=== PATIENT | male | born 1965 | race Caucasian/White ===

== ENCOUNTER 2023-10-12 15:36 | Inpatient (IN) | payer BC, SELFPAY ==
[2023-10-12] VITALS (44 sets, daily range): BP systolic 98–150; BP diastolic 56–108; PULSE 71–107; RESP 7–27; TEMP 36.5–36.6; O2SAT 93–98; BMI 27.9; BMI 27.8
--- NOTE | 2023-10-12 15:46 | XR_ITS ---
The [address] [address] Patient Name: TARA SANTANA MRN: [id number] date: 1965 Sex: M Assigned Patient Location: ER Current Patient Location: ER Accession/Order Number: [id number] Exam Date: 10/12/2023 16:30 Report Date: 10/12/2023 16:53 At the request of: IVON COWART Procedure: XR chest 1V EXAM: XR chest 1V HISTORY: Chest pain COMPARISON: Chest radiograph from 04/28/2020. FINDINGS: 1 view(s) of the chest. Persistent ill-defined opacification of the medial right lower lung. Given its persistence of across the course of multiple prior exams, this may represent prominent pericardial fat and is likely within normal limits. No focal consolidation or pleural effusion. There is no pneumothorax. The cardiomediastinal silhouette is normal given the AP technique. XR/XR chest 1V IMPRESSION: No acute cardiac pulmonary abnormality. Electronically authenticated by: JON HOYOS Date: 10/12/2023 16:53
--- NOTE | 2023-10-12 15:46 | ECG_ITS ---
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
[2023-10-12 16:19] LABS: Basophils Absolute Auto 0.1 10^3/uL (0.0-0.1); Basophils Percent Auto 0.7 % (0.2-2.0); Eosinophils Absolute Auto 0.1 10^3/uL (0.0-0.7); Eosinophils Percent Auto 1.1 % (0.9-7.0); Hematocrit 49.5 % (42.0-54.0); Hemoglobin 17.4 g/dL (14.0-18.0); Immature Granulocytes Abs Auto 0.04 10^3/uL (0.00-0.03); Immature Granulocytes Pct Auto 0.4 % (0.0-0.5); Lymphocytes Absolute Auto 3.1 10^3/uL (1.2-3.8); Lymphocytes Percent Auto 27.3 % (20.5-60.0); Mean Corpuscular HGB Conc 35.2 g/dL (29.9-35.2); Mean Corpuscular Hemoglobin 32.4 pg (25.9-34.0); Mean Corpuscular Volume 92.2 fL (80.0-94.0); Mean Platelet Volume 10.3 fL (9.5-13.5); Monocytes Percent Auto 8.5 % (1.7-12.0); Platelet Count 247 10^3/uL (150-450); Red Blood Count 5.37 10^6/uL (4.70-6.10); Red Cell Distribution Width 13.2 % (11.0-15.0); White Blood Count 11.4 10^3/uL (4.0-11.0)
[2023-10-12] MEDS: ASPIRIN 81 MG TAB.CHEW 162 MG PO (16:27)
[2023-10-12] MEDS: ONDANSETRON PF 4 MG/2 ML VIAL IV (16:27)
[2023-10-12] MEDS: NITROGLYCERIN 0.4 MG BOTTLE PO (16:27)
[2023-10-12 16:33] LABS: Alanine Aminotransferase 48 U/L (16-63); Albumin Level 4.2 g/dL (3.4-5.0); Alkaline Phosphatase 114 U/L (46-116); Anion Gap 15.4; Aspartate Amino Transferase 26 U/L (15-37); BUN Creatinine Ratio 17.6; Bilirubin Total 0.6 mg/dL (0.2-1.0); Calcium 9.9 mg/dL (8.5-10.1); Carbon Dioxide 26.6 mmol/L (21.0-32.0); Chloride 100 mmol/L (98-107); Estimated GFR (African America >60 (>=60); Estimated GFR (Non-African Ame >60 (>=60); Glucose 108 mg/dL (74-106); Sodium 138 mmol/L (136-145); Total Protein 8.2 g/dL (6.4-8.2)
[2023-10-12 16:39] LABS: Troponin I High Sensitivity 22.4 pg/mL (4.0-76.1)
[2023-10-12 16:49] LABS: Partial Thromboplastin Time 33.4 sec (22.3-36.2); Prothrombin Time 9.6 sec (9.0-11.6)
[2023-10-12 16:51] LABS: INR <0.93
[2023-10-12] MEDS: MORPHINE SULFATE 4 MG/ML VIAL IV (17:14)
[2023-10-12 18:49] LABS: Troponin I High Sensitivity 35.5 pg/mL (4.0-76.1)
--- NOTE | 2023-10-12 19:19 | ED.CHESTPAI1 ---
HPI - Chest Pain General Chief Complaint: Chest Pain Stated Complaint: CHEST PAIN Time Seen by Provider: 10/12/23 15:46 Source: patient Mode of arrival: Wheelchair Limitations: no limitations History of Present Illness HPI narrative: Patient is a 58-year-old male who presents to the emergency department for the evaluation of chest pain in the left anterior chest that began this morning. He states the pain radiates to the left arm. He has a history of coronary artery disease, CT x 1 in 2020 with 1 stent placed. He states his symptoms today are similar. He is a 1 pack/day cigarette smoker. He states he no longer takes his medications for high blood pressure and high cholesterol because he lost his job. He has minimal shortness of breath, no fevers, cough or congestion. He takes an 81 mg aspirin daily. No other anticoagulation. Related Data Home Medications Medication Instructions Recorded Confirmed No Known Home Medications 10/12/23 10/12/23 Allergies Allergy/AdvReac Type Severity Reaction Status Date / Time No Known Drug Allergies Allergy Verified 10/12/23 15:43 Review of Systems ROS Constitutional Denies: fever or chills Ears, nose, mouth, and throat Denies: throat pain or nasal congestion Cardiovascular Reports: chest pain Respiratory Reports: shortness of breath; Denies: cough Gastrointestinal Denies: abdominal pain, nausea or vomiting Genitourinary Denies: painful urination Musculoskeletal Denies: back pain or neck pain Integumentary/Breast Denies: rash Neurological Denies: headache PFSH PFS Social History Smoking status: Current every day smoker Exam Narrative Exam Narrative: Gen.: Awake, alert, in no distress Head: Normocephalic, atraumatic ENT: Moist mucous membranes Respiratory: No respiratory distress, lungs clear bilaterally Cardio: Regular rate and rhythm Gastrointestinal: Abdomen is soft, nondistended and nontender to palpation Extremities: Moves extremities equally, no pedal edema Psych: Normal mood and affect Neuro: No focal neuro deficit Skin: Warm, dry, intact Constitutional Vital Signs, click to edit/add: Last Vital Signs Temp 97.9 F 10/12/23 15:39 Pulse 97 H 10/12/23 17:40 Resp 17 10/12/23 17:40 BP 150/108 H 10/12/23 16:31 Pulse Ox 96 10/12/23 17:40 O2 Del Method Room Air 10/12/23 15:39 Course Vital Signs Vital signs: Vital Signs Temperature 97.9 F 10/12/23 15:39 Pulse Rate 99 H 10/12/23 15:39 Respiratory Rate 18 10/12/23 15:39 Blood Pressure 148/108 H 10/12/23 15:39 Pulse Oximetry 97 10/12/23 15:39 Oxygen Delivery Method Room Air 10/12/23 15:39 Temperature 97.9 F 10/12/23 15:39 Pulse Rate 97 H 10/12/23 17:40 Respiratory Rate 17 10/12/23 17:40 Blood Pressure 150/108 H 10/12/23 16:31 Pulse Oximetry 96 10/12/23 17:40 Oxygen Delivery Method Room Air 10/12/23 15:39 MDM - Chest Pain MDM Narrative Medical decision making narrative: Patient treated with aspirin, 1 sublingual nitroglycerin, morphine, Zofran. He had complete resolution of pain. Vital signs are stable in the ER, no EKG changes noted. Repeat troponin is also within normal limits. Based on the patient's medical history, noncompliance historically and coronary artery disease, we will admit for observation for chest pain rule out. Admitted to the hospitalist to stepdown. Medical Records Data Attestation: I reviewed the patient's medical records. Lab Data Attestation: I reviewed the patient's lab results. Labs: Lab Results 10/12/23 10/12/23 Range/Units 16:05 18:12 WBC 11.4 H (4.0-11.0) 10^3/uL RBC 5.37 (4.70-6.10) 10^6/uL Hgb 17.4 (14.0-18.0) g/dL Hct 49.5 (42.0-54.0) % MCV 92.2 (80.0-94.0) fL MCH 32.4 (25.9-34.0) pg MCHC 35.2 (29.9-35.2) g/dL RDW 13.2 (11.0-15.0) % Plt Count 247 (150-450) 10^3/uL MPV 10.3 (9.5-13.5) fL Neut % (Auto) 62.0 (43.0-75.0) % Lymph % (Auto) 27.3 (20.5-60.0) % [place] % (Auto) 8.5 (1.7-12.0) % Eos % (Auto) 1.1 (0.9-7.0) % Baso % (Auto) 0.7 (0.2-2.0) % Neut # (Auto) 7.0 H (1.4-6.5) 10^3/uL Lymph # (Auto) 3.1 (1.2-3.8) 10^3/uL [place] # (Auto) 1.0 H (0.3-0.8) 10^3/uL Eos # (Auto) 0.1 (0.0-0.7) 10^3/uL Baso # (Auto) 0.1 (0.0-0.1) 10^3/uL Abs Immat Gran (auto) 0.04 H (0.00-0.03) 10^3/uL Imm/Tot Granulo (auto) 0.4 (0.0-0.5) % PT 9.6 (9.0-11.6) sec INR <0.93 APTT 33.4 (22.3-36.2) sec Sodium 138 (136-145) mmol/L Potassium 4.0 (3.5-5.1) mmol/L Chloride 100 (98-107) mmol/L Carbon Dioxide 26.6 (21.0-32.0) mmol/L Anion Gap 15.4 BUN 18.0 (7.0-18.0) mg/dL Creatinine 1.02 (0.70-1.30) mg/dL Est GFR ( Amer) >60 (>=60) Est GFR (Non-Af Amer) >60 (>=60) BUN/Creatinine Ratio 17.6 Glucose 108 H (74-106) mg/dL Calcium 9.9 (8.5-10.1) mg/dL Total Bilirubin 0.6 (0.2-1.0) mg/dL AST 26 (15-37) U/L ALT 48 (16-63) U/L Alkaline Phosphatase 114 (46-116) U/L Troponin I High Sens 22.4 35.5 (4.0-76.1) pg/mL NT-Pro-B Natriuret Pep 59.0 (<=900.0) pg/mL Total Protein 8.2 (6.4-8.2) g/dL Albumin 4.2 (3.4-5.0) g/dL Globulin 4.0 g/dL Albumin/Globulin Ratio 1.0 Imaging Data Chest x-ray: Attestation: I have reviewed the pertinent imaging results. ECG Data Attestation: I personally reviewed and interpreted this ECG as follows: (Sinus tachycardia at a rate of 102, ST depression with no acute ST elevation, no ectopy. EKG reviewed by attending physician) ECG interpretation date: 10/12/23 ECG interpretation time: 19:25 Heart Score History: Moderately Suspicious ECG: NS Repolarization Age: >45-<65 years Risk Factors: >3 Risk Factors/ HX of CAD:2 Troponin: <Normal Limit Total Heart Score Recommendations & Risks:: 5 Discharge Plan Discharge Chief Complaint: Chest Pain Patient Disposition: Admitted as Observation Time of Disposition Decision: 19:20 Prescriptions / Home Meds: No Action No Known Home Medications Referrals: Physician,Non-Staff, MD [Primary Care Provider] - 1 week
--- NOTE | 2023-10-12 21:49 | CA_ITS ---
Patient Name: TARA SANTANA MR#: [id number] : 1965 Exam Date: 10/13/2023 Ordering Doctor: Kassi Shaffer ECHOCARDIOGRAM REPORT PROCEDURE: CA ECHO DOPPLER COMPLETE INDICATIONS: chest pain, look for wall motion abnormalities COMPARISON: None. DESCRIPTION: COMPLETE ECHOCARDIOGRAM Real-time transthoracic echocardiography with 2D, M-mode, spectral and color flow Doppler performed. QUALITY: Technical quality was good. LEFT VENTRICLE: Normal chamber size. Normal left ventricular wall thickness. Global left ventricular systolic function is mildly decreased. There is global hypokinesis. LV EF: Visual estimation of left ventricular ejection fraction is 45-50% DIASTOLIC: ATRIAL SEPTUM: LEFT ATRIUM: Normal chamber size. RIGHT ATRIUM: Mild dilatation. RIGHT VENTRICLE: Mild dilatation. Mildly reduced right ventricular systolic function. TRICUSPID VALVE: Normal mobility and thickness. No stenosis with mild regurgitation. No evidence of pulmonary hypertension. RVSP 27 mmHg MITRAL VALVE: Normal mobility and thickness. No evidence of mitral valve stenosis. There is no mitral annular calcification. Trivial mitral regurgitation. AORTIC VALVE: Normal trileaflet appearance. Mildly calcified aortic valve. Normal leaflet mobility. No evidence of aortic valve stenosis. No aortic regurgitation. AORTIC ROOT: Normal diameter and appearance. PULMONIC VALVE: Normal thickness and mobility. No stenosis. Trivial regurgitation. PERICARDIUM: No evidence of pericardial effusion. IVC: Collapses with inspirations. Normal size. PLEURA: CONCLUSION: 1. Left ventricular systolic function is mildly reduced with global hypokinesis. LVEF is estimated at 45 to 50%. 2. Mildly dilated right ventricle with mildly reduced systolic function. 3. Mild tricuspid regurgitation. 4. Normal right-sided pressures. 5. No pericardial effusion. Adult Echocardiography Procedure Report Left Ventricle LVEDD (3.7 - 5.6 cm): 4.93 cm LVESD (2.2 - 4.0 cm): 3.79 cm LVIVS thickness (0.6 - 1.2 cm): 0.90 cm LVPW thickness (0.5 - 1.0 cm): 0.90 cm e': 0.10 m/s E - e': 6.67 LVOT Max Gradient: 1.73 mm[Hg] LVOT Area (cm2): 0.66 m/s Peak Velocity (LVOT): 0.66 m/s Mean Velocity (LVOT): 0.41 m/s LVOT Diameter 2.06 cm Left Ventricular Ejection Fraction: 45-50 % Left Atrium LA Volume Index (2D A2C): 25.98 ml/m2 Left Atrium Systolic Dimension: 3.33 cm Mitral Valve MV E to A Ratio: 1.12 Mitral Valve A-Wave Peak Velocity: 0.59 m/s Mitral Valve E-Wave Peak Velocity: 0.66 m/s Right Ventricle RV Internal Diastolic Dimension: 4.17 cm Aorta AO Root Diam: 3.10 cm Ascending Ao Diam: 2.60 cm Aortic Valve AoV Area (Peak Mika): 1.62 cm2, 1.62 cm2 AoV Area (VTI): 1.72 cm2, 1.72 cm2 Peak Velocity(Antegrade Flow): 1.36 m/s Peak Gradient(Antegrade Flow): 7.40 mm[Hg] Mean Velocity(Antegrade Flow): 0.91 m/s Mean Gradient(Antegrade Flow): 3.91 mm[Hg] Velocity Time Integral: 25.20 cm Tricuspid Valve Peak Velocity (Regurgitant Flow): 2.00 m/s, 1.88 m/s, 2.47 m/s Pulmonic Valve Mean Gradient: 1.54 mm[Hg], 1.44 mm[Hg], 1.43 mm[Hg] Mean Velocity: 0.59 m/s, 0.57 m/s, 0.57 m/s Peak Velocity: 0.79 m/s Peak Gradient: 2.50 mm[Hg], 2.66 mm[Hg], 2.31 mm[Hg] Right Atrium Right Atrium Systolic Pressure: 72.25 ml, 72.25 ml Dictated by: Erick Fuentes M.D. on 10/13/2023 at 19:41 Approved by: Erick Fuentes M.D. on 10/13/2023 at 19:45
--- NOTE | 2023-10-12 22:11 | W.PM.TELEPN ---
Progress Note: Subjective Subjective Interval history: The patient is a 58-year-old male with a history of CAD status post stent, who was previously on blood pressure and cholesterol medications but has not taken it in over a year since he lost his job and has had to change insurance is. He continues to smoke a pack per day. Today he was in his usual state of health until earlier when he started having left anterior chest wall pain radiating to his left arm which was 7 and 10 in intensity, similar to his prior episodes. He denies any new medications. He did not take any medications to make the pain go away. He denies any heavy lifting. He presented to the ED and his initial blood pressure was 150/100. He was given 1 nitroglycerin, morphine and 2 aspirin. He is being admitted for chest pain evaluation. Exam Narrative Exam Narrative: General : Alert and oriented x3 HEENT : Extraocular movements intact, pupils equal round and reactive to light and accommodation Neck: Supple, no JVD Chest: Clear to auscultation bilaterally, no wheezes Heart: Regular rate and rhythm, S1 and S2 heard Abdomen: Soft nontender nondistended. Extremities: No clubbing cyanosis or edema Neurologically: Moving all 4 extremities Skin: No rashes Constitutional Vital Signs, click to edit/add: Last Vital Signs Temp 97.7 F 10/12/23 20:19 Pulse 79 10/12/23 20:30 Resp 16 10/12/23 20:28 BP 113/73 10/12/23 20:28 Pulse Ox 96 10/12/23 20:28 O2 Del Method Room Air 10/12/23 20:19 Progress Note: Objective Labs Labs: Short CBC 10/12/23 Range/Units 16:05 WBC 11.4 H (4.0-11.0) 10^3/uL Hgb 17.4 (14.0-18.0) g/dL Hct 49.5 (42.0-54.0) % Plt Count 247 (150-450) 10^3/uL BMP 10/12/23 16:05 Sodium 138 Potassium 4.0 Chloride 100 Carbon Dioxide 26.6 BUN 18.0 Creatinine 1.02 Glucose 108 H Calcium 9.9 Liver Function 10/12/23 Range/Units 16:05 Total Bilirubin 0.6 (0.2-1.0) mg/dL AST 26 (15-37) U/L ALT 48 (16-63) U/L Alkaline Phosphatase 114 (46-116) U/L Albumin 4.2 (3.4-5.0) g/dL Progress Note: A&P Assessment and Plan (1) Chest pain: Plan The patient is a 58-year-old male presenting with atypical chest pain. Atypical chest pain -Provide supportive care -Continue to cycle cardiac enzymes -Likely from effects of uncontrolled hypertension -Continue daily aspirin -Nitroglycerin and morphine as needed -Check lipid panel -Check urine drug screen -Continue on telemetry -Check echocardiogram to look for wall motion abnormalities -Outpatient stress test Uncontrolled hypertension -Start hydralazine IV as needed -May need to start scheduled outpatient regimen, pending what he is able to afford Nicotine dependence -Provide nicotine patch DVT Prophylaxis -Lovenox, SCDs Medication review -Medication reconciliation form completed Goals of care -Full code Communications -Discussed with the emergency room physician -Discussed with the bedside nurse -Patient updated of plan of care, all questions answered to their satisfaction Disposition -Home when medically stable -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 -I reviewed the patient's chart and had a discussion with the member of the patient's treatment team. -The patient and I mutually agreed with continuation of this evaluation via telemedicine. The patient consented for the telemedicine evaluation. -This virtual encounter was taken place from [place], [place]. The encounter was approximately 35 minutes. The nurse was present during the entire time of the encounter and was able to remove the stethoscope and appropriate directions. The patient was evaluated at [facility] Telemedicine Attestation Telemedicine Attestation I conducted this encounter from [] via secure live, [id number] video conference with the patient, located at [facility] with []. Prior to the interview, the risks and benefits of telemedicine were discussed with the patient and verbal consent was obtained.
[2023-10-12] MEDS: ASPIRIN 81 MG TAB.CHEW PO (22:40)
[2023-10-12] MEDS: ENOXAPARIN SODIUM 40 MG/0.4 ML SYRINGE SUBQ (22:40)
[2023-10-12 22:53] LABS: Troponin I High Sensitivity 774.8 pg/mL (4.0-76.1)
[2023-10-13] VITALS (40 sets, daily range): BP systolic 104–124; BP diastolic 71–83; PULSE 64–104; RESP 6–30; TEMP 36.2–36.7; O2SAT 93–100
[2023-10-13] MEDS: HEPARIN SODIUM,PORCINE/D5W 25,000 UNIT/500 ML IV.SOLN 17 UNIT IV (01:27)
[2023-10-13] MEDS: HEPARIN SODIUM (PORCINE) 5,000 UNIT/ML VIAL 4000 UNIT IV (01:27)
[2023-10-13 04:47] LABS: Basophils Absolute Auto 0.1 10^3/uL (0.0-0.1); Basophils Percent Auto 0.5 % (0.2-2.0); Eosinophils Absolute Auto 0.2 10^3/uL (0.0-0.7); Eosinophils Percent Auto 1.3 % (0.9-7.0); Hematocrit 47.8 % (42.0-54.0); Hemoglobin 15.9 g/dL (14.0-18.0); Immature Granulocytes Abs Auto 0.05 10^3/uL (0.00-0.03); Immature Granulocytes Pct Auto 0.4 % (0.0-0.5); Lymphocytes Absolute Auto 3.2 10^3/uL (1.2-3.8); Lymphocytes Percent Auto 28.1 % (20.5-60.0); Mean Corpuscular HGB Conc 33.3 g/dL (29.9-35.2); Mean Corpuscular Hemoglobin 31.2 pg (25.9-34.0); Mean Corpuscular Volume 93.9 fL (80.0-94.0); Mean Platelet Volume 10.8 fL (9.5-13.5); Monocytes Absolute Auto 0.8 10^3/uL (0.3-0.8); Monocytes Percent Auto 7.3 % (1.7-12.0); Neutrophils Absolute Auto 7.1 10^3/uL (1.4-6.5); Neutrophils Percent Auto 62.4 % (43.0-75.0); Platelet Count 232 10^3/uL (150-450); Red Blood Count 5.09 10^6/uL (4.70-6.10); Red Cell Distribution Width 13.2 % (11.0-15.0); White Blood Count 11.4 10^3/uL (4.0-11.0)
[2023-10-13 04:49] LABS: Anion Gap 11.8; BUN Creatinine Ratio 16.3; Calcium 9.1 mg/dL (8.5-10.1); Chloride 103 mmol/L (98-107); Estimated GFR (African America >60 (>=60); Estimated GFR (Non-African Ame >60 (>=60); Glucose 98 mg/dL (74-106); Potassium 3.8 mmol/L (3.5-5.1); Sodium 138 mmol/L (136-145)
[2023-10-13 04:58] LABS: Chol HDL Ratio 8.2; Cholesterol 270 mg/dL (<=200); HDL Cholesterol 33 mg/dL (40-60); Triglycerides 292 mg/dL (<=150); VLDL CHOLESTEROL 58.4 mg/dL
[2023-10-13 05:18] LABS: Troponin I High Sensitivity 950.5 pg/mL (4.0-76.1)
[2023-10-13 07:59] LABS: PTT Heparin Monitor 47.2 sec (48.2-68.6)
[2023-10-13] MEDS: ASPIRIN 81 MG TAB.CHEW PO (08:17)
[2023-10-13] MEDS: METOPROLOL TARTRATE 50 MG TABLET PO (08:17)
--- NOTE | 2023-10-13 10:10 | CM.NOTE ---
Rounding with Dr. Garcia, and his plan is to set up transfer to [facility] for cardiology.
--- NOTE | 2023-10-13 11:43 | P.HP_ITS ---
H&P: HPI History of Present Illness Chief complaint: Chest pain Narrative: 58 y/o male with history of CAD and stent placed in 2019 to ER with chest pain. Lost insurance and no medication for several months other than aspirin daily. Continues to smoke 1 PPD. Developed pain in left mid chest. Pain up towards neck and arm. C/o squeezing and heaviness. Mild SOB. To ER due to continued pain. Given NTG and aspirin and pain resolved. Initial BP 150/100 and given IV medication. Troponin negative x 2 and admitted. No pain since admission. Repeat troponin elevated at 754 and started heparin drip. Troponin continues to elevate and pain free. Review of Systems ROS Constitutional Denies: fever, chills or fatigue Cardiovascular Reports: chest pain; Denies: palpitations, edema or lightheadedness Respiratory Denies: shortness of breath, cough or wheezing Gastrointestinal Denies: abdominal pain, nausea, vomiting or diarrhea Genitourinary Denies: painful urination PFSH PFS Medical History (Updated 10/13/23 @ 13:31 by Warren Garcia MD) Chest pain ?R07.9 - Chest pain, unspecified (ICD-10) Hyperlipidemia ?E78.5 - Hyperlipidemia, unspecified (ICD-10) Myocardial infarction (~04/2020) ?I21.9 - Acute myocardial infarction, unspecified (ICD-10) Surgical History (Updated 10/12/23 @ 21:06 by Jamar Cannon) H/O arthroscopic knee surgery ?Z98.890 - Other specified postprocedural states (ICD-10) History of appendectomy (~1974) ?Z90.49 - Acquired absence of other specified parts of digestive tract (ICD- 10) History of elbow surgery ?Z98.890 - Other specified postprocedural states (ICD-10) History of foot surgery (~1989) ?Z98.890 - Other specified postprocedural states (ICD-10) History of heart artery stent (~04/2020) ?Z95.5 - Presence of coronary angioplasty implant and graft (ICD-10) History of tonsillectomy ?Z90.89 - Acquired absence of other organs (ICD-10) Social History (Updated 10/12/23 @ 21:09 by Jamar Cannon) Within the past year, how often did you have a drink containing alcohol: never Score interpretation: A score less than 4 is consistent with normal alcohol consumption. 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 Known occupational exposures/hazards: No Highest level of school completed/degree received: high school graduate Do you want help with school or training: No Are you now , , , , never or living with a partner: living with partner In a typical week, how many times do you talk on the telephone with family, friends, or neighbors: 3 or more times per week How often do you get together with friends or relatives: 3 or more times per week Little interest or pleasure in doing things: not at all Feeling down, depressed, or hopeless: not at all Feel stressed/tense/nervous/anxious/difficulty sleeping: not at all Do you think of yourself as: straight/heterosexual Gender Identity: male Meds Home Medications and Allergies Home Medications Medication Instructions Recorded Confirmed Type aspirin 81 mg tablet,delayed 81 mg PO DAILY 10/12/23 10/12/23 History release (Adult Low Dose Aspirin) Allergies Allergy/AdvReac Type Severity Reaction Status Date / Time No Known Drug Allergies Allergy Verified 10/12/23 15:43 Exam Constitutional Vital Signs, click to edit/add: Last Vital Signs Temp 97.8 F 10/13/23 08:04 Pulse 69 10/13/23 11:00 Resp 6 L 10/13/23 11:00 BP 120/78 10/13/23 07:39 Pulse Ox 99 10/13/23 06:00 O2 Del Method Room Air 10/13/23 08:04 Documenting provider has reviewed patient's vital signs: yes Common normals: no apparent distress, oriented x3 and alert HENMT Common normals: normocephalic Respiratory Common normals: normal respiratory effort and clear to auscultation bilaterally Cardio Common normals: regular rate, no gallops, no murmurs and no rub GI Common normals: Normal to inspection, nondistended, normoactive bowel sounds present and non-tender Extremity Common normals: no pedal edema Results Labs Labs: Short CBC 10/12/23 10/13/23 Range/Units 16:05 04:02 WBC 11.4 H 11.4 H (4.0-11.0) 10^3/uL Hgb 17.4 15.9 (14.0-18.0) g/dL Hct 49.5 47.8 (42.0-54.0) % Plt Count 247 232 (150-450) 10^3/uL BMP 10/12/23 10/13/23 16:05 04:02 Sodium 138 138 Potassium 4.0 3.8 Chloride 100 103 Carbon Dioxide 26.6 27.0 BUN 18.0 14.0 Creatinine 1.02 0.86 Glucose 108 H 98 Calcium 9.9 9.1 Liver Function 10/12/23 Range/Units 16:05 Total Bilirubin 0.6 (0.2-1.0) mg/dL AST 26 (15-37) U/L ALT 48 (16-63) U/L Alkaline Phosphatase 114 (46-116) U/L Albumin 4.2 (3.4-5.0) g/dL Assessment and Plan Assessment and Plan (1) NSTEMI (non-ST elevated myocardial infarction): (2) Hypertensive urgency: (3) CAD (coronary artery disease): (4) Hypertension: (5) Tobacco user: (6) Dyslipidemia: Plan Presented with CP and having NSTEMI with troponins elevating. Prior stent and no medication for months other than aspirin. BP uncontrolled and hypertensive urgency contributing to NSTEMI. Continue heparin drip. Discussed with cardiology and felt needs transferred for heart cath. Contacted [facility] where patient had stent placed and patient accepted for transfer. Patient transferred in stable condition.
[2023-10-13 12:27] LABS: Troponin I High Sensitivity 509.5 pg/mL (4.0-76.1)
[2023-10-13 14:17] LABS: PTT Heparin Monitor 46.3 sec (48.2-68.6)
== END 2023-10-13 17:30 | disposition short-term general hospital (02) | DRG 282 ==
LOC: ER 19:24 → ICU 20:18
PROVIDERS: Physician Assistant; Admitting Provider Internal Medicine; Emergency Provider Emergency Medicine; Visit Provider Family Medicine
DX: I21.4 Non-ST elevation (NSTEMI) myocardial infarction (principal); I25.10 Atherosclerotic heart disease of native coronary artery without angina pectoris; Z95.1 Presence of aortocoronary bypass graft; Z95.5 Presence of coronary angioplasty implant and graft; Z79.82 Long term (current) use of aspirin; F17.210 Nicotine dependence, cigarettes, uncomplicated; E78.5 Hyperlipidemia, unspecified; Z90.49 Acquired absence of other specified parts of digestive tract; I16.0 Hypertensive urgency; Z91.120 Patient's intentional underdosing of medication regimen due to financial hardship; I25.2 Old myocardial infarction; I10 Essential (primary) hypertension
CPT/HCPCS: 36415; 71045; 80048; 80053; 80061; 80307; 83880; 84484; 85025; 85610; 85730; 93005; 93306; 96372; 96374; 96375; 99285; G0378; Q3014

== ENCOUNTER 2024-04-04 10:05 | Inpatient (IN) | payer BC, SELFPAY ==
[2024-04-04] VITALS (30 sets, daily range): BP systolic 109–133; BP diastolic 68–89; PULSE 60–80; TEMP 36.6–36.7; O2SAT 90–99; BMI 27.8; BMI 26.0
--- NOTE | 2024-04-04 10:23 | ECG_ITS ---
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
--- NOTE | 2024-04-04 10:23 | XR_ITS ---
The [address] [address] Patient Name: TARA SANTANA MRN: [id number] date: 1965 Sex: M Assigned Patient Location: ER Current Patient Location: ER Accession/Order Number: [id number] Exam Date: 04/04/2024 10:35 Report Date: 04/04/2024 10:54 At the request of: JEMAL SALMERON Procedure: XR chest 2V EXAMINATION: XR chest 2V HISTORY: chest pain ; lower chest pain COMPARISON: No relevant comparison available. FINDINGS: LUNGS: Mild stranding within left lung base extending to the lateral wall. VASCULATURE: No increased pulmonary vasculature. PLEURA: No pneumothorax, effusion, or pleural thickening. CARDIAC: No cardiomegaly or cardiac silhouette abnormality. MEDIASTINUM: No visible mass or adenopathy. BONES: No fracture or visible bone lesion. OTHER: Negative. XR/XR chest 2V IMPRESSION: 1. Mild lingular infiltrates versus atelectasis; new since prior study. Electronically authenticated by: NAM ROMERO Date: 04/04/2024 10:54
--- OUTSIDE RECORDS SUMMARY | 2024-04-04 10:30 | XMS_ITS | CCD ---
Author Organization [facility] Care Team Providers Care [place] Name Role Phone ROSA ISELA LEONG Primary Care Unavailable PAY, ARNAUD Admitting Unavailable PAY, ARNAUD Attending Unavailable PAY, ARNAUD Consulting Unavailable Tomi Carrillo Consulting Unavailable HUSSAIN DIAZ Admitting Unavailable HUSSAIN DIAZ Attending Unavailable MISC, DOCTOR Primary Care Unavailable HUSSAIN DIAZ Consulting Unavailable RHIANNON CHRISTIANSON Consulting UnavailGIANNA Rogers Consulting Unavailable SHERRY QUIJANO Admitting Unavailable SHERRY QUIJANO Attending Unavailable SHERRY QUIJANO Consulting Unavailable Unknown, Referring Provider Unavailable Unav ailable Unavailable Unavailable NO FAMILY, PHYSICIAN Primary Care Provider Unava ilable SKINNY Munguia Attending Provider Shannan Munguia Unavailable NO FAMILY, PHYSICIAN Primary Care Provider Unava ilable MD Vasquez Mckinley Admit Provider MD Vasquez Mckinley Attending Provider Shannan Munguia Admitting Unavailable Shannan Munguia Attending Unavailable NO FAMILY, PHYSICIAN Primary Care Unavailable Michaela Gutierrez Consulting Unavailable Vasquez Mckinley Admitting Unavailable Vasquez Mckinley Attending Unavailable NO FAMILY, PHYSICIAN Primary Care Unavailable Blayne Ochoa Consulting Unavailable Rach Whitehead Consulting Unavailable Evelio Ragsdale Consulting Unavail able Sukhwinder Romano Consulting Unavailable Derek Ny Consulting Unavailab Sherry Stern Consulting Unavailable Agnes Ruiz Consulting Unavailable Joselyn Chong Consulting Unavailab Akash Spencer Consulting Unavailable Joyce Pierre Consulting Unavailable Nuvia Grayson Consulting Unavailable Unavailable Primary Care Provider Unavailabl e No Pcp, No Pcp Primary Care Provider Unavailabl e SHERRY CROWE Attending Unavailable MARY GRACE, EVELIO S Referring Unavailable MARY GRACE, EVELIO S Attending Unavailable SHERRY CROWE Referring Unavailable MARY GRACE, EVELIO S Referring Unavailable NO PCP, NO PCP Primary Care Unavailable MARY GRACE, EVELIO S Referring Unavailable NO PCP, NO PCP Primary Care Unavailable MARY GRACE, EVELIO S Referring Unavailable NO PCP, NO PCP Primary Care Unavailable MARY GRACE, EVELIO S Referring Unavailable NO PCP, NO PCP Primary Care Unavailable MARY GRACE, EVELIO S Referring Unavailable NO PCP, NO PCP Primary Care Unavailable MARY GRACE, EVELIO S Referring Unavailable NO PCP, NO PCP Primary Care Unavailable MARY GRACE, EVELIO S Referring Unavailable NO PCP, NO PCP Primary Care Unavailable MARY GRACE, EVELIO S Referring Unavailable NO PCP, NO PCP Primary Care Unavailable SHERRY DAVIS Referring Unavailable NO PCP, NO PCP Primary Care Unavailable MARY GRACE, EVELIO S Referring Unavailable NO PCP, NO PCP Primary Care Unavailable ANDRES CLARK Referring Unavailable NO PCP, NO PCP Primary Care Unavailable MARY GRACE, EVELIO S Referring Unavailable NO PCP, NO PCP Primary Care Unavailable MARY GRACE, EVELIO S Referring Unavailable NO PCP, NO PCP Primary Care Unavailable MARY GRACE, EVELIO S Referring Unavailable NO PCP, NO PCP Primary Care Unavailable MARY GRACE, EVELIO S Referring Unavailable NO PCP, NO PCP Primary Care Unavailable MARY GRACE, EVELIO S Referring Unavailable NO PCP, NO PCP Primary Care Unavailable MARY GRACE, EVELIO S Referring Unavailable NO PCP, NO PCP Primary Care Unavailable MARY GRACE, EVELIO S Referring Unavailable NO PCP, NO PCP Primary Care Unavailable MARY GRACE, EVELIO S Referring Unavailable NO PCP, NO PCP Primary Care Unavailable MARY GRACE, EVELIO S Referring Unavailable NO PCP, NO PCP Primary Care Unavailable MARY GRACE, EVELIO S Referring Unavailable NO PCP, NO PCP Primary Care Unavailable MARY GRACE, EVELIO S Referring Unavailable NO PCP, NO PCP Primary Care Unavailable MARY GRACE, EVELIO S Referring Unavailable NO PCP, NO PCP Primary Care Unavailable MARY GRACE, EVELIO S Referring Unavailable NO PCP, NO PCP Primary Care Unavailable MARY GRACE, EVELIO S Referring Unavailable NO PCP, NO PCP Primary Care Unavailable MARY GRACE, EVELIO S Referring Unavailable NO PCP, NO PCP Primary Care Unavailable MARY GRACE, EVELIO S Referring Unavailable NO PCP, NO PCP Primary Care Unavailable MARY GRACE, EVELIO S Referring Unavailable NO PCP, NO PCP Primary Care Unavailable MARY GRACE, EVELIO S Referring Unavailable NO PCP, NO PCP Primary Care Unavailable MARY GRACE, EVELIO S Referring Unavailable NO PCP, NO PCP Primary Care Unavailable MARY GRACE, EVELIO S Referring Unavailable NO PCP, NO PCP Primary Care Unavailable MARY GRACE, EVELIO S Referring Unavailable NO PCP, NO PCP Primary Care Unavailable MARY GRACE, EVELIO S Referring Unavailable NO PCP, NO PCP Primary Care Unavailable MARY GRACE, EVELIO S Referring Unavailable NO PCP, NO PCP Primary Care Unavailable MARY GRACE, EVELIO S Referring Unavailable NO PCP, NO PCP Primary Care Unavailable MARY GRACE, EVELIO S Referring Unavailable NO PCP, NO PCP Primary Care Unavailable MARY GRACE, EVELIO S Referring Unavailable NO PCP, NO PCP Primary Care Unavailable MARY GRACE, EVELIO S Referring Unavailable NO PCP, NO PCP Primary Care Unavailable MARY GRACE, EVELIO S Referring Unavailable NO PCP, NO PCP Primary Care Unavailable MARY GRACE, EVELIO S Referring Unavailable NO PCP, NO PCP Primary Care Unavailable MARY GRACE, EVELIO S Referring Unavailable NO PCP, NO PCP Primary Care Unavailable MARY GRACE, EVELIO S Referring Unavailable NO PCP, NO PCP Primary Care Unavailable MARY GRACE, EVELIO S Referring Unavailable NO PCP, NO PCP Primary Care Unavailable MARY GRACE, EVELIO S Referring Unavailable NO PCP, NO PCP Primary Care Unavailable MARY GRACE, EVELIO S Referring Unavailable NO PCP, NO PCP Primary Care Unavailable MARY GRACE, EVELIO S Referring Unavailable NO PCP, NO PCP Primary Care Unavailable MARY GRACE, EVELIO S Referring Unavailable NO PCP, NO PCP Primary Care Unavailable Medications Current Medications Medication Drug Class(es) Dates Sig (Normalized) Sig (Original) aspirin 81 mg delayed release oral tablet (5 sources) Platelet Aggregation Inhibitor, Nonsteroidal Anti-inflammatory Drug Start: 04-29-2020 take 1 tablet by mouth once daily Aspirin (Aspir-81) 81 mg Tablet,Delayed Release (Dr/Ec) Active 81 MG PO Daily April 28, 2020 11:00pm atorvastatin 80 mg oral tablet (8 sources) HMG-CoA Reductase Inhibitor Start: 04-30-2020 End: 02-29-2024 take 1 tablet by mouth once daily at bedtime atorvastatin (Lipitor) 80 mg tablet Indications: Coronary artery disease involving te-moak coronary artery of te-moak heart without angina pectoris , Mixed hyperlipidemia Take 1 tablet (80 mg) by mouth once daily at bedtime. 90 tablet 3 02/29/2024 Active clopidogrel 75 mg oral tablet (3 sources) P2Y12 Platelet Inhibitor Start: 10-15-2023 take 75 mg by mouth once daily Clopidogrel Active 75 MG PO Daily October 15, 2023 12:00am losartan potassium 25 mg oral tablet (3 sources) Angiotensin 2 Receptor Amanda Start: 10-15-2023 take 25 mg by mouth once daily in the morning Losartan Active 25 MG PO Every morning October 15, 2023 12:00am Low-Dose Aspirin (1 source) Low-Dose Aspirin Active metoprolol tartrate 25 mg oral tablet (8 sources) beta-Adrenergic Amanda Start: 04-30-2020 End: 02-29-2024 take 1 tablet by mouth twice daily metoprolol tartrate (Lopressor) 25 mg tablet Indications: Coronary artery disease involving te-moak coronary artery of te-moak heart without angina pectoris , Primary hypertension Take 1 tablet (25 mg) by mouth 2 times a day. 180 tablet 3 02/29/2024 Active nitroglycerin 0.4 mg sublingual tablet (5 sources) Nitrate Vasodilator Start: 11-24-2023 End: 11-23-2024 nitroglycerin (Nitrostat) 0.4 mg SL tablet Indications: NSTEMI (non-ST elevated myocardial infarction) (Multi) Place 1 tablet (0.4 mg) under the tongue every 5 minutes if needed for chest pain. May repeat dose every 5 minutes for up to 3 doses total. 100 tablet 11/24/2023 11/23/2024 Active Start: 10-15-2023 Nitroglycerin Active 0.4 MG SUBLINGUAL Q5M October 15, 2023 12:00am Start: 04-30-2020 End: 10-13-2023 Nitroglycerin Discontinued 0 .4 MG SUBLINGUAL Q5M April 29, 2020 11:00pm October 13, 2023 6:36pm Completed/Discontinued Medications Medication Drug Class(es) Dates Sig (Normalized) Sig (Original) fenofibrate 145 mg oral tablet (3 sources) Peroxisome Proliferator Receptor alpha Agonist Start: 05-23-2021 End: 11-24-2023 take 1 tablet by mouth once daily fenofibrate (Tricor) 145 mg tablet Take 1 tablet (145 mg) by mouth once daily. 0 05/23/2021 11/24/2023 Discontinued (Therapy completed) naproxen sodium 220 mg oral tablet (2 sources) Nonsteroidal Anti-inflammatory Drug Start: 04-29-2020 End: 04-30-2020 take 2 tablets by mouth once daily Naproxen Sodium (Aleve) 220 mg Tablet Discontinued 440 MG PO Daily April 28, 2020 11:00pm April 30, 2020 12:24pm ticagrelor 90 mg oral tablet (2 sources) Start: 04-30-2020 End: 10-13-2023 take 1 tablet by mouth twice daily Ticagrelor (Brilinta) 90 mg Tablet Discontinued 90 MG PO Twice daily 180 90 April 29, 2020 11:00pm October 13, 2023 6:36pm Problems Active Problems Problem Classification Problem Date Documented Date Episodic/Chronic Acute myocardial infarction (8 sources) Non-ST elevation (NSTEMI) myocardial infarction; Translations: [Myocardial infarction] Onset: 0 04-29-2020 Chronic Cancer; other and unspecified primary (2 sources) History of lipoma; Translations: [Personal history of other benign neoplasm] 04-29-2020 Episodic Chronic obstructive pulmonary disease and bronchiectasis (1 source) Chronic obstructive pulmonary disease, unspecified; Translations: [COPD UNSPECIFIED] Onset: 0 Chronic Coronary atherosclerosis and other heart disease (9 sources) Acute ischemic heart disease, unspecified; Translations: [Disorder of coronary artery] Onset: 0 11-24-2023 Chronic Disorders of lipid metabolism (13 sources) Hyperlipidemia, unspecified; Translations: [Hyperlipidemia] Onset: 0 11-24-2023 Chronic Disorders of lipid metabolism (1 source) Pure hypercholesterolemia, unspecified; Translations: [PURE HYPERCHOLESTEROLEMIA UNSPEC] Onset: 0 Essential hypertension (8 sources) Hypertensive disorder; Translations: [Unspecified essential hypertension] Onset: 3 11-24-2023 Chronic Other injuries and conditions due to external causes (1 source) Injury, unspecified, initial encounter Episodic Other nutritional; endocrine; and metabolic disorders (1 source) Overweight; Translations: [OVERWEIGHT] Onset: 0 Chronic Other nutritional; endocrine; and metabolic disorders (7 sources) Overweight in adulthood with body mass index of 25 or more but less than 30; Translations: [Overweight] Onset: 4 Resolved: 4 11-24-2023 Episodic Other nutritional; endocrine; and metabolic disorders (2 sources) Body mass index (BMI) 26.0-26.9, adult; Translations: [Body mass index (BMI) 26.0-26.9, adult] Onset: 4 Episodic Substance-related disorders (13 sources) Nicotine dependence, cigarettes, uncomplicated; Translations: [Smokes tobacco daily] Onset: 0 04-29-2020 Chronic Comment on above: 1/2 ppd; Superficial injury; contusion (2 sources) Contusion of left upper arm, initial encounter; Translations: [Contusion of left forearm, subsequent encounter] Episodic Unclassified (1 source) Unspecified injury of left forearm, initial encounter; Translations: [Unspecified injury of left forearm, initial encounter] Onset: 3 Past or Other Problems Problem Classification Problem Date Documented Da te Episodic/Chronic Nonspecific chest pain (5 sources) Chest pain, unspecified; Translations: [CHEST PAIN UNSPECIFIED] Onset: 04-28-2020 Episodic Other nutritional; endocrine; and metabolic disorders (3 sources) Body mass index (BMI) 27.0-27.9, adult; Translations: [BODY MASS INDEX BMI 27.0-27.9 ADULT] Onset: 08-27-2020 Episodic Residual codes; unclassified (1 source) Procedure and treatment not carried out because of patient's decision for other reasons; Translations: [PROC AND TX NOT CARRIED OUT PT OT RSN] Onset: 04-30-2020 Episodic Results Test Name Value Interpretation Reference Range Facility ALT No additional P-5'-P [Ca talytic activity/Vol]on 01-26-2024 ALT [Catalytic activity/Vol] 30 U/L Normal 0-40 [facility] Comment on above: Performed By: #### 1 744-2, 58100-8, 1920-06 #### [facility] ([id number]) [address], [address] [place] [address] Isma 01-26-2024 AST [Catalytic activity/Vol] 27 U/L Normal 0-41 [facility] Comment on above: Performed By: #### 1 744-2, 21903-2, 1920-06 #### [facility] ([id number]) [address] [address] [facility], [address] [place] [address] Lipid 1996 panelon 03-13-202 4 Cholesterol [Mass/Vol] 175 mg/dL Normal 150-200 [facility] Comment on above: Performed By: #### 1 744-2, 20208-2, 1920-06 #### [facility] ([id number]) [address], [address] [place] [address] Cholesterol in HDL [Mass/Vol] 38 mg/dL Low >39 [facility] Comment on above: Result Comment: HDL <40 mg/dL - High Risk HDL > or = 40mg/dL- Desirable HDL >60 mg/dL - Negative Risk Performed By: #### 1 744-2, 91448-2, 1920-06 #### [facility] ([id number]) [address], [address] [place] [address] Cholesterol in LDL [Mass/Vol] 90 mg/dL Normal <130 [facility] Comment on above: Result Comment: LDL <100 mg/dL - Desirable LDL >160 mg/dL - High Risk Performed By: #### 1 744-2, 05610-9, 1920-06 #### [facility] ([id number]) [address], [address] [place] [address] Cholesterol in VLDL [Mass/Vol] 47 mg/dL High 0-30 [facility] Comment on above: Performed By: #### 1 744-2, 41633-2, 1920-06 #### [facility] ([id number]) [address], [address] [place] [address] CHOLESTEROL:HDL 4.6 Normal 1.0-5.0 [facility] Comment on above: Performed By: #### 1 744-2, 31160-3, 1920-06 #### [facility] ([id number]) [address], [address] [place] [address] Triglyceride [Mass/Vol] 234 mg/dL High 27-150 [facility] Comment on above: Performed By: #### 1 744-2, 52909-4, 1920-06 #### [facility] ([id number]) [address], [address] [place] [address] Basic Metabolic Panelon 12-0 Anion gap [Moles/Vol] 11.2 mmol/L Normal 6.0-15.0 [facility] Comment on above: Performed By: #### H S TROP #### [facility] [address] Calcium [Mass/Vol] 9.3 mg/dL Normal 8.6-10.3 [facility] Comment on above: Performed By: #### H S TROP #### [facility] [address] [place] [address] [place] Chloride [Moles/Vol] 107 mmol/L Normal 98-107 [facility] Comment on above: Performed By: #### H S TROP #### [facility] [address] [place] [id number] [place] CO2 [Moles/Vol] 20.6 mmol/L Low 21.0-31.0 [facility] Comment on above: Performed By: #### H S TROP #### [facility] [address] [place] [id number] [place] Creatinine [Mass/Vol] 0.80 mg/dL Normal 0.70-1.[address] [facility] Comment on above: Performed By: #### H S TROP #### [facility] [address] [place] [address] [place] Creatinine Clr Calc Pharmacy 92.95 Normal [facility] Comment on above: Result Comment: PERF ORMED BY: [place] [address] PATHOLOGIST ENVIRONMENTAL LAW PROFESSOR JEFF LEMA M.D. Performed By: #### H S TROP #### [facility] [address] [place] [address] [place] GFR/1.73 sq M.predicted MDRD (S/P/Bld) [Vol rate/Area] mL/min/{1.73_m2} Normal [facility] Comment on above: Performed By: #### H S TROP #### [facility] [address] [place] [address] [place] Glucose [Mass/Vol] 79 mg/dL Normal 70-100 [facility] Comment on above: Result Comment: [facility] Glucose Reference Range is dependent on time and content of last meal. Glucose of more than 200 mg/dL in a nonstressed, ambulatory subject supports the diagnosis of Diabetes Mellitus. ADA recommended reference range Performed By: #### H S TROP #### [facility] [address] [place] [address] [place] Potassium [Moles/Vol] 3.8 mmol/L Normal 3.5-5.[address] [facility] Comment on above: Performed By: #### H S TROP #### [place] [address] [place] Sodium [Moles/Vol] 135 mmol/L Low 136-145 [facility] Comment on above: Performed By: #### H S TROP #### [place] [address] [place] Urea nitrogen [Mass/Vol] 22 mg/dL Normal 7-25 [facility] Comment on above: Performed By: #### H S TROP #### [place] [address] [place] Calcium [Mass/volume] in Ser um or PlasmaOrdered By: Blayne Ochoa on 10-15-2023 Calcium [Mass/Vol] 9.3 mg/dL 8.6-10.3 [facility] Carbon dioxide, total [Moles /volume] in Serum or PlasmaOrdered By: Blayne Ochoa on 10-15-2023 CO2 [Moles/Vol] 20.6 mmol/L 21.0-31.0 [facility] Chloride [Moles/volume] in S renata or PlasmaOrdered By: Blayne Ochoa on 10-15-2023 Chloride [Moles/Vol] 107 mmol/L 98-107 [facility] Creatinine [Mass/volume] in Serum or PlasmaOrdered By: Blayne Ochoa on 10-15-2023 Creatinine [Mass/Vol] 0.80 mg/dL 0.70-1.[address] [facility] Glucose [Mass/volume] in Ser um or PlasmaOrdered By: Blayne Ochoa on 10-15-2023 Glucose [Mass/Vol] 79 mg/dL 70-100 [facility] Comment on above: ADA recommended refe rence rangeRandom Glucose Reference Range is dependent on time and content of last meal. Glucose of more than 200 mg/dL in a nonstressed, ambulatory subject supports the diagnosis of Diabetes Mellitus. No Panel InformationOrdered By: Blayne Ochoa on 10-15-2023 Estimated GFR (CKD-EPI) > 60.0 mL/Min [facility] Creatinine Clearance (Chem 92.95 [facility] Potassium [Moles/volume] in Serum or PlasmaOrdered By: Blayne Ochoa on 10-15-2023 Potassium [Moles/Vol] 3.8 mmol/L 3.5-5.[address] [facility] Serum or plasma anion gap de terminationOrdered By: Blayne Ochoa on 10-15-2023 Anion gap [Moles/Vol] 11.2 mmol/L 6.0-15.0 [facility] Sodium [Moles/volume] in Ser um or PlasmaOrdered By: Blayne Ochoa on 10-15-2023 Sodium [Moles/Vol] 135 mmol/L 136-145 [facility] Troponin I High Sensitivityo n 10-15-2023 Troponin I High Sensitivity 118.4 pg/mL Off scale high 0.0-20.0 [facility] Comment on above: Result Comment: Crit ical Result : Called to and read back by: IFEOMA PINZON at: 10/14/2023 23:06:19 by:EMILIANO PERFORMED BY: [address] [place] [address] PATHOLOGIST ENVIRONMENTAL LAW PROFESSOR JEFF LEMA M.D. Performed By: #### H S TROP #### [facility] [address] Urea nitrogen [Mass/volume] in Serum or PlasmaOrdered By: Blayne Ochoa on 10-15-2023 Urea nitrogen [Mass/Vol] 22 mg/dL 06-08 [facility] A1C with Estimated Average Deven flanagan 10-14-2023 Glucose [Mass/Vol] 111 mg/dL Normal [facility] Comment on above: Result Comment: PERF ORMED BY: [facility] [address] [place] [address] PATHOLOGIST ENVIRONMENTAL LAW PROFESSOR JEFF LEMA M.D. Performed By: #### H S TROP #### [facility] [address] [place] [address] HbA1c (Bld) [Mass fraction] 5.5 % Normal 4.3-5.6 [facility] Comment on above: Result Comment: Incr eased risk for diabetes: 5.7 - 6.4 diabetes: >6.4 glycemic control for adults with diabetes: <7.0 Performed By: #### H S TROP #### [facility] [address] [place] [address] Activated partial thrombopla stin time (aPTT) in platelet poor plasma by coagulation aOrdered By: Vasquez Mckinley on 10-14-2023 aPTT Coag (PPP) [Time] 62.6 s 25.1-36.5 [facility] Comment on above: A hematocrit value g reater than 55% may lead to inaccurate results in coagulation testing. Patients having hematocrit values >55% require a special collection tube for coagulation studies. Please contact the laboratory at [phone] for redraw instructions. Alanine aminotransferase [En zymatic activity/volume] in Serum or PlasmaOrdered By: Vasquez Mckinley on 10-14-2023 ALT [Catalytic activity/Vol] 28 U/L [facility] Albumin [Mass/volume] in Ser um or Plasma by Bromocresol green (BCG) dye binding methoOrdered By: Vasquez Mckinley on 10-14-2023 Albumin BCG dye [Mass/Vol] 4.2 g/dL 3.5-5.7 [facility] Alkaline phosphatase [Enzyma tic activity/volume] in Serum or PlasmaOrdered By: Objeffrydabharath Osunaomar on 10-14-2023 ALP [Catalytic activity/Vol] 83 U/L 34-104 [facility] Aspartate aminotransferase [ Enzymatic activity/volume] in Serum or PlasmaOrdered By: Obaydah Daromar on 10-14-2023 AST [Catalytic activity/Vol] 23 U/L 13-39 [facility] B-Type Natriuretic Peptideon 10-14-2023 Natriuretic peptide B (Bld) [Mass/Vol] 51.0 pg/mL Normal 5-100 [facility] Comment on above: Result Comment: PERF ORMED BY: [place] [address] PATHOLOGIST ENVIRONMENTAL LAW PROFESSOR JEFF LEMA M.D. Performed By: #### H S TROP #### [address] Basophils Auto (Bld) [#/Vol] Ordered By: Obdeneen Osunaomar on 10-14-2023 Basophils (Bld) [#/Vol] 0.1 10*3/uL 0.0-0.2 [facility] Basophils/100 WBC Auto (Bld) Ordered By: Objeffrydah Enrriqueomar on 10-14-2023 Basophils/100 WBC (Bld) 1.1 % . [facility] Bilirubin.total [Mass/volume ] in Serum or PlasmaOrdered By: Objeffrydah Enrriqueomar on 10-14-2023 Bilirubin [Mass/Vol] 0.8 mg/dL 0.3-1.0 [facility] Cholesterol [Mass/volume] in Serum or PlasmaOrdered By: Objeffrydah Enrriqueomar on 10-14-2023 Cholesterol [Mass/Vol] 279 mg/dL 140-200 [facility] Comment on above: Chol less than 200 m g/dl low riskChol 201-239 mg/dl borderline riskChol 240 mg/dl and greater high risk Cholesterol in LDL Calc [Mas s/Vol]Ordered By: Objeffrydah Enrriqueomar on 10-14-2023 Cholesterol in LDL [Mass/Vol] 195 mg/dL 0-100 [facility] Comment on above: LDL ATP III CLASSIFI CATIONLDL less than 100 mg/dL OptimalLDL 100-129 mg/dL Near or above optimalLDL 130-159 mg/dL Borderline highLDL 160-189 mg/dL HighLDL greater than 189 mg/dL Very high Cholesterol in VLDL Calc [Ma ss/Vol]Ordered By: Vasquez Mckinley on 10-14-2023 Cholesterol in VLDL [Mass/Vol] 50 mg/dL [facility] Complete Blood Count Auto Di ffon 10-14-2023 Basophils (Bld) [#/Vol] 0.1 10*3/uL Normal 0.0-0.2 [facility] Comment on above: Result Comment: PERF ORMED BY: [place] [address] PATHOLOGIST ENVIRONMENTAL LAW PROFESSOR JEFF LEMA M.D. Performed By: #### L IPID, CMP, A1C WTH eA, CBC, MG #### [facility] [address] [place] [address] [place] Basophils/100 WBC (Bld) 1.1 % Normal . F [facility] Comment on above: Performed By: #### L IPID, CMP, A1C WTH eA, CBC, MG #### [facility] [address] [place] [address] [place] Eosinophils (Bld) [#/Vol] 0.1 10*3/uL Normal 0.0-0.45 [facility] Comment on above: Performed By: #### L IPID, CMP, A1C WTH eA, CBC, MG #### [facility] [address] [place] [address] [place] Eosinophils/100 WBC (Bld) 1.5 % Normal . [facility] Comment on above: Performed By: #### L IPID, CMP, A1C WTH eA, CBC, MG #### [facility] [address] [place] [address] [place] Erythrocyte distribution width (RBC) [Ratio] 13.7 % Normal 12.0-14.8 [facility] Comment on above: Performed By: #### L IPID, CMP, A1C WTH eA, CBC, MG #### [facility] [address] Hematocrit (Bld) [Volume fraction] 48.4 % Normal 38.8-50.0 [facility] Comment on above: Performed By: #### L IPID, CMP, A1C WTH eA, CBC, MG #### [facility] [address] Hemoglobin (Bld) [Mass/Vol] 16.6 g/dL Normal 13.0-17.0 [facility] Comment on above: Performed By: #### L IPID, CMP, A1C WTH eA, CBC, MG #### [address] Lymphocytes (Bld) [#/Vol] 2.9 10*3/uL Normal 1.00-4.8 [facility] Comment on above: Performed By: #### L IPID, CMP, A1C WTH eA, CBC, MG #### [address] Lymphocytes/100 WBC (Bld) 33.5 % Normal . [facility] Comment on above: Performed By: #### L IPID, CMP, A1C WTH eA, CBC, MG #### [address] MCH (RBC) [Entitic mass] 31.7 pg Normal 27.5-35.2 [facility] Comment on above: Performed By: #### L IPID, CMP, A1C WTH eA, CBC, MG #### [place] [address] [place] MCV (RBC) [Entitic vol] 92.6 fL Normal 83.5-101 [facility] Comment on above: Performed By: #### L IPID, CMP, A1C WTH eA, CBC, MG #### [address] Mean Corpuscular HGB Conc 34.2 g/dL Normal 32.5-35.6 [facility] Comment on above: Performed By: #### L IPID, CMP, A1C WTH eA, CBC, MG #### [facility] [address] [place] [address] [place] Monocytes (Bld) [#/Vol] 0.6 10*3/uL Normal 0.0-0.8 [facility] Comment on above: Performed By: #### L IPID, CMP, A1C WTH eA, CBC, MG #### [facility] [address] [place] [address] [place] Monocytes/100 WBC (Bld) 7.1 % Normal . [facility] Comment on above: Performed By: #### L IPID, CMP, A1C WTH eA, CBC, MG #### [facility] [address] [place] [address] [place] Neutrophils (Bld) [#/Vol] 5.0 10*3/uL Normal 1.8-7.7 [facility] Comment on above: Performed By: #### L IPID, CMP, A1C WTH eA, CBC, MG #### [facility] [address] [place] [address] [place] Neutrophils/100 WBC (Bld) 56.8 % Normal . [facility] Comment on above: Performed By: #### L IPID, CMP, A1C WTH eA, CBC, MG #### [facility] [address] [place] [address] [place] NRBC% 0.2 /100{WBC} Normal 0-0.5 [facility] Comment on above: Performed By: #### L IPID, CMP, A1C WTH eA, CBC, MG #### [facility] [address] [place] [address] [place] Platelet mean volume (Bld) [Entitic vol] 8.9 fL Normal 6.6-10.1 [facility] Comment on above: Performed By: #### L IPID, CMP, A1C WTH eA, CBC, MG #### [facility] [address] [place] [address] [place] Platelets (Bld) [#/Vol] 223 10*3/uL Normal 150-450 [facility] Comment on above: Performed By: #### L IPID, CMP, A1C WTH eA, CBC, MG #### [facility] [address] RBC (Bld) [#/Vol] 5.22 10*6/uL Normal 3.90-5.60 [facility] Comment on above: Performed By: #### L IPID, CMP, A1C WTH eA, CBC, MG #### [facility] [address] WBC (Bld) [#/Vol] 8.8 10*3/uL Normal 4.1-10.5 [facility] Comment on above: Performed By: #### L IPID, CMP, A1C WTH eA, CBC, MG #### [facility] [address] Comprehensive Metabolic Pane tere 10-14-2023 Albumin [Mass/Vol] 4.2 g/dL Normal 3.5-5.7 [facility] Comment on above: Performed By: #### L IPID, CMP, A1C WTH eA, CBC, MG #### [facility] [address] Albumin/Globulin [Mass ratio] 1.5 {ratio} Normal [facility] Comment on above: Performed By: #### L IPID, CMP, A1C WTH eA, CBC, MG #### [facility] [address] ALP [Catalytic activity/Vol] 83 U/L Normal 34-104 [facility] Comment on above: Performed By: #### L IPID, CMP, A1C WTH eA, CBC, MG #### [facility] [address] ALT [Catalytic activity/Vol] 28 U/L Normal 7-52 [facility] Comment on above: Performed By: #### L IPID, CMP, A1C WTH eA, CBC, MG #### [facility] [address] Anion gap [Moles/Vol] 10.8 mmol/L Normal 6.0-15.0 [facility] Comment on above: Performed By: #### L IPID, CMP, A1C WTH eA, CBC, MG #### [facility] [address] AST [Catalytic activity/Vol] 23 U/L Normal 13-39 [facility] Comment on above: Performed By: #### L IPID, CMP, A1C WTH eA, CBC, MG #### [facility] [address] Bilirubin [Mass/Vol] 0.8 mg/dL Normal 0.3-1.0 [facility] Comment on above: Performed By: #### L IPID, CMP, A1C WTH eA, CBC, MG #### [facility] [address] Calcium [Mass/Vol] 9.4 mg/dL Normal 8.6-10.3 [facility] Comment on above: Performed By: #### L IPID, CMP, A1C WTH eA, CBC, MG #### [facility] [address] Chloride [Moles/Vol] 106 mmol/L Normal 98-107 [facility] Comment on above: Performed By: #### L IPID, CMP, A1C WTH eA, CBC, MG #### [facility] [address] CO2 [Moles/Vol] 23.1 mmol/L Normal 21.0-31.0 [facility] Comment on above: Performed By: #### L IPID, CMP, A1C WTH eA, CBC, MG #### [facility] [address] [place] [address] [place] Creatinine [Mass/Vol] 0.73 mg/dL Normal 0.70-1.[address] [facility] Comment on above: Performed By: #### L IPID, CMP, A1C WTH eA, CBC, MG #### [facility] [address] [place] [address] [place] Creatinine Clr Calc Pharmacy 101.87 [facility] Comment on above: Performed By: #### L IPID, CMP, A1C WTH eA, CBC, MG #### [facility] [address] GFR/1.73 sq M.predicted MDRD (S/P/Bld) [Vol rate/Area] mL/min/{1.73_m2} Normal [facility] Comment on above: Performed By: #### L IPID, CMP, A1C WTH eA, CBC, MG #### [facility] [address] Globulin (S) [Mass/Vol] 2.8 g/dL Normal [facility] Comment on above: Performed By: #### L IPID, CMP, A1C WTH eA, CBC, MG #### [facility] [address] Glucose [Mass/Vol] 81 mg/dL Normal 70-100 [facility] Comment on above: Result Comment: [facility] Glucose Reference Range is dependent on time and content of last meal. Glucose of more than 200 mg/dL in a nonstressed, ambulatory subject supports the diagnosis of Diabetes Mellitus. ADA recommended reference range Performed By: #### L IPID, CMP, A1C WTH eA, CBC, MG #### [facility] [address] [place] [address] Potassium [Moles/Vol] 3.9 mmol/L Normal 3.5-5.[address] [facility] Comment on above: Performed By: #### L IPID, CMP, A1C WTH eA, CBC, MG #### [facility] [address] Protein [Mass/Vol] 7.0 g/dL Normal 6.4-8.9 [facility] Comment on above: Performed By: #### L IPID, CMP, A1C WTH eA, CBC, MG #### [address] Sodium [Moles/Vol] 136 mmol/L Normal 136-145 [facility] Comment on above: Performed By: #### L IPID, CMP, A1C WTH eA, CBC, MG #### [facility] [address] Urea nitrogen [Mass/Vol] 20 mg/dL Normal 7-25 [facility] Comment on above: Performed By: #### L IPID, CMP, A1C WTH eA, CBC, MG #### [facility] [address] Eosinophils Auto (Bld) [#/Vo l]Ordered By: Obdeneen Osunaomar on 10-14-2023 Eosinophils (Bld) [#/Vol] 0.1 10*3/uL 0.0-0.45 [facility] Eosinophils/100 WBC Auto (Bl d)Ordered By: Objeffrydabharath Osunaomar on 10-14-2023 Eosinophils/100 WBC (Bld) 1.5 % . [facility] Erythrocyte distribution wid th Auto (RBC) [Ratio]Ordered By: Vasquez Elizabethr on 10-14-2023 Erythrocyte distribution width (RBC) [Ratio] 13.7 % 12.0-14.8 [facility] Globulin Calc (S) [Mass/Vol] Ordered By: Vasquez Osunaomar on 10-14-2023 Globulin (S) [Mass/Vol] 2.8 g/dL [facility] Glucose mean value [Mass/vol ume] in Blood Estimated from glycated hemoglobinOrdered By: Vasquez Mckinley on 10-14-2023 Average glucose Estimated from glycated hemoglobin (Bld) [Mass/Vol] 111 mg/dL [facility] Hematocrit Auto (Bld) [Volum e fraction]Ordered By: Vasquez Mckinley on 10-14-2023 Hematocrit (Bld) [Volume fraction] 48.4 % 38.8-50.0 [facility] Hemoglobin A1c percentageOrd ered By: Vasquez Mckinley on 10-14-2023 HbA1c (Bld) [Mass fraction] 5.5 % 4.3-5.6 [facility] Comment on above: Increased risk for d iabetes: 5.7 - 6.4diabetes: >6.4glycemic control for adults with diabetes: <7.0 Hemoglobin [Mass/volume] in BloodOrdered By: Colbydabharath Elizabethr on 10-14-2023 Hemoglobin (Bld) [Mass/Vol] 16.6 g/dL 13.0-17.0 [facility] Leukocytes [#/volume] correc sean for nucleated erythrocytes in Blood by Automated counOrdered By: Vasquez Mckinley on 10-14-2023 WBC corrected for nucl RBC Auto (Bld) [#/Vol] 8.8 10*3/uL 4.1-10.5 [facility] Lipid Panelon 10-14-2023 Cholesterol [Mass/Vol] 279 mg/dL High 140-200 [facility] Comment on above: Result Comment: Chol less than 200 mg/dl low risk Chol 201-239 mg/dl borderline risk Chol 240 mg/dl and greater high risk Performed By: #### H S TROP #### [facility] [address] [place] [id number] [place] Cholesterol in HDL [Mass/Vol] 33 mg/dL Normal 23-92 [facility] Comment on above: Result Comment: HDL CHOL ATP-III CLASSIFICATION Cardiovascular Risk HDL > or equal to 60 mg/dL LOW HDL < 40 mg/dL HIGH Performed By: #### H S TROP #### [facility] [address] [place] [id number] [place] Cholesterol.total/Cynthia sterol in HDL [Mass ratio] 8.5 {ratio} Normal <5.0 [facility] Comment on above: Result Comment: PERF ORMED BY: [place] [address] PATHOLOGIST ENVIRONMENTAL LAW PROFESSOR JEFF LEMA M.D. Performed By: #### H S TROP #### [facility] [address] [place] [id number] [place] LDL Cholesterol,Calculated 195 mg/dL High 0-100 [facility] Comment on above: Result Comment: LDL ATP III CLASSIFICATION LDL less than 100 mg/dL Optimal LDL 100-129 mg/dL Near or above optimal LDL 130-159 mg/dL Borderline high LDL 160-189 mg/dL High LDL greater than 189 mg/dL Very high Performed By: #### H S TROP #### [facility] [address] [place] [id number] [place] Triglyceride w/Reflex 253 mg/dL High 0-[address] [facility] Comment on above: Result Comment: TRIG ATP III CLASSIFICATION TRIG less than 150 mg/dL Normal TRIG 150-199 mg/dL Borderline high TRIG 200-500 mg/dL High TRIG greater than 500 mg/dL Very high Standard traceable to the Center for Disease Conrtrol and Prevention (CDC) test method. Performed By: #### H S TROP #### [facility] [address] VLDL CHOLESTEROL 50 mg/dL Normal [facility] Comment on above: Performed By: #### H S TROP #### [facility] [address] Lymphocytes Auto (Bld) [#/Vo l]Ordered By: Objeffrydah Daromar on 10-14-2023 Lymphocytes (Bld) [#/Vol] 2.9 10*3/uL 1.00-4.8 [facility] Lymphocytes/100 WBC Auto (Bl d)Ordered By: Obaydah Daromar on 10-14-2023 Lymphocytes/100 WBC (Bld) 33.5 % . [facility] MCH Auto (RBC) [Entitic mass ]Ordered By: Objeffrydah Daromar on 10-14-2023 MCH (RBC) [Entitic mass] 31.7 pg 27.5-35.2 [facility] MCHC Auto (RBC) [Mass/Vol]Or dered By: Obaydah Daromar on 10-14-2023 MCHC (RBC) [Mass/Vol] 34.2 g/dL 32.5-35.[address] [facility] MCV Auto (RBC) [Entitic vol] Ordered By: Obaydah Daromar on 10-14-2023 MCV (RBC) [Entitic vol] 92.6 fL 83.5-101 [facility] Magnesiumon 10-14-2023 Magnesium [Mass/Vol] 2.6 mg/dL Normal 1.9-2.7 [facility] Comment on above: Performed By: #### L IPID, CMP, A1C WTH eA, CBC, MG #### [facility] [address] Magnesium [Mass/volume] in S renata or PlasmaOrdered By: Obdeneen Osunaomar on 10-14-2023 Magnesium [Mass/Vol] 2.6 mg/dL 1.9-2.7 [facility] Monocytes Auto (Bld) [#/Vol] Ordered By: Objeffrydabharath Osunaomar on 10-14-2023 Monocytes (Bld) [#/Vol] 0.6 10*3/uL 0.0-0.8 [facility] Monocytes/100 WBC Auto (Bld) Ordered By: Objeffrydah Enrriqueomar on 10-14-2023 Monocytes/100 WBC (Bld) 7.1 % . [facility] Natriuretic peptide B [Mass/ Vol]Ordered By: Objeffryda Enrriqueomar on 10-14-2023 Natriuretic peptide B (Bld) [Mass/Vol] 51.0 pg/mL 5-100 [facility] Neutrophils Auto (Bld) [#/Vo l]Ordered By: Objeffryda Daromar on 10-14-2023 Neutrophils (Bld) [#/Vol] 5.0 10*3/uL 1.8-7.7 [facility] Neutrophils/100 WBC Auto (Bl d)Ordered By: Objeffrydah Enrriqueomar on 10-14-2023 Neutrophils/100 WBC (Bld) 56.8 % . [facility] Nucleated erythrocytes [Pres ence] in Blood by Automated countOrdered By: deneen Elizabethr on 10-14-2023 Nucleated RBC Auto Ql (Bld) 0.2 /100{WBC} 0-0.5 [facility] Partial Thromboplastin Timeo n 10-14-2023 aPTT Coag (Bld) [Time] 62.6 s High 25.1-36.5 [facility] Comment on above: Result Comment: A he matocrit value greater than 55% may lead to inaccurate results in coagulation testing. Patients having hematocrit values >55% require a special collection tube for coagulation studies. Please contact the laboratory at [phone] for redraw instructions. PERFORMED BY: [facility] [place] [address] PATHOLOGIST ENVIRONMENTAL LAW PROFESSOR JEFF LEMA M.D. Performed By: #### P TT #### [facility] [address] [place] [address] aPTT Coag (Bld) [Time] 46.8 s High 25.1-36.5 [facility] Comment on above: Result Comment: A he matocrit value greater than 55% may lead to inaccurate results in coagulation testing. Patients having hematocrit values >55% require a special collection tube for coagulation studies. Please contact the laboratory at [phone] for redraw instructions. PERFORMED BY: [place] [address] PATHOLOGIST ENVIRONMENTAL LAW PROFESSOR JEFF LEMA M.D. Performed By: #### P TT #### [address] Platelet mean volume Auto (B ld) [Entitic vol]Ordered By: Obaydah Daromar on 10-14-2023 Platelet mean volume (Bld) [Entitic vol] 8.9 fL 6.6-10.1 [facility] Platelets Auto (Bld) [#/Vol] Ordered By: Obaydah Daromar on 10-14-2023 Platelets (Bld) [#/Vol] 223 10*3/uL 150-450 [facility] Protein [Mass/volume] in Ser um or PlasmaOrdered By: Obaydah Daromar on 10-14-2023 Protein [Mass/Vol] 7.0 g/dL 6.4-8.9 [facility] RBC Auto (Bld) [#/Vol]Ordere d By: Obaydah Daromar on 10-14-2023 RBC (Bld) [#/Vol] 5.22 10*6/uL 3.90-5.60 [facility] Serum or plasma albumin/glob ulin mass ratioOrdered By: Obaydah Daromar on 10-14-2023 Albumin/Globulin [Mass ratio] 1.5 {ratio} [facility] Serum or plasma high density lipoprotein (HDL) cholesterol measurementOrdered By: Obaydah Daromar on 10-14-2023 Cholesterol in HDL [Mass/Vol] 33 mg/dL 23-92 [facility] Comment on above: HDL CHOL ATP-III CLA SSIFICATION Cardiovascular RiskHDL > or equal to 60 mg/dL LOWHDL < 40 mg/dL HIGH Serum or plasma total choles terol/high density lipoprotein (HDL) cholesterol mass ratOrdered By: Vasquez Mckinley on 10-14-2023 Cholesterol.total/Cynthia sterol in HDL [Mass ratio] 8.5 {ratio} <5.0 [facility] Triglyceride [Mass/volume] i n Serum or PlasmaOrdered By: Vasquez Mckinley on 10-14-2023 Triglyceride [Mass/Vol] 253 mg/dL 0-149 [facility] Comment on above: TRIG ATP III CLASSIF ICATIONTRIG less than 150 mg/dL NormalTRIG 150-199 mg/dL Borderline highTRIG 200-500 mg/dL High TRIG greater than 500 mg/dL Very highStandard traceable to the Center for Disease Conrtrol and Prevention (CDC) test method. Troponin I High Sensitivityo n 10-14-2023 Troponin I High Sensitivity 113.0 pg/mL Off scale high 0.0-20.0 [facility] Comment on above: Result Comment: Crit ical Result : Called to and read back by: IFEOMA PINZON at: 10/14/2023 21:16:19 by:[id number] PERFORMED BY: [place] [address] PATHOLOGIST ENVIRONMENTAL LAW PROFESSOR JEFF LEMA M.D. Performed By: #### H S TROP #### [address] Troponin I High Sensitivity 109.9 pg/mL Off scale high 0.0-20.0 [facility] Comment on above: Result Comment: Crit ical Result : Called to and read back by: LEONEL CLEMENT at: 10/14/2023 19:00:01 by:[id number] PERFORMED BY: [place] [address] PATHOLOGIST ENVIRONMENTAL LAW PROFESSOR JEFF LEMA M.D. Performed By: #### H S TROP #### [facility] [address] [place], [place] [id number] [place] Troponin I High Sensitivity 113.4 pg/mL Off scale high 0.0-20.0 [facility] Comment on above: Result Comment: Crit ical Result : Called to and read back by: SOFIA FELIX at: 10/14/2023 17:15:58 by:JAMES PERFORMED BY: [place] [address] PATHOLOGIST ENVIRONMENTAL LAW PROFESSOR JEFF LEMA M.D. Performed By: #### H S TROP #### [facility] [address] [place] [address] [place] Troponin I High Sensitivity 124.2 pg/mL Off scale high 0.0-20.0 [facility] Comment on above: Result Comment: Crit ical Result : Called to and read back by: SAMEERA BUSTILLO at: 10/14/2023 05:23:41 by:[id number] PERFORMED BY: [place] [address] PATHOLOGIST ENVIRONMENTAL LAW PROFESSOR JEFF LEMA M.D. Performed By: #### H S TROP #### [facility] [address] [place] [address] Troponin I.cardiac [Mass/vol ume] in Serum or Plasma by Detection limit <= 0.01 ng/Ordered By: Blayne Ochoa on 10-14-2023 Troponin I.cardiac DL <= 0.01 ng/mL [Mass/Vol] 118.4 pg/mL 0.0-20.0 [facility] Comment on above: Critical Result : Ca lled to and read back by: IFEOMA PINZON at: 10/14/2023 23:06:19 by:EMILIANO WBC Auto (Bld) [#/Vol]Ordere d By: Vasquez Mckinley on 10-14-2023 WBC (Bld) [#/Vol] 8.8 10*3/uL 4.1-10.5 [facility] ECG 12 lead ECGon 10-13-2023 ECG 12 lead ECG [facility] [address] [place] [address] Electrocardiograph Report Signed Patient: Tara Hartmann MR#: [id number] : 1965 Acct:[id number] Age/Sex: 58 / M ADM Date: 10/13/23 Loc: Room: [address] [place] [address] Type: ADM IN Attending Dr: Vasquez Mckinley MD Ordering Provider: aVsquez Mckinley MD Date of Service: 10/13/23 ECG/ECG 12 lead ECG: chest pain Copies to: Test Reason : Blood Pressure : / mmHG Vent. Rate : 075 BPM Atrial Rate : 075 BPM P-R Int : 146 ms QRS Dur : 092 ms QT Int : 380 ms P-R-T Axes : 076 090 043 degrees QTc Int : 424 ms Normal sinus rhythm Rightward axis Borderline ECG No previous ECGs available Confirmed by JN CRUZ [facility] ([id number]) on 10/14/2023 2:24:25 PM Referred By: DR MCKINLEY Electronically Signed By:MAGEN RAGSDALE MD [facility] Transcribed By: MUS Signed By Evelio Ragsdale MD 10/14/23 1424 Normal [facility] Troponin I High Sensitivityo n 10-13-2023 Troponin I High Sensitivity 195.5 pg/mL Off scale high 0.0-20.0 [facility] Comment on above: Result Comment: Crit ical Result : Called to and read back by: SAMEERA BUSTILLO at: 10/13/2023 20:28:58 by:DELISA PERFORMED BY: [place] [address] PATHOLOGIST ENVIRONMENTAL LAW PROFESSOR JEFF LEMA M.D. Performed By: #### H S TROP #### [address] XR forearm LT 2V*on 02-24-20 XR forearm LT 2V* [facility] [address] [place] [address] XRay Report Signed Patient: Tara Hartmann MR#: [id number] : 1965 Acct:[id number] Age/Sex: 57 / M ADM Date: 02/23/23 [facility]: Type: [facility] Attending Dr: Shannan Munguia APRN Copies to: Shannan Munguia APRN Ordering Provider: Shannan Munguia APRN Date of Service: 02/23/23 XR/XR forearm LT 2V*: Injury LEFT FOREARM - 2 views CLINICAL HISTORY: Left forearm injury today. COMPARISON: None FINDINGS: Soft tissue swelling is noted. No acute bony process is seen. Joint spaces appear maintained. XR/XR forearm LT 2V* IMPRESSION: SOFT TISSUE SWELLING WITHOUT ACUTE BONY PROCESS. Impression dictated by: Zhen Holloway Jr., D.O.02/23/2023 6:12 PM Dictation Location: RADIO-PC-15 Transcribed By: [facility] 02/23/231811 Dictated By: Zhen Holloway Jr, DO 02/23/231811 Signed By: 02/23/231811 Normal [facility] XR forearm LT 2V* [facility] [employer] Other XR forearm LT 2V* [facility] [employer] Other XR forearm LT 2V* [address] [place] [address] [employer] Other XR forearm LT 2V* [place] [address] [employer] Other XR forearm LT 2V* XRay Report [employer] Other XR forearm LT 2V* Signed [employer] Other XR forearm LT 2V* Patient: Tara Hartmann MR#: [id number] [employer] Other XR forearm LT 2V* 9199 [employer] Other XR forearm LT 2V* : 1965 Acct:[id number] [employer] Other XR forearm LT 2V* Age/Sex: 57 / M ADM Date: 02/23/23 [employer] Other XR forearm LT 2V* Loc: X[facility]CLY Room: Type: REG CLI [employer] Other XR forearm LT 2V* Attending Dr: Shannan Munguia APRN [employer] Other XR forearm LT 2V* Copies to: Shannan Munguia APRN [employer] Other XR forearm LT 2V* Ordering Provider: Shannan Munguia APRN [employer] Other XR forearm LT 2V* Date of Service: 02/23/23 [employer] Other XR forearm LT 2V* XR/XR forearm LT 2V*: Injury [employer] Other XR forearm LT 2V* LEFT FOREARM - 2 views [employer] Other XR forearm LT 2V* CLINICAL HISTORY: Left forearm injury today. [employer] Other XR forearm LT 2V* COMPARISON: None [employer] Other XR forearm LT 2V* FINDINGS: [employer] Other XR forearm LT 2V* Soft tissue swelling is noted. No acute bony process is seen. Joint spaces appear maintained. [employer] Other XR forearm LT 2V* XR/XR forearm LT 2V* [employer] Other XR forearm LT 2V* IMPRESSION: [employer] Other XR forearm LT 2V* SOFT TISSUE SWELLING WITHOUT ACUTE BONY PROCESS. [employer] Other XR forearm LT 2V* Impression dictated by: Zhen Holloway Jr., D.O.02/23/2023 6:12 PM [employer] Other XR forearm LT 2V* Dictation Location: [facility] [employer] Other XR forearm LT 2V* Transcribed By: DORY 02/23/231811 [employer] Other XR forearm LT 2V* Dictated By: Zhen Holloway Jr, DO 02/23/231811 [employer] Other XR forearm LT 2V* Signed By: Claudy Costa [employer] Other XR forearm LT 2V* 02/23/231811 [employer] Other Office Visit (Cardiology)on 09-18-2021 Follow-up visit Diagnoses/Problems Assessed Coronary artery disease involving te-moak coronary artery 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.01) (I25.10) HTN (hypertension) (401.9) (I10) Hyperlipemia (272.4) (E78.5) Current every day smoker (305.1) (F17.200) 1/2 ppd Overweight with body mass index (BMI) of 27 to 27.9 in adult (278.02,V85.23) (E66.3,Z68.27) Orders Coronary artery disease involving te-moak coronary artery without angina pectoris Renew: Aspirin EC Low Dose 81 MG Oral Tablet Delayed Release; TAKE 1 TABLET DAILY Overweight with body mass index (BMI) of 27 to 27.9 in adult Healthy Weight Tips; Status:Complete - Retrospective Authorization; Done: 18Sep2021 SocHx: Current every day smoker Tobacco Use Screening; Status:Complete; Done: 18Sep2021 Unlinked Stop: Brilinta 90 MG Oral Tablet Patient Instructions By signing my name below, IStefany RN,Scribe Please bring all medicines, vitamins, and herbal supplements with you when you come to the office. Prescriptions will not be filled unless you are compliant with your follow up appointments or have a follow up appointment scheduled as per instruction of your physician. Refills should be requested at the time of your visit. Follow up in [8 ] months Chief Complaint TARA HARTMANN is being seen for a 6 month follow-up of. Patient is 56-year-old gentleman returns for routine follow-up and doing well he denies any chest pain, pressure, discomfort or nitrate usage or hospitalizations. He has ongoing tobacco use but it is cut down quite a bit but still we counseled him on tobacco cessation for over 3 minutes today. He has a history of non-STEMI with revascularization of the obtuse marginal branch in April 2020. He remains on DAPT therapy and guideline directed medical therapies. He does have underlying COPD and mild obesity. Recommendations, stop Brilinta, continue with aspirin 81 mg daily, follow-up in 8 to 12-month Surgical History Problems History of Appendectomy History of Cardiac catheterization with stent placement Denied: History of Complete colonoscopy History of Elbow surgery History of Foot surgery History of Knee surgery History of Tonsillectomy with adenoidectomy Current Meds Medication NameInstruction Aspirin EC Low Dose 81 MG Oral Tablet Delayed ReleaseTAKE 1 TABLET DAILY. Atorvastatin Calcium 80 MG Oral Tablettake 1 tablet by mouth at bedtime Brilinta 90 MG Oral Tablettake 1 tablet by mouth twice a day Fenofibrate 145 MG Oral Tablettake 1 tablet by mouth daily Metoprolol Tartrate 25 MG Oral Tablettake 1 tablet by mouth twice a day Allergies Medication No Known Drug Allergies Recorded By: Trena Morgan; 07/30/2021 5:27:36 PM Social History Problems Current every day smoker (305.1) (F17.200) 1/2 ppd Daily caffeine consumption, 4-5 servings a day No alcohol use No illicit drug use Review of Systems Constitutional: not feeling tired. Cardiovascular: no intermittent leg claudication and as noted in HPI. Respiratory: no cough and no shortness of breath. Gastrointestinal: no change in bowel habits and no blood in stools. Integumentary: no skin rashes. Neurological: no seizures and no frequent falls. All other systems have been reviewed and are negative for complaint. Vitals Vital Signs Recorded: 18Sep2021 09:48AM Heart Rate66, R Radial [id number], RUE, Sitting Ajjygosim18, RUE, Sitting Height5 ft 7 in [id number] lb BMI Uliylavmsl94.41 kg/m2 BSA Calculated1.91 Tobacco Usea) Yes Patient encouraged to stop using tobacco productsYes Fall Screeningc) Not medically indicated Physical Exam Constitutional: alert and in no acute distress. Neck: neck is supple, symmetric, trachea midline, no masses and no thyromegaly . Pulmonary: no increased work of breathing or signs of respiratory distress and lungs clear to auscultation. Cardiovascular: carotid pulses 2+ bilaterally with no bruit , JVP was normal, no thrills , regular rhythm, normal S1 and S2, no murmurs , pedal pulses 2+ bilaterally and no edema . Abdomen: abdomen non-tender, no masses and no hepatomegaly . Skin: skin warm and dry, normal skin turgor . Psychiatric judgment and insight is normal and oriented to person, place and time . Signatures Electronically signed by : Evelio Ochoa DO; Sep 18 2021 12:32PM EST (Author) Normal [employer] Tobacco Screening.on 021 Fall risk assessment c) Not medically indicated -[facility] 250 DO Work Phone: Tobacco use status CPHS a) Yes M P-[facility] 250 DO Work Phone: Tobacco Screening. Yes MP-[facility] 250 DO Work Phone: LIPID PROFILEon 08-21-2020 CHOL-HDL RATIO NORM SEE BELOW Normal [facility] Comment on above: Result Comment: 3.3 - 4.4 LOW RISK 4.4 - 7.1 AVERAGE RISK 7.1 - 11.0 MODERATE RISK >11.0 HIGH RISK Performed By: #### C ED CHENG #### [facility] [address], [place] [address] Brooke Julissa Cholesterol [Mass/Vol] 194 mg/dL Normal <=200 [facility] Comment on above: Performed By: #### C ED CHENG #### [facility] [address], [place] [address] Brooke Julissa Cholesterol in HDL [Mass/Vol] 29 mg/dL Normal [facility] Comment on above: Performed By: #### C ED CHENG #### [facility] [address], [place] [address] Brooke Julissa Cholesterol in HDL [Mass/Vol] > or = 60 mg/dl - LOW CARDIOVASCULAR RISK <40 mg/dl - HIGH CARDIOVASCULAR RISK Normal [facility] Comment on above: Performed By: #### C ED CHENG #### [facility] [address] [place], [place] [address] Brooke Julissa Cholesterol in LDL [Mass/Vol] 89.6 mg/dL Normal [facility] Comment on above: Performed By: #### C PROSPER, ED #### [facility] [address] [place], [place] [address] Brooke Julissa Cholesterol in LDL [Mass/Vol] SEE BELOW Normal [facility] Comment on above: Result Comment: <100 mg/dl OPTIMAL 100 - 129 mg/dl NEAR OR ABOVE OPTIMAL 130 - 159 mg/dl BORDERLINE HIGH 160 - 189 mg/dl HIGH >190 mg/dl VERY HIGH Performed By: #### C PROSPER, ED #### [facility] [address] [place], [place] [address] Brooke Julissa Cholesterol.total/Cynthia sterol in HDL [Mass ratio] 6.7 {ratio} Normal [facility] Comment on above: Performed By: #### C PROSPER, ED #### [facility] [address] [place] [address] Brooke Julissa Triglyceride [Mass/Vol] 377 mg/dL Critically high <=150 [facility] Comment on above: Performed By: #### C PROSPER, ED #### [facility] [address] [place] [address] Brooke Julissa VLDL CALC 75.4 mg/dL Normal [facility] Comment on above: Performed By: #### C PROSPER, ED #### [facility] [address] [place] [address] Brooke Julissa SGOTon 08-21-2020 AST [Catalytic activity/Vol] 22 U/L Normal 17-59 [facility] Comment on above: Performed By: #### C PROSPER, ED #### [facility] [address] [place] [address] Brooke Julissa SGPTon 08-21-2020 ALT [Catalytic activity/Vol] 48 U/L Normal 21-72 [facility] Comment on above: Performed By: #### C PROSPER, OLENADM #### [facility] [address] [place] [address] Brooke Julissa BNPon 04-28-2020 Natriuretic peptide B (Bld) [Mass/Vol] 197.0 pg/mL Normal <=900.0 [facility] Comment on above: Performed By: #### B CROSS COUNTRY COACH, BMP, TROP #### [facility] [address] [place], [place] [id number] Brooke Julissa CBC AUTO DIFFon 04-28-2020 Basophils (Bld) [#/Vol] 0.1 103/ul Normal 0.0-0.1 [facility] Comment on above: Performed By: #### C BC #### [facility] [address] [place], [place] [id number] Brooke Julissa Basophils/100 WBC (Bld) 0.5 % Normal 0.2-2.0 [facility] Comment on above: Performed By: #### C BC #### [facility] [address] [place] [address] Brooke Julissa Eosinophils (Bld) [#/Vol] 0.1 103/ul Normal 0.0-0.7 [facility] Comment on above: Performed By: #### C BC #### [facility] [address] [place] [address] Brooke Julissa Eosinophils/100 WBC (Bld) 0.9 % Normal 0.9-7.0 [facility] Comment on above: Performed By: #### C BC #### [facility] [address] [place] [address] Brooke Julissa Erythrocyte distribution width (RBC) [Ratio] 12.9 % Normal 11.0-15.0 [facility] Comment on above: Performed By: #### C BC #### [facility] [address] [place] [address] Brooke Julissa Hematocrit (Bld) [Volume fraction] 49.4 % Normal 42.0-54.0 [facility] Comment on above: Performed By: #### C BC #### [facility] [address] [place], [place] [id number] Brooke Julissa Hemoglobin (Bld) [Mass/Vol] 17.5 g/dL Normal 14.0-18.0 [facility] Comment on above: Performed By: #### C BC #### [facility] [address] [place] [address] Brooke Julissa IG # 0.05 10e3/ul Critically high 0.00-0.03 [facility] Comment on above: Performed By: #### C BC #### [facility] [address] [place] [id number] Brooke Costa IG % 0.4 % Normal 0.0-0.5 [facility] Comment on above: Performed By: #### C BC #### [facility] [address] [place], [place] [id number] Brookecheyenne Costa Lymphocytes (Bld) [#/Vol] 2.0 103/ul Normal 1.2-3.8 [facility] Comment on above: Performed By: #### C BC #### [facility] [address] [place] [address] Brooke Costa Lymphocytes/100 WBC (Bld) 15.9 % Critically low 20.5-60.0 [facility] Comment on above: Performed By: #### C BC #### [facility] [address] [place] [address] Brooke Costa MANUAL DIFF REQ NO Normal [facility] Comment on above: Performed By: #### C BC #### [facility] [address] [place], [place] [id number] Brooke Costa MCH (RBC) [Entitic mass] 31.8 pg Normal 25.9-34.0 [facility] Comment on above: Performed By: #### C BC #### [facility] [address] [place] [address] Brooke Costa MCHC (RBC) [Mass/Vol] 35.4 g/dL Critically high 29.9-35.2 [facility] Comment on above: Performed By: #### C BC #### [facility] [address] [place], [place] [id number] Brookecheyenne Costa MCV (RBC) [Entitic vol] 89.8 fL Normal 80.0-94.0 [facility] Comment on above: Performed By: #### C BC #### [facility] [address] [place] [address] Brookecheyenne Costa Monocytes (Bld) [#/Vol] 0.7 103/ul Normal 0.3-0.8 [facility] Comment on above: Performed By: #### C BC #### [facility] [address] [place], [place] [id number] Brooke Julissa Monocytes/100 WBC (Bld) 5.7 % Normal 1.7-12.0 [facility] Comment on above: Performed By: #### C BC #### [facility] [address] [place], [place] [id number] Brooke Julissa Neutrophils (Bld) [#/Vol] 9.8 103/ul Critically high 1.4-6.5 [facility] Comment on above: Performed By: #### C BC #### [facility] [address] [place], [place] [id number] Brooke Julissa Neutrophils/100 WBC (Bld) 76.6 % Critically high 43.0-75.0 [facility] Comment on above: Performed By: #### C BC #### [facility] [address] [place], [place] [id number] Brooke Julissa Platelet mean volume (Bld) [Entitic vol] 11.0 fL Normal 9.5-13.5 [facility] Comment on above: Performed By: #### C BC #### [facility] [address] [place], [place] [id number] Brooke Julissa Platelets (Bld) [#/Vol] 237 103/ul Normal 150-450 [facility] Comment on above: Performed By: #### C BC #### [facility] [address] [place], [place] [id number] Brooke Julissa RBC (Bld) [#/Vol] 5.50 106/ul Normal 4.70-6.10 [facility] Comment on above: Performed By: #### C BC #### [facility] [address] [place], [place] [id number] Brooke Julissa WBC (Bld) [#/Vol] 12.8 103/ul Critically high 4.0-11.0 [facility] Comment on above: Performed By: #### C BC #### [facility] [address] [place] [id number] Brookecheyenne Costa D-DIMERon 04-28-2020 D-DIMER COMMENTS SEE BELOW Normal [facility] Comment on above: Result Comment: Incr eases in D-Dimer concentration observed with thromboembolic events can be variable due to localization, size, and age of the thrombus. Therefore, a thromboembolic event cannot be diagnosed with certainty on the basis of the reference range. D-Dimers may also be elevated for a variety of disorders including: advanced age, , coronary disease, cancer, liver disease, infection, inflammation, hematoma, DIC, trauma, post-surgery, diabetes, thrombolytic or anticoagulant therapy, stress, and generalizd hospitalization. Performed By: #### D DIM, PTT, PT #### [facility] [address] [place] [address] Brookecheyenne Teeen Fibrin D-dimer FEU IA (Bld) [Mass/Vol] 0.20 ug/mL Normal 0.19-0.50 [facility] Comment on above: Performed By: #### D DIM, PTT, PT #### [facility] [address] [place] [address] Brooke Julissa PROF CHEM 8 (BAS METB)on Anion gap [Moles/Vol] 14.9 mmol/L Normal [facility] Comment on above: Performed By: #### C ED CHENG #### [facility] [address] [place] [address] Brooke Julissa Calcium [Mass/Vol] 9.0 mg/dL Normal 8.4-10.2 [facility] Comment on above: Performed By: #### C ED CHENG #### [facility] [address] [place] [address] Brooke Julissa Chloride [Moles/Vol] 103 mmol/L Normal 98-107 [facility] Comment on above: Performed By: #### C ED CHENG #### [facility] [address] [place] [address] Brooke Julissa CO2 [Moles/Vol] 23.8 mmol/L Normal 22.0-30.0 [facility] Comment on above: Performed By: #### C ED CHENG #### [facility] [address] [place] [id number] Brooke Julissa Creatinine [Mass/Vol] 1.08 mg/dL Normal 0.66-1.25 [facility] Comment on above: Performed By: #### C ED CHENG #### [facility] [address] [place] [id number] Brooke Julissa EGFR-AF MALAYSIAN >60 Normal >=60 [facility] Comment on above: Performed By: #### C ED CHENG #### [facility] [address] [place] [address] Brooke Julissa EGFR-NON AF MALAYSIAN >60 Normal >=60 [facility] Comment on above: Performed By: #### C ED CHENG #### [facility] [address] [place] [address] Brooke Julissa Glucose [Mass/Vol] 120 mg/dL Critically high 74-106 T [facility] [place] Comment on above: Performed By: #### C ED CHENG #### [facility] [address] [place] [address] Brooke Julissa Potassium [Moles/Vol] 3.7 mmol/L Normal 3.4-5.0 [facility] Comment on above: Performed By: #### C ED CHENG #### [facility] [address] [place] [address] Brooke Julissa Sodium [Moles/Vol] 138 mmol/L Normal 137-145 [facility] Comment on above: Performed By: #### C ED CHENG #### [facility] [address] [place] [address] Brooke Julissa Urea nitrogen [Mass/Vol] 13.0 mg/dL Normal 9.0-20.0 [facility] Comment on above: Performed By: #### C ED CHENG #### [facility] [address] [place] [address] Brooke Julissa Urea nitrogen/Creatinine [Mass ratio] 12.0 mg/mg Normal [facility] Comment on above: Performed By: #### C ED CHENG #### [facility] [address] [place] [id number] Brooke Costa PROTIMEon 04-28-2020 INR Coag (PPP) [Relative time] 0.95 {INR} Normal [facility] Comment on above: Performed By: #### D DIM, PTT, PT #### [facility] [address] [place], [place] [id number] Brooke Julissa PT Coag (PPP) [Time] SEE BELOW Normal [facility] Comment on above: Result Comment: ALEX RED INR: 2.0 - 3.0 CONDITIONS NOT LISTED BELOW 2.5 - 3.5 FOR PROSTHETIC HEART VALVE REPLACEMENT 2.5 - 3.5 RECURRENT THROMBOSIS Performed By: #### D DIM, PTT, PT #### [facility] [address] [place] [address] Brooke Julissa PT Coag (PPP) [Time] PLEASE NOTE: NORMAL RANGE CHANGE 08-02-2014 DUE TO REAGENT LOT CHANGE [facility] [place] Comment on above: Performed By: #### D DIM, PTT, PT #### [facility] [address] [place] [address] Brooke Julissa PT Coag (PPP) [Time] 9.9 s Normal 9.0-11.6 [facility] Comment on above: Performed By: #### D DIM, PTT, PT #### [facility] [address] [place] [address] Brookecheyenne Costa PTTon 04-28-2020 aPTT Coag (Bld) [Time] 29.1 s Normal 22.3-36.2 [facility] Comment on above: Performed By: #### D DIM, PTT, PT #### [facility] [address] [place], [place] [id number] Brooke Julissa aPTT Coag (Bld) [Time] PLEASE NOTE: NORM AL RANGE CHANGE 10-09-2015 DUE TO REAGENT LOT CHANGE [place] [facility] Comment on above: Performed By: #### D DIM, PTT, PT #### [facility] [address] [place] [address] Brooke Costa TROPONIN - Ion 04-28-2020 Troponin I.cardiac [Mass/Vol] SEE BELOW Normal [facility] Comment on above: Result Comment: <0.0 34 ng/ml NEGATIVE 0.034-0.119 INDETERMINATE 0.120 AMI CUT OFF Performed By: #### C MP, CMADM #### [facility] [address] [place] [address] Brooke Juilssa Troponin I.cardiac [Mass/Vol] 2.176 ng/mL Critically high <=0.034 [facility] Comment on above: Result Comment: test repeated critical value verified Performed By: #### C MP, CMADM #### [facility] [address] [place] [address] Brooke Julissa Troponin I.cardiac [Mass/Vol] 0.053 ng/mL Critically high <=0.034 [facility] Comment on above: Result Comment: test repeated critical value verified Performed By: #### C PROSPER, CMADM #### [facility] [address] [place] [address] Brooke Julissa Troponin I.cardiac [Mass/Vol] SEE BELOW Normal [facility] Comment on above: Result Comment: <0.0 34 ng/ml NEGATIVE 0.034-0.119 INDETERMINATE 0.120 AMI CUT OFF Performed By: #### C PROSPER, CMADM #### [facility] [address] [place], [place] [id number] Brooke Julissa XR CHEST 2 Von 04-28-2020 XR CHEST 2 V EXAM: XR CHEST 2 V HISTORY: Chest pain COMPARISON: Chest x-ray of 04/26/2020 TECHNIQUE: 2 views of the chest are submitted for review. FINDINGS: The heart size normal. Small subcentimeter nodular opacity is seen projecting over the lower lung pino bilaterally, which may represent the nipple shadows. If clinically indicated, this finding can be confirmed with repeat imaging with nipple markers. No dense focal consolidation, pneumothorax or pleural effusion is seen. The visualized osseous structures appear unremarkable. IMPRESSION: Small subcentimeter nodular opacity is seen projecting over the lower lung pino bilaterally, which may represent the nipple shadows. If clinically indicated, this finding can be confirmed with repeat imaging with nipple markers. No dense focal consolidation, pneumothorax or pleural effusion is seen. Electronically authenticated by: GIANNA PECK Date: 2020-04-28 19:35 Normal [facility] CARDIAC FRIDA ADMITon 020 CK [Catalytic activity/Vol] 140 U/L Normal 55-170 [facility] Comment on above: Performed By: #### C ED CHENG #### [facility] [address] [place], [place] [id number] Brookecheyenne Costa CK.MB [Mass/Vol] 2.81 ng/mL Critically high <=2.37 [facility] Comment on above: Result Comment: Test repeated. Critical value verified. Performed By: #### C ED CHENG #### [facility] [address] [place], [place] [id number] Brooke Julissa INR Coag (Bld) [Relative time] SEE BELOW Normal [facility] Comment on above: Result Comment: <0.0 34 ng/ml NEGATIVE 0.034-0.119 INDETERMINATE 0.120 AMI CUT OFF Performed By: #### C ED CHENG #### [facility] [address] [place], [place] [id number] Brooke Julissa NOREEN 47.0 ng/mL Normal <=121.0 [facility] Comment on above: Performed By: #### C ED CHENG #### [facility] [address] [place], [place] [id number] Brooke Julissa TROP <0.012 Normal <=0.034 [facility] Comment on above: Performed By: #### C ED CHENG #### [facility] [address] [place], [place] [id number] Brooke Julissa CBC AUTO DIFFon 04-26-2020 Basophils (Bld) [#/Vol] 0.1 103/ul Normal 0.0-0.1 [facility] Comment on above: Performed By: #### C BC #### [facility] [address] [place], [place] [id number] Brooke Julissa Basophils/100 WBC (Bld) 1.0 % Normal 0.2-2.0 [facility] Comment on above: Performed By: #### C BC #### [facility] [address] [place], [place] [id number] Brooke Julissa Eosinophils (Bld) [#/Vol] 0.1 103/ul Normal 0.0-0.7 [facility] Comment on above: Performed By: #### C BC #### [facility] [address] [place], [place] [id number] Brooke Julissa Eosinophils/100 WBC (Bld) 1.3 % Normal 0.9-7.0 [facility] Comment on above: Performed By: #### C BC #### [facility] [address] [place], [place] [id number] Brooke Julissa Erythrocyte distribution width (RBC) [Ratio] 13.2 % Normal 11.0-15.0 [facility] Comment on above: Performed By: #### C BC #### [facility] [address] [place] [address] Brooke Julissa Hematocrit (Bld) [Volume fraction] 49.6 % Normal 42.0-54.0 [facility] Comment on above: Performed By: #### C BC #### [facility] [address] [place] [address] Brooke Julissa Hemoglobin (Bld) [Mass/Vol] 17.3 g/dL Normal 14.0-18.0 [facility] Comment on above: Performed By: #### C BC #### [facility] [address] [place] [address] Brooke Julissa IG # 0.03 10e3/ul Normal 0.00-0.03 [facility] Comment on above: Performed By: #### C BC #### [facility] [address] [place] [address] Brooke Julissa IG % 0.3 % Normal 0.0-0.5 [facility] Comment on above: Performed By: #### C BC #### [facility] [address] [place], [place] [id number] Brooke Julissa Lymphocytes (Bld) [#/Vol] 2.5 103/ul Normal 1.2-3.8 [facility] Comment on above: Performed By: #### C BC #### [facility] [address] [place], [place] [id number] Brooke Julissa Lymphocytes/100 WBC (Bld) 26.4 % Normal 20.5-60.0 [facility] Comment on above: Performed By: #### C BC #### [facility] [address], [place] [address] Brooke Julissa MANUAL DIFF REQ NO Normal [facility] Comment on above: Performed By: #### C BC #### [facility] [address], [place] [address] Brooke Julissa MCH (RBC) [Entitic mass] 31.7 pg Normal 25.9-34.0 [facility] Comment on above: Performed By: #### C BC #### [facility] [address], [place] [address] Brooke Julissa MCHC (RBC) [Mass/Vol] 34.9 g/dL Normal 29.9-35.2 [facility] Comment on above: Performed By: #### C BC #### [facility] [address] [place] [id number] Brooke Julissa MCV (RBC) [Entitic vol] 90.8 fL Normal 80.0-94.0 [facility] Comment on above: Performed By: #### C BC #### [facility] [address] [place] [id number] Brooke Julissa Monocytes (Bld) [#/Vol] 0.8 103/ul Normal 0.3-0.8 [facility] Comment on above: Performed By: #### C BC #### [facility] [address] [place] [id number] Brooke Julissa Monocytes/100 WBC (Bld) 8.3 % Normal 1.7-12.0 [facility] Comment on above: Performed By: #### C BC #### [facility] [address] [place] [phone] Brooke Julissa Neutrophils (Bld) [#/Vol] 5.8 103/ul Normal 1.4-6.5 [facility] Comment on above: Performed By: #### C BC #### [facility] [address], [place] [address] Brooke Julissa Neutrophils/100 WBC (Bld) 62.7 % Normal 43.0-75.0 [facility] Comment on above: Performed By: #### C BC #### [facility] [address] [place], [place] [id number] Brookecheyenne Costa Platelet mean volume (Bld) [Entitic vol] 11.0 fL Normal 9.5-13.5 [facility] Comment on above: Performed By: #### C BC #### [facility] [address] [place], [place] [id number] Brookecheyenne Costa Platelets (Bld) [#/Vol] 254 103/ul Normal 150-450 T [facility] [place] Comment on above: Performed By: #### C BC #### [facility] [address] [place], [place] [phone] Brooke Julissa RBC (Bld) [#/Vol] 5.46 106/ul Normal 4.70-6.10 [facility] Comment on above: Performed By: #### C BC #### [facility] [address] [place], [place] [phone] Brookecheyenne Costa WBC (Bld) [#/Vol] 9.3 103/ul Normal 4.0-11.0 [facility] Comment on above: Performed By: #### C BC #### [facility] [address] [place], [place] [phone] Borokecheyenne Costa ER URINE PROFILEon 0 Bilirubin [Mass/Vol] Negative Normal NEGATIVE [facility] Comment on above: Performed By: #### E RUR #### [facility] [address] [place], [place] [phone] Brooke Julissa BLOOD Negative Normal NEGATIVE [facility] Comment on above: Performed By: #### E RUR #### [facility] [address] [place], [place] [phone] Brooke Julissa Clarity (U) CLEAR Normal [facility] Comment on above: Performed By: #### E RUR #### [facility] [address] [place], [place] [phone] Brooke Julissa Color (U) LT. YELLOW Normal YELLOW [facility] Comment on above: Performed By: #### E RUR #### [facility] [address] [place] [address] Brooke Julissa ERUAHD A micrscopic examination will be performed if indicated. Normal [facility] Comment on above: Performed By: #### E RUR #### [facility] [address] [place], [place] [phone] Brooke Julissa Glucose [Mass/Vol] Negative Normal NEGATIVE [facility] Comment on above: Performed By: #### E RUR #### [facility] [address] [place], [place] [phone] Brooke Julissa Ketones Ql (U) Negative Normal NEGATIVE [facility] Comment on above: Performed By: #### E RUR #### [facility] [address] [place] [address] Brooke Julissa Nitrite Ql (U) Negative Normal NEGATIVE [facility] Comment on above: Performed By: #### E RUR #### [facility] [address] [place] [address] Brooke Julissa pH (Bld) 6.5 Normal 5-9 [facility] Comment on above: Performed By: #### E RUR #### [facility] [address] [place], [place] [phone] Brooke Julissa Protein (U) [Mass/Vol] Negative Normal Th [facility] Comment on above: Performed By: #### E RUR #### [facility] [address] [place] [address] Brooke Julissa SPEC GRAVITY 1.010 Normal 1.005-<=1.0 25 [facility] Comment on above: Performed By: #### E RUR #### [facility] [address] [place], [place] [phone] Brooke Julissa UR MICRO IND NOT INDICATED Normal [facility] Comment on above: Performed By: #### E RUR #### [facility] [address] [place], [place] [phone] Brooke Julissa Urobilinogen Qn (U) 1.0 EU/dl Normal [facility] Comment on above: Performed By: #### E RUR #### [facility] [address] [place] [address] Brooke Julissa WBC (Bld) [#/Vol] Negative Normal NEGATIVE [facility] Comment on above: Performed By: #### E RUR #### [facility] [address], [place] [address] Brooke Costa PROF 14(COMP METB)on 020 Albumin [Mass/Vol] 4.1 g/dL Normal 3.5-5.0 [facility] Comment on above: Performed By: #### C ED CHENG #### [facility] [address] [place] [id number] Brooke Julissa Albumin/Globulin [Mass ratio] 1.2 {ratio} Normal [facility] Comment on above: Performed By: #### C ED CHENG #### [facility] [address] [place] [id number] Brooke Julissa ALP [Catalytic activity/Vol] 98 U/L Normal 38-126 [facility] Comment on above: Performed By: #### C ED CHENG #### [facility] [address] [place] [id number] Brooke Julissa ALT [Catalytic activity/Vol] 41 U/L Normal 21-72 [facility] Comment on above: Performed By: #### C ED CHENG #### [facility] [address] [place] [phone] Brooke Costa Anion gap [Moles/Vol] 10.1 mmol/L Normal [facility] Comment on above: Performed By: #### C ED CHENG #### [facility] [address] [place] [phone] Brookecheyenne Costa AST [Catalytic activity/Vol] 23 U/L Normal 17-59 [facility] Comment on above: Performed By: #### C ED CHENG #### [facility] [address] [place] [phone] Brooke Julissa Bilirubin Ql (U) 0.6 mg/dL Normal 0.2-1.3 [facility] Comment on above: Performed By: #### C ED CHENG #### [facility] [address] [place] [id number] Brooke Julissa Calcium [Mass/Vol] 9.0 mg/dL Normal 8.4-10.2 [facility] Comment on above: Performed By: #### C PROSPER, ED #### [facility] [address] [place] [address] Brooke Julissa Chloride [Moles/Vol] 103 mmol/L Normal 98-107 [facility] Comment on above: Performed By: #### C PROSPER, ED #### [facility] [address] [place] [address] Brooke Julissa CO2 [Moles/Vol] 28.5 mmol/L Normal 22.0-30.0 [facility] Comment on above: Performed By: #### C PROSPER, ED #### [facility] [address] [place] [address] Brooke Julissa Creatinine [Mass/Vol] 1.10 mg/dL Normal 0.66-1.25 [facility] Comment on above: Performed By: #### C PROSPER, ED #### [facility] [address] [place], [place] [id number] Brooke Julissa EGFR-AF MALAYSIAN >60 Normal >=60 [facility] Comment on above: Performed By: #### C PROSPER, ED #### [facility] [address] [place] [address] Brooke Julissa EGFR-NON AF MALAYSIAN >60 Normal >=60 [facility] Comment on above: Performed By: #### C PROSPER, ED #### [facility] [address] [place] [address] Brooke Julissa Globulin (S) [Mass/Vol] 3.3 g/dL Normal T [facility] [place] Comment on above: Performed By: #### C PROSPER, ED #### [facility] [address] [place] [address] Brooke Julissa Glucose [Mass/Vol] 91 mg/dL Normal 74-106 [facility] Comment on above: Performed By: #### C ED CHENG #### [facility] [address] [place] [address] Brooke Julissa Potassium [Moles/Vol] 3.6 mmol/L Normal 3.4-5.0 [facility] Comment on above: Performed By: #### C PROSPER, CMADM #### [facility] [address] [place] [address] Brooke Julissa Protein [Mass/Vol] 7.4 g/dL Normal 6.1-8.2 [facility] Comment on above: Performed By: #### C MP, CMADM #### [facility] [address] [place] [address] Brooke Julissa Sodium [Moles/Vol] 138 mmol/L Normal 137-145 [facility] Comment on above: Performed By: #### C PROSPER, CMADM #### [facility] [address] [place] [address] Brooke Julissa Urea nitrogen [Mass/Vol] 14.0 mg/dL Normal 9.0-20.0 [facility] Comment on above: Performed By: #### C PROSPER, CMADM #### [facility] [address] [place] [address] Brooke Julissa Urea nitrogen/Creatinine [Mass ratio] 12.7 mg/mg Normal [facility] Comment on above: Performed By: #### C PROSPER, CMADM #### [facility] [address] [place], [place] [phone] Brooke Julissa XR CHEST 2 Von 04-26-2020 XR CHEST 2 V Frontal and lateral chest Clinical: Chest pain. COMPARISON: None. Heart and vascularity unremarkable. There is hyperexpansion of lungs and flattening of hemidiaphragms indicating COPD. Lungs are free of focal infiltrates. No acute bony abnormality of the chest is noted. IMPRESSION: 1. Changes consistent with COPD. 2. No focal infiltrates. Electronically authenticated by: TOMI CARRILLO Date: 2020-04-26 15:29 Normal [facility] Vital Signs Date Time Vital Sign Value Performing Clinician Facility 02-29-2024 14:02-040 Body height 170.2 cm Evelio Ochoa DO Work Phone: [facility] 02-29-2024 14:020400 Body mass index (BMI) [Ratio] 26.85 kg/m2 Evelio Ochoa DO Work Phone: [facility] 02-29-2024 14:02-0400 Body weight 77.75 kg Evelio Ochoa DO Work Phone: [facility] 02-29-2024 14:02-0400 Diastolic blood pressure 72 mm[Hg] Evelio Ochoa DO Work Phone: [facility] 02-29-2024 14:02-0400 Heart rate 68 /min Evelio Ochoa DO Work Phone: [facility] 02-29-2024 14:02-0400 Systolic blood pressure 122 mm[Hg] Evelio Ochoa DO Work Phone: [facility] 11-24-2023 11:34-0500 Diastolic blood pressure 64 mm[Hg] Sherry Crowe SURFACE LAY OUT TECHNICIAN-SLEEVE MAKER Work Phone: [facility] 11-24-2023 11:34-0500 Systolic blood pressure 112 mm[Hg] Sherry Crowe SURFACE LAY OUT TECHNICIAN-SLEEVE MAKER Work Phone: [facility] 11-24-2023 11:13-0500 Body height 170.2 cm Sherry Crowe SURFACE LAY OUT TECHNICIAN-SLEEVE MAKER Work Phone: [facility] 11-24-2023 11:13-0500 Body mass index (BMI) [Ratio] 27.57 kg/m2 Sherry Crowe SURFACE LAY OUT TECHNICIAN-SLEEVE MAKER Work Phone: [facility] 11-24-2023 11:13-0500 Body weight 79.83 kg Sherry Crowe SURFACE LAY OUT TECHNICIAN-SLEEVE MAKER Work Phone: [facility] 11-24-2023 11:13-0500 Heart rate 62 /min Sherry Crowe SURFACE LAY OUT TECHNICIAN-SLEEVE MAKER Work Phone: [facility] 10-15-2023 11:57-0500 Diastolic blood pressure 80 mm[Hg] PHYSICIAN NO [facility] 10-15-2023 11:57-0500 Heart rate 68 /min PHYSICIAN NO [facility] 10-15-2023 11:57-0500 Respiratory rate 18 /min PHYSICIAN NO [facility] 10-15-2023 11:57-0500 SaO2% (BldA) [Mass fraction] 97 % PHYSICIAN NO [facility] 10-15-2023 11:57-0500 Systolic blood pressure 116 mm[Hg] PHYSICIAN NO [facility] 10-15-2023 05:28-0500 Body weight 78 kg PHYSICIAN NO [facility] 10-14-2023 11:32-0500 Body temperature 97.6 [degF] PHYSICIAN NO [facility] 10-13-2023 18:31-0500 Body height 170.18 cm PHYSICIAN NO [facility] 03-09-2023 10:45-0400 Body height 170.18 cm Shannan Munguia Other [employer] [facility] [employer] Other 03-09-2023 10:45-0400 Body mass index (BMI) [Ratio] 27.91 kg/m2 Shannan Munguia Other [employer] Other 03-09-2023 10:45-0400 Body temperature 98.6 [degF] Shannan Munguia Other [employer] Other 03-09-2023 10:45-0400 Body weight 80.83 kg Shannan Munguia Other [employer] Other 03-09-2023 10:45-0400 Respiratory rate 18 /min Shannan Mugnuia Other [employer] Other 03-09-2023 10:45-0400 SaO2% (BldA) [Mass fraction] 99 % Shannan Munguia Other [employer] Other 02-23-2023 18:10-0400 Body height 170.18 cm Shannan Munguia Other [employer] Other 02-23-2023 18:10-0400 Body mass index (BMI) [Ratio] 27.88 kg/m2 Shannan Munguia Other [employer] Other 02-23-2023 18:10-0400 Body temperature 98 [degF] Shannan Munguia Other [employer] Other 02-23-2023 18:10-0400 Body weight 80.74 kg Shannan Munguia Other [employer] Other 02-23-2023 18:10-0400 Respiratory rate 18 /min Shannan Munguia Other [employer] Other 02-23-2023 18:10-0400 SaO2% (BldA) [Mass fraction] 95 % Shannan Munguia Other [employer] Other 09-18-2021 09:48-0400 Body height 170.18 cm Referring Provider Unknown [facility] DO Work Phone: 09-18-2021 09:48-0400 Body mass index (BMI) [Ratio] 27.41 kg/m2 Referring Provider Unknown [facility] DO Work Phone: 09-18-2021 09:48-0400 Body surface area Derived from formula 1.91 m2 Referring Provider Unknown [facility] DO Work Phone: 09-18-2021 09:48-0400 Body weight 79.38 kg Referring Provider Unknown [facility] DO Work Phone: 09-18-2021 09:48-0400 Diastolic blood pressure 82 mm[Hg] Referring Provider Unknown [facility] DO Work Phone: 09-18-2021 09:48-0400 Heart rate 66 /min Referring Provider Unknown [facility] DO Work Phone: 09-18-2021 09:48-0400 Systolic blood pressure 122 mm[Hg] Referring Provider Unknown [facility] DO Work Phone: Encounters Encounter Date Encounter Type Care Provider Facility Start: 03-13-2024 End: 03-15-2024 [facility] Start: 03-09-2024 End: 03-15-2024 [facility] Start: 03-08-2024 End: 03-15-2024 [facility] Start: 03-06-2024 End: 03-15-2024 [facility] Start: 03-02-2024 End: 03-15-2024 [facility] Start: 03-01-2024 End: 03-15-2024 [facility] Start: 02-29-2024 End: 02-29-2024 ambulatory [facility] Start: 02-29-2024 End: 02-29-2024 Office outpatient visit 25 minutes Evelio Ochoa DO Work Phone: [facility] Comment on above: Coronary artery dise ase involving te-moak coronary artery of te-moak heart without angina pectoris; Primary hypertension; Mixed hyperlipidemia; BMI 26.0-26.9,adult; Current every day smoker Start: 02-28-2024 End: 03-15-2024 [facility] Start: 02-24-2024 End: 03-15-2024 [facility] Start: 02-23-2024 End: 03-15-2024 [facility] Start: 02-21-2024 End: 03-15-2024 [facility] Start: 02-17-2024 End: 03-15-2024 [facility] Start: 02-16-2024 End: 02-16-2024 [facility] Start: 02-16-2024 End: 03-15-2024 Clinical Support Pm Cardiac Rehab Exercise 1 [facility] Start: 02-14-2024 End: 02-14-2024 ambulatory [facility] Start: 02-14-2024 End: 03-15-2024 Clinical Support [facility] Cardiac Rehab Exercise 1 [facility] Start: 02-10-2024 End: 02-14-[address] [facility] Start: 02-09-2024 End: 02-09-[address] [facility] Start: 02-09-2024 End: 02-09-2024 Patient encounter procedure Pm Cardiac Rehab Exercise 1 [facility] Start: 02-07-2024 End: 02-07-2024 ambulatory [facility] Start: 02-07-2024 End: 02-07-2024 Patient encounter procedure [facility] Cardiac Rehab Exercise 1 [facility] Start: 02-03-2024 End: 02-03-2024 ambulatory [facility] Start: 02-03-2024 End: 02-03-2024 Patient encounter procedure [facility] Cardiac Rehab Exercise 1 [facility] Start: 02-02-2024 End: 02-02-2024 ambulatory [facility] Start: 02-02-2024 End: 02-02-2024 Patient encounter procedure [facility] Cardiac Rehab Exercise 1 [facility] Start: 01-31-2024 End: 01-31-2024 ambulatory [facility] Start: 01-27-2024 End: 01-27-2024 ambulatory [facility] Start: 01-27-2024 End: 01-27-2024 Patient encounter procedure [facility] Cardiac Rehab Exercise 1 [facility] Start: 01-26-2024 End: 01-27-2024 ambulatory ANDRES CLARK [facility] Start: 01-26-2024 End: 01-26-2024 Patient encounter procedure Pm Cardiac Rehab Therapist 1 [facility] Start: 01-24-2024 End: 01-24-2024 ambulatory EVELIO [facility] Start: 01-24-2024 End: 01-24-2024 Patient encounter procedure Pm Cardiac Rehab Therapist 1 [facility] Start: 01-20-2024 End: 01-20-2024 ambulatory [facility] Start: 01-20-2024 End: 01-20-2024 Patient encounter procedure Pm Cardiac Rehab Therapist 1 [facility] Start: 01-19-2024 End: 01-19-[address] [facility] Start: 01-17-2024 End: 01-17-2024 ambulatory EVELIO [facility] Start: 01-17-2024 End: 01-17-2024 Patient encounter procedure [facility] Cardiac Rehab Therapist 1 [facility] Start: 01-13-2024 End: 01-13-2024 ambulatory EVELIO [facility] Start: 01-13-2024 End: 01-13-2024 Patient encounter procedure Pm Cardiac Rehab Therapist 1 [facility] Start: 01-12-2024 End: 01-12-2024 ambulatory EVELIO [facility] Start: 01-12-2024 End: 01-12-2024 Patient encounter procedure Pm Cardiac Rehab Therapist 1 [facility] Start: 01-10-2024 End: 01-10-2024 ambulatory [facility] Start: 01-06-2024 End: 01-14-2024 ambulatory [facility] Start: 01-05-2024 End: 01-05-[address] [facility] Start: 01-05-2024 End: 01-05-2024 Patient encounter procedure Pm Cardiac Rehab Therapist 1 [facility] Start: 01-03-2024 End: 01-03-2024 ambulatory [facility] Start: 01-03-2024 End: 01-03-2024 Patient encounter procedure Pm Cardiac Rehab Therapist 1 [facility] Start: 12-30-2023 End: 01-14-[address] [facility] Start: 12-29-2023 End: 12-29-[address] [facility] Start: 12-29-2023 End: 12-29-2023 Patient encounter procedure Pm Cardiac Rehab Therapist 1 [facility] Start: 12-27-2023 End: 12-27-[address] [facility] Start: 12-23-2023 End: 12-23-2023 ambulatory [facility] Start: 12-23-2023 End: 12-23-2023 Patient encounter procedure Pm Cardiac Rehab Therapist 1 [facility] Start: 12-22-2023 End: 12-22-[address] [facility] Start: 12-22-2023 End: 12-22-2023 Patient encounter procedure Pm Cardiac Rehab Therapist 1 [facility] Start: 12-20-2023 End: 12-20-2023 ambulatory [facility] Start: 12-20-2023 End: 12-20-2023 Patient encounter procedure Pm Cardiac Rehab Therapist 1 [facility] Start: 12-14-2023 End: 12-14-2023 ambulatory [facility] Start: 11-24-2023 End: 11-24-2023 ambulatory [facility] Start: 11-24-2023 End: 11-24-2023 Office outpatient visit 25 minutes Sherry Crowe SURFACE LAY OUT TECHNICIAN-SLEEVE MAKER Work Phone: [facility] Comment on above: Current every day sm oker (Primary Dx); NSTEMI (non-ST elevated myocardial infarction) ([facility] Coronary artery disease involving te-moak coronary artery of te-moak heart without angina pectoris; Primary hypertension; Mixed hyperlipidemia; BMI 27.0-27.9,adult Start: 10-13-2023 End: 10-15-2023 [facility] Start: 10-13-2023 End: 10-15-2023 Evaluation and management of inpatient PHYSICIAN NO [facility] Work Phone: Start: 03-09-2023 End: 03-09-2023 ambulatory Shannan Munguia Other [employer] Other Start: 03-09-2023 Office outpatient visit 15 minutes Shannan Munguia [facility] Start: 02-23-2023 End: 02-23-2023 ambulatory Shannan Munguia Facility:[facility] Start: 02-23-2023 End: 02-23-2023 Patient encounter procedure PHYSICIAN NO [facility] Work Phone: Start: 02-23-2023 End: 02-23-2023 ambulatory PHYSICIAN NO [facility] Work Phone: Start: 02-23-2023 Office outpatient visit 15 minutes Shannan Munguia [facility] Start: 09-18-2021 Office outpatient visit 15 minutes Referring Provider Unknown [facility] [address] [place] Work Phone: Start: 09-18-2021 Patient encounter procedure Referring Provider Unknown [facility] DO Work Phone: Start: 08-21-2020 End: 08-22-2020 Patient encounter procedure SHERRY CYRSHARON Facility:[facility] Start: 04-28-2020 End: 04-29-2020 Patient encounter procedure HUSSAIN DIAZ Facility:[facility] Start: 04-26-2020 End: 04-26-2020 Patient encounter procedure ROSA ISELA [facility] Facility:H1 Procedures Date Procedure Procedure Detail Performing Clinician Start: 02-29-2024 Alanine aminotransfe rase [Enzymatic activity/volume] in Serum or Plasma SHERRY CROWE Start: 02-29-2024 Aspartate aminotrans ferase [Enzymatic activity/volume] in Serum or Plasma SHERRY CROWE Start: 02-29-2024 Basic metabolic 2000 panel - Serum or Plasma SHERRY CROWE Start: 02-29-2024 Lipid panel SHERRYSERGO JUNIORT Bharath Start: 02-29-2024 FOLLOW UP IN CARDIOLOGY SHERRY CROWE Start: 11-24-2023 FOLLOW UP IN CARDIOLOGY SHERRY CROWE Start: 10-14-2023 CL Ivus Initial Vessel PHYSICIAN NO FAMILY Start: 10-14-2023 CL [facility] Angio PHYS ICIAN NO FAMILY Start: 02-23-2023 Plain X-ray of left forearm PHYSICIAN NO FAMILY Appendectomy Referring Provi prashant Unknown Cardiac catheterization Refe rring Provider Unknown Elbow joint operations Refer ring Provider Unknown Operative procedure on foot Referring Provider Unknown Operative procedure on knee Referring Provider Unknown Tonsillectomy and adenoidectomy Referring Provider Unknown NEGATED: Highlighted row has not occurred! Total colonoscopy Referring Provider Unknown Plan of Treatment Date Care Activity Detail Author Start: 05-07-2030 DTaP,Tdap and Td Vaccines (2 - Td or Tdap) DTaP,Tdap and Td Vaccines (2 - Td or Tdap) [facility] Start: 05-07-2030 DTaP/Tdap/Td Vaccines (2 - Td or Tdap) DTaP/Tdap/Td Vaccines (2 - Td or Tdap) [facility] Start: 02-27-2025 End: 02-27-2025 Patient encounter procedure 02/27/2025 9:50 AM EDT Office Visit [facility] [address] [facility] [address] [place] [address] Evelio Ochoa DO [address] [facility] [address] [place] [address] [facility] Start: 08-30-2024 End: 02-28-2025 Alanine aminotransferase [Enzymatic activity/volume] in Serum or Plasma by With P-5'-P Alanine Aminotransferase Lab Routine Mixed hyperlipidemia Expected: 08/30/2024 (Approximate), Expires: 02/28/2025 [facility] Service Area Work Phone: Comment on above: Expected: 08/30/2024 (Approximate), Expi res: 02/28/2025 Start: 08-30-2024 End: 02-28-2025 Aspartate aminotransferase [Enzymatic activity/volume] in Serum or Plasma by With P-5'-P Aspartate Aminotransferase Lab Routine Mixed hyperlipidemia Expected: 08/30/2024 (Approximate), Expires: 02/28/2025 [facility] Work Phone: Comment on above: Expected: 08/30/2024 (Approximate), Expi res: 02/28/2025 Start: 08-30-2024 End: 02-28-2025 Basic metabolic 2000 panel - Serum or Plasma Basic Metabolic Panel Lab Routine Primary hypertension Expected: 08/30/2024 (Approximate), Expires: 02/28/2025 [facility] Work Phone: Comment on above: Expected: 08/30/2024 (Approximate), Expi res: 02/28/2025 Start: 08-30-2024 End: 02-28-2025 Lipid 1996 panel - Serum or Plasma Lipid Panel Lab Routine Mixed hyperlipidemia Expected: 08/30/2024 (Approximate), Expires: 02/28/2025 [facility] Work Phone: Comment on above: Expected: 08/30/2024 (Approximate), Expi res: 02/28/2025 Start: 2024 RSV patients and/or patients aged 60+ years (1 - 1-dose 60+ series) RSV patients and/or patients aged 60+ years (1 - 1-dose 60+ series) [facility] Start: 07-16-2024 Influenza vaccination Influenza Vaccine [facility] Start: 03-20-2024 End: 03-20-2024 Patient encounter procedure 03/20/2024 11:00 AM EDT Office Visit [facility] [address] [place] [address] [facility] Start: 03-16-2024 End: 03-16-2024 Patient encounter procedure 03/16/2024 11:00 AM EDT Office Visit [facility] [address] [place] [address] [facility] Start: 03-15-2024 End: 03-15-2024 Patient encounter procedure 03/15/2024 11:00 AM EDT Office Visit [facility] [address] [place] [address] [facility] Start: 03-13-2024 End: 03-13-2024 Patient encounter procedure 03/13/2024 11:00 AM EDT Office Visit [facility] [address] [place] [address] [facility] Start: 03-09-2024 End: 03-09-2024 Patient encounter procedure 03/09/2024 11:00 AM EDT Office Visit [facility] [address] [place] [address] [facility] Start: 03-08-2024 End: 03-08-2024 Patient encounter procedure 03/08/2024 11:00 AM EDT Office Visit [facility] [address] [place] [address] [facility] Start: 03-06-2024 End: 03-06-2024 Patient encounter procedure 03/06/2024 11:00 AM EDT Office Visit [facility] [address] [place] [address] [facility] Start: 03-02-2024 End: 03-02-2024 Patient encounter procedure 03/02/2024 11:00 AM EDT Office Visit [facility] [address] [place] [address] [facility] Start: 03-01-2024 End: 03-01-2024 Patient encounter procedure 03/01/2024 11:00 AM EDT Office Visit [facility] [address] [place] [address] [facility] Start: 02-29-2024 End: 02-29-2024 Patient encounter procedure 02/29/2024 9:50 AM EDT Office Visit [facility] [address] [place] [phone] Evelio Ochoa DO [address] [place] [address] [facility] Start: 02-28-2024 End: 02-28-2024 Patient encounter procedure 02/28/2024 11:00 AM EDT Office Visit [facility] [address] [place] [address] [facility] Start: 02-24-2024 End: 02-24-2024 Patient encounter procedure [facility] Start: 02-23-2024 End: 02-23-2024 Patient encounter procedure [facility] Start: 02-21-2024 End: 02-21-2024 Patient encounter procedure [facility] Start: 02-17-2024 End: 02-17-2024 Patient encounter procedure [facility] Start: 02-16-2024 End: 02-16-2024 Patient encounter procedure [facility] Start: 02-14-2024 End: 02-14-2024 Patient encounter procedure 02/14/2024 11:00 AM EDT Office Visit [facility] [address] [place] [address] [facility] Start: 02-10-2024 End: 02-10-2024 Patient encounter procedure 02/10/2024 11:00 AM EDT Office Visit [facility] [address] [place] [address] [facility] Start: 02-09-2024 End: 02-09-2024 Patient encounter procedure 02/09/2024 11:00 AM EDT Office Visit [facility] [address] [place] [address] [facility] Start: 02-07-2024 End: 02-07-2024 Patient encounter procedure 02/07/2024 11:00 AM EDT Office Visit [facility] [address] [place] [address] [facility] Start: 02-03-2024 End: 02-03-2024 Patient encounter procedure 02/03/2024 11:00 AM EDT Office Visit [facility] [address] [place] [address] [facility] Start: 02-02-2024 End: 02-02-2024 Patient encounter procedure 02/02/2024 11:00 AM EDT Office Visit [facility] [address] [place] [address] [facility] Start: 01-31-2024 End: 01-31-2024 Patient encounter procedure 01/31/2024 11:00 AM EDT Office Visit [facility] [address] [place] [address] [facility] Start: 01-27-2024 End: 01-27-2024 Patient encounter procedure 01/27/2024 11:00 AM EDT Office Visit [facility] [address] [place] [address] [facility] Start: 01-26-2024 End: 01-26-2024 Patient encounter procedure 01/26/2024 11:00 AM EDT Office Visit [facility] [address] [place] [address] [facility] Start: 01-24-2024 End: 01-24-2024 Patient encounter procedure 01/24/2024 11:00 AM EDT Office Visit [facility] [address] [place] [address] [facility] Start: 01-23-2024 End: 11-24-2024 Alanine aminotransferase [Enzymatic activity/volume] in Serum or Plasma by With P-5'-P Alanine Aminotransferase Lab Routine Mixed hyperlipidemia Expected: 01/23/2024 (Approximate), Expires: 11/24/2024 [facility] Service Area Work Phone: Comment on above: Expected: 01/23/2024 (Approximate), Expi res: 11/24/2024 Start: 01-23-2024 End: 11-24-2024 Aspartate aminotransferase [Enzymatic activity/volume] in Serum or Plasma by With P-5'-P Aspartate Aminotransferase Lab Routine Mixed hyperlipidemia Expected: 01/23/2024 (Approximate), Expires: 11/24/2024 [facility] Work Phone: Comment on above: Expected: 01/23/2024 (Approximate), Expi res: 11/24/2024 Start: 01-23-2024 End: 11-24-2024 Lipid 1996 panel - Serum or Plasma Lipid Panel Lab Routine Mixed hyperlipidemia Expected: 01/23/2024 (Approximate), Expires: 11/24/2024 [facility] Work Phone: Comment on above: Expected: 01/23/2024 (Approximate), Expi res: 11/24/2024 Start: 01-21-2024 End: 01-21-2024 Patient encounter procedure 01/21/2024 6:30 AM EST Appointment [facility] [address] [place] [address] [facility] Start: 01-20-2024 End: 01-20-2024 Patient encounter procedure 01/20/2024 11:00 AM EST Office Visit [facility] [address] [place] [address] [facility] Start: 01-19-2024 End: 01-19-2024 Patient encounter procedure 01/19/2024 11:00 AM EST Office Visit [facility] [address] [place] [address] [facility] Start: 01-17-2024 End: 01-17-2024 Patient encounter procedure 01/17/2024 11:00 AM EST Office Visit [facility] [address] [place] [address] [facility] Start: 01-13-2024 End: 01-13-2024 Patient encounter procedure 01/13/2024 11:00 AM EST Office Visit [facility] [address] [place] [address] [facility] Start: 01-12-2024 End: 01-12-2024 Patient encounter procedure 01/12/2024 11:00 AM EST Office Visit [facility] [address] [place] [address] [facility] Start: 01-10-2024 End: 01-10-2024 Patient encounter procedure 01/10/2024 11:00 AM EST Office Visit [facility] [address] [place] [address] [facility] Start: 01-06-2024 End: 01-06-2024 Patient encounter procedure 01/06/2024 11:00 AM EST Office Visit [facility] [address] [place] [address] [facility] Start: 01-05-2024 End: 01-05-2024 Patient encounter procedure 01/05/2024 11:00 AM EST Office Visit [facility] [address] [place] [address] [facility] Start: 01-03-2024 End: 01-03-2024 Patient encounter procedure 01/03/2024 11:00 AM EST Office Visit [facility] [address] [place] [address] [facility] Start: 12-30-2023 End: 12-30-2023 Patient encounter procedure 12/30/2023 11:00 AM EST Office Visit [facility] [address] [place] [address] [facility] Start: 12-29-2023 End: 12-29-2023 Patient encounter procedure 12/29/2023 11:00 AM EST Office Visit [facility] [address] [place] [address] [facility] Start: 12-27-2023 End: 12-27-2023 Patient encounter procedure 12/27/2023 11:00 AM EST Office Visit [facility] [address] [place] [address] [facility] Start: 12-23-2023 End: 12-23-2023 Patient encounter procedure 12/23/2023 11:00 AM EST Office Visit [facility] [address] [place] [address] [facility] Start: 12-22-2023 End: 12-22-2023 Patient encounter procedure 12/22/2023 11:00 AM EST Office Visit [facility] [address] [place] [address] [facility] Start: 10-15-2023 [facility] Start: 10-14-2023 Referral to cardiac rehabilitation program [facility] Start: 10-13-2023 Hospital admission [facility] Start: 07-16-2023 COVID-19 Vaccine ( season) COVID-19 Vaccine () [facility] Start: 07-16-2023 COVID-19 Vaccine ( season) COVID-19 Vaccine () [facility] Start: 06-02-2022 FUV, Provider: Evelio Ragsdale, Status: Pen, Time: 10:10 AM FUV, Provider: Evelio Ragsdale, Status: Pen, Time: 10:10 AM [place] [address] DO Work Phone: Start: 05-18-2021 COVID-19 Vaccine (4 - Pfizer series) COVID-19 Vaccine (4 - Pfizer series) [facility] Start: 2014 Administration of varicella zoster vaccine Zoster (Shingles) Vaccine (1 of 2) [facility] Start: 2014 Zoster Vaccines (1 of 2) Zoster Vaccines (1 of 2) [facility] Start: 09-17-2013 Hepatitis B Vaccines (3 of 3 - 19+ 3-dose series) Hepatitis B Vaccines (3 of 3 - 19+ 3-dose series) [facility] Start: 1983 Urine screening for protein Diabetes: Urine Protein Screening [facility] Start: 1982 Adult BMI Screening Adult BMI Screening [facility] Start: 1982 Hepatitis C screening Hepatitis C Screening [facility] Start: 1976 Depression Screening Depression Screening [facility] Start: 1976 Tobacco Screening Tobacco Screening [facility] Start: 1974 Diabetic foot examination Diabetes: Foot Exam [facility] Start: 1974 Glaucoma screening Diabetes: Retinopathy Screening [facility] Start: 1970 Pneumococcal Vaccine: Pediatrics (0 to 5 Years) and At-Risk Patients (6 to 64 Years) (1 - PCV) Pneumococcal Vaccine: Pediatrics (0 to 5 Years) and At-Risk Patients (6 to 64 Years) (1 - PCV) [facility] Start: 1970 Pneumococcal Vaccine: Pediatrics (0 to 5 Years) and At-Risk Patients (6 to 64 Years) (1 of 2 - PCV) Pneumococcal Vaccine: Pediatrics (0 to 5 Years) and At-Risk Patients (6 to 64 Years) (1 of 2 - PCV) [facility] Start: 1965 MMR Vaccines (1 of 1 - Standard series) MMR Vaccines (1 of 1 - Standard series) [facility] Start: 1964 Hemoglobin A1c measurement Diabetes: Hemoglobin A1C [facility] Start: 1964 HIV screening HIV Screening [facility] Start: 1964 Lipid panel Lipid Panel [facility] Start: 1964 Screening for malignant neoplasm of colon [facility] Start: 1964 Yearly Adult Physical Yearly Adult Physical [facility] CARDIOPULMONARY REHABILITATION CARDIOPULMONARY REHABILITATION Cardiac Services Ordered: 12/20/2023 [facility] Comment on above: Ordered: 12/20/2023 CARDIOPULMONARY REHABILITATION CARDIOPULMONARY REHABILITATION Cardiac Services Ordered: 12/22/2023 [facility] Comment on above: Ordered: 12/22/2023 CARDIOPULMONARY REHABILITATION CARDIOPULMONARY REHABILITATION Cardiac Services Ordered: 12/23/2023 [facility] Comment on above: Ordered: 12/23/2023 CARDIOPULMONARY REHABILITATION CARDIOPULMONARY REHABILITATION Cardiac Services Ordered: 12/29/2023 [facility] Comment on above: Ordered: 12/29/2023 CARDIOPULMONARY REHABILITATION CARDIOPULMONARY REHABILITATION Cardiac Services Ordered: 01/03/2024 [facility] Comment on above: Ordered: 01/03/2024 CARDIOPULMONARY REHABILITATION CARDIOPULMONARY REHABILITATION Cardiac Services Ordered: 01/05/2024 [facility] Comment on above: Ordered: 01/05/2024 CARDIOPULMONARY REHABILITATION CARDIOPULMONARY REHABILITATION Cardiac Services Ordered: 01/12/2024 [facility] Comment on above: Ordered: 01/12/2024 CARDIOPULMONARY REHABILITATION CARDIOPULMONARY REHABILITATION Cardiac Services Ordered: 01/13/2024 [facility] Comment on above: Ordered: 01/13/2024 CARDIOPULMONARY REHABILITATION CARDIOPULMONARY REHABILITATION Cardiac Services Ordered: 01/17/2024 [facility] Comment on above: Ordered: 01/17/2024 CARDIOPULMONARY REHABILITATION CARDIOPULMONARY REHABILITATION Cardiac Services Ordered: 01/20/2024 [facility] Comment on above: Ordered: 01/20/2024 CARDIOPULMONARY REHABILITATION CARDIOPULMONARY REHABILITATION Cardiac Services Ordered: 01/24/2024 [facility] Comment on above: Ordered: 01/24/2024 CARDIOPULMONARY REHABILITATION CARDIOPULMONARY REHABILITATION Cardiac Services Ordered: 01/26/2024 [facility] Comment on above: Ordered: 01/26/2024 CARDIOPULMONARY REHABILITATION CARDIOPULMONARY REHABILITATION Cardiac Services Ordered: 01/31/2024 [facility] Comment on above: Ordered: 01/31/2024 CARDIOPULMONARY REHABILITATION CARDIOPULMONARY REHABILITATION Cardiac Services Ordered: 02/02/2024 [facility] Comment on above: Ordered: 02/02/2024 CARDIOPULMONARY REHABILITATION CARDIOPULMONARY REHABILITATION Cardiac Services Ordered: 02/03/2024 [facility] Comment on above: Ordered: 02/03/2024 CARDIOPULMONARY REHABILITATION CARDIOPULMONARY REHABILITATION Cardiac Services Ordered: 02/07/2024 [facility] Comment on above: Ordered: 02/07/2024 CARDIOPULMONARY REHABILITATION CARDIOPULMONARY REHABILITATION Cardiac Services Ordered: 02/09/2024 [facility] Comment on above: Ordered: 02/09/2024 CARDIOPULMONARY REHABILITATION CARDIOPULMONARY REHABILITATION Cardiac Services Ordered: 02/14/2024 [facility] Comment on above: Ordered: 02/14/2024 CARDIOPULMONARY REHABILITATION CARDIOPULMONARY REHABILITATION Cardiac Services Ordered: 02/16/2024 [facility] Comment on above: Ordered: 02/16/2024 Patient referral [facility] Work Phone: Immunizations Immunization Date Immunization Notes Care Provider Fa cility 10-15-2023 influenza, injectabl e, quadrivalent, preservative free PHYSICIAN NO [facility] 10-15-2023 influenza virus vaccine, unspecified formulation Pm 1 Elance 03-23-2021 Pfizer-BioNTech COVID-19 Vacc 30 MCG/0.3ML Intramuscular Suspension Referring Provider Unknown [facility] 02-10-2021 Pfizer-BioNTech COVID-19 Vacc 30 MCG/0.3ML Intramuscular Suspension Referring Provider Unknown [facility] 02-07-2021 Pfizer Purple Cap SARS-CoV-2 Sherry Crowe SURFACE LAY OUT TECHNICIAN-[employer] Work Phone: [facility] 09-27-2020 influenza virus vaccine, unspecified formulation Sherry Crowe SURFACE LAY OUT TECHNICIAN-[employer]EVE MAKER Work Phone: [facility] Work Phone: 09-27-2020 influenza, injectabl e, quadrivalent, contains preservative Referring Provider Unknown [facility] 250 DO Work Phone: 09-27-2020 influenza, injectabl e, quadrivalent, preservative free Sherry Crowe SURFACE LAY OUT TECHNICIAN-[employer]EVE MAKER Work Phone: [facility] Work Phone: 05-07-2020 tetanus toxoid, redu golden diphtheria toxoid, and acellular pertussis vaccine, adsorbed Shannan Munguia Other [facility] 04-18-2013 hepatitis B vaccine, adult dosage Referring Provider Unknown [facility] 03-17-2013 hepatitis B vaccine, adult dosage Referring Provider Unknown [facility] 250 DO Work Phone: Payers Date Payer Category Payer Unknown 2023 Unknown [id number] 2023 Unknown [id number] 2023 Self-pay [id number] 1964 Unknown [id number] 2.16.84 0.1.347250.3.579.2.593 1964 Unknown [id number] 2.16.84 0.1.830458.3.579.2.593 1964 Unknown [id number] 2.16.84 0.1.160595.3.579.2.593 1964 Unknown [id number] 2.16.8 40.1.674523.3.579.2.1244 1964 Unknown [id number] 2.16.8 40.1.789393.3.579.2.1244 1964 Unknown [id number] 2.16.8 40.1.523495.3.579.2.1286 1964 Unknown [id number] 2.16.8 40.1.785507.3.579.2.6 1964 Unknown [id number] 2.16.8 40.1.622196.3.579.2.1286 1964 Unknown [id number] 2.16.8 40.1.168960.3.579.2.1286 1964 Unknown [id number] 2.16.8 40.1.606012.3.579.2.1286 1964 Unknown [id number] 2.16.8 40.1.140796.3.579.2.1286 1964 Unknown [id number] 2.16.8 40.1.566209.3.579.2.1286 1964 Unknown [id number] 2.16.8 40.1.835446.3.579.2.1286 1964 Unknown [id number] 2.16.8 40.1.027093.3.579.2.1285 1964 Unknown [id number] 2.16.8 40.1.550610.3.579.2.1285 1964 Unknown [id number] 2.16.8 40.1.663029.3.579.2.1285 1964 Unknown [id number] 2.16.8 40.1.056408.3.579.2.1285 1964 Unknown [id number] 2.16.8 40.1.628579.3.579.2.1285 1964 Unknown [id number] 2.16.8 40.1.751024.3.579.2.1285 1964 Unknown [id number] 2.16.8 40.1.738704.3.579.2.1285 1964 Unknown [id number] 2.16.8 40.1.992481.3.579.2.1285 1964 Unknown [id number] 2.16.8 40.1.744016.3.579.2.1285 1964 Unknown [id number] 2.16.8 40.1.944692.3.579.2.1285 1964 Unknown [id number] 2.16.8 40.1.385443.3.579.2.1285 1964 Unknown [id number] 2.16.8 40.1.499977.3.579.2.1285 1964 Unknown [id number] 2.16.8 40.1.397145.3.579.2.1285 1964 Unknown [id number] 2.16.8 40.1.703396.3.579.2.1285 1964 Unknown [id number] 2.16.8 40.1.705495.3.579.2.1285 1964 Unknown [id number] 2.16.8 40.1.722613.3.579.2.1285 1964 Unknown [id number] 2.16.8 40.1.354652.3.579.2.1285 1964 Unknown [id number] 2.16.8 40.1.574988.3.579.2.1285 1964 Unknown [id number] 2.16.8 40.1.260019.3.579.2.1285 1964 Unknown [id number] 2.16.8 40.1.055059.3.579.2.1285 1964 Unknown [id number] 2.16.8 40.1.528530.3.579.2.1285 1964 Unknown [id number] 2.16.8 40.1.031275.3.579.2.1285 1964 Unknown [id number] 2.16.8 40.1.066701.3.579.2.1285 1964 Unknown [id number] 2.16.8 40.1.583719.3.579.2.1285 1964 Unknown [id number] 2.16.8 40.1.383198.3.579.2.1285 1964 Unknown [id number] 2.16.8 40.1.149202.3.579.2.1285 1964 Unknown [id number] 2.16.8 40.1.942728.3.579.2.1285 1964 Unknown [id number] 2.16.8 40.1.227540.3.579.2.1285 1964 Unknown [id number] 2.16.8 40.1.540722.3.579.2.1285 1964 Unknown [id number] 2.16.8 40.1.007000.3.579.2.1285 1964 Unknown [id number] 2.16.8 40.1.443996.3.579.2.1285 1964 Unknown [id number] 2.16.8 40.1.242867.3.579.2.1285 1964 Unknown [id number] 2.16.8 40.1.755710.3.579.2.1285 1964 Unknown [id number] 2.16.8 40.1.877213.3.579.2.1285 1964 Unknown [id number] 2.16.8 40.1.741624.3.579.2.1285 1964 Unknown [id number] 2.16.8 40.1.676147.3.579.2.1285 1964 Unknown [id number] 2.16.8 40.1.679614.3.579.2.1285 1964 Unknown [id number] 2.16.8 40.1.847750.3.579.2.1285 1964 Unknown [id number] 2.16.8 40.1.734741.3.579.2.1285 1964 Unknown [id number] 2.16.8 40.1.778376.3.579.2.1285 1964 Unknown [id number] 2.16.8 40.1.671812.3.579.2.1285 1964 Unknown [id number] 2.16.8 40.1.477717.3.579.2.1285 1964 Unknown [id number] 2.16.8 40.1.324311.3.579.2.1285 1964 Unknown [id number] 2.16.8 40.1.877775.3.579.2.1285 1964 Unknown [id number] 2.16.8 40.1.241048.3.579.2.1285 1964 Unknown [id number] 2.16.8 40.1.456321.3.579.2.1285 1959 Private Health Insurance [id number] Private Health Insurance [id number] 2.16.840.1.207243.19 Unknown [id number] 2.16.8 40.1.212384.3.579.2.531 Unknown [id number] 2.16.8 40.1.392057.3.579.2.531 Social History Date Type Detail Facility Start: 04-26-2019 End: 11-24-2023 No illicit drug use No illicit drug use -[facility] 250 DO Work Phone: Comment on above: 11/16 ppd; Start: 04-29-2020 End: 10-14-2023 Tobacco smoking status NHIS Smoker (finding) [facility] Start: 1965 Sex Assigned At Male F [facility] Start: 04-26-2019 End: 11-24-2023 Sex Assigned At [facility] Other Start: 11-24-2023 [facility] tobacco use [facility]: Start: 11-24-2023 Tobacco use and exposure Smokeless tobacco non-user [facility] Work Phone: Start: 11-24-2023 End: 02-29-2024 Alcohol intake Lifetime non-drinker (finding) [facility] Work Phone: Start: 10-15-2023 Gender identity Identifies as male gender (finding) [facility] Work Phone: Start: 10-15-2023 Sexual orientation Heterosexual (fin ding) [facility] Work Phone: Start: 11-14-2023 End: 02-29-2024 Exposure to SARS-CoV-2 (event) Not sure [facility] Tobacco smoking stat [facility] Tobacco smoking consumption unknown [facility] Start: 1965 Sex Assigned At Not on file [facility] Medical Equipment Procedure Code Equipment Code Equipment Origin al Text Equipment Identifier Dates CL STENT IRVING 2.5 X 33 FDA Start: 04-29-2020 CL STENT IRVING 2.5 X 33 FDA Start: 04-29-2020 Goals Date Patient Goal Desired Activity /State Functional Status Date Assessment Result Facility 10-15-2023 Functional status Patient at [facility] Work Phone: Mental Status Date Assessment Result Facility 10-15-2023 Cognitive function Cognitive Sta tus Patient at Baseline [facility] Work Phone: Clinical Notes 02-23-2023 to 02-29-2024 Evelio Ochoa, DO - 02/29/2024 2:20 PM EDTPatient InstructionsAssessment & Plan Note - Sherry Crowe, SKINNY-SLEEVE MAKER - 11/25/2023 4:06 PM Angelina Crowe, SKINNY- [facility] - 11/24/2023 11:30 AM EST Note Date & Type Note Facility 02-29-2024 History of Presen t illness Narrative Subjective Tara Hartmann is a 58 y.o. male Chief Complaint Follow-up 58-year-old gentleman returns for 6-month follow-up he is doing well he denies any cardiovascular events, complaints, nitrate usage or recurrent hospitalizations. September he sustained acute non-ST elevation MN, repeat heart catheterization revealed widely patent circumflex stent with new nonobstructive ruptured plaque in the mid circumflex that was noted and underwent intravascular ultrasound with no intervention. He is down to 1 pack of cigarettes daily, improved from the past Most recent lipid panel LDL is 90, HDL 38. LV function is normal Smoking cessation counseling for 3 to 5 minutes performed as well as compliance with current medical therapies, Recommendations, smoking cessation, follow-up in 6 to 12 months on same therapies. Review of Systems All other systems reviewed and are negative. Vitals: 02/29/24 1402 BP: 122/72 BP Location: Right arm Patient Position: Sitting Pulse: 68 Weight: 77.7 kg (171 lb 6.4 oz) Height: 1.702 m (5' 7 ) Objective Physical Exam Constitutional: Appearance: Normal appearance. HENT: Nose: Nose normal. Neck: Vascular: No carotid bruit. Cardiovascular: Rate and Rhythm: Normal rate. Pulses: Normal pulses. Heart sounds: Normal heart sounds. Pulmonary: Effort: Pulmonary effort is normal. Abdominal: General: Bowel sounds are normal. Palpations: Abdomen is soft. Musculoskeletal: General: Normal range of motion. Cervical back: Normal range of motion. Right lower leg: No edema. Left lower leg: No edema. Skin: General: Skin is warm and dry. Neurological: General: No focal deficit present. Mental Status: He is alert. Psychiatric: Mood and Affect: Mood normal. Behavior: Behavior normal. Thought Content: Thought content normal. Judgment: Judgment normal. Allergies Patient has no known allergies. Current Medications Current Outpatient Medications: aspirin 81 mg EC tablet, Take 1 tablet (81 mg) by mouth once daily., Disp: , Rfl: atorvastatin (Lipitor) 80 mg tablet, Take 1 tablet (80 mg) by mouth once daily at bedtime., Disp: , Rfl: clopidogrel (Plavix) 75 mg tablet, Take 1 tablet (75 mg) by mouth once daily., Disp: , Rfl: losartan (Cozaar) 25 mg tablet, Take 1 tablet (25 mg) by mouth once daily., Disp: , Rfl: metoprolol tartrate (Lopressor) 25 mg tablet, Take 1 tablet (25 mg) by mouth 2 times a day., Disp: , Rfl: nitroglycerin (Nitrostat) 0.4 mg SL tablet, Place 1 tablet (0.4 mg) under the tongue every 5 minutes if needed for chest pain. May repeat dose every 5 minutes for up to 3 doses total., Disp: 100 tablet, Rfl: 11 Assessment/Plan 1. Coronary artery disease involving te-moak coronary artery of te-moak heart without angina pectoris Follow Up In Cardiology 2. Primary hypertension 3. Mixed hyperlipidemia 4. BMI 26.0-26.9,adult 5. Current every day smoker Scribe Attestation By signing my name below, I, Yazmin Ye LPN attest that this documentation has been prepared under the direction and in the presence of Evelio Ochoa DO. Provider Attestation - Scribe documentation All medical record entries made by the Scribe were at my direction and personally dictated by me. I have reviewed the chart and agree that the record accurately reflects my personal performance of the history, physical exam, discussion and plan. documented in this encounter [facility] Work Phone: 02-29-2024 Instructions Sonali Huerta LPN - 02/29/2024 2:20 PM EDT Please bring all medicines, vitamins, and herbal supplements with you when you come to the office. Prescriptions will not be filled unless you are compliant with your follow up appointments or have a follow up appointment scheduled as per instruction of your physician. Refills should be requested at the time of your visit. BMI was above normal measurement. Current weight: 77.7 kg (171 lb 6.4 oz) Weight change since last visit (-) denotes wt loss -4.6 lbs Weight loss needed to achieve BMI 25: 12.1 Lbs Weight loss needed to achieve BMI 30: -19.7 Lbs Provided instructions on dietary changes Provided instructions on exercise. documented in this encounter [facility] Work Phone: 11-25-2023 Evaluation + Plan note Associated Problem(s): BMI 27.0-27.9,adult Reviewed the merits of healthy lifestyle choices on overall cardiovascular health. [facility] Work Phone: 11-25-2023 Evaluation + Plan note Associated Problem(s): Hyperlipemia Tolerating addition of high intensity statin [facility] Work Phone: 11-25-2023 Evaluation + Plan note Associated Problem(s): HTN (hypertension) Optimal in office [facility] Work Phone: 11-25-2023 Evaluation + Plan note Associated Problem(s): Coronary artery disease involving te-moak coronary artery without angina pectoris 2019 [place] 14[place] 20[place] [facility] [place] Cardiac cath: mCX with ruptured plaque - IVUS guided no significant stenosis OM patent stent LAD 20% P/mCX stent jailing superior division with 50% superior mRCA 80% small vessel LVEF 50% [facility] Work Phone: 11-25-2023 Miscellaneous Notes Associated Problem(s): BMI 27.0-27.9,adult Reviewed the merits of healthy lifestyle choices on overall cardiovascular health. Associated Problem(s): Hyperlipemia Tolerating addition of high intensity statin Associated Problem(s): HTN (hypertension) Optimal in office Associated Problem(s): Coronary artery disease involving te-moak coronary artery without angina pectoris 2019 [place] 14, 2023 [place] [facility] [place] Ochoa Cardiac cath: mCX with ruptured plaque - IVUS guided no significant stenosis OM patent stent LAD 20% P/mCX stent jailing superior division with 50% superior mRCA 80% small vessel LVEF 50% Associated Problem(s): Current every day smoker Reports intolerance to chantix (nightmares) and nicoderm patches (irritation) Not interested in [facility] [place] Continued every day tobacco use. Have reviewed the negative cardiovascular impact of nicotine. Continues to decline pharmacological assistance. documented in this encounter [facility] Work Phone: 11-24-2023 Evaluation + Plan note Associated Problem(s): Current every day smoker Reports intolerance to chantix (nightmares) and nicoderm patches (irritation) Not interested in [facility] [place] Continued every day tobacco use. Have reviewed the negative cardiovascular impact of nicotine. Continues to decline pharmacological assistance. [facility] Work Phone: 11-24-2023 History of Presen t illness Narrative Chief Complaint Still get tired pretty quickly Reason for Visit Patient presents to the office today for outpatient follow-up for hospital follow-up Patient was recently hospitalized at [facility]. The patient was seen in Cardiology consult with subsequent cardiovascular management by [facility]. Hospitalization records have been reviewed. Reason for Cardiology Consultation: NSTEMI Consulting Medical Billing And Coding Specialist: Dr. Ochoa Cardiovascular testing: Cardiac cath recommendation for medical management. Changes to cardiovascular medical regimen at time of discharge: All medications no at time of discharge Discharge disposition: Home Last evaluated in clinic by Dr. Ochoa September 2021. BM Presents today ambulatory with steady gait. Accompanied by patient Patient does not have PCP. History of Present Illness Patient is a pleasant 58-year-old gentleman with somewhat low health literacy. He presented to the hospital on no medication. His presenting symptoms were chest pain and he denies any type of recurrence. In retrospect he may have had some stuttering discomfort and change in exercise capacity and functional tolerance over the weeks prior to admit. On Wednesday of last week he had a weird sensation and had to use 1 nitroglycerin. And had to use 1 nitroglycerin. He presents to the office today where his right radial cath site is healed without adverse sequela. 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 Discussed the importance of cardiac rehab and he agrees to attend. Concomitant medication: Plavix: Reinforced the importance of DAPT High intensity Lipitor tolerating without myalgia Denies any dizziness or lightheadedness with Cozaar and Lopressor Patient reports that overall has no complaint(s) of chest pain, chest pressure/discomfort, dyspnea, irregular heart beat, and lower extremity edema Reports improvement in exercise capacity or functional tolerance since last office visit. The importance of secondary prevention reviewed: HTN: Optimal in office HLD: High intensity statin, repeat labs in 2 months DM: Denies Smoker: Current everyday smoker, not ready to quit BMI: Reviewed the merits of healthy lifestyle choices on overall cardiovascular health. Discussed the dynamic nature of coronary artery disease and the importance of seeking medical attention if new symptoms arise. Review of Systems Cardiovascular: Negative for chest pain, dyspnea on exertion, irregular heartbeat, leg swelling, near-syncope, orthopnea, palpitations, paroxysmal nocturnal dyspnea and syncope. Visit Vitals BP 112/64 (BP Location: Left arm, Patient Position: Sitting) Pulse 62 Ht 1.702 m (5' 7 ) Wt 79.8 kg (176 lb) BMI 27.57 kg/m Smoking Status Every Day BSA 1.94 m Physical Exam Vitals and nursing note reviewed. Constitutional: Appearance: Normal appearance. Cardiovascular: Rate and Rhythm: Normal rate and regular rhythm. Heart sounds: Normal heart sounds. Pulmonary: Effort: Pulmonary effort is normal. Breath sounds: Normal breath sounds. Musculoskeletal: Cervical back: Full passive range of motion without pain. Right lower leg: No edema. Left lower leg: No edema. Skin: General: Skin is cool. Neurological: Mental Status: He is alert and oriented to person, place, and time. Psychiatric: Attention and Perception: Attention normal. Mood and Affect: Mood normal. Behavior: Behavior is cooperative. No Known Allergies Current Outpatient Medications Medication Instructions aspirin 81 mg EC tablet 1 tablet, oral, Daily atorvastatin (Lipitor) 80 mg tablet 1 tablet, oral, Nightly clopidogrel (PLAVIX) 75 mg, oral, Daily losartan (COZAAR) 25 mg, oral, Daily metoprolol tartrate (Lopressor) 25 mg tablet 1 tablet, oral, 2 times daily nitroglycerin (NITROSTAT) 0.4 mg, sublingual, Every 5 min PRN, May repeat dose every 5 minutes for up to 3 doses total. Assessment: Current every day smoker Reports intolerance to chantix (nightmares) and nicoderm patches (irritation) Not interested in [facility] [place] Continued every day tobacco use. Have reviewed the negative cardiovascular impact of nicotine. Continues to decline pharmacological assistance. Coronary artery disease involving te-moak coronary artery without angina pectoris 2019 [place] Oct 14, 2023 [place] [facility] [place] Ochoa Cardiac cath: mCX with ruptured plaque - IVUS guided no significant stenosis OM patent stent LAD 20% P/mCX stent jailing superior division with 50% superior mRCA 80% small vessel LVEF 50% HTN (hypertension) Optimal in office Hyperlipemia Tolerating addition of high intensity statin BMI 27.0-27.9,adult Reviewed the merits of healthy lifestyle choices on overall cardiovascular health. Plan: Through informed decision making process incorporating patients unique circumstances, the following treatment plan will be initiated: 1. Prescription drug management of cardiovascular medication for efficacy, adherence to treatment, side effect assessment and polypharmacy. Current treatment clinically warranted and to continue without modifications. 2. Referral to [facility] [place] 3. Labs in 2 months (lipids/ast/alt) 4. Return for follow-up; in the interim, contact the office if new symptoms arise. Dr. Ochoa 3 months You need to stop smoking. Though it is not easy, more than half of all adults smokers have quit. We encourage you to write down all the reasons you should quit smoking and set a quit date for yourself. Ask us how we can help. You may also call 9-886-BYZYPrism MicrowaveNOW for free resources and assistance. Sherry Crowe MSN, SURFACE LAY OUT TECHNICIAN-SLEEVE MAKER, PMHNP-[facility] Please excuse any errors in grammar or translation related to this dictation. Voice recognition software was utilized to prepare this document. documented in this encounter [facility] Work Phone: 11-24-2023 Instructions JORGE Arriola - 11/24/2023 11:30 AM EST Please bring all medicines, vitamins, and herbal supplements with you when you come to the office. Prescriptions will not be filled unless you are compliant with your follow up appointments or have a follow up appointment scheduled as per instruction of your physician. Refills should be requested at the time of your visit. PLAN: Through informed decision making process incorporating patients unique circumstances, the following treatment plan will be initiated: 1. Prescription drug management of cardiovascular medication for efficacy, adherence to treatment, side effect assessment and polypharmacy. Current treatment clinically warranted and to continue without modifications. 2. Referral to [facility] [place] 3. Labs in 2 months (lipids/ast/alt) 4. Return for follow-up; in the interim, contact the office if new symptoms arise. Dr. Ochoa 3 months You need to stop smoking. Though it is not easy, more than half of all adults smokers have quit. We encourage you to write down all the reasons you should quit smoking and set a quit date for yourself. Ask us how we can help. You may also call 5-513-ZDKTPrism MicrowaveNOW for free resources and assistance. documented in this encounter [facility] Work Phone: 10-15-2023 Progress note Note Date/Time October 15, 2023 9:19am [facility] [address] [place] [address] Cardiology Progress Note Signed Patient: Tara Hartmann MR#: [id number] : 1965 Acct:[id number] Age/Sex: 58 / M Adm Date: 3 Loc: Room: [address] [place] [address] Type: ADM IN Attending Dr: Vasquez Mckinley MD Copies to: ~ Date of Service: 10/15/2023 Subjective Principal diagnosis: Non-ST elevation MN Interval history: Mr. Hartmann is a 58 year old male seen in interventional cardiology consultationat the request of hospitalist and in conjunction with fourth-year medical student Dr. Haro; I concur with her evaluation, management and we have assessedthe patient independently and together. Patient presents with PMHx of HTN, HLD,CAD s/p stenting in 2019, and tobacco misuse who presented to [facility] with left arm pain and back/chest discomfort. The patient reports the pain began while he was at work, and it felt the same as it did in 2019 when he underwent stenting. At that time, cardiac catheterization showed subtotal occlusion if second OM branch and drug-eluting stent was placed. Mild LAD and circumflex disease was also seen. Patient reports taking daily baby aspirin, but has not been taking a statin medication for some time. Continues to smoke 1.5 packs per day. In the ED, patient received aspirin, morphine, and nitroglycerine which providedrelief of his symptoms. Troponin levels were initially WNL in [facility], however these began to rise during his hospitalization to the 700s, then the 900s. Patient was started on a heparin drip and transferred [place] [facility] [place] management of ACS. On examination today, patient states the chest/back/arm pain has resolved. He denies SOB, N/V, dizziness or weakness. Troponin levels here have been 195 and 124. Plan will be for cardiac catheterization this afternoon. Lipitor 80mg has been started. Risks, benefits and alternatives, discussed with the patient will proceed with early invasive management by means of catheterization and possible revascularization if necessary. Interval history 10/15/2023 patient was seen and examined. Doing well today. Has been ambulating to the bathroom, tolerating food and drink. Patient denies any chest pain/discomfort, headache, dizziness, nausea/vomiting. Patient likelyto be discharged this afternoon. Will need to continue on aspirin, Brilinta, and high intensity statin. Discussed smoking cessation counseling with patient for 3 to 5 minutes today, follow-up arrangements also made, discussed the natureof plaque rupture (without stenotic disease) and the risk of recurrent ACS. Exam Physical Exam Vital Signs: Temp Pulse Resp BP Pulse Ox O2 Del Method 97.6 F 67 18 124/68 94 L Room Air 10/14/23 11:32 10/15/23 08:04 10/15/23 02:45 10/15/23 08:04 10/15/23 08:04 10/15/23 08:04 Const General: comfortable and no acute distress Nutritional Appearance: obese Orientation: oriented x3 HEENT Head: normocephalic and atraumatic Eyes EOM: EOM intact bilaterally Resp Effort & Inspection: normal respiratory effort Auscultation: clear to auscultation bilaterally Cardio Rate: regular rate Rhythm: regular rhythm Heart Sounds: S1 normal and S2 normal GI Palpation: soft and no splenomegaly Skin General: no rashes or lesions noted Neuro General: patient alert and patient awake Cognition: normal cognition Motor: muscle tone normal throughout and strength 5/5 throughout Sensory Exam: no sensory deficits noted Objective Labs 10/14/23 04:24 10/15/23 04:49 Labs: Laboratory Results - last 24 hr 10/14/23 10/14/2323 09:07 16:17 18:16 APTT 62.6 H PHA Creatinine Clear Sodium Potassium Chloride Carbon Dioxide Anion Gap BUN Creatinine Est GFR (CKD-EPI) Glucose Calcium Troponin I High Sens 113.4 H* 109.9 H* 10/14/23 10/14/23 10/15/23 20:29 22:13 04:49 APTT PHA Creatinine Clear 92.95 Sodium 135 L Potassium 3.8 Chloride 107 Carbon Dioxide 20.6 L Anion Gap 11.2 BUN 22 Creatinine 0.80 Est GFR (CKD-EPI) > 60.0 Glucose 79 Calcium 9.3 Troponin I High Sens 113.0 H* 118.4 H* A&P - Cardiology (1) Non-ST elevated myocardial infarction: Code(s): I21.4 - Non-ST elevation (NSTEMI) myocardial infarction Status: Acute (2) Heavy tobacco smoker >10 cigarettes per day: Code(s): F17.210 - Nicotine dependence, cigarettes, uncomplicated Status: Acute Documented By: Blayne Ochoa DO 10/15/23 0914 Signed By: <Electronically signed by Blayne Ochoa DO> 10/15/23 [address] [facility] Work Phone: 1(682) 384-658111-30-2023 Consult note Author Blayne Ochoa [facility] October 14, 2023 3:31pm Note Date/Time October 14, 2023 2:46pm [facility] [address] [place] [address] Cardiology Consult Note Signed Patient: Tara Hartmann MR#: [id number] : 1965 Acct:[id number] Age/Sex: 58 / M Adm Date: 3 Loc: Room: [address] [place] [address] Type: ADM IN Attending Dr: Vasquez Mckinley MD Copies to: NO FAMILY PHYSICIAN MD Blayne Cerda DO~ Cardiology HPI History of Present Illness Consult Date: 10/14/23 Reason for Consult: NSTEMI HPI: Mr. Hartmann is a 58 year old male seen in interventional cardiology consultationat the request of hospitalist and in conjunction with fourth-year medical student Dr. Haro; I concur with her evaluation, management and we have assessedthe patient independently and together. Patient presents with PMHx of HTN, HLD,CAD s/p stenting in 2019, and tobacco misuse who presented to [facility] with left arm pain and back/chest discomfort. The patient reports the pain began while he was at work, and it felt the same as it did in 2019 when he underwent stenting. At that time, cardiac catheterization showed subtotal occlusion if second OM branch and drug-eluting stent was placed. Mild LAD and circumflex disease was also seen. Patient reports taking daily baby aspirin, but has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 Specialty Start Date End Date No Pcp, [place] [address] PCP - General Family Medicine 12/14/23 Goals (unrecognized section and content) Goals may be documented in a n alternate sectionNo InformationNo InformationNot on filedocumented as of this encounterNot on filedocumented as of this encounterNot on filedocumented as of this encounterNot on filedocumented as of this encounterNot on filedocumented as of this encounterNot on filedocumented as of this encounterNot on filedocumented as of this encounterNot on filedocumented as of this encounterNot on filedocumented as of this encounterNot on filedocumented as of this encounterNot on filedocumented as of this encounterNot on filedocumented as of this encounterNot on filedocumented as of this encounterNot on filedocumented as of this encounterNot on filedocumented as of this encounterNot on filedocumented as of this encounterNot on filedocumented as of this encounterNot on filedocumented as of this encounterNot on filedocumented as of this encounter REASON FOR VISIT (unrecogniz ed section and content) Reason Comments [place] [facility] [place]15 Reason Comments Follow-up 3 month Specialty Diagnoses / Procedures Referred By Contac t Referred To Contact Cardiology Diagnoses Coronary artery disease involving te-moak coronary artery of te-moak heart without angina pectoris Procedures Follow Up In Cardiology Sherry Crowe, SURFACE LAY OUT TECHNICIAN-SLEEVE MAKER [address] [facility] [address], [address] [address] Evelio Ochoa, DO [address] [facility], [place] [id number] Referral ID Status Reason Start Date Expiration Date V isits Requested Visits Authorized [id number] Authorized 11/24/2023 11/23/2024 1 1 FOR RECORDS PERTAINING TO PATIENTS WHO ARE OR HAVE BEEN ENROLLED IN A CHEMICAL DEPENDENCY/SUBSTANCEABUSE PROGRAM, SOME INFORMATION MAY BE OMITTED. This clinical summary was aggregated from multiple sources. Caution should be exercised in using it in the provision of clinical care. This summary normalizes information from multiple sources, and as a consequence, information in this document may materially change the coding, format and clinical context of patient data. In addition, data may be omitted in some cases. CLINICAL DECISIONS SHOULD BE BASED ON THE PRIMARY CLINICAL RECORDS. [facility] [employer] [facility]. provides no warranty or guarantee of the accuracy or completeness of information in this document.
--- NOTE | 2024-04-04 10:54 | CT_ITS ---
[address] [address] Patient Name: TARA SANTANA MRN: [id number] date: 1965 Sex: M Assigned Patient Location: ER Current Patient Location: Accession/Order Number: [id number] Exam Date: 04/04/2024 11:53 Report Date: 04/04/2024 13:03 At the request of: JEMAL SALMERON Procedure: CT abdomen pelvis w con EXAMINATION: CT abdomen pelvis w con HISTORY: Upper abd pain COMPARISON: No relevant comparison available. TECHNIQUE: Axial, Coronal, and Sagittal images were obtained without and/or with IV contrast as indicated by examination type. Dose reduction techniques were achieved by using automated exposure control and/or adjustment of mA and/or kV according to patient size and/or use of iterative reconstruction technique. FINDINGS: LUNG BASES: Trace amount of stranding within lingula. LIVER: No enlargement, atrophy, suspicious density, or significant focal lesion. BILIARY: Several tiny granular size stones within noninflamed gallbladder. PANCREAS: Stranding and mild inflammatory changes within the fat anterior to the body and tail of pancreas. No lesion, fluid collection, or abnormal duct dilatation. SPLEEN: No enlargement or focal lesion. ADRENALS: No mass or enlargement. KIDNEYS: No mass, obstruction, or calcification. BOWEL/MESENTERY: A few diverticula scattered along the length of the colon with mild stranding and inflammatory changes adjacent the splenic flexure and proximal descending colon. No free air or free fluid. Inflammatory changes adjacent the proximal greater curvature of the stomach. No visible mass, obstruction, or bowel wall thickening. AORTA/VASCULAR: No aneurysm or dissection. RETROPERITONEUM: No mass or adenopathy. LYMPH NODES: No adenopathy. URINARY BLADDER: No visible focal wall thickening, lesion, or calculus. PELVIC ORGANS: No visible mass. Pelvic organs appropriate for patient age. ABDOMINAL WALL: No mass or hernia. BONES: No bony lesion or fracture. OTHER: Negative. CT/CT abdomen pelvis w con IMPRESSION: 1. Mild left upper quadrant inflammatory changes abutting the greater curvature the stomach, body and tail the pancreas, and splenic flexure of colon, uncertain origin. I suspect this is secondary to diverticulitis of the splenic flexure/proximal descending colon. Gastritis and pancreatitis are felt less likely. 2. Mild stranding within the lingula; atelectasis is favored over infectious infiltrates. 3. Cholelithiasis. Electronically authenticated by: NAM ROMERO Date: 04/04/2024 13:03
--- NOTE | 2024-04-04 10:54 | ED_ITS ---
HPI HPI - General Adult General Chief complaint: Chest Pain Stated complaint: CHEST/ABDOMINAL PAIN Time Seen by Provider: 04/04/24 10:13 Source: patient Mode of arrival: walk-in Limitations: no limitations History of Present Illness HPI narrative: 58-year-old male presents for upper abdominal pain. It started around midnight last night and it has been continuous. No injury. No fever cough or vomiting or diarrhea. No constipation. He has never had problems with his pancreas or his gallbladder that he is aware of. No fever or back pain. The pain is moderate. Related Data Home Medications ?Medication ?Instructions ?Recorded ?Confirmed aspirin 81 mg tablet,delayed 81 mg PO DAILY 10/12/23 04/04/24 release (Adult Low Dose Aspirin) atorvastatin 80 mg tablet 80 mg PO DAILY 04/04/24 04/04/24 clopidogrel 75 mg tablet 75 mg PO DAILY 04/04/24 04/04/24 losartan 25 mg tablet 25 mg PO DAILY 04/04/24 04/04/24 metoprolol tartrate 25 mg tablet 25 mg PO Q12H 04/04/24 04/04/24 Allergies Allergy/AdvReac Type Severity Reaction Status Date / Time No Known Drug Allergies Allergy Verified 10/12/23 15:43 Opioid HPI Opioid Management Most Recent Opioid Data: Last Pain Scale 7 04/04/24 13:14 Last MAR Pain Assessment 04/04/24 13:14 Review of Systems ROS Narrative A ten point review of systems is negative except as noted above. PFSH PFS Medical History (Updated 04/04/24 @ 13:45 by George Stern MD) Hyperlipidemia ?E78.5 - Hyperlipidemia, unspecified (ICD-10) Myocardial infarction (~04/2020) ?I21.9 - Acute myocardial infarction, unspecified (ICD-10) Chest pain ?R07.9 - Chest pain, unspecified (ICD-10) Surgical History (Updated 10/12/23 @ 21:06 by Jamar Cannon) History of tonsillectomy ?Z90.89 - Acquired absence of other organs (ICD-10) History of appendectomy (~1974) ?Z90.49 - Acquired absence of other specified parts of digestive tract (ICD- 10) History of elbow surgery ?Z98.890 - Other specified postprocedural states (ICD-10) H/O arthroscopic knee surgery ?Z98.890 - Other specified postprocedural states (ICD-10) History of foot surgery (~1989) ?Z98.890 - Other specified postprocedural states (ICD-10) History of heart artery stent (~04/2020) ?Z95.5 - Presence of coronary angioplasty implant and graft (ICD-10) Social History (Updated 10/12/23 @ 21:09 by Jamar Cannon) Within the past year, how often did you have a drink containing alcohol: never Score interpretation: A score less than 4 is consistent with normal alcohol consumption. 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 Known occupational exposures/hazards: No Highest level of school completed/degree received: high school graduate Do you want help with school or training: No Are you now , , , , never or living with a partner: living with partner In a typical week, how many times do you talk on the telephone with family, friends, or neighbors: 3 or more times per week How often do you get together with friends or relatives: 3 or more times per week Little interest or pleasure in doing things: not at all Feeling down, depressed, or hopeless: not at all Feel stressed/tense/nervous/anxious/difficulty sleeping: not at all Do you think of yourself as: straight/heterosexual Gender Identity: male Exam Narrative Exam Narrative: Nurses note and vital signs reviewed and patient is not hypoxic. General: The patient appears well and in no apparent distress. Patient is resting comfortably on cart. Skin: Warm, dry, no pallor noted. There is no rash noted. Head: Normocephalic, atraumatic Eye: Normal conjunctiva, no drainage Ears, Nose, Mouth, and Throat: oral mucosa is moist. Nares patent. Cardiovascular: Regular Rate and Rhythm Respiratory: Patient is in no distress, no accessory muscle use, lungs are clear to auscultation, no wheezing, rales or rhonchi Back: non-tender GI: Tender across the upper abdomen, no distention or mass Musculoskeletal: The patient has no evidence of calf tenderness, no pitting edema, symmetrical pulses noted bilaterally Neurological: A&O, normal speech Psychiatric: Cooperative Constitutional Vital Signs, click to edit/add: Last Vital Signs Temp 98.1 F 04/04/24 10:21 Pulse 71 04/04/24 10:21 Resp 18 04/04/24 10:21 BP 131/82 04/04/24 10:21 Pulse Ox 97 04/04/24 10:21 O2 Del Method Room Air 04/04/24 10:21 Course Vital Signs Vital signs: Vital Signs Temperature 98.1 F 04/04/24 10:21 Pulse Rate 71 04/04/24 10:21 Respiratory Rate 18 04/04/24 10:21 Blood Pressure 131/82 04/04/24 10:21 Pulse Oximetry 97 04/04/24 10:21 Oxygen Delivery Method Room Air 04/04/24 10:21 Temperature 98.1 F 04/04/24 10:21 Pulse Rate 71 04/04/24 10:21 Respiratory Rate 18 04/04/24 10:21 Blood Pressure 131/82 04/04/24 10:21 Pulse Oximetry 97 04/04/24 10:21 Oxygen Delivery Method Room Air 04/04/24 10:21 Medical Decision Making MDM Narrative Medical decision making narrative: Pancreatitis is identified. CAT scan per radiologist suggested the possibility of diverticulitis but his labs are consistent with pancreatitis. He is not a heavy alcohol drinker and has no apparent gallbladder issues. He is being admitted. Treatment diagnosis and disposition were discussed with the patient Differential Diagnosis Differential Diagnosis: Pancreatitis, biliary disease, hepatitis, colitis Lab Data Lab results reviewed: Yes I reviewed the patient's lab results Labs: Lab Results 04/04/24 04/04/24 Range/Units 10:25 11:27 WBC 15.8 H (4.0-11.0) 10^3/uL RBC 4.98 (4.70-6.10) 10^6/uL Hgb 15.9 (14.0-18.0) g/dL Hct 46.2 (42.0-54.0) % MCV 92.8 (80.0-94.0) fL MCH 31.9 (25.9-34.0) pg MCHC 34.4 (29.9-35.2) g/dL RDW 13.2 (11.0-15.0) % Plt Count 252 (150-450) 10^3/uL MPV 10.4 (9.5-13.5) fL Neut % (Auto) 80.2 H (43.0-75.0) % Lymph % (Auto) 12.8 L (20.5-60.0) % [place] % (Auto) 5.6 (1.7-12.0) % Eos % (Auto) 0.6 L (0.9-7.0) % Baso % (Auto) 0.4 (0.2-2.0) % Neut # (Auto) 12.6 H (1.4-6.5) 10^3/uL Lymph # (Auto) 2.0 (1.2-3.8) 10^3/uL [place] # (Auto) 0.9 H (0.3-0.8) 10^3/uL Eos # (Auto) 0.1 (0.0-0.7) 10^3/uL Baso # (Auto) 0.1 (0.0-0.1) 10^3/uL Abs Immat Gran (auto) 0.06 H (0.00-0.03) 10^3/uL Imm/Tot Granulo (auto) 0.4 (0.0-0.5) % Sodium 136 (136-145) mmol/L Potassium 4.8 (3.5-5.1) mmol/L Chloride 101 (98-107) mmol/L Carbon Dioxide 23.8 (21.0-32.0) mmol/L Anion Gap 16.0 BUN 19.0 H (7.0-18.0) mg/dL Creatinine 0.75 (0.70-1.30) mg/dL Est GFR ( Amer) >60 (>=60) Est GFR (Non-Af Amer) >60 (>=60) BUN/Creatinine Ratio 25.3 Glucose 119 H (74-106) mg/dL Calcium 9.7 (8.5-10.1) mg/dL Total Bilirubin 0.7 (0.2-1.0) mg/dL Direct Bilirubin 0.1 (0.0-0.2) mg/dL AST 111 H (15-37) U/L ALT 218 H (16-63) U/L Alkaline Phosphatase 209 H (46-116) U/L Troponin I High Sens 10.9 (4.0-76.1) pg/mL Total Protein 7.4 (6.4-8.2) g/dL Albumin 3.8 (3.4-5.0) g/dL Globulin 3.6 g/dL Albumin/Globulin Ratio 1.1 Amylase 590 H* (25-115) U/L Lipase 918.0 H (16.0-77.0) U/L Imaging Data CT scan - abdomen: Radiologist's impression: ITS Impressions Chest X-Ray 04/04/24 10:23 IMPRESSION: 1. Mild lingular infiltrates versus atelectasis; new since prior study. Electronically authenticated by: NAM ROMERO Date: 04/04/2024 10:54 Abdomen/Pelvis CT 04/04/24 10:54 IMPRESSION: 1. Mild left upper quadrant inflammatory changes abutting the greater curvature the stomach, body and tail the pancreas, and splenic flexure of colon, uncertain origin. I suspect this is secondary to diverticulitis of the splenic flexure/proximal descending colon. Gastritis and pancreatitis are felt less likely. 2. Mild stranding within the lingula; atelectasis is favored over infectious infiltrates. 3. Cholelithiasis. Electronically authenticated by: NAM ROMERO Date: 04/04/2024 13:03 ECG Data Attestation: I personally reviewed and interpreted this ECG as follows: (EKG on my interpretation shows normal sinus rhythm with no acute changes and a rate of 69) Discharge Plan Discharge Chief Complaint: Chest Pain Clinical Impression: Acute pancreatitis Patient Disposition: Admitted As Inpatient Time of Disposition Decision: 13:45 Condition: Good
[2024-04-04 11:14] LABS: BUN Creatinine Ratio 25.3; Calcium 9.7 mg/dL (8.5-10.1); Carbon Dioxide 23.8 mmol/L (21.0-32.0); Chloride 101 mmol/L (98-107); Estimated GFR (African America >60 (>=60); Estimated GFR (Non-African Ame >60 (>=60); Glucose 119 mg/dL (74-106); Sodium 136 mmol/L (136-145); Troponin I High Sensitivity 10.9 pg/mL (4.0-76.1)
[2024-04-04 11:24] LABS: Potassium 4.8 mmol/L (3.5-5.1)
[2024-04-04 11:34] LABS: Basophils Absolute Auto 0.1 10^3/uL (0.0-0.1); Basophils Percent Auto 0.4 % (0.2-2.0); Eosinophils Absolute Auto 0.1 10^3/uL (0.0-0.7); Eosinophils Percent Auto 0.6 % (0.9-7.0); Hematocrit 46.2 % (42.0-54.0); Hemoglobin 15.9 g/dL (14.0-18.0); Immature Granulocytes Abs Auto 0.06 10^3/uL (0.00-0.03); Immature Granulocytes Pct Auto 0.4 % (0.0-0.5); Lymphocytes Percent Auto 12.8 % (20.5-60.0); Mean Corpuscular HGB Conc 34.4 g/dL (29.9-35.2); Mean Corpuscular Hemoglobin 31.9 pg (25.9-34.0); Mean Corpuscular Volume 92.8 fL (80.0-94.0); Mean Platelet Volume 10.4 fL (9.5-13.5); Monocytes Absolute Auto 0.9 10^3/uL (0.3-0.8); Monocytes Percent Auto 5.6 % (1.7-12.0); Neutrophils Absolute Auto 12.6 10^3/uL (1.4-6.5); Neutrophils Percent Auto 80.2 % (43.0-75.0); Platelet Count 252 10^3/uL (150-450); Red Blood Count 4.98 10^6/uL (4.70-6.10); Red Cell Distribution Width 13.2 % (11.0-15.0); White Blood Count 15.8 10^3/uL (4.0-11.0)
[2024-04-04 11:51] LABS: Alanine Aminotransferase 218 U/L (16-63); Albumin Globulin Ratio 1.1; Albumin Level 3.8 g/dL (3.4-5.0); Alkaline Phosphatase 209 U/L (46-116); Aspartate Amino Transferase 111 U/L (15-37); Bilirubin Direct 0.1 mg/dL (0.0-0.2); Bilirubin Total 0.7 mg/dL (0.2-1.0); Globulin 3.6 g/dL; Total Protein 7.4 g/dL (6.4-8.2)
[2024-04-04 12:01] LABS: Amylase 590 U/L (25-115)
[2024-04-04] MEDS: MORPHINE SULFATE 4 MG/ML VIAL IV (13:14)
[2024-04-04] MEDS: ONDANSETRON PF 4 MG/2 ML VIAL IV (13:15)
--- NOTE | 2024-04-04 15:07 | P.HP_ITS ---
<Statement entered by Saul Hawkins MD - 04/05/24 11:33> This documentation has been reviewed and approved. Patient was not seen on the day of admission, reviewed chart. Discussed care with nurse practitioner. Try to obtain lactate for further evaluation of his sepsis. HPI H&P: HPI History of Present Illness Chief complaint: CHEST/ABDOMINAL PAIN Narrative: 04/04/24 1405 This is a 58-year-old male patient with a past medical history as outlined below including recent NSTEMI in September 2023, hyperlipidemia, and tobacco dependence; who presented to the ED today complaining of epigastric pain. The patient reports onset of symptoms about 1:00 in the morning today shortly after returning home from work. He attempted to drink some carbonated beverage for his dyspepsia and this just made his pain worse. He denies N/V/D. Denies chest pain or shortness of breath. As his pain continued to worsen he presented to the ED for further evaluation. Workup in the ED revealed leukocytosis (15.8), transaminitis (AST 111, ALT 218, alk phos 209), elevated amylase (590) and lipase (918). Bilirubin, direct bilirubin, and troponins were all within normal limits. Chest x-ray was mostly unremarkable with mild lingular infiltrates versus atelectasis. CT of the abdomen and pelvis with contrast obtained and this revealed mild left upper quadrant inflammatory changes abutting the greater curvature of the stomach, body and tail of the pancreas, and splenic flexure of the colon, of uncertain origin. Suspected secondary to diverticulitis of the splenic flexure versus gastritis and pancreatitis thought to be less likely. Mild stranding in the lingula with atelectasis favored over infectious infiltrates. Cholelithiasis (tiny granular size stones) without acute cholecystitis. The patient is being admitted as an inpatient for acute pancreatitis to the hospitalist service. At the time of my exam the patient is resting comfortably in bed. He reports that his pain has been adequately controlled with morphine that was given in the ED. His pain is epigastric and radiates slightly downward toward the periumbilical area. It does not radiate through to his back or his shoulder. He denies any alcohol use for many years although used to be a heavy drinker about 20 years ago. He was recently admitted to [facility] for an NSTEMI where cardiac cath was done but I cannot find record of stent placement. He was discharged home on aspirin, statin, Plavix, ARB, and beta-amanda. He has been compliant with his medications. The patient will be made n.p.o. except for medications, given IV fluids and antibiotics (due to leukocytosis and dirk rn for bacterial process). We will obtain an MRCP to rule out an obstructive process due to his elevated liver enzymes. Opioid HPI Opioid Management Most Recent Opioid Data: Last Pain Scale 4 04/04/24 15:02 Last Pain Assessment 04/04/24 15:02 Last MAR Pain Assessment 04/04/24 13:14 Last ORT Total Score 0 04/04/24 14:52 Last ORT Risk Category Low Risk 04/04/24 14:52 Review of Systems ROS Status of ROS 10 or more systems reviewed and unremark able except as noted in history and below [facility] Medical History (Updated 04/04/24 @ 15:10 by Michaela Anguiano NP) Tobacco dependence ?F17.200 - Nicotine dependence, unspecified, uncomplicated (ICD-10) NSTEMI (non-ST elevated myocardial infarction) ?I21.4 - Non-ST elevation (NSTEMI) myocardial infarction (ICD-10) Tobacco user ?Z72.0 - Tobacco use (ICD-10) Dyslipidemia ?E78.5 - Hyperlipidemia, unspecified (ICD-10) Hypertension ?I10 - Essential (primary) hypertension (ICD-10) Hypertensive urgency ?I16.0 - Hypertensive urgency (ICD-10) CAD (coronary artery disease) ?I25.10 - Atherosclerotic heart disease of [place] coronary artery without angina pectoris (ICD-10) Hyperlipidemia ?E78.5 - Hyperlipidemia, unspecified (ICD-10) Myocardial infarction (~04/2020) ?I21.9 - Acute myocardial infarction, unspecified (ICD-10) Chest pain ?R07.9 - Chest pain, unspecified (ICD-10) Surgical History (Updated 10/12/23 @ 21:06 by Jamar Cannon) History of tonsillectomy ?Z90.89 - Acquired absence of other organs (ICD-10) History of appendectomy (~1974) ?Z90.49 - Acquired absence of other specified parts of digestive tract (ICD- 10) History of elbow surgery ?Z98.890 - Other specified postprocedural states (ICD-10) H/O arthroscopic knee surgery ?Z98.890 - Other specified postprocedural states (ICD-10) History of foot surgery (~1989) ?Z98.890 - Other specified postprocedural states (ICD-10) History of heart artery stent (~04/2020) ?Z95.5 - Presence of coronary angioplasty implant and graft (ICD-10) Family History (Updated 04/04/24 @ 14:54 by Sejal Chapa LPN) Father Family history of CHF (congestive heart failure) Family history of hypertension Family history of myocardial infarction Mother Family history of cancer Social History (Updated 04/04/24 @ 14:55 by Sejal Chpaa LPN) Within the past year, how often did you have a drink containing alcohol: never Score interpretation: A score less than 4 is consistent with normal alcohol consumption. 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 Known occupational exposures/hazards: No Highest level of school completed/degree received: high school graduate Do you want help with school or training: No Are you now , , , , never or living with a partner: living with partner In a typical week, how many times do you talk on the telephone with family, friends, or neighbors: 3 or more times per week How often do you get together with friends or relatives: 3 or more times per week Little interest or pleasure in doing things: not at all Feeling down, depressed, or hopeless: not at all Feel stressed/tense/nervous/anxious/difficulty sleeping: not at all Due to disability, difficulty making decisions: No Do you think of yourself as: straight/heterosexual Gender Identity: male Meds Home Medications and Allergies Home Medications ?Medication ?Instructions ?Recorded ?Confirmed ?Type aspirin 81 mg tablet,delayed 81 mg PO DAILY 10/12/23 04/04/24 History release (Adult Low Dose Aspirin) atorvastatin 80 mg tablet 80 mg PO DAILY 04/04/24 04/04/24 History clopidogrel 75 mg tablet 75 mg PO DAILY 04/04/24 04/04/24 History losartan 25 mg tablet 25 mg PO DAILY 04/04/24 04/04/24 History metoprolol tartrate 25 mg tablet 25 mg PO Q12H 04/04/24 04/04/24 History Allergies Allergy/AdvReac Type Severity Reaction Status Date / Time No Known Drug Allergies Allergy Verified 10/12/23 15:43 Exam Constitutional Vital Signs, click to edit/add: Last Vital Signs Temp 98.1 F 04/04/24 10:21 Pulse 68 04/04/24 14:10 Resp 18 04/04/24 14:58 BP 111/74 04/04/24 14:00 Pulse Ox 99 04/04/24 14:10 O2 Del Method Room Air 04/04/24 10:21 Common normals: no apparent distress, oriented x3, alert and well nourished General appearance: cooperative Orientation/consciousness: Yes awake HENMT Common normals: normocephalic, head/scalp atraumatic, hearing grossly normal tang aterally, external nose normal and moist oral mucous membranes Eye Common normals: PERRL, EOMs intact bilaterally, conjunctivae normal and no scleral icterus Alignment: alignment normal Eyelid: eyelids normal Neck & C-Spine Common normals: full ROM, supple and no JVD Chest Common normals: inspection of chest normal Chest: symmetrical chest wall rise Respiratory Common normals: normal respiratory effort, no retractions and no use of accessory muscles Effort & inspection: able to speak in complete sentences Auscultation: wheezes (Scattered EE, L>R) Cardio Common normals: no JVD, regular rate, regular rhythm, S1 normal heart sound, S2 normal heart sound, no gallops, no clicks, no murmurs, no rub and peripheral pulses 2+ throughout GI Common normals: Normal to inspection, nondistended, normoactive bowel sounds present, soft to palpation, no hepatosplenomegaly, no masses and no bruits Palpation: tender Details: epigastric, LUQ and RUQ Bladder/kidney exam: bladder normal to palpation Back & Pelvis Common normals: thoracic and lumbar spine normal to inspection Extremity Common normals: normal capillary refill and no pedal edema General: normal exam except as noted; no cyanosis Neuro Jovanny Coma Scale: GCS not evaluated Common normals: CN's II-XII intact bilaterally, moves all extremities, no focal motor deficits and no sensory deficits noted Speech: speech normal Motor exam: strength 5/5 throughout Psych Common normals: mental status grossly normal, thought process normal, affect normal and activity/motor behavior normal Results Labs Labs: Short CBC 04/04/24 Range/Units 11:27 WBC 15.8 H (4.0-11.0) 10^3/uL Hgb 15.9 (14.0-18.0) g/dL Hct 46.2 (42.0-54.0) % Plt Count 252 (150-450) 10^3/uL BMP 04/04/24 10:25 Sodium 136 Potassium 4.8 Chloride 101 Carbon Dioxide 23.8 BUN 19.0 H Creatinine 0.75 Glucose 119 H Calcium 9.7 Liver Function 04/04/24 Range/Units 11:27 Total Bilirubin 0.7 (0.2-1.0) mg/dL Direct Bilirubin 0.1 (0.0-0.2) mg/dL AST 111 H (15-37) U/L ALT 218 H (16-63) U/L Alkaline Phosphatase 209 H (46-116) U/L Albumin 3.8 (3.4-5.0) g/dL Pulse Oximetry Attestation: I have reviewed the pertinent pulse oximetry results. Imaging Chest x-ray: Attestation: I have reviewed the pertinent imaging results. Radiologist's impression: IMPRESSION: 1. Mild lingular infiltrates versus atelectasis; new since prior study. CT scan - abdomen: Attestation: I have reviewed the pertinent imaging results. Radiologist's impression: IMPRESSION: 1. Mild left upper quadrant inflammatory changes abutting the greater curvature the stomach, body and tail the pancreas, and splenic flexure of colon, uncertain origin. I suspect this is secondary to diverticulitis of the splenic flexure/proximal descending colon. Gastritis and pancreatitis are felt less likely. 2. Mild stranding within the lingula; atelectasis is favored over infectious infiltrates. 3. Cholelithiasis. Assessment and Plan Assessment and Plan (1) Acute pancreatitis: Assessment and Plan: Acute * Adm inpatient * We expect greater than a 2 midnight stay for medically necessary hospital care including IVFs, IV antibiotics, further imaging, and close monitoring of labs * Unclear etiology * Pt denies any EtOH intake * No evidence of obstruction or acute cholecystitis on CT imaging * MRCP to further assess for obstructive process * NPO x for meds w/ minimal sips - for bowel rest * IVPB Ertapenem for suspected infectious process w/ leukocytosis and stranding on imaging - good pancreatic penetration and covers gram neg and gut anaerobes * LR at 125/hr * Toradol for mod pain, Fentanyl for severe pain * Zofran for nausea * CBC, CMP, Amylase, Lipase daily (2) Transaminitis: Assessment and Plan: Acute * Unclear etiology in absence of liver disease hx or obstruction on imaging * MRCP to more definitively r/o obstruction * CMP daily (3) CAD (coronary artery disease): Assessment and Plan: Chronic * Recent NSTEMI 10/13/23 * Continue statin, plavix, ASA, ARB and BB as prescribed on discharge from [facility] (4) Tobacco dependence: Assessment and Plan: Chronic * Pt has allergy to the adhesive on nicotine patches * Ativan IVP PRN for tobacco cravings * Tobacco cessation advised * Duonebs PRN for wheezing, underlying COPD likely
--- NOTE | 2024-04-04 15:16 | MR_ITS ---
The [address] [address] Patient Name: TARA SANTANA MRN: [id number] date: 1965 Sex: M Assigned Patient Location: [place] Current Patient Location: [place] Accession/Order Number: [id number] Exam Date: 04/04/2024 16:45 Report Date: 04/05/2024 07:34 At the request of: VENKATESH CAMPOS Procedure: MR abdomen wo con EXAMINATION: MR abdomen wo con HISTORY: MRCP, r/o biliary obstruction COMPARISON: CT exam 04/04/2024 TECHNIQUE: A comprehensive examination was performed utilizing a variety of imaging planes and imaging parameters to optimize visualization of suspected pathology. Magnetic resonance cholangiopancreatography was also performed. FINDINGS: LIVER: Normal. No enlargement, atrophy, abnormal density, or significant focal lesion. BILIARY: Layering signal abnormality identified dependently within the gallbladder likely representing sludge and/or cholelithiasis. No pericholecystic fluid or wall thickening. The cystic duct appears normal in caliber with no filling defect or occlusion or stenosis PANCREAS: No lesion, fluid collection, ductal dilatation, or atrophy. SPLEEN: No enlargement or focal lesion. KIDNEYS: No mass or obstruction. ADRENALS: No mass or enlargement. AORTA/VASCULAR: No aneurysm or dissection. RETROPERITONEUM: No mass or adenopathy. BOWEL/MESENTERY: No visible mass, obstruction, or bowel wall thickening. There is fluid signal in the left upper quadrant corresponding to the CT findings ABDOMINAL WALL: No mass or hernia. BONES: No bony lesion or fracture. LUNG BASES: No visible pleural disease. Lung bases not well assessed with MRI. OTHER: Negative. MR/MR abdomen wo con IMPRESSION: Left upper quadrant free fluid of unknown etiology Minimal gallbladder sludge/cholelithiasis without evidence of biliary obstruction Electronically authenticated by: TOMI CARRANZA Date: 04/05/2024 07:34
[2024-04-04] MEDS: ERTAPENEM SODIUM 1 GM in 0.9 % SODIUM CHLORIDE 50 ML IV (16:19)
[2024-04-04] MEDS: LACTATED RINGER'S SOLUTION 1,000 ML 125 ML IV (16:19)
[2024-04-04] MEDS: METOPROLOL TARTRATE 25 MG TABLET PO (20:10)
[2024-04-04 20:46] LABS: INR 0.97; Partial Thromboplastin Time 31.6 sec (22.3-36.2); Prothrombin Time 10.3 sec (9.0-11.6)
[2024-04-05] MEDS: LACTATED RINGER'S SOLUTION 1,000 ML 125 ML IV ×3 (01:42→18:52)
[2024-04-05] MEDS: KETOROLAC TROMETHAMINE 30 MG/ML VIAL IVP (02:17)
[2024-04-05 03:51] VITALS: BP 101/65; PULSE 75; TEMP 36.4; O2SAT 94
[2024-04-05 04:33] LABS: Ammonia 24 umol/L (11-32)
[2024-04-05 04:35] LABS: Basophils Absolute Auto 0.1 10^3/uL (0.0-0.1); Basophils Percent Auto 0.4 % (0.2-2.0); Eosinophils Absolute Auto 0.1 10^3/uL (0.0-0.7); Hematocrit 43.1 % (42.0-54.0); Hemoglobin 14.3 g/dL (14.0-18.0); Immature Granulocytes Abs Auto 0.04 10^3/uL (0.00-0.03); Immature Granulocytes Pct Auto 0.3 % (0.0-0.5); Lymphocytes Absolute Auto 2.7 10^3/uL (1.2-3.8); Lymphocytes Percent Auto 21.5 % (20.5-60.0); Mean Corpuscular HGB Conc 33.2 g/dL (29.9-35.2); Mean Corpuscular Hemoglobin 31.2 pg (25.9-34.0); Mean Corpuscular Volume 93.9 fL (80.0-94.0); Mean Platelet Volume 10.5 fL (9.5-13.5); Monocytes Absolute Auto 0.8 10^3/uL (0.3-0.8); Monocytes Percent Auto 6.1 % (1.7-12.0); Neutrophils Absolute Auto 8.8 10^3/uL (1.4-6.5); Neutrophils Percent Auto 70.7 % (43.0-75.0); Platelet Count 210 10^3/uL (150-450); Red Blood Count 4.59 10^6/uL (4.70-6.10); Red Cell Distribution Width 13.5 % (11.0-15.0); White Blood Count 12.4 10^3/uL (4.0-11.0)
[2024-04-05 04:50] LABS: Alanine Aminotransferase 129 U/L (16-63); Albumin Globulin Ratio 1.1; Albumin Level 3.3 g/dL (3.4-5.0); Alkaline Phosphatase 170 U/L (46-116); Aspartate Amino Transferase 54 U/L (15-37); BUN Creatinine Ratio 20.8; Bilirubin Total 0.6 mg/dL (0.2-1.0); Calcium 9.1 mg/dL (8.5-10.1); Carbon Dioxide 27.9 mmol/L (21.0-32.0); Chloride 103 mmol/L (98-107); Estimated GFR (African America >60 (>=60); Estimated GFR (Non-African Ame >60 (>=60); Globulin 3.1 g/dL; Glucose 86 mg/dL (74-106); Potassium 3.9 mmol/L (3.5-5.1); Sodium 137 mmol/L (136-145); Total Protein 6.4 g/dL (6.4-8.2)
[2024-04-05 04:55] LABS: Amylase 230 U/L (25-115)
[2024-04-05 08:23] VITALS: BP 134/79
[2024-04-05] MEDS: LOSARTAN POTASSIUM 25 MG TABLET PO (08:23)
[2024-04-05] MEDS: ASPIRIN 81 MG TABLET.DR PO (08:27)
[2024-04-05] MEDS: METOPROLOL TARTRATE 25 MG TABLET PO ×2 (08:27→21:26)
[2024-04-05] MEDS: CLOPIDOGREL BISULFATE 75 MG TABLET PO (08:27)
--- NOTE | 2024-04-05 09:30 | CM.NOTE ---
Rounds made with Dr. Hawkins. Dr. Hawkins reviews lab findings and reinforces NPO status. No discharge today.
--- NOTE | 2024-04-05 11:44 | P.PN_ITS ---
<Statement entered by Saul Hawkins MD - 04/06/24 20:43> This documentation has been reviewed and approved. Pt seen and exam,ined at bedside, agree with input and finding from Nurse practitioner. Additional note: Elevated BUN consistent with dehydration on admission - Improving Progress Note: Subjective Subjective Interval history: 04/05/24 0900 The patient is resting in bed at the time of my exam. He reports feeling much improved since admission yesterday. He denies epigastric/abdominal pain at rest, but is tender to the left upper quadrant and epigastric area with palpation. His amylase and lipase are trending down nicely but still remain elevated quite a bit above normal. He reports that he is hungry, however, as his pancreatic labs have not yet normalized he will remain n.p.o. for now. The patient verbalizes understanding of the need for complete GI rest. Exam Constitutional Vital Signs, click to edit/add: Last Vital Signs Temp 97.6 F 04/05/24 03:51 Pulse 75 04/05/24 03:51 Resp 16 04/05/24 08:58 BP 134/79 04/05/24 08:23 Pulse Ox 94 L 04/05/24 03:51 O2 Del Method Room Air 04/05/24 03:51 Common normals: no apparent distress, oriented x3 and alert General appearance: cooperative Orientation/consciousness: Yes awake HENTX Common normals: normocephalic, head/scalp atraumatic and hearing grossly normal bilaterally Eye Common normals: PERRL, EOMs intact bilaterally, conjunctivae normal and no scleral icterus General eye: normal appearance of both eyes Chest Common normals: inspection of chest normal Chest: symmetrical chest wall rise Respiratory Common normals: normal respiratory effort and no use of accessory muscles Effort & inspection: able to speak in complete sentences Auscultation: wheezes (JENNIFER, faint EE wheezing) Cardio Common normals: regular rate, regular rhythm, S1 normal heart sound and peripheral pulses 2+ throughout Heart sounds: murmur (HSM 2/6) and normal, physiologic split S2 GI Common normals: Normal to inspection, nondistended, normoactive bowel sounds present, soft to palpation and no hepatosplenomegaly Palpation: tender (Mild, epigastric and LUQ); no guarding, not rigid and no rebound tenderness present Bladder/kidney exam: bladder normal to palpation Extremity Common normals: normal to inspection and no calf tenderness General: no clubbing, no cyanosis and no edema Neuro Common normals: CN's II-XII intact bilaterally, moves all extremities, no focal motor deficits and no sensory deficits noted Psych Common normals: mental status grossly normal Progress Note: Objective Labs Labs: Short CBC 04/05/24 Range/Units 04:13 WBC 12.4 H (4.0-11.0) 10^3/uL Hgb 14.3 (14.0-18.0) g/dL Hct 43.1 (42.0-54.0) % Plt Count 210 (150-450) 10^3/uL BMP 04/05/24 04:13 Sodium 137 Potassium 3.9 Chloride 103 Carbon Dioxide 27.9 BUN 20.0 H Creatinine 0.96 Glucose 86 Calcium 9.1 Liver Function 04/04/24 04/05/24 Range/Units 11:27 04:13 Total Bilirubin 0.7 0.6 (0.2-1.0) mg/dL Direct Bilirubin 0.1 (0.0-0.2) mg/dL AST 111 H 54 H (15-37) U/L ALT 218 H 129 H (16-63) U/L Alkaline Phosphatase 209 H 170 H (46-116) U/L Albumin 3.8 3.3 L (3.4-5.0) g/dL Progress Note: A&P Assessment and Plan (1) Acute pancreatitis: Assessment and Plan: Acute * Etiology remains unclear * Pt denies any EtOH intake * No evidence of obstruction or acute cholecystitis on CT imaging * MRCP today neg for obstruction * Adjacent colonic diverticulitis cannot be ruled out * Continue NPO x for meds w/ minimal sips - for bowel rest * Likely advance diet tomorrow if pt continues to improve * Continue IVPB Ertapenem for suspected infectious process w/ leukocytosis and stranding on imaging - good pancreatic penetration and covers gram neg and gut anaerobes * Leukocytosis improving today - 12.4, down from 15.8 * Lactic acid WNL last night * Continue LR at 125/hr * Continue Toradol for mod pain, Fentanyl for severe pain * Continue Zofran for nausea * CBC, CMP, Amylase, Lipase daily (2) Transaminitis: Assessment and Plan: Acute * Unclear etiology in absence of liver disease hx or obstruction on imaging * Improved on AM labs today * Suspect 2/2 acute infection/pancreatitis/possible adjacent diverticulitis * MRCP neg for obstructive process * Send out Acute Hepatitis panel to r/o infectious process * Hold home statin for now until liver labs normalize * CMP daily (3) CAD (coronary artery disease): Assessment and Plan: Chronic * Recent NSTEMI 10/13/23 * Continue plavix, ASA, ARB and BB as prescribed on discharge from [facility] * Hold statin for now d/t transaminitis - plan to resume at discharge (4) Tobacco dependence: Assessment and Plan: Chronic * Pt has allergy to the adhesive on nicotine patches * Continue Ativan IVP PRN for tobacco cravings * Tobacco cessation advised * Continue Duonebs PRN for wheezing, underlying COPD suspected
[2024-04-05 14:00] VITALS: BP 118/76; PULSE 80; TEMP 36.4; O2SAT 91
[2024-04-05] MEDS: ERTAPENEM SODIUM 1 GM in 0.9 % SODIUM CHLORIDE 50 ML IV (16:54)
[2024-04-05 17:37] LABS: Amylase 126 U/L (25-115)
[2024-04-05 19:37] VITALS: O2SAT 96
--- NOTE | 2024-04-05 19:37 | RESP.RT ---
No PRN breathing tx given. Pt denies need. No respiratory distress noted.
[2024-04-05 19:42] VITALS: BP 124/78; PULSE 82; TEMP 36.5; O2SAT 93
[2024-04-06] MEDS: LACTATED RINGER'S SOLUTION 1,000 ML 125 ML IV (02:54)
[2024-04-06 04:47] VITALS: BP 148/79; PULSE 74; TEMP 36.4; O2SAT 93
[2024-04-06 05:07] LABS: HBsAg Screen Negative (Negative); HCV Ab Non Reactive (Non Reactive); Hep A Ab, IgM Negative (Negative); Hep B Core Ab, IgM Negative (Negative)
[2024-04-06 05:18] LABS: Basophils Percent Auto 0.4 % (0.2-2.0); Eosinophils Absolute Auto 0.1 10^3/uL (0.0-0.7); Eosinophils Percent Auto 1.3 % (0.9-7.0); Hematocrit 43.5 % (42.0-54.0); Hemoglobin 14.5 g/dL (14.0-18.0); Immature Granulocytes Abs Auto 0.03 10^3/uL (0.00-0.03); Immature Granulocytes Pct Auto 0.3 % (0.0-0.5); Lymphocytes Absolute Auto 2.5 10^3/uL (1.2-3.8); Lymphocytes Percent Auto 23.1 % (20.5-60.0); Mean Corpuscular HGB Conc 33.3 g/dL (29.9-35.2); Mean Corpuscular Hemoglobin 31.2 pg (25.9-34.0); Mean Corpuscular Volume 93.5 fL (80.0-94.0); Mean Platelet Volume 10.4 fL (9.5-13.5); Monocytes Absolute Auto 0.6 10^3/uL (0.3-0.8); Monocytes Percent Auto 5.8 % (1.7-12.0); Neutrophils Absolute Auto 7.3 10^3/uL (1.4-6.5); Neutrophils Percent Auto 69.1 % (43.0-75.0); Platelet Count 224 10^3/uL (150-450); Red Blood Count 4.65 10^6/uL (4.70-6.10); Red Cell Distribution Width 12.9 % (11.0-15.0); White Blood Count 10.6 10^3/uL (4.0-11.0)
[2024-04-06 05:46] LABS: Alanine Aminotransferase 95 U/L (16-63); Albumin Globulin Ratio 0.9; Albumin Level 3.2 g/dL (3.4-5.0); Alkaline Phosphatase 160 U/L (46-116); Amylase 78 U/L (25-115); Anion Gap 10.8; Aspartate Amino Transferase 34 U/L (15-37); BUN Creatinine Ratio 16.7; Bilirubin Total 0.7 mg/dL (0.2-1.0); Calcium 9.1 mg/dL (8.5-10.1); Carbon Dioxide 28.2 mmol/L (21.0-32.0); Chloride 103 mmol/L (98-107); Estimated GFR (African America >60 (>=60); Estimated GFR (Non-African Ame >60 (>=60); Globulin 3.5 g/dL; Glucose 77 mg/dL (74-106); Sodium 138 mmol/L (136-145); Total Protein 6.7 g/dL (6.4-8.2)
[2024-04-06 08:23] VITALS: BP 129/82; PULSE 67; TEMP 36.4; O2SAT 96
[2024-04-06] MEDS: ASPIRIN 81 MG TABLET.DR PO (09:23)
[2024-04-06] MEDS: LOSARTAN POTASSIUM 25 MG TABLET PO (09:23)
[2024-04-06] MEDS: CLOPIDOGREL BISULFATE 75 MG TABLET PO (09:23)
[2024-04-06] MEDS: METOPROLOL TARTRATE 25 MG TABLET PO (09:23)
--- NOTE | 2024-04-06 09:26 | CM.NOTE ---
Rounds made with Dr. Hawkins, discussed with pt discharge to home today. Pt does not have PCP and would like to f/u with Tiny William NP. [employer] senior manager will schedule appt for pt.
--- NOTE | 2024-04-06 10:34 | P.DS_ITS ---
<Statement entered by Saul Hawkins MD - 04/06/24 20:50> This documentation has been reviewed and approved. Pt seen and examined at bedside, agree with input and finding from Nurse practitioner. DS: Providers Provider Date of admission: 04/04/24 14:25 Primary care physician: Non-Staff Physician, Discharging clinician: Michaela Anguiano DS: Diagnosis Discharge Diagnosis (1) Acute pancreatitis: (2) Transaminitis: (3) CAD (coronary artery disease): (4) Tobacco dependence: DS: Summary Hospital Course Hospital Course: The patient was admitted with acute pancreatitis and possible underlying diverticulitis of the adjacent colon, and associated transaminitis. He was treated with high-volume IV fluids, IV ertapenem, pain and nausea medications. He was kept n.p.o. until his amylase and lipase drifted down to near normal. He experienced no recurrent symptoms after initiating a diet. An MRCP was obtained to assess for possible obstructive pathology and this was negative with no obstruction found. The patient does not drink alcohol and this is not a suspected etiology of his pancreatitis. As the patient's pain and leukocytosis had completely resolved, he was discharged home in stable condition. He was given prescriptions for further 7-day course of Cipro and Flagyl for gram- negative and anaerobic coverage. He should follow-up with his PCP in 5 - 7 days. Time Spent with Patient Time attestation: Total time spent providing and/or coordinating discharge services: Time spent: greater than 30 minutes Specific discharge activities: Physical exam, discussion of discharge plan, questions answered. Exam Constitutional Vital Signs, click to edit/add: Last Vital Signs Temp 97.6 F 04/06/24 08:23 Pulse 67 04/06/24 08:23 Resp 18 04/06/24 08:23 BP 129/82 04/06/24 08:23 Pulse Ox 96 04/06/24 08:23 O2 Del Method Room Air 04/06/24 08:23 Common normals: no apparent distress, oriented x3 and alert General appearance: cooperative Orientation/consciousness: Yes awake HENMT Common normals: normocephalic and head/scalp atraumatic Eye Common normals: PERRL, EOMs intact bilaterally, conjunctivae normal and no scleral icterus Neck & C-Spine Common normals: no JVD Respiratory Common normals: normal respiratory effort, no use of accessory muscles and clear to auscultation bilaterally Effort & inspection: able to speak in complete sentences and symmetric chest movement Cardio Common normals: no JVD, regular rate, regular rhythm, S1 normal heart sound, S2 normal heart sound, no murmurs and peripheral pulses 2+ throughout GI Common normals: Normal to inspection, nondistended, normoactive bowel sounds present, soft to palpation and non-tender Bladder/kidney exam: bladder normal to palpation Extremity Common normals: normal to inspection, full ROM, normal capillary refill and no pedal edema General: no clubbing and no cyanosis Neuro Common normals: moves all extremities, no focal motor deficits and no sensory deficits noted Speech: speech normal Psych Common normals: mental status grossly normal and activity/motor behavior normal DS: Data Data Completed and Pending Labs on day of discharge: Labs from last 24 hours 04/06/24 04/05/24 04/05/24 04:49 17:21 10:23 WBC 10.6 RBC 4.65 L Hgb 14.5 Hct 43.5 MCV 93.5 MCH 31.2 MCHC 33.3 RDW 12.9 Plt Count 224 MPV 10.4 Neut % (Auto) 69.1 Lymph % (Auto) 23.1 [place] % (Auto) 5.8 Eos % (Auto) 1.3 Baso % (Auto) 0.4 Neut # (Auto) 7.3 H Lymph # (Auto) 2.5 [place] # (Auto) 0.6 Eos # (Auto) 0.1 Baso # (Auto) 0.0 Abs Immat Gran (auto) 0.03 Imm/Tot Granulo (auto) 0.3 Sodium 138 Potassium 4.0 Chloride 103 Carbon Dioxide 28.2 Anion Gap 10.8 BUN 15.0 Creatinine 0.90 Est GFR ( Amer) >60 Est GFR (Non-Af Amer) >60 BUN/Creatinine Ratio 16.7 Glucose 77 Calcium 9.1 Total Bilirubin 0.7 AST 34 ALT 95 H Alkaline Phosphatase 160 H Total Protein 6.7 Albumin 3.2 L Globulin 3.5 Albumin/Globulin Ratio 0.9 Amylase 78 126 H Lipase 38.0 73.0 Hepatitis A IgM Ab Negative Hep Bs Antigen Negative Hep B Core IgM Ab Negative Hepatitis C Antibody Non reactive Hepatitis C Interp Comment Imaging Chest x-ray: Radiologist's impression: IMPRESSION: 1. Mild lingular infiltrates versus atelectasis; new since prior study. CT scan - abdomen: Radiologist's impression: IMPRESSION: 1. Mild left upper quadrant inflammatory changes abutting the greater curvature the stomach, body and tail the pancreas, and splenic flexure of colon, uncertain origin. I suspect this is secondary to diverticulitis of the splenic flexure/proximal descending colon. Gastritis and pancreatitis are felt less likely. 2. Mild stranding within the lingula; atelectasis is favored over infectious infiltrates. 3. Cholelithiasis. MRI Abdomen: Radiologist's impression: IMPRESSION: Left upper quadrant free fluid of unknown etiology Minimal gallbladder sludge/cholelithiasis without evidence of biliary obstruction Discharge Plan Discharge Disposition: Home, Self-Care Condition: Good Discharge Medications: New ciprofloxacin HCl 500 mg tablet 500 mg PO BID 7 Days Qty: 14 0RF metronidazole 500 mg tablet 500 mg PO BID 7 Days Qty: 14 0RF Continued aspirin [Adult Low Dose Aspirin] 81 mg tablet,delayed release (DR/EC) 81 mg PO DAILY atorvastatin 80 mg tablet 80 mg PO DAILY clopidogrel 75 mg tablet 75 mg PO DAILY losartan 25 mg tablet 25 mg PO DAILY metoprolol tartrate 25 mg tablet 25 mg PO Q12H Activity: resume usual activities as tolerated Diet: advance to your usual diet Print Language: Hungarian Patient Instructions: Ciprofloxacin (By mouth), Metronidazole (By mouth), Pancreatitis (DC) Forms: Portal Instructions Follow Up Appointments: April 14 @ 10:30am with Jeri Owen NP [address] [facility] [phone] Discharge Date/Time: 04/06/24 12:43
[2024-04-06 11:40] VITALS: O2SAT 98
--- NOTE | 2024-04-07 12:49 | CM.DCFOLLOWU ---
04/07 1st attempt. No answer
--- NOTE | 2024-04-11 15:08 | CM.DCFOLLOWU ---
04/11- 2nd attempt. No answer
--- NOTE | 2024-04-12 14:54 | CM.DCFOLLOWU ---
04/12- 3rd attempt. No answer
== END 2024-04-06 12:43 | disposition home or self-care (01) | DRG 439 ==
LOC: ER 13:45 → MS 14:31
PROVIDERS: Admitting Provider Family Medicine; Emergency Provider Emergency Medicine; Visit Provider Nurse Practitioner
DX: K85.90 Acute pancreatitis without necrosis or infection, unspecified (principal); K57.32 Diverticulitis of large intestine without perforation or abscess without bleeding; R74.01 Elevation of levels of liver transaminase levels; I25.10 Atherosclerotic heart disease of native coronary artery without angina pectoris; F17.210 Nicotine dependence, cigarettes, uncomplicated; E78.5 Hyperlipidemia, unspecified; Z79.82 Long term (current) use of aspirin; I25.2 Old myocardial infarction; Z79.899 Other long term (current) drug therapy; Z95.5 Presence of coronary angioplasty implant and graft; E86.0 Dehydration; Z90.49 Acquired absence of other specified parts of digestive tract; K80.20 Calculus of gallbladder without cholecystitis without obstruction; Z79.02 Long term (current) use of antithrombotics/antiplatelets; I10 Essential (primary) hypertension
CPT/HCPCS: 36415; 71046; 74177; 74181; 80048; 80053; 80074; 80076; 82140; 82150; 83605; 83690; 84484; 85025; 85610; 85730; 93005; 96365; 96366; 96375; 99285; J1335; Q9967

== ENCOUNTER 2024-10-31 07:34 | Outpatient (OUT) | payer BC, SELFPAY ==
--- NOTE | 2024-10-31 | CT_ITS ---
[address] [address] Patient Name: TARA SANTANA MRN: [id number] date: 1965 Sex: M Assigned Patient Location: CT Current Patient Location: Accession/Order Number: [id number] Exam Date: 10/31/2024 07:41 Report Date: 11/01/2024 05:58 At the request of: WILI VILLAVICENCIO Procedure: CT lung screening low-dose EXAMINATION: CT lung screening low-dose HISTORY: Smoking F17.200 COMPARISON: No relevant comparison available. TECHNIQUE: Axial, Coronal, and Sagittal images were created without the administration of IV contrast material. Dose reduction techniques were achieved by using automated exposure control and/or adjustment of mA and/or kV according to patient size and/or use of iterative reconstruction technique. FINDINGS: LUNGS: 9 mm pleural-based nodule within right lower lobe superior segment adjacent posterior chest wall. A few 3 mm nodules scattered within the lungs. No acute infiltrates or significant emphysematous changes. PLEURA: No mass, effusion, or pneumothorax. VASCULATURE: No abnormality. ELENA: No mass or pathologic adenopathy. MEDIASTINUM: No mass or pathologic adenopathy. CARDIAC: No enlargement, pericardial thickening, or pericardial effusion. Coronary Artery calcifications: Coronary calcifications are mild. AORTA: No aneurysm or dissection. CHEST WALL: No mass or axillary adenopathy BONES: No bone lesion or fracture. LIMITED ABDOMEN: No suspicious findings. Limited images of the upper abdomen. OTHER: Negative. CT/CT lung screening low-dose IMPRESSION: 1. Lung-RADS Category 4A- Suspicious. Findings for which additional diagnostic testing and/ or tissue sampling is recommended. 3 month LDCT; PET/CT may be used when there is a >= 8 mm solid component. 2. The right lower lobe nodule is not overtly suspicious. Follow-up CT chest in 3 months is recommended to document stability and help establish baseline. Electronically authenticated by: NAM ROMERO Date: 11/01/2024 05:58
--- OUTSIDE RECORDS SUMMARY | 2024-10-31 07:38 | XMS_ITS | CCD ---
Author Organization [facility] Care Team Providers Care Front Desk Lead Name Role Phone ROSA ISELA LEONG Primary [...] NO FAMILY, PHYSICIAN Primary Care Unavailable Blayne Brody Consulting Unavailable Rach Whitehead Consulting Unavailable Evelio [...] NO PCP Primary Care Unavailable MARY GRACE, EEVLIO S Referring Unavailable NO PCP, NO PCP [...] mg tablet Indications: Coronary artery disease involving eklutna coronary artery of eklutna heart without angina pectoris , Mixed hyperlipidemia [...] mg tablet Indications: Coronary artery disease involving eklutna coronary artery of eklutna heart without angina pectoris , Primary hypertension [...] [PROC AND TX NOT CARRIED OUT PT [facility] RSN] Onset: 04-30-2020 Episodic Results Test Name Value Interpretation Reference Range Facility ALT No additional P-5'-P [Ca talytic activity/Vol]on 01-26-2024 ALT [Catalytic activity/Vol] 30 U/L Normal 0-40 [facility] Comment on above: Performed By: #### 1 744-2, 1920-06, 50983-6 #### [facility] ([id number]) [address] [place] [address], [address] [place] [address] Isma 01-26-2024 AST [Catalytic activity/Vol] 27 U/L Normal 0-41 [facility] Comment on above: Performed By: #### 1 744-2, 1920-06, 80619-3 #### [facility] ([id number]) [address], [address] [place] [address] Lipid 1996 panelon 4 Cholesterol [Mass/Vol] 175 mg/dL Normal 150-200 [facility] Comment on above: Performed By: #### 1 744-2, 1920-06, 89141-0 #### [facility] ([id number]) [address], [address] [place] [address] Cholesterol in HDL [Mass/Vol] 38 mg/dL Low >39 [facility] Comment on above: Result Comment: HDL <40 mg/dL - High Risk HDL > or = 40mg/dL- Desirable HDL >60 mg/dL - Negative Risk Performed By: #### 1 744-2, 1920-06, 04001-8 #### [facility] ([id number]) [address], [address] [place] [address] Cholesterol in LDL [Mass/Vol] 90 mg/dL Normal <130 [facility] Comment on above: Result Comment: LDL <100 mg/dL - Desirable LDL >160 mg/dL - High Risk Performed By: #### 1 744-2, 1920-06, 49441-9 #### [facility] ([id number]) [address], [address] [place] [address] Cholesterol in VLDL [Mass/Vol] 47 mg/dL High 0-30 [facility] Comment on above: Performed By: #### 1 744-2, 1920-06, 32613-8 #### [facility] ([id number]) [address], [address] [place] [address] CHOLESTEROL:HDL 4.6 Normal 1.0-5.0 [facility] Comment on above: Performed By: #### 1 744-2, 1920-06, 90493-7 #### [facility] ([id number]) [address], [address] [place] [address] Triglyceride [Mass/Vol] 234 mg/dL High 27-150 [facility] Comment on above: Performed By: #### 1 744-2, 1920-06, 12103-8 #### [facility] ([id number]) [address], [address] [place] [address] Basic Metabolic Panelon 12-0 Anion gap [Moles/Vol] 11.2 mmol/L Normal 6.0-15.0 [facility] Comment on above: Performed By: #### H S TROP #### [facility] [address] Calcium [Mass/Vol] 9.3 mg/dL Normal 8.6-10.3 [facility] Comment on above: Performed By: #### H S TROP #### [facility] [address] [place] [address] [place] Chloride [Moles/Vol] 107 mmol/L Normal 98-107 [facility] Comment on above: Performed By: #### H S TROP #### [facility] [address] [place] [id number] [place] CO2 [Moles/Vol] 20.6 mmol/L Low 21.0-31.0 [facility] Comment on above: Performed By: #### H S TROP #### [facility] [address] [place] [id number] [place] Creatinine [Mass/Vol] 0.80 mg/dL Normal 0.70-1.30 [facility] Comment on above: Performed By: #### H S TROP #### [facility] [address] [place] [id number] [place] Creatinine Clr Calc Pharmacy 92.95 Normal [facility] Comment on above: Result Comment: PERF ORMED BY: [place] [address] PATHOLOGIST POULTRY KILLER JEFF LEMA M.D. Performed By: #### H S TROP #### [place] [address] [place] GFR/1.73 sq M.predicted MDRD (S/P/Bld) [Vol rate/Area] mL/min/{1.73_m2} Normal [facility] Comment on above: Performed By: #### H S TROP #### [address] Glucose [Mass/Vol] 79 mg/dL Normal 70-100 [facility] Comment on above: Result Comment: [place] Glucose Reference Range is dependent on time and content of last meal. Glucose of more than 200 mg/dL in a nonstressed, ambulatory subject supports the diagnosis of Diabetes Mellitus. ADA recommended reference range Performed By: #### H S TROP #### [address] Potassium [Moles/Vol] 3.8 mmol/L Normal 3.5-5.1 [facility] Comment on above: Performed By: #### H S TROP #### [address] Sodium [Moles/Vol] 135 mmol/L Low 136-145 [facility] Comment on above: Performed By: #### H S TROP #### [place] [address] [place] Urea nitrogen [Mass/Vol] 22 mg/dL Normal 7-25 [facility] Comment on above: Performed By: #### H S TROP #### [place] [address] [place] Calcium [Mass/volume] in Ser um or PlasmaOrdered By: Blayne Brody on 10-15-2023 Calcium [Mass/Vol] 9.3 mg/dL 8.6-10.3 [facility] Carbon dioxide, total [Moles /volume] in Serum or PlasmaOrdered By: Blayne Brody on 10-15-2023 CO2 [Moles/Vol] 20.6 mmol/L 21.0-31.0 [facility] Chloride [Moles/volume] in S renata or PlasmaOrdered By: Blayne Brody on 10-15-2023 Chloride [Moles/Vol] 107 mmol/L 98-107 [facility] Creatinine [Mass/volume] in Serum or PlasmaOrdered By: Blayne Brody on 10-15-2023 Creatinine [Mass/Vol] 0.80 mg/dL 0.70-1.30 [facility] Glucose [Mass/volume] in Ser um or PlasmaOrdered By: Blayne Brody on 10-15-2023 Glucose [Mass/Vol] 79 mg/dL 70-100 [facility] Comment on above: ADA recommended refe rence rangeRandom Glucose Reference Range is dependent on time and content of last meal. Glucose of more than 200 mg/dL in a nonstressed, ambulatory subject supports the diagnosis of Diabetes Mellitus. No Panel InformationOrdered By: Blayne Brody on 10-15-2023 Estimated GFR (CKD-EPI) > 60.0 mL/Min [facility] Creatinine Clearance (Chem 92.95 [facility] Potassium [Moles/volume] in Serum or PlasmaOrdered By: Blayne Brody on 10-15-2023 Potassium [Moles/Vol] 3.8 mmol/L 3.5-5.1 [facility] Serum or plasma anion gap de terminationOrdered By: Blayne Brody on 10-15-2023 Anion gap [Moles/Vol] 11.2 mmol/L 6.0-15.0 [facility] Sodium [Moles/volume] in Ser um or PlasmaOrdered By: Blayne Brody on 10-15-2023 Sodium [Moles/Vol] 135 mmol/L 136-145 [facility] Troponin I High Sensitivityo n 10-15-2023 Troponin I High Sensitivity 118.4 pg/mL Off scale high 0.0-20.0 [facility] Comment on above: Result Comment: Crit ical Result : Called to and read back by: IFEOMA PINZON at: 10/14/2023 23:06:19 by:EMILIANO PERFORMED BY: [place] [address] PATHOLOGIST POULTRY KILLER JEFF LEMA M.D. Performed By: #### H S TROP #### [facility] [address] [place] [address] Urea nitrogen [Mass/volume] in Serum or PlasmaOrdered By: Blayne Brody on 10-15-2023 Urea nitrogen [Mass/Vol] 22 mg/dL 06-08 [facility] A1C with Estimated Average G richardsonn 10-14-2023 Glucose [Mass/Vol] 111 mg/dL Normal [facility] Comment on above: Result Comment: PERF ORMED BY: [place] [address] PATHOLOGIST POULTRY KILLER JEFF LEMA M.D. Performed By: #### H S TROP #### [address] HbA1c (Bld) [Mass fraction] 5.5 % Normal 4.3-5.6 [facility] Comment on above: Result Comment: Incr eased risk for diabetes: 5.7 - 6.4 diabetes: >6.4 glycemic control for adults with diabetes: <7.0 Performed By: #### H S TROP #### [address] Activated partial thrombopla stin time (aPTT) in platelet poor plasma by coagulation aOrdered By: Vasquez Mckinley on 10-14-2023 aPTT Coag (PPP) [Time] 62.6 s 25.1-36.5 [facility] Comment on above: A hematocrit value g reater than 55% may lead to inaccurate results in coagulation testing. Patients having hematocrit values >55% require a special collection tube for coagulation studies. Please contact the laboratory at [phone] for redraw instructions. Alanine aminotransferase [En zymatic activity/volume] in Serum or PlasmaOrdered By: Vasquez Mckinley on 10-14-2023 ALT [Catalytic activity/Vol] 28 U/L [facility] Albumin [Mass/volume] in Ser um or Plasma by Bromocresol green (BCG) dye binding methoOrdered By: Vasquez Elizabethr on 10-14-2023 Albumin BCG dye [Mass/Vol] 4.2 g/dL 3.5-5.7 [facility] Alkaline phosphatase [Enzyma tic activity/volume] in Serum or PlasmaOrdered By: Obdeneen Osunaomar on 10-14-2023 ALP [Catalytic activity/Vol] 83 U/L 34-104 [facility] Aspartate aminotransferase [ Enzymatic activity/volume] in Serum or PlasmaOrdered By: Obdeneen Osunaomar on 10-14-2023 AST [Catalytic activity/Vol] 23 U/L 13-39 [facility] B-Type Natriuretic Peptideon 10-14-2023 Natriuretic peptide B (Bld) [Mass/Vol] 51.0 pg/mL Normal 5-100 [facility] Comment on above: Result Comment: PERF ORMED BY: [place] [address] PATHOLOGIST POULTRY KILLER JEFF LEMA M.D. Performed By: #### H S TROP #### [address] Basophils Auto (Bld) [#/Vol] Ordered By: Vasquez Elizabethr on 10-14-2023 Basophils (Bld) [#/Vol] 0.1 10*3/uL 0.0-0.2 [facility] Basophils/100 WBC Auto (Bld) Ordered By: deneen Elizabethr on 10-14-2023 Basophils/100 WBC (Bld) 1.1 % . [facility] Bilirubin.total [Mass/volume ] in Serum or PlasmaOrdered By: tessy Enrriqueomar on 10-14-2023 Bilirubin [Mass/Vol] 0.8 mg/dL 0.3-1.0 [facility] Cholesterol [Mass/volume] in Serum or PlasmaOrdered By: tessy Enrriqueomar on 10-14-2023 Cholesterol [Mass/Vol] 279 mg/dL 140-200 [facility] Comment on above: Chol less than 200 m g/dl low riskChol 201-239 mg/dl borderline riskChol 240 mg/dl and greater high risk Cholesterol in LDL Calc [Mas s/Vol]Ordered By: Obaydah Daromar on 10-14-2023 Cholesterol in LDL [Mass/Vol] 195 mg/dL 0-100 [facility] Comment on above: LDL ATP III CLASSIFI CATIONLDL less than 100 mg/dL OptimalLDL 100-129 mg/dL Near or above optimalLDL 130-159 mg/dL Borderline highLDL 160-189 mg/dL HighLDL greater than 189 mg/dL Very high Cholesterol in VLDL Calc [Ma ss/Vol]Ordered By: Obaydah Daromar on 10-14-2023 Cholesterol in VLDL [Mass/Vol] 50 mg/dL [facility] Complete Blood Count Auto Di ffon 10-14-2023 Basophils (Bld) [#/Vol] 0.1 10*3/uL Normal 0.0-0.2 [facility] Comment on above: Result Comment: PERF ORMED BY: [place] [address] PATHOLOGIST POULTRY KILLER JEFF LEMA M.D. Performed By: #### L IPID, CMP, A1C WTH eA, CBC, MG #### [facility] [address] [place] [address] [place] Basophils/100 WBC (Bld) 1.1 % Normal . [facility] Comment on above: Performed By: #### L IPID, CMP, A1C WTH eA, CBC, MG #### [facility] [address] [place] [address] [place] Eosinophils (Bld) [#/Vol] 0.1 10*3/uL Normal 0.0-0.45 [facility] Comment on above: Performed By: #### L IPID, CMP, A1C WTH eA, CBC, MG #### [facility] [address] [place] [address] [place] Eosinophils/100 WBC (Bld) 1.5 % Normal . [facility] Comment on above: Performed By: #### L IPID, CMP, A1C WTH eA, CBC, MG #### [facility] [address] [place] [address] [place] Erythrocyte distribution width (RBC) [Ratio] 13.7 % Normal 12.0-14.8 [facility] Comment on above: Performed By: #### L IPID, CMP, A1C WTH eA, CBC, MG #### [address] Hematocrit (Bld) [Volume fraction] 48.4 % Normal 38.8-50.0 [facility] Comment on above: Performed By: #### L IPID, CMP, A1C WTH eA, CBC, MG #### [address] Hemoglobin (Bld) [Mass/Vol] 16.6 g/dL Normal 13.0-17.0 [facility] Comment on above: Performed By: #### L IPID, CMP, A1C WTH eA, CBC, MG #### [address] Lymphocytes (Bld) [#/Vol] 2.9 10*3/uL Normal 1.00-4.8 [facility] Comment on above: Performed By: #### L IPID, CMP, A1C WTH eA, CBC, MG #### [address] Lymphocytes/100 WBC (Bld) 33.5 % Normal . [facility] Comment on above: Performed By: #### L IPID, CMP, A1C WTH eA, CBC, MG #### [address] MCH (RBC) [Entitic mass] 31.7 pg Normal 27.5-35.2 [facility] Comment on above: Performed By: #### L IPID, CMP, A1C WTH eA, CBC, MG #### [address] MCV (RBC) [Entitic vol] 92.6 fL Normal 83.5-101 [facility] Comment on above: Performed By: #### L IPID, CMP, A1C WTH eA, CBC, MG #### [address] Mean Corpuscular HGB Conc 34.2 g/dL Normal 32.5-35.6 [facility] Comment on above: Performed By: #### L IPID, CMP, A1C WTH eA, CBC, MG #### [facility] [address] [place] [address] [place] Monocytes (Bld) [#/Vol] 0.6 10*3/uL Normal 0.0-0.8 [facility] Comment on above: Performed By: #### L IPID, CMP, A1C WTH eA, CBC, MG #### [facility] [address] [place] [address] [place] Monocytes/100 WBC (Bld) 7.1 % Normal . [facility] Comment on above: Performed By: #### L IPID, CMP, A1C WTH eA, CBC, MG #### [facility] [address] [place] [address] Neutrophils (Bld) [#/Vol] 5.0 10*3/uL Normal 1.8-7.7 [facility] Comment on above: Performed By: #### L IPID, CMP, A1C WTH eA, CBC, MG #### [facility] [address] [place] [address] [place] Neutrophils/100 WBC (Bld) 56.8 % Normal . [facility] Comment on above: Performed By: #### L IPID, CMP, A1C WTH eA, CBC, MG #### [facility] [address] [place] [address] [place] NRBC% 0.2 /100{WBC} Normal 0-0.5 [facility] Comment on above: Performed By: #### L IPID, CMP, A1C WTH eA, CBC, MG #### [facility] [address] [place] [address] [place] Platelet mean volume (Bld) [Entitic vol] 8.9 fL Normal 6.6-10.1 [facility] Comment on above: Performed By: #### L IPID, CMP, A1C WTH eA, CBC, MG #### [facility] [address] [place] [address] [place] Platelets (Bld) [#/Vol] 223 10*3/uL Normal 150-450 [facility] Comment on above: Performed By: #### L IPID, CMP, A1C WTH eA, CBC, MG #### [facility] [address] [place] [address] RBC (Bld) [#/Vol] 5.22 10*6/uL Normal 3.90-5.60 [facility] Comment on above: Performed By: #### L IPID, CMP, A1C WTH eA, CBC, MG #### [facility] [address] [place] [address] WBC (Bld) [#/Vol] 8.8 10*3/uL Normal 4.1-10.5 [facility] Comment on above: Performed By: #### L IPID, CMP, A1C WTH eA, CBC, MG #### [facility] [address] [place] [address] Comprehensive Metabolic Pane tere 10-14-2023 Albumin [Mass/Vol] 4.2 g/dL Normal 3.5-5.7 [facility] Comment on above: Performed By: #### L IPID, CMP, A1C WTH eA, CBC, MG #### [address] Albumin/Globulin [Mass ratio] 1.5 {ratio} Normal [facility] Comment on above: Performed By: #### L IPID, CMP, A1C WTH eA, CBC, MG #### [facility] [address] [place] [address] ALP [Catalytic activity/Vol] 83 U/L Normal 34-104 [facility] Comment on above: Performed By: #### L IPID, CMP, A1C WTH eA, CBC, MG #### [facility] [address] [place] [address] ALT [Catalytic activity/Vol] 28 U/L Normal 7-52 [facility] Comment on above: Performed By: #### L IPID, CMP, A1C WTH eA, CBC, MG #### [facility] [address] [place] [address] Anion gap [Moles/Vol] 10.8 mmol/L Normal 6.0-15.0 [facility] Comment on above: Performed By: #### L IPID, CMP, A1C WTH eA, CBC, MG #### [facility] [address] [place] [address] AST [Catalytic activity/Vol] 23 U/L Normal 13-39 [facility] Comment on above: Performed By: #### L IPID, CMP, A1C WTH eA, CBC, MG #### [facility] [address] [place] [address] Bilirubin [Mass/Vol] 0.8 mg/dL Normal 0.3-1.0 [facility] Comment on above: Performed By: #### L IPID, CMP, A1C WTH eA, CBC, MG #### [facility] [address] [place] [address] Calcium [Mass/Vol] 9.4 mg/dL Normal 8.6-10.3 [facility] Comment on above: Performed By: #### L IPID, CMP, A1C WTH eA, CBC, MG #### [facility] [address] [place] [address] Chloride [Moles/Vol] 106 mmol/L Normal 98-107 [facility] Comment on above: Performed By: #### L IPID, CMP, A1C WTH eA, CBC, MG #### [facility] [address] [place] [address] CO2 [Moles/Vol] 23.1 mmol/L Normal 21.0-31.0 [facility] Comment on above: Performed By: #### L IPID, CMP, A1C WTH eA, CBC, MG #### [facility] [address] [place] [address] [place] Creatinine [Mass/Vol] 0.73 mg/dL Normal 0.70-1.30 [facility] Comment on above: Performed By: #### L IPID, CMP, A1C WTH eA, CBC, MG #### [place] [address] [place] Creatinine Clr Calc Pharmacy 101.87 [facility] Comment on above: Performed By: #### L IPID, CMP, A1C WTH eA, CBC, MG #### [facility] [address] [place] [address] [place] GFR/1.73 sq M.predicted MDRD (S/P/Bld) [Vol rate/Area] mL/min/{1.73_m2} [facility] Comment on above: Performed By: #### L IPID, CMP, A1C WTH eA, CBC, MG #### [facility] [address] Globulin (S) [Mass/Vol] 2.8 g/dL Normal [facility] Comment on above: Performed By: #### L IPID, CMP, A1C WTH eA, CBC, MG #### [facility] [address] Glucose [Mass/Vol] 81 mg/dL Normal 70-100 [facility] Comment on above: Result Comment: [facility] Glucose Reference Range is dependent on time and content of last meal. Glucose of more than 200 mg/dL in a nonstressed, ambulatory subject supports the diagnosis of Diabetes Mellitus. ADA recommended reference range Performed By: #### L IPID, CMP, A1C WTH eA, CBC, MG #### [facility] [address] [place] [address] [place] Potassium [Moles/Vol] 3.9 mmol/L Normal 3.5-5.1 [facility] Comment on above: Performed By: #### L IPID, CMP, A1C WTH eA, CBC, MG #### [facility] [address] [place] [address] [place] Protein [Mass/Vol] 7.0 g/dL Normal 6.4-8.9 [facility] Comment on above: Performed By: #### L IPID, CMP, A1C WTH eA, CBC, MG #### [facility] [address] [place] [address] [place] Sodium [Moles/Vol] 136 mmol/L Normal 136-145 [facility] Comment on above: Performed By: #### L IPID, CMP, A1C WTH eA, CBC, MG #### [facility] [address] [place] [address] [place] Urea nitrogen [Mass/Vol] 20 mg/dL Normal 7-25 [facility] Comment on above: Performed By: #### L IPID, CMP, A1C WTH eA, CBC, MG #### [facility] [address] [place] [address] [place] Eosinophils Auto (Bld) [#/Vo l]Ordered By: Objeffrydashelly Osunaomar on 10-14-2023 Eosinophils (Bld) [#/Vol] 0.1 10*3/uL 0.0-0.45 [facility] Eosinophils/100 WBC Auto (Bl d)Ordered By: Objeffrydah Enrriqueomar on 10-14-2023 Eosinophils/100 WBC (Bld) 1.5 % . [facility] Erythrocyte distribution wid th Auto (RBC) [Ratio]Ordered By: Obdeneen Osunaomar on 10-14-2023 Erythrocyte distribution width (RBC) [Ratio] 13.7 % 12.0-14.8 [facility] Globulin Calc (S) [Mass/Vol] Ordered By: Objeffrydashelly Osunaomar on 10-14-2023 Globulin (S) [Mass/Vol] 2.8 g/dL [facility] Glucose mean value [Mass/vol ume] in Blood Estimated from glycated hemoglobinOrdered By: Vasquez Osunaomar on 10-14-2023 Average glucose Estimated from glycated hemoglobin (Bld) [Mass/Vol] 111 mg/dL [facility] Hematocrit Auto (Bld) [Volum e fraction]Ordered By: Objeffrydashelly Osunaomar on 10-14-2023 Hematocrit (Bld) [Volume fraction] 48.4 % 38.8-50.0 [facility] Hemoglobin A1c percentageOrd ered By: Objeffrydashelly Osunaomar on 10-14-2023 HbA1c (Bld) [Mass fraction] 5.5 % 4.3-5.6 [facility] Comment on above: Increased risk for d iabetes: 5.7 - 6.4diabetes: >6.4glycemic control for adults with diabetes: <7.0 Hemoglobin [Mass/volume] in BloodOrdered By: Vasquez Mckinley on 10-14-2023 Hemoglobin (Bld) [Mass/Vol] 16.6 g/dL 13.0-17.0 [facility] Leukocytes [#/volume] correc sean for nucleated erythrocytes in Blood by Automated counOrdered By: Vasquez Mckinley on 10-14-2023 WBC corrected for nucl RBC Auto (Bld) [#/Vol] 8.8 10*3/uL 4.1-10.5 [facility] Lipid Panelon 10-14-2023 Cholesterol [Mass/Vol] 279 mg/dL High 140-200 [facility] Comment on above: Result Comment: Chol less than 200 mg/dl low risk Chol 201-239 mg/dl borderline risk Chol 240 mg/dl and greater high risk Performed By: #### H S TROP #### [facility] [address] [place] [address] [place] Cholesterol in HDL [Mass/Vol] 33 mg/dL Normal 23-92 [facility] Comment on above: Result Comment: HDL CHOL ATP-III CLASSIFICATION Cardiovascular Risk HDL > or equal to 60 mg/dL LOW HDL < 40 mg/dL HIGH Performed By: #### H S TROP #### [facility] [address] Cholesterol.total/Cynthia sterol in HDL [Mass ratio] 8.5 {ratio} Normal <5.0 [facility] Comment on above: Result Comment: PERF ORMED BY: [place] [address] PATHOLOGIST POULTRY KILLER JEFF LEMA M.D. Performed By: #### H S TROP #### [facility] [address] [place] [address] [place] LDL Cholesterol,Calculated 195 mg/dL High 0-100 [facility] Comment on above: Result Comment: LDL ATP III CLASSIFICATION LDL less than 100 mg/dL Optimal LDL 100-129 mg/dL Near or above optimal LDL 130-159 mg/dL Borderline high LDL 160-189 mg/dL High LDL greater than 189 mg/dL Very high Performed By: #### H S TROP #### [facility] [address] Triglyceride w/Reflex 253 mg/dL High 0-149 [facility] Comment on above: Result Comment: TRIG ATP III CLASSIFICATION TRIG less than 150 mg/dL Normal TRIG 150-199 mg/dL Borderline high TRIG 200-500 mg/dL High TRIG greater than 500 mg/dL Very high Standard traceable to the Center for Disease Conrtrol and Prevention (CDC) test method. Performed By: #### H S TROP #### [facility] [address] VLDL CHOLESTEROL 50 mg/dL Normal [facility] Comment on above: Performed By: #### H S TROP #### [facility] [address] Lymphocytes Auto (Bld) [#/Vo l]Ordered By: Obaydah Daromar on 10-14-2023 Lymphocytes (Bld) [#/Vol] 2.9 10*3/uL 1.00-4.8 [facility] [facility] Lymph[facility]/100 WBC Auto (Bl d)Ordered By: Obaydah Daromar on 10-14-2023 Lymphocytes/100 WBC (Bld) 33.5 % . [facility] MCH Auto (RBC) [Entitic mass ]Ordered By: Objeffrydah Daromar on 10-14-2023 MCH (RBC) [Entitic mass] 31.7 pg 27.5-35.2 [facility] MCHC Auto (RBC) [Mass/Vol]Or dered By: Obaydah Daromar on 10-14-2023 MCHC (RBC) [Mass/Vol] 34.2 g/dL 32.5-35.6 [facility] MCV Auto (RBC) [Entitic vol] Ordered By: Obaydah Daromar on 10-14-2023 MCV (RBC) [Entitic vol] 92.6 fL 83.5-101 F [facility] Magnesiumon 10-14-2023 Magnesium [Mass/Vol] 2.6 mg/dL Normal 1.9-2.7 [facility] Comment on above: Performed By: #### L IPID, CMP, A1C WTH eA, CBC, MG #### [facility] [address] Magnesium [Mass/volume] in S renata or PlasmaOrdered By: Obdeneen Osunaomar on 10-14-2023 Magnesium [Mass/Vol] 2.6 mg/dL 1.9-2.7 [facility] Monocytes Auto (Bld) [#/Vol] Ordered By: Objeffrydah Daromar on 10-14-2023 Monocytes (Bld) [#/Vol] 0.6 10*3/uL 0.0-0.8 [facility] Monocytes/100 WBC Auto (Bld) Ordered By: Objeffrydah Enrriqueomar on 10-14-2023 Monocytes/100 WBC (Bld) 7.1 % . [facility] Natriuretic peptide B [Mass/ Vol]Ordered By: Objeffrydashelly Daromar on 10-14-2023 Natriuretic peptide B (Bld) [Mass/Vol] 51.0 pg/mL 5-100 [facility] Neutrophils Auto (Bld) [#/Vo l]Ordered By: Objeffrydashelly Daromar on 10-14-2023 Neutrophils (Bld) [#/Vol] 5.0 10*3/uL 1.8-7.7 [facility] Neutrophils/100 WBC Auto (Bl d)Ordered By: Objeffrydashelly Daromar on 10-14-2023 Neutrophils/100 WBC (Bld) 56.8 % . [facility] Nucleated erythrocytes [Pres ence] in Blood by Automated countOrdered By: Vasquez Elizabethr on 10-14-2023 Nucleated RBC Auto Ql (Bld) 0.2 /100{WBC} 0-0.5 [facility] Partial Thromboplastin Timeo n 10-14-2023 aPTT Coag (Bld) [Time] 62.6 s High 25.1-36.5 [facility] Comment on above: Result Comment: A he matocrit value greater than 55% may lead to inaccurate results in coagulation testing. Patients having hematocrit values >55% require a special collection tube for coagulation studies. Please contact the laboratory at [phone] for redraw instructions. PERFORMED BY: [place] [address] PATHOLOGIST POULTRY KILLER JEFF LEMA M.D. Performed By: #### P TT #### [facility] [address] [place] [address] aPTT Coag (Bld) [Time] 46.8 s High 25.1-36.5 [facility] Comment on above: Result Comment: A he matocrit value greater than 55% may lead to inaccurate results in coagulation testing. Patients having hematocrit values >55% require a special collection tube for coagulation studies. Please contact the laboratory at [phone] for redraw instructions. PERFORMED BY: [place] [address] PATHOLOGIST POULTRY KILLER JEFF LEMA M.D. Performed By: #### P TT #### [facility] [address] [place] [address] Platelet mean volume Auto (B ld) [Entitic vol]Ordered By: Obaydah Daromar on 10-14-2023 Platelet mean volume (Bld) [Entitic vol] 8.9 fL 6.6-10.1 [facility] Platelets Auto (Bld) [#/Vol] Ordered By: Obaydah Daromar on 10-14-2023 Platelets (Bld) [#/Vol] 223 10*3/uL 150-450 [facility] Protein [Mass/volume] in Ser um or PlasmaOrdered By: Obaydah Daromar on 10-14-2023 Protein [Mass/Vol] 7.0 g/dL 6.4-8.9 [facility] RBC Auto (Bld) [#/Vol]Ordere d By: Obaydah Daromar on 10-14-2023 RBC (Bld) [#/Vol] 5.22 10*6/uL 3.90-5.60 [facility] Serum or plasma albumin/glob ulin mass ratioOrdered By: Obaydah Daromar on 10-14-2023 Albumin/Globulin [Mass ratio] 1.5 {ratio} [facility] Serum or plasma high density lipoprotein (HDL) cholesterol measurementOrdered By: Vasquez Mckinley on 10-14-2023 Cholesterol in HDL [Mass/Vol] 33 mg/dL 23-92 [facility] Comment on above: HDL CHOL ATP-III CLA SSIFICATION Cardiovascular RiskHDL > or equal to 60 mg/dL LOWHDL < 40 mg/dL HIGH Serum or plasma total choles terol/high density lipoprotein (HDL) cholesterol mass ratOrdered By: Vasquez Mckinley on 10-14-2023 Cholesterol.total/Cynthia sterol in HDL [Mass ratio] 8.5 {ratio} <5.0 [facility] Triglyceride [Mass/volume] i n Serum or PlasmaOrdered By: Vasquez Mckinley on 10-14-2023 Triglyceride [Mass/Vol] 253 mg/dL 0-149 [facility] Comment on above: TRIG ATP III CLASSIF ICATIONTRIG less than 150 mg/dL NormalTRIG 150-199 mg/dL Borderline highTRIG 200-500 mg/dL High TRIG greater than 500 mg/dL Very highStandard traceable to the Center for Disease Conrtrol and Prevention (CDC) test method. Troponin I High Sensitivityo n 10-14-2023 Troponin I High Sensitivity 113.0 pg/mL Off scale high 0.0-20.0 [facility] Comment on above: Result Comment: Crit ical Result : Called to and read back by: IFEOMA PINZON at: 10/14/2023 21:16:19 by:[id number] PERFORMED BY: [place] [address] PATHOLOGIST POULTRY KILLER JEFF LEMA M.D. Performed By: #### H S TROP #### [address] Troponin I High Sensitivity 109.9 pg/mL Off scale high 0.0-20.0 [facility] Comment on above: Result Comment: Crit ical Result : Called to and read back by: LEONEL CLEMENT at: 10/14/2023 19:00:01 by:[id number] PERFORMED BY: [place] [address] PATHOLOGIST POULTRY KILLER JEFF LEMA M.D. Performed By: #### H S TROP #### [facility] [address] [place] [address] Troponin I High Sensitivity 113.4 pg/mL Off scale high 0.0-20.0 [facility] Comment on above: Result Comment: Crit ical Result : Called to and read back by: SOFIA FELIX at: 10/14/2023 17:15:58 by:JAMES PERFORMED BY: [place] [phone] PATHOLOGIST POULTRY KILLER JEFF LEMA M.D. Performed By: #### H S TROP #### [address] Troponin I High Sensitivity 124.2 pg/mL Off scale high 0.0-20.0 [facility] Comment on above: Result Comment: Crit ical Result : Called to and read back by: SAMEERA BUSTILLO at: 10/14/2023 05:23:41 by:[id number] PERFORMED BY: [place] [phone] PATHOLOGIST POULTRY KILLER JEFF LEMA M.D. Performed By: #### H S TROP #### [address] Troponin I.cardiac [Mass/vol ume] in Serum or Plasma by Detection limit <= 0.01 ng/Ordered By: Blayne Brody on 10-14-2023 Troponin I.cardiac DL <= 0.01 ng/mL [Mass/Vol] 118.4 pg/mL 0.0-20.0 [facility] Comment on above: Critical Result : Ca lled to and read back by: IFEOMA PINZON at: 10/14/2023 23:06:19 by:EMILIANO WBC Auto (Bld) [#/Vol]Ordere d By: Vasquez Mckinley on 10-14-2023 WBC (Bld) [#/Vol] 8.8 10*3/uL 4.1-10.5 [facility] ECG 12 lead ECGon 10-13-2023 ECG 12 lead ECG [facility] Main [address] [address] Electrocardiograph Report Signed Patient: Tara Hartmann MR#: [id number] : 1965 Acct:[id number] Age/Sex: 58 / M ADM Date: 10/13/23 Loc: Room: [address] [place] [address] Type: ADM IN Attending Dr: Vasquez Mckinley MD Ordering Provider: Vasquez Mckinley MD Date of Service: 10/13/23 ECG/ECG [...] previous ECGs available Confirmed by [id number] on 10/14/2023 2:24:25 PM Referred By: DR MCKINLEY Electronically Signed By:MAGEN RAGSDALE MD [facility] Transcribed By: MUS Signed By Evelio Ragsdale MD 10/14/23 1424 Normal [facility] Troponin I High Sensitivityo n 10-13-2023 Troponin I High Sensitivity 195.5 pg/mL Off scale high 0.0-20.0 [facility] Comment on above: Result Comment: Crit ical Result : Called to and read back by: SAMEERA BUSTILLO at: 10/13/2023 20:28:58 by:DC PERFORMED BY: [place] [address] PATHOLOGIST POULTRY KILLER JEFF LEMA M.D. Performed By: #### H S TROP #### [place] [id number] [facility] XR forearm LT 2V*on 02-24-20 XR forearm LT 2V* [facility] [place] [address] XRay Report Signed Patient: Tara Hartmann MR#: [id number] : 1965 Acct:[id number] Age/Sex: 57 / M ADM Date: 02/23/23 Loc: XDUCLY Room: Type: [facility] Attending Dr: Shannan Munguia APRN Copies [...] Holloway Jr., D.O.02/23/2023 6:12 PM Dictation Location: [facility] Transcribed By: [facility] 02/23/231811 Dictated By: Zhen Holloway Jr, DO 02/23/231811 Signed By: 02/23/23 181 Normal [facility] XR forearm LT 2V* [facility] [employer] Other XR forearm LT 2V* [facility] [employer] Other XR forearm LT 2V* [address] [place] [address] [employer] Other XR forearm LT 2V* [address] [employer] Other XR forearm LT 2V* XRay Report [facility] [employer] Other XR forearm LT 2V* Signed [employer] Other XR forearm LT 2V* Patient: Tara Hartmann MR#: [id number] [employer] Other XR forearm LT 2V* [address] [employer] Other XR forearm LT 2V* : 1965 Acct:[id number] [employer] Other XR forearm LT 2V* Age/Sex: 57 / M ADM Date: 02/23/23 [employer] Other XR forearm LT 2V* Loc: XDUCLY Room: Type: [facility] CLI [employer] Other XR forearm LT 2V* Attending Dr: Shannan Munguia APRN [employer] Other XR forearm LT 2V* Copies to: Shannan Munguia APRN [employer] Other XR forearm LT 2V* Ordering Provider: Shannan Munguia APRN [employer] Other XR forearm LT 2V* Date of Service: 02/23/23 [employer] Other XR forearm LT 2V* XR/XR forearm LT 2V*: Injury [employer] Other XR forearm LT 2V* LEFT FOREARM - 2 views [employer] Other XR forearm LT 2V* CLINICAL HISTORY: Left forearm injury today. [employer] Other XR forearm LT 2V* COMPARISON: None [employer] Other XR forearm LT 2V* FINDINGS: [employer] Other XR forearm LT 2V* Soft tissue swelling is noted. No acute bony process is seen. Joint spaces appear maintained. [employer] Other XR forearm LT 2V* XR/XR forearm LT 2V* [employer] Other XR forearm LT 2V* IMPRESSION: [employer] Other XR forearm LT 2V* SOFT TISSUE SWELLING WITHOUT ACUTE BONY PROCESS. [employer] Other XR forearm LT 2V* Impression dictated by: Zhen Holloway Jr., D.OJessica02/23/2023 6:12 PM [employer] Other XR forearm LT 2V* Dictation Location: [facility] [employer] Other XR forearm LT 2V* Transcribed By: DORY 02/23/231811 [employer] Other XR forearm LT 2V* Dictated By: Zhen Holloway Jr, 02/23/231811 [employer] Other XR forearm LT 2V* Signed By: Stylefie [employer] Other XR forearm LT 2V* 02/23/231811 Sean Vaprema Other Office Visit (Cardiology)on 09-18-2021 Follow-up visit Diagnoses/Problems Assessed Coronary artery disease involving eklutna coronary artery 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.01) (I25.10) HTN (hypertension) (401.9) (I10) Hyperlipemia (272.4) (E78.5) Current every day smoker (305.1) (F17.200) 1/2 ppd Overweight with body mass index (BMI) of 27 to 27.9 in adult (278.02,V85.23) (E66.3,Z68.27) Orders Coronary artery disease involving eklutna coronary artery without angina pectoris Renew: Aspirin [...] No Known Drug Allergies Recorded By: Trena Morgna; 07/30/2021 5:27:36 PM Social History Problems Current [...] Recorded: 18Sep2021 09:48AM Heart Rate66, R Radial Cquxgzxi329, RUE, Sitting Evkyfpuhz72, RUE, Sitting Height5 ft 7 in Xjrcie573 lb BMI Izdozbitqf04.41 kg/m2 BSA Calculated1.91 Tobacco Usea) Yes Patient [...] . Signatures Electronically signed by : Evelio Brody DO; Sep 18 2021 12:32PM EST (Author) Normal [employer] Tobacco Screening.on 021 Fall risk assessment c) Not medically indicated [facility] 250 DO Work Phone: Tobacco use status CPHS a) Yes M [facility] 250 DO Work Phone: Tobacco Screening. Yes [facility] 250 DO Work Phone: LIPID PROFILEon 08-21-2020 CHOL-HDL RATIO NORM SEE BELOW Normal [facility] Comment on above: Result Comment: 3.3 - 4.4 LOW RISK 4.4 - 7.1 AVERAGE RISK 7.1 - 11.0 MODERATE RISK >11.0 HIGH RISK Performed By: #### C ED CHENG #### [facility] [address] [place] [address] Brooke Julissa Cholesterol [Mass/Vol] 194 mg/dL Normal <=200 [facility] Comment on above: Performed By: #### C ED CHENG #### [facility] [address] [place] [address] Brooke Julissa Cholesterol in HDL [Mass/Vol] 29 mg/dL Normal [facility] Comment on above: Performed By: #### C ED CHENG #### [facility] [address] [place] [address] Brooke Julissa Cholesterol in HDL [Mass/Vol] > or = 60 mg/dl - LOW CARDIOVASCULAR RISK <40 mg/dl - HIGH CARDIOVASCULAR RISK Normal [facility] Comment on above: Performed By: #### C ED CHENG #### [facility] [address] [place], [place] [address] Brooke Julissa Cholesterol in LDL [Mass/Vol] 89.6 mg/dL Normal [facility] Comment on above: Performed By: #### C ED CHENG #### [facility] [address] [place], [place] [address] Brooke Julissa Cholesterol in LDL [Mass/Vol] SEE BELOW Normal [facility] Comment on above: Result Comment: <100 mg/dl OPTIMAL 100 - 129 mg/dl NEAR OR ABOVE OPTIMAL 130 - 159 mg/dl BORDERLINE HIGH 160 - 189 mg/dl HIGH >190 mg/dl VERY HIGH Performed By: #### C ED CHENG #### [facility] [address] [place] [id number] Brooke Julissa Cholesterol.total/Cynthia sterol in HDL [Mass ratio] 6.7 {ratio} Normal [facility] Comment on above: Performed By: #### C ED CHENG #### [facility] [address] [place] [id number] Brooke Julissa Triglyceride [Mass/Vol] 377 mg/dL Critically high <=150 [facility] Comment on above: Performed By: #### C ED CHENG #### [facility] [address] [place], [place] [id number] Brooke Julissa VLDL CALC 75.4 mg/dL Normal [facility] Comment on above: Performed By: #### C ED CHENG #### [facility] [address] [place] [id number] Brooke Julissa SGOTon 08-21-2020 AST [Catalytic activity/Vol] 22 U/L Normal 17-59 [facility] Comment on above: Performed By: #### C ED CHENG #### [facility] [address] [place] [id number] Brooke Julissa SGPTon 08-21-2020 ALT [Catalytic activity/Vol] 48 U/L Normal 21-72 [facility] Comment on above: Performed By: #### C ED CHENG #### [facility] [address] [place] [id number] Brooke Julissa BNPon 04-28-2020 Natriuretic peptide B (Bld) [Mass/Vol] 197.0 pg/mL Normal <=900.0 [facility] Comment on above: Performed By: #### B DRILL RUNNER HELPER, BMP, TROP #### [facility] [address] [place], [place] [id number] Brooke Julissa CBC AUTO DIFFon 04-28-2020 Basophils (Bld) [#/Vol] 0.1 103/ul Normal 0.0-0.1 [facility] Comment on above: Performed By: #### C BC #### [facility] [address] [place], [place] [id number] Brooke Julissa Basophils/100 WBC (Bld) 0.5 % Normal 0.2-2.0 [facility] Comment on above: Performed By: #### C BC #### [facility] [address] [place] [address] Brooke Julissa Eosinophils (Bld) [#/Vol] 0.1 103/ul Normal 0.0-0.7 [facility] Comment on above: Performed By: #### C BC #### [facility] [address] [place], [place] [id number] Brooke Julissa Eosinophils/100 WBC (Bld) 0.9 % Normal 0.9-7.0 [facility] Comment on above: Performed By: #### C BC #### [facility] [address] [place], [place] [id number] Brooke Julissa Erythrocyte distribution width (RBC) [Ratio] 12.9 % Normal 11.0-15.0 [facility] Comment on above: Performed By: #### C BC #### [facility] [address] [place], [place] [id number] Brooke Julissa Hematocrit (Bld) [Volume fraction] 49.4 % Normal 42.0-54.0 [facility] Comment on above: Performed By: #### C BC #### [facility] [address] [place], [place] [id number] Brooke Julissa Hemoglobin (Bld) [Mass/Vol] 17.5 g/dL Normal 14.0-18.0 [facility] Comment on above: Performed By: #### C BC #### [facility] [address] [place] [id number] Brooke Julissa IG # 0.05 10e3/ul Critically high 0.00-0.03 [facility] Comment on above: Performed By: #### C BC #### [facility] [address] [place] [id number] Brooke Julissa IG % 0.4 % Normal 0.0-0.5 [facility] Comment on above: Performed By: #### C BC #### [facility] [address] [place] [id number] Brooke Julissa Lymphocytes (Bld) [#/Vol] 2.0 103/ul Normal 1.2-3.8 [facility] Comment on above: Performed By: #### C BC #### [facility] [address] [place], [place] [id number] Brooke Julissa Lymphocytes/100 WBC (Bld) 15.9 % Critically low 20.5-60.0 [facility] Comment on above: Performed By: #### C BC #### [facility] [address] [place], [place] [id number] Brooke Julissa MANUAL DIFF REQ NO Normal [facility] Comment on above: Performed By: #### C BC #### [facility] [address] [place], [place] [id number] Brooke Julissa MCH (RBC) [Entitic mass] 31.8 pg Normal 25.9-34.0 [facility] Comment on above: Performed By: #### C BC #### [facility] [address] [place], [place] [id number] Brooke Julissa MCHC (RBC) [Mass/Vol] 35.4 g/dL Critically high 29.9-35.2 [facility] Comment on above: Performed By: #### C BC #### [facility] [address] [place], [place] [id number] Brooke Julissa MCV (RBC) [Entitic vol] 89.8 fL Normal 80.0-94.0 [facility] Comment on above: Performed By: #### C BC #### [facility] [address] [place], [place] [address] Brooke Julissa Monocytes (Bld) [#/Vol] 0.7 103/ul Normal 0.3-0.8 [facility] Comment on above: Performed By: #### C BC #### [facility] [address] [place], [place] [address] Brooke Julissa Monocytes/100 WBC (Bld) 5.7 % Normal 1.7-12.0 [facility] Comment on above: Performed By: #### C BC #### [facility] [address] [place] [address] Brooke Julissa Neutrophils (Bld) [#/Vol] 9.8 103/ul Critically high 1.4-6.5 [facility] Comment on above: Performed By: #### C BC #### [facility] [address] [place] [address] Brooke Julissa Neutrophils/100 WBC (Bld) 76.6 % Critically high 43.0-75.0 [facility] Comment on above: Performed By: #### C BC #### [facility] [address] [place] [address] Brooke Julissa Platelet mean volume (Bld) [Entitic vol] 11.0 fL Normal 9.5-13.5 [facility] Comment on above: Performed By: #### C BC #### [facility] [address] [place] [address] Brooke Julissa Platelets (Bld) [#/Vol] 237 103/ul Normal 150-450 [facility] Comment on above: Performed By: #### C BC #### [facility] [address] [place] [address] Brooke Julissa RBC (Bld) [#/Vol] 5.50 106/ul Normal 4.70-6.10 [facility] Comment on above: Performed By: #### C BC #### [facility] [address] [place], [place] [address] Brooke Julissa WBC (Bld) [#/Vol] 12.8 103/ul Critically high 4.0-11.0 [facility] Comment on above: Performed By: #### C BC #### [facility] [address] [place] [address] Brooke Julissa D-DIMERon 04-28-2020 D-DIMER COMMENTS SEE BELOW Normal [facility] Comment on above: Result Comment: Incr eases [...] By: #### D DIM, PTT, PT #### [facility] [address] [place] [address] Brooke Julissa Fibrin D-dimer FEU IA (Bld) [Mass/Vol] 0.20 ug/mL Normal 0.19-0.50 [facility] Comment on above: Performed By: #### D DIM, PTT, PT #### [facility] [address] [place], [place] [id number] Brookecheyenne Teeen PROF CHEM 8 (BAS METB)on Anion gap [Moles/Vol] 14.9 mmol/L Normal [facility] Comment on above: Performed By: #### C ED CHENG #### [facility] [address] [place], [place] [id number] Brooke Julissa Calcium [Mass/Vol] 9.0 mg/dL Normal 8.4-10.2 [facility] Comment on above: Performed By: #### C ED CHENG #### [facility] [address] [place], [place] [id number] Brooke Julissa Chloride [Moles/Vol] 103 mmol/L Normal 98-107 [facility] Comment on above: Performed By: #### C PROSPER CMADM #### [facility] [address] [place], [place] [address] Brooke Juilssa CO2 [Moles/Vol] 23.8 mmol/L Normal 22.0-30.0 [facility] Comment on above: Performed By: #### C PROSPER, CMADM #### [facility] [address] [place] [address] Brooke Julissa Creatinine [Mass/Vol] 1.08 mg/dL Normal 0.66-1.25 [facility] Comment on above: Performed By: #### C PROSPER, CMADM #### [facility] [address] [place] [id number] Brooke Julissa EGFR-AF NIGERIAN >60 Normal >=60 [facility] Comment on above: Performed By: #### C PROSPER, CMADM #### [facility] [address] [place] [address] Brooke Julissa EGFR-NON AF NIGERIAN >60 Normal >=60 [facility] Comment on above: Performed By: #### C PROSPER, CMADM #### [facility] [address] [place] [address] Brooke Julissa Glucose [Mass/Vol] 120 mg/dL Critically high 74-106 T [facility] Comment on above: Performed By: #### C PROSPER, CMADM #### [facility] [address] [place] [address] Brooke Julissa Potassium [Moles/Vol] 3.7 mmol/L Normal 3.4-5.0 [facility] Comment on above: Performed By: #### C PROSPER, CMADM #### [facility] [address] [place] [address] Brooke Julissa Sodium [Moles/Vol] 138 mmol/L Normal 137-145 [facility] Comment on above: Performed By: #### C PROSPER, CMADM #### [facility] [address] [place] [address] Brooke Julissa Urea nitrogen [Mass/Vol] 13.0 mg/dL Normal 9.0-20.0 [facility] Comment on above: Performed By: #### C PROSPER, CMADM #### [facility] [address] [place] [address] Brooke Julissa Urea nitrogen/Creatinine [Mass ratio] 12.0 mg/mg Normal [facility] Comment on above: Performed By: #### C MP, CMADM #### [facility] [address] [place], [place] [id number] Brooke Julissa PROTIMEon 04-28-2020 INR Coag (PPP) [Relative time] 0.95 {INR} Normal [facility] Comment on above: Performed By: #### D DIM, PTT, PT #### [facility] [address] [place] [address] Brooke Julissa PT Coag (PPP) [Time] SEE BELOW Normal [facility] Comment on above: Result Comment: ALEX RED INR: 2.0 - 3.0 CONDITIONS NOT LISTED BELOW 2.5 - 3.5 FOR PROSTHETIC HEART VALVE REPLACEMENT 2.5 - 3.5 RECURRENT THROMBOSIS Performed By: #### D DIM, PTT, PT #### [facility] [address] [place] [address] Brooke Julissa PT Coag (PPP) [Time] PLEASE NOTE: NORMAL RANGE CHANGE 08-02-2014 DUE TO REAGENT LOT CHANGE [facility] Comment on above: Performed By: #### D DIM, PTT, PT #### [facility] [address] [place], [place] [id number] Brooke Julissa PT Coag (PPP) [Time] 9.9 s Normal 9.0-11.6 [facility] Comment on above: Performed By: #### D DIM, PTT, PT #### [facility] Laboratory [address] [place] [address] Brookecheyenne Costa PTTon 04-28-2020 aPTT Coag (Bld) [Time] 29.1 s Normal 22.3-36.2 [facility] Comment on above: Performed By: #### D DIM, PTT, PT #### [facility] [address] [place], [place] [id number] Brooke Julissa aPTT Coag (Bld) [Time] PLEASE NOTE: NORM AL RANGE CHANGE 10-09-2015 DUE TO REAGENT LOT CHANGE [facility] Comment on above: Performed By: #### D DIM, PTT, PT #### [facility] [address] [place] [address] Brooke Costa TROPONIN - Ion 04-28-2020 Troponin I.cardiac [Mass/Vol] SEE BELOW Normal [facility] Comment on above: Result Comment: <0.0 34 ng/ml NEGATIVE 0.034-0.119 INDETERMINATE 0.120 AMI CUT OFF Performed By: #### C PROSPER, CMADM #### [facility] [address] [place] [address] Brooke Costa Troponin I.cardiac [Mass/Vol] 2.176 ng/mL Critically high <=0.034 [facility] Comment on above: Result Comment: test repeated critical value verified Performed By: #### C PROSPER, CMADM #### [facility] [address] [place] [address] Brooke Costa Troponin I.cardiac [Mass/Vol] 0.053 ng/mL Critically high <=0.034 [facility] Comment on above: Result Comment: test repeated critical value verified Performed By: #### C PROSPER, CMADM #### [facility] [address] [place] [address] Brooke Costa Troponin I.cardiac [Mass/Vol] SEE BELOW Normal [facility] Comment on above: Result Comment: <0.0 34 ng/ml NEGATIVE 0.034-0.119 INDETERMINATE 0.120 AMI CUT OFF Performed By: #### C PROSPER, CMADM #### [facility] [address] [place], [place] [id number] Brooke Costa XR CHEST 2 Von 04-28-2020 XR CHEST [...] GIANNA PECK Date: 2020-04-28 19:35 Normal [facility] CARDIAC FRIDA ADMITon 020 CK [Catalytic activity/Vol] 140 U/L Normal 55-170 [facility] Comment on above: Performed By: #### C ED CHENG #### [facility] [address] [place], [place] [id number] Brooke Costa CK.MB [Mass/Vol] 2.81 ng/mL Critically high <=2.37 [facility] Comment on above: Result Comment: Test repeated. Critical value verified. Performed By: #### C ED CHENG #### [facility] [address] [place], [place] [id number] Brooke Costa INR Coag (Bld) [Relative time] SEE BELOW Normal [facility] Comment on above: Result Comment: <0.0 34 ng/ml NEGATIVE 0.034-0.119 INDETERMINATE 0.120 AMI CUT OFF Performed By: #### C ED CHENG #### [facility] [address] [place] [address] Brooke Julissa NOREEN 47.0 ng/mL Normal <=121.0 [facility] Comment on above: Performed By: #### C ED CHENG #### [facility] [address] [place] [address] Brooke Julissa TROP <0.012 Normal <=0.034 [facility] Comment on above: Performed By: #### C ED CHENG #### [facility] [address] [place], [place] [id number] Brooke Julissa CBC AUTO DIFFon 04-26-2020 Basophils (Bld) [#/Vol] 0.1 103/ul Normal 0.0-0.1 [facility] Comment on above: Performed By: #### C SANDOR #### [facility] [address] [place] [address] Brooke Costa Basophils/100 WBC (Bld) 1.0 % Normal 0.2-2.0 [facility] Comment on above: Performed By: #### C SANDOR #### [facility] [address] [address] Brooke Julissa Eosinophils (Bld) [#/Vol] 0.1 103/ul Normal 0.0-0.7 [facility] Comment on above: Performed By: #### C BC #### [facility] [address] [place], [place] [id number] Brooke Julissa Eosinophils/100 WBC (Bld) 1.3 % Normal 0.9-7.0 [facility] Comment on above: Performed By: #### C BC #### [facility] [address] [place] [address] Brooke Julissa Erythrocyte distribution width (RBC) [Ratio] 13.2 % Normal 11.0-15.0 [facility] Comment on above: Performed By: #### C BC #### [facility] [address] [place] [address] Brooke Julissa Hematocrit (Bld) [Volume fraction] 49.6 % Normal 42.0-54.0 [facility] Comment on above: Performed By: #### C BC #### [facility] [address] [place], [place] [id number] Brooke Julissa Hemoglobin (Bld) [Mass/Vol] 17.3 g/dL Normal 14.0-18.0 [facility] Comment on above: Performed By: #### C BC #### [facility] [address] [place] [address] Brooke Julissa IG # 0.03 10e3/ul Normal 0.00-0.03 [facility] Comment on above: Performed By: #### C BC #### [facility] [address] [place] [address] Brooke Julissa IG % 0.3 % Normal 0.0-0.5 [facility] Comment on above: Performed By: #### C BC #### [facility] [address] [place], [place] [id number] Brooke Julissa Lymphocytes (Bld) [#/Vol] 2.5 103/ul Normal 1.2-3.8 [facility] Comment on above: Performed By: #### C BC #### [facility] [address] [place], [place] [id number] Brookecheyenne Costa Lymphocytes/100 WBC (Bld) 26.4 % Normal 20.5-60.0 [facility] Comment on above: Performed By: #### C BC #### [facility] [address] [place], [place] [id number] Brooke Costa MANUAL DIFF REQ NO Normal [facility] Comment on above: Performed By: #### C BC #### [facility] [address] [place], [place] [id number] Brookecheyenne Costa MCH (RBC) [Entitic mass] 31.7 pg Normal 25.9-34.0 [facility] Comment on above: Performed By: #### C BC #### [facility] [address] [place], [place] [id number] Brookecheyenne Costa MCHC (RBC) [Mass/Vol] 34.9 g/dL Normal 29.9-35.2 [facility] Comment on above: Performed By: #### C BC #### [facility] [address] [place], [place] [id number] Brookecheyenne Costa MCV (RBC) [Entitic vol] 90.8 fL Normal 80.0-94.0 [facility] Comment on above: Performed By: #### C BC #### [facility] [address] [place], [place] [id number] Brooke Julissa Monocytes (Bld) [#/Vol] 0.8 103/ul Normal 0.3-0.8 [facility] Comment on above: Performed By: #### C BC #### [facility] [address] [place], [place] [id number] Brookecheyenne Teeen Monocytes/100 WBC (Bld) 8.3 % Normal 1.7-12.0 [facility] Comment on above: Performed By: #### C BC #### [facility] [address] [place], [place] [id number] Brooke Julissa Neutrophils (Bld) [#/Vol] 5.8 103/ul Normal 1.4-6.5 [facility] Comment on above: Performed By: #### C BC #### [facility] [address] [place], [place] [id number] Brooke Julissa Neutrophils/100 WBC (Bld) 62.7 % Normal 43.0-75.0 [facility] Comment on above: Performed By: #### C BC #### [facility] [address] [place], [place] [id number] Brooke Julissa Platelet mean volume (Bld) [Entitic vol] 11.0 fL Normal 9.5-13.5 [facility] Comment on above: Performed By: #### C BC #### [facility] [address] [place], [place] [id number] Brooke Julissa Platelets (Bld) [#/Vol] 254 103/ul Normal 150-450 [facility] Comment on above: Performed By: #### C BC #### [facility] [address] [place], [place] [id number] Brooke Julissa RBC (Bld) [#/Vol] 5.46 106/ul Normal 4.70-6.10 [facility] Comment on above: Performed By: #### C BC #### [facility] [address] [place], [place] [id number] Brooke Julissa WBC (Bld) [#/Vol] 9.3 103/ul Normal 4.0-11.0 [facility] Comment on above: Performed By: #### C BC #### [facility] [address] [place], [place] [id number] Brooke Julissa ER URINE PROFILEon 0 Bilirubin [Mass/Vol] Negative Normal NEGATIVE [facility] Comment on above: Performed By: #### E RUR #### [facility] [address] [place], [place] [id number] Brooke Julissa BLOOD Negative Normal NEGATIVE [facility] Comment on above: Performed By: #### E RUR #### [facility] [address] [place], [place] [id number] Brooke Julissa Clarity (U) CLEAR Normal [facility] Comment on above: Performed By: #### E RUR #### [facility] [address] [place], [place] [id number] Brooke Julissa Color (U) LT. YELLOW Normal YELLOW [facility] Comment on above: Performed By: #### E RUR #### [facility] [address] [place], [place] [id number] Brooke Julissa ERUAHD A micrscopic examination will be performed if indicated. Normal [facility] Comment on above: Performed By: #### E RUR #### [facility] [address] [place], [place] [id number] Brooke Julissa Glucose [Mass/Vol] Negative Normal NEGATIVE [facility] Comment on above: Performed By: #### E RUR #### [facility] [address] [place] [address] Brooke Julissa Ketones Ql (U) Negative Normal NEGATIVE [facility] Comment on above: Performed By: #### E RUR #### [facility] [address] [place] [address] Brooke Julissa Nitrite Ql (U) Negative Normal NEGATIVE [facility] Comment on above: Performed By: #### E RUR #### [facility] [address] [place] [address] Brooke Julissa pH (Bld) 6.5 Normal 5-9 [facility] Comment on above: Performed By: #### E RUR #### [facility] [address] [place] [address] Brooke Julissa Protein (U) [Mass/Vol] Negative Normal [facility] Comment on above: Performed By: #### E RUR #### [facility] [address] [place] [address] Brooke Julissa SPEC GRAVITY 1.010 Normal 1.005-<=1.0 25 [facility] Comment on above: Performed By: #### E RUR #### [facility] [address] [place], [place] [id number] Brooke Julissa UR MICRO IND NOT INDICATED Normal [facility] Comment on above: Performed By: #### E RUR #### [facility] [address] [place] [address] Brooke Julissa Urobilinogen Qn (U) 1.0 EU/dl Normal [facility] Comment on above: Performed By: #### E RUR #### [facility] [address], [place] [address] Brooke Julissa WBC (Bld) [#/Vol] Negative Normal NEGATIVE [facility] Comment on above: Performed By: #### E RUR #### [facility] [address], [place] [address] Brooke Costa PROF 14(COMP METB)on 020 Albumin [Mass/Vol] 4.1 g/dL Normal 3.5-5.0 [facility] Comment on above: Performed By: #### C PROSPER, CMADM #### [facility] [address] [place] [address] Brookecheyenne Costa Albumin/Globulin [Mass ratio] 1.2 {ratio} Normal [facility] Comment on above: Performed By: #### C PROSPER, CMADM #### [facility] [address], [place] [address] Brooke Julissa ALP [Catalytic activity/Vol] 98 U/L Normal 38-126 [facility] Comment on above: Performed By: #### C PROSPER, CMADM #### [facility] [address] [place] [address] Brooke Julissa ALT [Catalytic activity/Vol] 41 U/L Normal 21-72 [facility] Comment on above: Performed By: #### C PROSPER, CMADM #### [facility] [address], [place] [address] Brooke Julissa Anion gap [Moles/Vol] 10.1 mmol/L Normal [facility] Comment on above: Performed By: #### C PROSPER, CMADM #### [facility] [address], [place] [address] Brooke Julissa AST [Catalytic activity/Vol] 23 U/L Normal 17-59 [facility] Comment on above: Performed By: #### C PROSPER, CMADM #### [facility] [address], [place] [address] Brooke Julissa Bilirubin Ql (U) 0.6 mg/dL Normal 0.2-1.3 [facility] Comment on above: Performed By: #### C MP, CMADM #### [facility] [address] [id number] Brooke Julissa Calcium [Mass/Vol] 9.0 mg/dL Normal 8.4-10.2 [facility] Comment on above: Performed By: #### C MP, CMADM #### [facility] [address] [id number] Brooke Julissa Chloride [Moles/Vol] 103 mmol/L Normal 98-107 [facility] Comment on above: Performed By: #### C MP, CMADM #### [facility] [address] [id number] Brooke Julissa CO2 [Moles/Vol] 28.5 mmol/L Normal 22.0-30.0 [facility] [place] [facility] Comment on above: Performed By: #### C MP, CMADM #### [facility] [address] [place] [address] Brooke Julissa Creatinine [Mass/Vol] 1.10 mg/dL Normal 0.66-1.25 [facility] Comment on above: Performed By: #### C MP, CMADM #### [facility] [address] [place], [place] [id number] Brooke Julissa EGFR-AF NIGERIAN >60 Normal >=60 [facility] [place] [facility] Comment on above: Performed By: #### C MP, CMADM #### [facility] [address] [id number] Brooke Julissa EGFR-NON AF NIGERIAN >60 Normal >=60 [facility] Comment on above: Performed By: #### C MP, CMADM #### [facility] [address] [id number] Brooke Julissa Globulin (S) [Mass/Vol] 3.3 g/dL Normal [facility] Comment on above: Performed By: #### C MP, CMADM #### [facility] [address] [id number] Brooke Julissa Glucose [Mass/Vol] 91 mg/dL Normal 74-106 [facility] Comment on above: Performed By: #### C MP, CMADM #### [facility] [address], [place] [address] Brooke Julissa Potassium [Moles/Vol] 3.6 mmol/L Normal 3.4-5.0 [facility] Comment on above: Performed By: #### C MP, CMADM #### [facility] [address], [place] [address] Brooke Julissa Protein [Mass/Vol] 7.4 g/dL Normal 6.1-8.2 [facility] Comment on above: Performed By: #### C MP, CMADM #### [facility] [address], [place] [address] Brooke Julissa Sodium [Moles/Vol] 138 mmol/L Normal 137-145 [facility] Comment on above: Performed By: #### C MP, CMADM #### [facility] [address], [place] [address] Brooke Julissa Urea nitrogen [Mass/Vol] 14.0 mg/dL Normal 9.0-20.0 [facility] Comment on above: Performed By: #### C MP, CMADM #### [facility] [address], [place] [address] Brooke Julissa Urea nitrogen/Creatinine [Mass ratio] 12.7 mg/mg Normal [facility] Comment on above: Performed By: #### C MP, CMADM #### [facility] [address], [place] [address] Brooke Julissa XR CHEST 2 Von 04-26-2020 [...] Vital Sign Value Performing Clinician Facility 02-29-2024 14:02-0400 Body height 170.2 cm Evelio Brody DO Work Phone: [facility] 02-29-2024 14:02-0400 Body mass index (BMI) [Ratio] 26.85 kg/m2 Evelio Brody DO Work Phone: [facility] 02-29-2024 14:020400 Body weight 77.75 kg Evelio Brody DO Work Phone: [facility] 02-29-2024 14:02-0400 Diastolic blood pressure 72 mm[Hg] Evelio Brody DO Work Phone: [facility] 02-29-2024 14:02-0400 Heart rate 68 /min Evelio Brody DO Work Phone: [facility] 02-29-2024 14:02-0400 Systolic blood pressure 122 mm[Hg] Evelio Brody DO Work Phone: [facility] 11-24-2023 11:34-0500 Diastolic blood pressure 64 mm[Hg] Sherry Crowe ELEMENTARY VOCAL MUSIC TEACHER-CLINICAL SAFETY SPECIALIST Work Phone: [facility] 11-24-2023 11:34-0500 Systolic blood pressure 112 mm[Hg] Sherry Crowe ELEMENTARY VOCAL MUSIC TEACHER-CLINICAL SAFETY SPECIALIST Work Phone: [facility] 11-24-2023 11:13-0500 Body height 170.2 cm Sherry Crowe ELEMENTARY VOCAL MUSIC TEACHER-CLINICAL SAFETY SPECIALIST Work Phone: [facility] 11-24-2023 11:13-0500 Body mass index (BMI) [Ratio] 27.57 kg/m2 Sherry Crowe ELEMENTARY VOCAL MUSIC TEACHER-CLINICAL SAFETY SPECIALIST Work Phone: [facility] 11-24-2023 11:13-0500 Body weight 79.83 kg Sherry Crowe ELEMENTARY VOCAL MUSIC TEACHER-CLINICAL SAFETY SPECIALIST Work Phone: [facility] 11-24-2023 11:13-0500 Heart rate 62 /min Sherry Crowe ELEMENTARY VOCAL MUSIC TEACHER-CLINICAL SAFETY SPECIALIST Work Phone: [facility] 10-15-2023 11:57-0500 Diastolic blood pressure 80 mm[Hg] [facility] 10-15-2023 11:57-0500 Heart rate 68 /min PHYSICIAN NO [facility] 10-15-2023 11:57-0500 Respiratory rate 18 /min PHYSICIAN NO [facility] 10-15-2023 11:57-0500 SaO2% (BldA) [Mass fraction] 97 % PHYSICIAN NO [facility] 10-15-2023 11:57-0500 Systolic blood pressure 116 mm[Hg] PHYSICIAN NO [facility] 10-15-2023 05:28-0500 Body weight 78 kg PHYSICIAN NO [facility] 10-14-2023 11:32-0500 Body temperature 97.6 [degF] PHYSICIAN NO [facility] 10-13-2023 18:31-0500 Body height 170.18 cm PHYSICIAN NO [facility] 03-09-2023 10:45-0400 Body height 170.18 cm Shannan Munguia Other [facility] [employer] Other 03-09-2023 10:45-0400 Body mass index (BMI) [Ratio] 27.91 kg/m2 Shannan Munguia Other [facility] Other 03-09-2023 10:45-0400 Body temperature 98.6 [degF] Shannan Munguia Other [facility] Other 03-09-2023 10:45-0400 Body weight 80.83 kg Shannan Munguia Other [facility] Other 03-09-2023 10:45-0400 Respiratory rate 18 /min Shannan Munguia Other [facility] Other 03-09-2023 10:45-0400 SaO2% (BldA) [Mass fraction] 99 % Shannan Munguia Other [facility] Other 02-23-2023 18:10-0400 Body height 170.18 cm Shannan Ezra Other [facility] Other 02-23-2023 18:10-0400 Body mass index (BMI) [Ratio] 27.88 kg/m2 Shannan Ezra Other [facility] Other 02-23-2023 18:10-0400 Body temperature 98 [degF] Shannan Munguia Other [facility] Other 02-23-2023 18:10-0400 Body weight 80.74 kg Shannan Munguia Other [facility] Other 02-23-2023 18:10-0400 Respiratory rate 18 /min Shannan Munguia Other [facility] Other 02-23-2023 18:10-0400 SaO2% (BldA) [Mass fraction] 95 % Shannan Munguia Other [facility] Other 09-18-2021 09:48-0400 Body height 170.18 cm Referring Provider Unknown [facility] DO Work Phone: 09-18-2021 09:48-0400 Body mass index (BMI) [Ratio] 27.41 kg/m2 Referring Provider Unknown [facility] DO Work Phone: 09-18-2021 09:48-0400 Body surface area Derived from formula 1.91 m2 [address]erring Provider Unknown [facility] DO Work Phone: 09-18-2021 09:48-0400 Body weight 79.38 kg Referring Provider Unknown [facility] DO Work Phone: 09-18-2021 09:48-0400 Diastolic blood pressure 82 mm[Hg] Referring Provider Unknown [facility] DO Work Phone: 09-18-2021 09:48-0400 Heart rate 66 /min Referring Provider Unknown [facility] DO Work Phone: 09-18-2021 09:48-0400 Systolic blood pressure 122 mm[Hg] Referring Provider Unknown [facility] DO Work Phone: Encounters Encounter Date Encounter Type Care Provider Facility Start: 03-20-2024 End: 04-15-2024 [facility] Start: 03-16-2024 End: 04-15-2024 [facility] Start: 03-15-2024 End: 04-15-2024 [facility] Start: 03-13-2024 End: 03-15-2024 [facility] Start: 03-09-2024 End: 03-15-2024 [facility] Start: 03-08-2024 End: 03-15-2024 [facility] Start: 03-06-2024 End: 03-15-2024 [facility] Start: 03-02-2024 End: 03-15-2024 [facility] Start: 02-29-2024 End: 03-15-2024 ambulatory [facility] Start: 02-29-2024 End: 02-29-2024 Office outpatient visit 25 minutes Evelio Brody DO Work Phone: [facility] Comment on above: Coronary artery dise ase involving eklutna coronary artery of eklutna heart without angina pectoris; Primary hypertension; Mixed hyperlipidemia; BMI 26.0-26.9,adult; Current every day smoker Start: 02-28-2024 End: 02-28-2024 ambulatory [facility] Start: 02-28-2024 End: 03-15-2024 [facility] Start: 02-24-2024 End: 02-24-2024 ambulatory EVELIO BRODY [facility] Start: 02-23-2024 End: 03-15-2024 ambulatory EVELIO BRODY [facility] Start: 02-23-2024 End: 03-15-[address] [facility] Start: 02-21-2024 End: 02-21-[address] [facility] Start: 02-21-2024 End: 03-15-20[address] [facility] Start: 02-16-2024 End: 03-15-2024 Clinical Support Pm Cardiac Rehab Exercise 1 [facility] Start: 02-16-2024 End: 03-15-2024 [facility] Torrie [facility] Start: 02-14-2024 End: 02-14-2024 Clinical Support Pmh Cardiac Rehab Exercise 1 [facility] Start: 02-14-2024 End: 03-15-[address] [facility] Start: 02-10-2024 End: 02-10-2024 ambulatory EVELIO [facility] Start: 02-09-2024 End: 02-09-2024 Patient encounter procedure Pm Cardiac Rehab Exercise 1 [facility] Start: 02-09-2024 End: 02-14-20[address] [facility] [facility] Start: 02-07-2024 End: 02-07-2024 Patient encounter procedure [facility] Cardiac Rehab Exercise 1 [facility] Start: 02-07-2024 End: 02-07-2024 ambulatory EVELIO [facility] Start: 02-03-2024 End: 02-03-2024 Patient encounter procedure [facility] Cardiac Rehab Exercise 1 [facility] Start: 02-03-2024 End: 02-03-2024 ambulatory [facility] Torrie [facility] Start: 02-02-2024 End: 02-02-2024 Patient encounter procedure Pm Cardiac Rehab Exercise 1 [facility] Start: 02-02-2024 End: 02-02-2024 ambulatory EVELIO [facility] Start: 01-31-2024 End: 01-31-2024 ambulatory EVELIO Brwonlee [facility] Start: 01-27-2024 End: 01-27-2024 Patient encounter procedure Pm Cardiac Rehab Exercise 1 [facility] Start: 01-27-2024 End: 01-27-2024 ambulatory EVELIO [facility] Start: 01-26-2024 End: 01-26-2024 Patient encounter procedure Pm Cardiac Rehab Therapist 1 [facility] Start: 01-26-2024 End: 01-26-2024 ambulatory SHERRY CROWE [facility] Start: 01-26-2024 End: 01-27-2024 [facility] [facility] Start: 01-24-2024 End: 01-24-2024 Patient encounter procedure [facility] Cardiac Rehab Therapist 1 [facility] Start: 01-24-2024 End: 01-24-2024 ambulatory [facility] Start: 01-20-2024 End: 01-20-2024 Patient encounter procedure [facility] Cardiac Rehab Therapist 1 [facility] Start: 01-20-2024 End: 01-20-2024 ambulatory EVELIO Brownlee [facility] Start: 01-19-2024 End: 01-19-2024 ambulatory EVELIO Brownlee [facility] Start: 01-17-2024 End: 01-17-2024 Patient encounter procedure Pm Cardiac Rehab Therapist 1 [facility] Start: 01-17-2024 End: 01-17-2024 ambulatory EVELIO Brownlee [facility] Start: 01-13-2024 End: 01-13-2024 Patient encounter procedure [facility] Cardiac Rehab Therapist 1 [facility] Start: 01-13-2024 End: 01-13-[address] [facility] Start: 01-12-2024 End: 01-12-2024 Patient encounter procedure Pm Cardiac Rehab Therapist 1 [facility] Start: 01-12-2024 End: 01-12-2024 ambulatory EVELIO BRODY [facility] Start: 01-10-2024 End: 01-10-[address] [facility] Start: 01-05-2024 End: 01-05-2024 Patient encounter procedure Pm Cardiac Rehab Therapist 1 [facility] Start: 01-05-2024 End: 01-14-2024 ambulatory EVELIO Brownlee [facility] Start: 01-03-2024 End: 01-03-2024 Patient encounter procedure Pm Cardiac Rehab Therapist 1 [facility] Start: 01-03-2024 End: 01-03-[address] [facility] Start: 12-29-2023 End: 12-29-2023 Patient encounter procedure Pm Cardiac Rehab Therapist 1 [facility] Start: 12-29-2023 End: 01-14-[address] [facility] Start: 12-27-2023 End: 12-27-2023 [address] [facility] Start: 12-23-2023 End: 12-23-2023 Patient encounter procedure Pm Cardiac Rehab Therapist 1 [facility] Start: 12-23-2023 End: 12-23-2023 [address] Start: 12-22-2023 End: 12-22-2023 Patient encounter procedure Pm Cardiac Rehab Therapist 1 [facility] Start: 12-22-2023 End: 12-22-2023 ambulatory EVELIO Brownlee [facility] Start: 12-20-2023 End: 12-20-2023 Patient encounter procedure h Cardiac Rehab Therapist 1 [facility] Start: 12-20-2023 End: 12-20-2023 ambulatory [facility] Start: 12-14-2023 End: 12-14-2023 ambulatory [facility] Start: 11-24-2023 End: 11-24-2023 ambulatory [facility] Amb[facility] Start: 11-24-2023 End: 11-24-2023 Office outpatient visit 25 minutes Sherry Zimmerman [place] ELEMENTARY VOCAL MUSIC TEACHER-CLINICAL SAFETY SPECIALIST Work Phone: [facility] Comment on above: Current every day sm oker (Primary Dx); NSTEMI (non-ST elevated myocardial infarction) ([facility]/HCC); Coronary artery disease involving eklutna coronary artery of eklutna heart without angina pectoris; Primary hypertension; Mixed hyperlipidemia; BMI 27.0-27.9,adult Start: 10-13-2023 End: 10-15-2023 Evaluation and management of inpatient [facility] Facility:[facility] Start: 10-13-2023 End: 10-15-2023 Evaluation and management of inpatient PHYSICIAN NO [facility] Work Phone: Start: 03-09-2023 End: 03-09-2023 ambulatory Shannan Munguia Other [place] Other Start: 03-09-2023 Office outpatient visit 15 minutes Shannan Munguia [facility] Start: 02-23-2023 End: 02-23-2023 ambulatory Shannan Munguia Facility:[facility] Start: 02-23-2023 End: 02-23-2023 Patient encounter procedure PHYSICIAN NO [facility] Work Phone: Start: 02-23-2023 End: 02-23-2023 ambulatory PHYSICIAN NO [facility] Work Phone: Start: 02-23-2023 Office outpatient visit 15 minutes Shannan Munguia [facility] Start: 09-18-2021 Office outpatient visit 15 minutes Referring Provider Unknown [facility] [address] [place] Work Phone: Start: 09-18-2021 Patient encounter procedure Referring Provider Unknown [facility] [place] Work Phone: Start: 08-21-2020 End: 08-22-2020 Patient encounter procedure SHERRY QUIJANO Facility:[facility] Start: 04-28-2020 End: 04-29-2020 Patient encounter [...] Plasma SHERRY CROWE Start: 02-29-2024 Lipid panel SHERRY Sinha Start: 02-29-2024 FOLLOW UP IN CARDIOLOGY SHERRY [...] Td Vaccines (2 - Td or Tdap) [facility] [employer] Start: 05-07-2030 DTaP/Tdap/Td Vaccines (2 - Td or Tdap) DTaP/Tdap/Td Vaccines (2 - Td or Tdap) [facility] Start: 02-27-2025 End: 02-27-2025 Patient encounter procedure 02/27/2025 9:50 AM EDT Office Visit [facility] [address] [place] [address] Evelio Brody DO [address] [place] [address] [facility] Start: 08-30-2024 End: 02-28-2025 Alanine aminotransferase [Enzymatic activity/volume] in Serum or Plasma by With P-5'-P Alanine Aminotransferase Lab Routine Mixed hyperlipidemia Expected: 08/30/2024 (Approximate), Expires: 02/28/2025 [facility] Service Area Work Phone: Comment on above: Expected: 08/30/2024 (Approximate), Expi res: 02/28/2025 Start: 08-30-2024 End: 02-28-2025 Aspartate aminotransferase [Enzymatic activity/volume] in Serum or Plasma by With P-5'-P Aspartate Aminotransferase Lab Routine Mixed hyperlipidemia Expected: 08/30/2024 (Approximate), Expires: 02/28/2025 [facility] Work Phone: Comment on above: Expected: 08/30/2024 (Approximate), Expi res: 02/28/2025 Start: 08-30-2024 End: 02-28-2025 Basic metabolic 2000 panel - Serum or Plasma Basic Metabolic Panel Lab Routine Primary hypertension Expected: 08/30/2024 (Approximate), Expires: 02/28/2025 [facility] Work Phone: Comment on above: Expected: 08/30/2024 (Approximate), Expi res: 02/28/2025 Start: 08-30-2024 End: 02-28-2025 Lipid 1996 panel - Serum or Plasma Lipid Panel Lab Routine Mixed hyperlipidemia Expected: 08/30/2024 (Approximate), Expires: 02/28/2025 [facility] Work Phone: Comment on above: Expected: 08/30/2024 (Approximate), Expi res: 02/28/2025 Start: 2024 RSV patients and/or patients aged 60+ years (1 - 1-dose 60+ series) RSV patients and/or patients aged 60+ years (1 - 1-dose 60+ series) [facility] Start: 07-16-2024 Influenza vaccination Influenza Vaccine [facility] Start: 03-20-2024 End: 03-20-2024 Patient encounter procedure 03/20/2024 11:00 AM EDT Office Visit [facility] [address] [place] [address] [facility] Start: 03-16-2024 End: 03-16-2024 Patient encounter procedure 03/16/2024 11:00 AM EDT Office Visit [facility] [address] [place] [address] [facility] Start: 03-15-2024 End: 03-15-2024 Patient encounter procedure 03/15/2024 11:00 AM EDT Office Visit [facility] [address] [place] [address] [facility] Start: 03-13-2024 End: 03-13-2024 Patient encounter procedure 03/13/2024 11:00 AM EDT Office Visit [facility] [address] [place] [address] [facility] Start: 03-09-2024 End: 03-09-2024 Patient encounter procedure 03/09/2024 11:00 AM EDT Office Visit [facility] [address] [place] [address] [facility] Start: 03-08-2024 End: 03-08-2024 Patient encounter procedure 03/08/2024 11:00 AM EDT Office Visit [facility] [address] [place] [address] [facility] Start: 03-06-2024 End: 03-06-2024 Patient encounter procedure 03/06/2024 11:00 AM EDT Office Visit [facility] [address] [place] [address] [facility] Start: 03-02-2024 End: 03-02-2024 Patient encounter procedure 03/02/2024 11:00 AM EDT Office Visit [facility] [address] [place] [address] [facility] Start: 03-01-2024 End: 03-01-2024 Patient encounter procedure 03/01/2024 11:00 AM EDT Office Visit [facility] [address] [place] [address] [facility] Start: 02-29-2024 End: 02-29-2024 Patient encounter procedure 02/29/2024 9:50 AM EDT Office Visit [facility] [address] [facility] [address] [place] [address] Evelio Brody, [address] [facility] [address] [place] [address] [facility] Start: 02-28-2024 End: 02-28-2024 Patient encounter procedure 02/28/2024 11:00 AM EDT Office Visit [facility] [address] [place] [address] [facility] Start: 02-24-2024 End: 02-24-2024 Patient encounter procedure [facility] Start: 02-23-2024 End: 02-23-2024 Patient encounter procedure [facility] Start: 02-21-2024 End: 02-21-2024 Patient encounter procedure [facility] Start: 02-17-2024 End: 02-17-2024 Patient encounter procedure [facility] Start: 02-16-2024 End: 02-16-2024 Patient encounter procedure [facility] Start: 02-14-2024 End: 02-14-2024 Patient encounter procedure 02/14/2024 11:00 AM EDT Office Visit [facility] [address] [place] [address] [facility] Start: 02-10-2024 End: 02-10-2024 Patient encounter procedure 02/10/2024 11:00 AM EDT Office Visit [facility] [address] [place] [address] [facility] Start: 02-09-2024 End: 02-09-2024 Patient encounter procedure 02/09/2024 11:00 AM EDT Office Visit [facility] [address] [place] [address] [facility] Start: 02-07-2024 End: 02-07-2024 Patient encounter procedure 02/07/2024 11:00 AM EDT Office Visit [facility] [address] [place] [address] [facility] Start: 02-03-2024 End: 02-03-2024 Patient encounter procedure 02/03/2024 11:00 AM EDT Office Visit [facility] [address] [place] [address] [facility] Start: 02-02-2024 End: 02-02-2024 Patient encounter procedure 02/02/2024 11:00 AM EDT Office Visit [facility] [address] [place] [address] [facility] Start: 01-31-2024 End: 01-31-2024 Patient encounter procedure 01/31/2024 11:00 AM EDT Office Visit [facility] [address] [place] [address] [facility] Start: 01-27-2024 End: 01-27-2024 Patient encounter procedure 01/27/2024 11:00 AM EDT Office Visit [facility] [address] [place] [address] [facility] Start: 01-26-2024 End: 01-26-2024 Patient encounter procedure 01/26/2024 11:00 AM EDT Office Visit [facility] [address] [place] [address] [facility] Start: 01-24-2024 End: 01-24-2024 Patient encounter procedure 01/24/2024 11:00 AM EDT Office Visit [facility] [address] [place] [address] [facility] Start: 01-23-2024 End: 11-24-2024 Alanine aminotransferase [Enzymatic activity/volume] in Serum or Plasma by With P-5'-P Alanine Aminotransferase Lab Routine Mixed hyperlipidemia Expected: 01/23/2024 (Approximate), Expires: 11/24/2024 [facility] Service Area Work Phone: Comment on above: Expected: 01/23/2024 (Approximate), Expi res: 11/24/2024 Start: 01-23-2024 End: 11-24-2024 Aspartate aminotransferase [Enzymatic activity/volume] in Serum or Plasma by With P-5'-P Aspartate Aminotransferase Lab Routine Mixed hyperlipidemia Expected: 01/23/2024 (Approximate), Expires: 11/24/2024 [facility] Work Phone: Comment on above: Expected: 01/23/2024 (Approximate), Expi res: 11/24/2024 Start: 01-23-2024 End: 11-24-2024 Lipid 1996 panel - Serum or Plasma Lipid Panel Lab Routine Mixed hyperlipidemia Expected: 01/23/2024 (Approximate), Expires: 11/24/2024 [facility] Work Phone: Comment on above: Expected: 01/23/2024 (Approximate), Expi res: 11/24/2024 Start: 01-21-2024 End: 01-21-2024 Patient encounter procedure 01/21/2024 6:30 AM EST Appointment [facility] [address] [place] [address] [facility] Start: 01-20-2024 End: 01-20-2024 Patient encounter procedure 01/20/2024 11:00 AM EST Office Visit [facility] [address] [place] [address] [facility] Start: 01-19-2024 End: 01-19-2024 Patient encounter procedure 01/19/2024 11:00 AM EST Office Visit [facility] [address] [place] [address] [facility] Start: 01-17-2024 End: 01-17-2024 Patient encounter procedure 01/17/2024 11:00 AM EST Office Visit [facility] [address] [place] [address] [facility] Start: 01-13-2024 End: 01-13-2024 Patient encounter procedure 01/13/2024 11:00 AM EST Office Visit [facility] [address] [place] [address] [facility] Start: 01-12-2024 End: 01-12-2024 Patient encounter procedure 01/12/2024 11:00 AM EST Office Visit [facility] [address] [place] [address] [facility] Start: 01-10-2024 End: 01-10-2024 Patient encounter procedure 01/10/2024 11:00 AM EST Office Visit [facility] [address] [place] [address] [facility] Start: 01-06-2024 End: 01-06-2024 Patient encounter procedure 01/06/2024 11:00 AM EST Office Visit [facility] [address] [place] [address] [facility] Start: 01-05-2024 End: 01-05-2024 Patient encounter procedure 01/05/2024 11:00 AM EST Office Visit [facility] [address] [place] [address] [facility] Start: 01-03-2024 End: 01-03-2024 Patient encounter procedure 01/03/2024 11:00 AM EST Office Visit [facility] [address] [place] [address] [facility] Start: 12-30-2023 End: 12-30-2023 Patient encounter procedure 12/30/2023 11:00 AM EST Office Visit [facility] [address] [place] [address] [facility] Start: 12-29-2023 End: 12-29-2023 Patient encounter procedure 12/29/2023 11:00 AM EST Office Visit [facility] [address] [place] [address] [facility] Start: 12-27-2023 End: 12-27-2023 Patient encounter procedure 12/27/2023 11:00 AM EST Office Visit [facility] [address] [place] [address] [facility] Start: 12-23-2023 End: 12-23-2023 Patient encounter procedure 12/23/2023 11:00 AM EST Office Visit [facility] [address] [place] [address] [facility] Start: 12-22-2023 End: 12-22-2023 Patient encounter procedure 12/22/2023 11:00 AM EST Office Visit [facility] [address] [place] [address] [facility] Start: 10-15-2023 [facility] Start: 10-14-2023 Referral to cardiac rehabilitation program [facility] Start: 10-13-2023 Hospital admission [facility] Start: 07-16-2023 COVID-19 Vaccine () COVID-19 Vaccine () [facility] Start: 07-16-2023 COVID-19 Vaccine ( season) COVID-19 Vaccine ( season) [facility] Start: 06-02-2022 FUV, Provider: Evelio Ragsdale, Status: Pen, Time: 10:10 AM FUV, Provider: Evelio Ragsdale, Status: Pen, Time: 10:10 AM [place] [address] DO Work Phone: Start: 05-18-2021 COVID-19 Vaccine (4 - Pfizer series) COVID-19 Vaccine (4 - Pfizer series) [facility] Start: 2014 Administration of varicella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 [address] [facility], [address] [address] Evelio Brody DO [address], [address] [address] Referral ID Status Reason Start Date Expiration Date V isits Requested Visits Authorized [id number] Authorized 02/29/2024 02/28/2025 1 1 [facility] Work Phone: Summary Purpose Family History No Family History Records FoundUnknown Family Member Name Dates Details Family history of cerebrovas cular accident (CVA): Mother(V17.1, Z82.3) Status:Active Family history of malignant neoplasm of breast: Mother(V16.3, Z80.3) Status:Active Family history of CABG: Fat er(V17.49, Z82.49) Status:Active Family history of myocardial infarction: Father(V17.3, Z82.49) Status:Active Heart problem: Father Status:Active Family history of leukemia: Father(V16.6, Z80.6) Status:Active Unknown Family Member Name Dates Details Family history of cerebrovas cular accident (CVA): Mother(V17.1, Z82.3) Status:Active Family history of malignant neoplasm of breast: Mother(V16.3, Z80.3) Status:Active Family history of CABG: Fat er(V17.49, Z82.49) Status:Active Family history of myocardial [...] and content) DATE CREATED AUTHOR 08/28/2020 [facility] DATE CREATED AUTHOR AUTHOR'S ORGANIZ ATION 09/20/2021 [facility] DATE CREATED AUTHOR AUTHOR'S ORGANIZ ATION 11/12/2023 [facility] DATE CREATED AUTHOR AUTHOR'S ORGANIZ ATION 03/01/2024 [facility] DATE CREATED AUTHOR AUTHOR'S ORGANIZ ATION 04/16/2024 [facility] Care Teams (unrecognized sec tion and content) Team Status: Active Member Role Status Dates PHYSICIAN NO FAMILY Primary Care Provider Active Team Status: Inactive Member Role Status Dates PHYSICIAN NO FAMILY Primary Care Provider Active Shannan Munguia APRN Attending Provider Active Team Status: Inactive Member Role Status Dates PHYSICIAN NO FAMILY Primary Care Provider Active Vasquez Mckinley MD Admit Provider, Attending Provi prashant Active Front Desk Lead Relationship Specialty Start Date End Date No Pcp, [place] [address] PCP - General Family Medicine 12/14/23 Front Desk Lead Relationship Specialty Start Date End Date No Pcp, [place] [address] PCP - General Family Medicine 12/14/23 Front Desk Lead Relationship Specialty Start Date End Date No Pcp, [place] [address] PCP - General Family Medicine 12/14/23 Front Desk Lead Relationship Specialty Start Date End Date No Pcp, [place] [address] PCP - General Family Medicine 12/14/23 Front Desk Lead Relationship Specialty Start Date End Date No Pcp, [place] [address] PCP - General Family Medicine 12/14/23 Front Desk Lead Relationship Specialty Start Date End Date No Pcp, [place] [address] PCP - General Family Medicine 12/14/23 Front Desk Lead Relationship Specialty Start Date End Date No Pcp, [place] [address] PCP - General Family Medicine 12/14/23 Front Desk Lead Relationship Specialty Start Date End Date No Pcp, [place] [address] PCP - General Family Medicine 12/14/23 Front Desk Lead Relationship Specialty Start Date End Date No Pcp, [place] [address] PCP - General Family Medicine 12/14/23 Front Desk Lead Relationship Specialty Start Date End Date No Pcp, [place] [address] PCP - General Family Medicine 12/14/23 Front Desk Lead Relationship Specialty Start Date End Date No Pcp, [place] [address] PCP - General Family Medicine 12/14/23 Front Desk Lead Relationship Specialty Start Date End Date No Pcp, [place] [address] PCP - General Family Medicine 12/14/23 Front Desk Lead Relationship Specialty Start Date End Date No Pcp, No Pcp [place] [address] PCP - General Family Medicine 12/14/23 Front Desk Lead Relationship Specialty Start Date End Date No Pcp, [place] [address] PCP - General Family Medicine 12/14/23 Front Desk Lead Relationship Specialty Start Date End Date No Pcp, [place] [address] PCP - General Family Medicine 12/14/23 Front Desk Lead Relationship Specialty Start Date End Date No Pcp, [place] [address] PCP - General Family Medicine 12/14/23 Front Desk Lead Relationship Specialty Start Date End Date No Pcp, [place] [address] PCP - General Family Medicine 12/14/23 Goals [...] section and content) Reason Comments [place] [facility] [place] Reason Comments Follow-up 3 month Specialty Diagnoses / Procedures Referred By Contac t Referred To Contact Cardiology Diagnoses Coronary artery disease involving 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 [employer] provides no warranty or guarantee of the accuracy or completeness of information in this document.
== END 2024-10-31 07:35 | disposition home or self-care (01) ==
LOC: CT 07:34
PROVIDERS: PCP Nurse Practitioner Family; Visit Provider Nurse Practitioner Family
DX: R91.8 Other nonspecific abnormal finding of lung field (principal); F17.200 Nicotine dependence, unspecified, uncomplicated
CPT/HCPCS: 71271

== ENCOUNTER 2025-01-24 14:38 | Outpatient (OUT) | payer BC, SELFPAY ==
--- NOTE | 2025-01-24 14:50 | CT_ITS ---
The [address] [address] Patient Name: TARA SANTANA MRN: [id number] date: 1965 Sex: M Assigned Patient Location: LAB Current Patient Location: LAB Accession/Order Number: [id number] Exam Date: 01/24/2025 18:08 Report Date: 01/24/2025 18:14 At the request of: WILI VILLAVICENCIO Procedure: CT chest w con CT Chest with contrast TECHNIQUE: Axial imaging with 2-D reconstruction. 100 cc of [address] CT exam was performed using one or more the following dose reduction techniques: Automated exposure control, adjustment of the MA and/or Kv according to patient size, or use of the iterative reconstruction technique. History: Lung nodule. COMPARISON: 10/31/2024 THYROID: Unremarkable TRACHEA AND BRONCHI: Patent ESOPHAGUS: Unremarkable. HEART: Within normal limits PERICARDIAL EFFUSION: None CORONARY ARTERY CALCIFICATION: Present MEDIASTINUM: No adenopathy. No pneumoperitoneum. No mediastinal hematoma. PULMONARY ELENA: No hilar mass or adenopathy is seen. THORACIC AORTA Unremarkable LUNG NODULE 9 mm pleural-based and superior segment right lower lobe nodule adjacent to the posterior chest wall. 3 mm nodule scattered throughout the lungs. No change. No new or enlarging, nodule. LUNGS: Lungs are clear PLEURAL EFFUSION: None PNEUMOTHORAX: No pneumothorax seen. CHEST WALL: No abnormality AXILLA:Unremarkable BONY STRUCTURES Intact UPPER ABDOMEN: Images of the upper abdomen are noncontributory. CT/CT chest w con IMPRESSION: Stable bilateral lung nodules. No new or enlarging nodule. No acute cardiopulmonary disease. Impression dictated by: Eliceo Tran M.D.01/24/2025 6:14 PM Dictation Location: [employer] Electronically authenticated by: [id number] Y Date: 01/24/2025 18:14
[2025-01-24 14:56] LABS: Estimated GFR (African America >60 (>=60 mL/min/1.73m^2); Estimated GFR (Non-African Ame >60 (>=60 mL/min/1.73m^2)
--- OUTSIDE RECORDS SUMMARY | 2025-01-24 15:01 | XMS_ITS | CCD ---
Author Organization [facility] Care Team Providers Care Telephoto Installer Name Role Phone ROSA ISELA LEONG Primary [...] Attending Provider Shannan Munguia Admitting Unavailable Shannan Munugia Attending Unavailable NO FAMILY, PHYSICIAN Primary Care [...] Grayson Consulting Unavailable Unavailable Primary Care Provider Unavailjuvenal pearson MARY GRACE, EVELIO S Referring Unavailable NO PCP, NO PCP Primary Care Unavailable MARY GRACE, EVELIO S Referring Unavailable NO PCP, NO PCP Primary Care Unavailable MARY GRACE, EVELIO S Referring Unavailable NO PCP, NO PCP Primary Care Unavailable MARY GRACE, EVELIO S Referring Unavailable NO PCP, NO PCP Primary Care Unavailable MARYG RACE, EVELIO S Referring Unavailable NO PCP, NO [...] PCP, NO PCP Primary Care Unavailable SHERRY CROWE Attending Unavailable MARY GRACE, EVELIO S Referring Unavailable MARY GRACE, EVELIO S Attending Unavailable SHERRY CROWE Referring Unavailable No Pcp, No Pcp Primary Care Provider Unavailabl e Medications Current Medications Medication Drug Class(es) Dates [...] mg tablet Indications: Coronary artery disease involving [place] coronary artery of [place] heart without angina pectoris , Mixed hyperlipidemia [...] mg tablet Indications: Coronary artery disease involving [place] coronary artery of [place] heart without angina pectoris , Primary hypertension [...] [Overweight] Onset: 4 Resolved: 4 11-24-2023 Episodic Substance-related disorders (13 sources) Nicotine dependence, [...] INDEX BMI 27.0-27.9 ADULT] Onset: 08-27-2020 Episodic Other nutritional; endocrine; and metabolic disorders (2 sources) Body mass index (BMI) 26.0-26.9, adult; Translations: [Body mass index (BMI) 26.0-26.9, adult] Onset: 02-29-2024 Episodic Residual codes; unclassified (1 source) Procedure and treatment not carried out because of patient's decision for other reasons; Translations: [PROC AND TX NOT CARRIED OUT PT [facility] RSN] Onset: 04-30-2020 Episodic Results Test Name Value Interpretation Reference Range Facility ALT No additional P-5'-P [Ca talytic activity/Vol]on 01-26-2024 ALT [Catalytic activity/Vol] 30 U/L Normal 0-40 [facility] Comment on above: Performed By: #### 1 744-2, 1920-06, 39454-8 #### [facility] ([id number]) [address] [place] [address], [address] [place] [address] Isma 01-26-2024 AST [Catalytic activity/Vol] 27 U/L Normal 0-41 [facility] Comment on above: Performed By: #### 1 744-2, 1920-06, 90365-3 #### [facility] ([id number]) [address], [address] [place] [address] Lipid 1996 panelon 4 Cholesterol [Mass/Vol] 175 mg/dL Normal 150-200 Pr [facility] Comment on above: Performed By: #### 1 744-2, 1920-06, 76682-6 #### [facility] ([id number]) [address], [address] [place] [address] Cholesterol in HDL [Mass/Vol] 38 mg/dL Low >39 [facility] Comment on above: Result Comment: HDL <40 mg/dL - High Risk HDL > or = 40mg/dL- Desirable HDL >60 mg/dL - Negative Risk Performed By: #### 1 744-2, 1920-06, 08449-1 #### [facility] ([id number]) [address], [address] [place] [address] Cholesterol in LDL [Mass/Vol] 90 mg/dL Normal <130 [facility] Comment on above: Result Comment: LDL <100 mg/dL - Desirable LDL >160 mg/dL - High Risk Performed By: #### 1 744-2, 1920-06, 30443-5 #### [facility] ([id number]) [address], [address] [place] [address] Cholesterol in VLDL [Mass/Vol] 47 mg/dL High 0-30 [facility] Comment on above: Performed By: #### 1 744-2, 1920-06, 32058-0 #### [facility] ([id number]) [address], [address] [place] [address] CHOLESTEROL:HDL 4.6 Normal 1.0-5.0 [facility] Comment on above: Performed By: #### 1 744-2, 1920-06, 99408-1 #### [facility] ([id number]) [address], [address] [place] [address] Triglyceride [Mass/Vol] 234 mg/dL High 27-150 P [facility] Comment on above: Performed By: #### 1 744-2, 1920-06, 43883-8 #### [facility] ([id number]) [address], [address] [place] [address] Basic Metabolic Panelon 12-0 Anion gap [Moles/Vol] 11.2 mmol/L Normal 6.0-15.0 [facility] Comment on above: Performed By: #### H S TROP #### [facility] [address] Calcium [Mass/Vol] 9.3 mg/dL Normal 8.6-10.3 [facility] Comment on above: Performed By: #### H S TROP #### [facility] [address] [place] [address] [place] Chloride [Moles/Vol] 107 mmol/L Normal 98-107 [facility] Comment on above: Performed By: #### H S TROP #### [facility] [address] [place] [id number] [place] CO2 [Moles/Vol] 20.6 mmol/L Low 21.0-31.0 [facility] Comment on above: Performed By: #### H S TROP #### [facility] [address] [place] [id number] [place] Creatinine [Mass/Vol] 0.80 mg/dL Normal 0.70-1.30 [facility] Comment on above: Performed By: #### H S TROP #### [facility] [address] [place] [id number] [place] Creatinine Clr Calc Pharmacy 92.95 Normal [facility] Comment on above: Result Comment: PERF ORMED BY: [place] [address] PATHOLOGIST SENIOR RESEARCH SCIENTIST JEFF LEMA M.D. Performed By: #### H S TROP #### [place] [address] [place] GFR/1.73 sq M.predicted MDRD (S/P/Bld) [Vol rate/Area] mL/min/{1.73_m2} Normal [facility] Comment on above: Performed By: #### H S TROP #### [address] Glucose [Mass/Vol] 79 mg/dL Normal 70-100 [facility] Comment on above: Result Comment: [place] Glucose Reference Range is dependent on time and content of last meal. Glucose of more than 200 mg/dL in a nonstressed, ambulatory subject supports the diagnosis of Diabetes Mellitus. ADA recommended reference range Performed By: #### H S TROP #### [address] Potassium [Moles/Vol] 3.8 mmol/L Normal 3.5-5.1 [facility] Comment on above: Performed By: #### H S TROP #### [address] Sodium [Moles/Vol] 135 mmol/L Low 136-145 [facility] Comment on above: Performed By: #### H S TROP #### [place] [address] [place] Urea nitrogen [Mass/Vol] 22 mg/dL Normal 7-25 [facility] Comment on above: Performed By: #### H S TROP #### [place] [address] [place] Calcium [Mass/volume] in Ser um or PlasmaOrdered By: Blayne Brody on 10-15-2023 Calcium [Mass/Vol] 9.3 mg/dL 8.6-10.3 [facility] Carbon dioxide, total [Moles /volume] in Serum or PlasmaOrdered By: Blayne Brody on 10-15-2023 CO2 [Moles/Vol] 20.6 mmol/L 21.0-31.0 [facility] Chloride [Moles/volume] in S renata or PlasmaOrdered By: Blayne Brody on 10-15-2023 Chloride [Moles/Vol] 107 mmol/L 98-107 [facility] Creatinine [Mass/volume] in Serum or PlasmaOrdered By: Blayne Brody on 10-15-2023 Creatinine [Mass/Vol] 0.80 mg/dL 0.70-1.30 [facility] Glucose [Mass/volume] in Ser um or PlasmaOrdered By: Blayne Brody on 10-15-2023 Glucose [Mass/Vol] 79 mg/dL 70-100 [facility] Comment on above: ADA recommended refe rence rangeRandom Glucose Reference Range is dependent on time and content of last meal. Glucose of more than 200 mg/dL in a nonstressed, ambulatory subject supports the diagnosis of Diabetes Mellitus. No Panel InformationOrdered By: Blayne Brody on 10-15-2023 Estimated GFR (CKD-EPI) > 60.0 mL/Min [facility] Creatinine Clearance (Chem 92.95 [facility] Potassium [Moles/volume] in Serum or PlasmaOrdered By: Blayne Brody on 10-15-2023 Potassium [Moles/Vol] 3.8 mmol/L 3.5-5.1 [facility] Serum or plasma anion gap de terminationOrdered By: Blayne Brody on 10-15-2023 Anion gap [Moles/Vol] 11.2 mmol/L 6.0-15.0 [facility] Sodium [Moles/volume] in Ser um or PlasmaOrdered By: Blayne Brody on 10-15-2023 Sodium [Moles/Vol] 135 mmol/L 136-145 [facility] Troponin I High Sensitivityo n 10-15-2023 Troponin I High Sensitivity 118.4 pg/mL Off scale high 0.0-20.0 [facility] Comment on above: Result Comment: Crit ical Result : Called to and read back by: IFEOMA PINZON at: 10/14/2023 23:06:19 by:EMILIANO PERFORMED BY: [place] [address] PATHOLOGIST SENIOR RESEARCH SCIENTIST JEFF LEMA M.D. Performed By: #### H S TROP #### [facility] [address] [place] [address] Urea nitrogen [Mass/volume] in Serum or PlasmaOrdered By: Blayne Brody on 10-15-2023 Urea nitrogen [Mass/Vol] 22 mg/dL 06-08 [facility] A1C with Estimated Average G richardsonn 10-14-2023 Glucose [Mass/Vol] 111 mg/dL Normal [facility] Comment on above: Result Comment: PERF ORMED BY: [place] [address] PATHOLOGIST SENIOR RESEARCH SCIENTIST JEFF LEMA M.D. Performed By: #### H S TROP #### [address] HbA1c (Bld) [Mass fraction] 5.5 % Normal 4.3-5.6 [facility] Comment on above: Result Comment: Incr eased risk for diabetes: 5.7 - 6.4 diabetes: >6.4 glycemic control for adults with diabetes: <7.0 Performed By: #### H S TROP #### [address] Activated partial thrombopla stin time (aPTT) in platelet poor plasma by coagulation aOrdered By: Vasquez Mckinley on 10-14-2023 aPTT Coag (PPP) [Time] 62.6 s 25.1-36.5 [facility] Comment on above: A hematocrit value g reater than 55% may lead to inaccurate results in coagulation testing. Patients having hematocrit values >55% require a special collection tube for coagulation studies. Please contact the laboratory at [phone] for redraw instructions. Alanine aminotransferase [En zymatic activity/volume] in Serum or PlasmaOrdered By: Vasquez Mckinley on 10-14-2023 ALT [Catalytic activity/Vol] 28 U/L [facility] Albumin [Mass/volume] in Ser um or Plasma by Bromocresol green (BCG) dye binding methoOrdered By: Vasquez Elizabethr on 10-14-2023 Albumin BCG dye [Mass/Vol] 4.2 g/dL 3.5-5.7 [facility] Alkaline phosphatase [Enzyma tic activity/volume] in Serum or PlasmaOrdered By: Obdeneen Osunaomar on 10-14-2023 ALP [Catalytic activity/Vol] 83 U/L 34-104 [facility] Aspartate aminotransferase [ Enzymatic activity/volume] in Serum or PlasmaOrdered By: Obdeneen Osunaomar on 10-14-2023 AST [Catalytic activity/Vol] 23 U/L 13-39 [facility] B-Type Natriuretic Peptideon 10-14-2023 Natriuretic peptide B (Bld) [Mass/Vol] 51.0 pg/mL Normal 5-100 [facility] Comment on above: Result Comment: PERF ORMED BY: [place] [address] PATHOLOGIST SENIOR RESEARCH SCIENTIST JEFF LEMA M.D. Performed By: #### H S TROP #### [address] Basophils Auto (Bld) [#/Vol] Ordered By: Vasquez Elizabethr on 10-14-2023 Basophils (Bld) [#/Vol] 0.1 10*3/uL 0.0-0.2 [facility] Basophils/100 WBC Auto (Bld) Ordered By: deneen Elizabethr on 10-14-2023 Basophils/100 WBC (Bld) 1.1 % . [facility] Bilirubin.total [Mass/volume ] in Serum or PlasmaOrdered By: tessy Enrriqueomar on 10-14-2023 Bilirubin [Mass/Vol] 0.8 mg/dL 0.3-1.0 [facility] Cholesterol [Mass/volume] in Serum or PlasmaOrdered By: tessy Enrriqueomar on 10-14-2023 Cholesterol [Mass/Vol] 279 mg/dL 140-200 [facility] Comment on above: Chol less than 200 m g/dl low riskChol 201-239 mg/dl borderline riskChol 240 mg/dl and greater high risk Cholesterol in LDL Calc [Mas s/Vol]Ordered By: Obaydah Daromar on 10-14-2023 Cholesterol in LDL [Mass/Vol] 195 mg/dL 0-100 [facility] Comment on above: LDL ATP III CLASSIFI CATIONLDL less than 100 mg/dL OptimalLDL 100-129 mg/dL Near or above optimalLDL 130-159 mg/dL Borderline highLDL 160-189 mg/dL HighLDL greater than 189 mg/dL Very high Cholesterol in VLDL Calc [Ma ss/Vol]Ordered By: Obaydah Daromar on 10-14-2023 Cholesterol in VLDL [Mass/Vol] 50 mg/dL [facility] Complete Blood Count Auto Di ffon 10-14-2023 Basophils (Bld) [#/Vol] 0.1 10*3/uL Normal 0.0-0.2 [facility] Comment on above: Result Comment: PERF ORMED BY: [place] [address] PATHOLOGIST SENIOR RESEARCH SCIENTIST JEFF LEMA M.D. Performed By: #### L IPID, CMP, A1C WTH eA, CBC, MG #### [facility] [address] [place] [address] [place] Basophils/100 WBC (Bld) 1.1 % Normal . [facility] Comment on above: Performed By: #### L IPID, CMP, A1C WTH eA, CBC, MG #### [facility] [address] [place] [address] [place] Eosinophils (Bld) [#/Vol] 0.1 10*3/uL Normal 0.0-0.45 [facility] Comment on above: Performed By: #### L IPID, CMP, A1C WTH eA, CBC, MG #### [facility] [address] [place] [address] [place] Eosinophils/100 WBC (Bld) 1.5 % Normal . [facility] Comment on above: Performed By: #### L IPID, CMP, A1C WTH eA, CBC, MG #### [facility] [address] [place] [address] [place] Erythrocyte distribution width (RBC) [Ratio] 13.7 % Normal 12.0-14.8 [facility] Comment on above: Performed By: #### L IPID, CMP, A1C WTH eA, CBC, MG #### [address] Hematocrit (Bld) [Volume fraction] 48.4 % Normal 38.8-50.0 [facility] Comment on above: Performed By: #### L IPID, CMP, A1C WTH eA, CBC, MG #### [address] Hemoglobin (Bld) [Mass/Vol] 16.6 g/dL Normal 13.0-17.0 [facility] Comment on above: Performed By: #### L IPID, CMP, A1C WTH eA, CBC, MG #### [address] Lymphocytes (Bld) [#/Vol] 2.9 10*3/uL Normal 1.00-4.8 [facility] Comment on above: Performed By: #### L IPID, CMP, A1C WTH eA, CBC, MG #### [address] Lymphocytes/100 WBC (Bld) 33.5 % Normal . [facility] Comment on above: Performed By: #### L IPID, CMP, A1C WTH eA, CBC, MG #### [address] MCH (RBC) [Entitic mass] 31.7 pg Normal 27.5-35.2 [facility] Comment on above: Performed By: #### L IPID, CMP, A1C WTH eA, CBC, MG #### [address] MCV (RBC) [Entitic vol] 92.6 fL Normal 83.5-101 [facility] Comment on above: Performed By: #### L IPID, CMP, A1C WTH eA, CBC, MG #### [address] Mean Corpuscular HGB Conc 34.2 g/dL Normal 32.5-35.6 [facility] Comment on above: Performed By: #### L IPID, CMP, A1C WTH eA, CBC, MG #### [facility] [address] [place] [address] [place] Monocytes (Bld) [#/Vol] 0.6 10*3/uL Normal 0.0-0.8 [facility] Comment on above: Performed By: #### L IPID, CMP, A1C WTH eA, CBC, MG #### [facility] [address] [place] [address] [place] Monocytes/100 WBC (Bld) 7.1 % Normal . [facility] Comment on above: Performed By: #### L IPID, CMP, A1C WTH eA, CBC, MG #### [facility] [address] [place] [address] Neutrophils (Bld) [#/Vol] 5.0 10*3/uL Normal 1.8-7.7 [facility] Comment on above: Performed By: #### L IPID, CMP, A1C WTH eA, CBC, MG #### [facility] [address] [place] [address] [place] Neutrophils/100 WBC (Bld) 56.8 % Normal . [facility] Comment on above: Performed By: #### L IPID, CMP, A1C WTH eA, CBC, MG #### [facility] [address] [place] [address] [place] NRBC% 0.2 /100{WBC} Normal 0-0.5 [facility] Comment on above: Performed By: #### L IPID, CMP, A1C WTH eA, CBC, MG #### [facility] [address] [place] [address] [place] Platelet mean volume (Bld) [Entitic vol] 8.9 fL Normal 6.6-10.1 [facility] Comment on above: Performed By: #### L IPID, CMP, A1C WTH eA, CBC, MG #### [facility] [address] [place] [address] [place] Platelets (Bld) [#/Vol] 223 10*3/uL Normal 150-450 [facility] Comment on above: Performed By: #### L IPID, CMP, A1C WTH eA, CBC, MG #### [facility] [address] [place] [address] RBC (Bld) [#/Vol] 5.22 10*6/uL Normal 3.90-5.60 [facility] Comment on above: Performed By: #### L IPID, CMP, A1C WTH eA, CBC, MG #### [facility] [address] [place] [address] WBC (Bld) [#/Vol] 8.8 10*3/uL Normal 4.1-10.5 [facility] Comment on above: Performed By: #### L IPID, CMP, A1C WTH eA, CBC, MG #### [facility] [address] [place] [address] Comprehensive Metabolic Pane tere 10-14-2023 Albumin [Mass/Vol] 4.2 g/dL Normal 3.5-5.7 [facility] Comment on above: Performed By: #### L IPID, CMP, A1C WTH eA, CBC, MG #### [address] Albumin/Globulin [Mass ratio] 1.5 {ratio} Normal [facility] Comment on above: Performed By: #### L IPID, CMP, A1C WTH eA, CBC, MG #### [facility] [address] [place] [address] ALP [Catalytic activity/Vol] 83 U/L Normal 34-104 [facility] Comment on above: Performed By: #### L IPID, CMP, A1C WTH eA, CBC, MG #### [facility] [address] [place] [address] ALT [Catalytic activity/Vol] 28 U/L Normal 7-52 [facility] Comment on above: Performed By: #### L IPID, CMP, A1C WTH eA, CBC, MG #### [facility] [address] [place] [address] Anion gap [Moles/Vol] 10.8 mmol/L Normal 6.0-15.0 [facility] Comment on above: Performed By: #### L IPID, CMP, A1C WTH eA, CBC, MG #### [facility] [address] [place] [address] AST [Catalytic activity/Vol] 23 U/L Normal 13-39 [facility] Comment on above: Performed By: #### L IPID, CMP, A1C WTH eA, CBC, MG #### [facility] [address] [place] [address] Bilirubin [Mass/Vol] 0.8 mg/dL Normal 0.3-1.0 [facility] Comment on above: Performed By: #### L IPID, CMP, A1C WTH eA, CBC, MG #### [facility] [address] [place] [address] Calcium [Mass/Vol] 9.4 mg/dL Normal 8.6-10.3 [facility] Comment on above: Performed By: #### L IPID, CMP, A1C WTH eA, CBC, MG #### [facility] [address] [place] [address] Chloride [Moles/Vol] 106 mmol/L Normal 98-107 [facility] Comment on above: Performed By: #### L IPID, CMP, A1C WTH eA, CBC, MG #### [facility] [address] [place] [address] CO2 [Moles/Vol] 23.1 mmol/L Normal 21.0-31.0 [facility] Comment on above: Performed By: #### L IPID, CMP, A1C WTH eA, CBC, MG #### [facility] [address] [place] [address] [place] Creatinine [Mass/Vol] 0.73 mg/dL Normal 0.70-1.30 [facility] Comment on above: Performed By: #### L IPID, CMP, A1C WTH eA, CBC, MG #### [place] [address] [place] Creatinine Clr Calc Pharmacy 101.87 [facility] Comment on above: Performed By: #### L IPID, CMP, A1C WTH eA, CBC, MG #### [facility] [address] [place] [address] [place] GFR/1.73 sq M.predicted MDRD (S/P/Bld) [Vol rate/Area] mL/min/{1.73_m2} [facility] Comment on above: Performed By: #### L IPID, CMP, A1C WTH eA, CBC, MG #### [facility] [address] Globulin (S) [Mass/Vol] 2.8 g/dL Normal [facility] Comment on above: Performed By: #### L IPID, CMP, A1C WTH eA, CBC, MG #### [facility] [address] Glucose [Mass/Vol] 81 mg/dL Normal 70-100 [facility] Comment on above: Result Comment: [facility] Glucose Reference Range is dependent on time and content of last meal. Glucose of more than 200 mg/dL in a nonstressed, ambulatory subject supports the diagnosis of Diabetes Mellitus. ADA recommended reference range Performed By: #### L IPID, CMP, A1C WTH eA, CBC, MG #### [facility] [address] [place] [address] [place] Potassium [Moles/Vol] 3.9 mmol/L Normal 3.5-5.1 [facility] Comment on above: Performed By: #### L IPID, CMP, A1C WTH eA, CBC, MG #### [facility] [address] [place] [address] [place] Protein [Mass/Vol] 7.0 g/dL Normal 6.4-8.9 [facility] Comment on above: Performed By: #### L IPID, CMP, A1C WTH eA, CBC, MG #### [facility] [address] [place] [address] [place] Sodium [Moles/Vol] 136 mmol/L Normal 136-145 [facility] Comment on above: Performed By: #### L IPID, CMP, A1C WTH eA, CBC, MG #### [facility] [address] [place] [address] [place] Urea nitrogen [Mass/Vol] 20 mg/dL Normal 7-25 [facility] Comment on above: Performed By: #### L IPID, CMP, A1C WTH eA, CBC, MG #### [facility] [address] [place] [address] [place] Eosinophils Auto (Bld) [#/Vo l]Ordered By: Objeffrydashelly Osunaomar on 10-14-2023 Eosinophils (Bld) [#/Vol] 0.1 10*3/uL 0.0-0.45 [facility] Eosinophils/100 WBC Auto (Bl d)Ordered By: Objeffrydah Enrriqueomar on 10-14-2023 Eosinophils/100 WBC (Bld) 1.5 % . [facility] Erythrocyte distribution wid th Auto (RBC) [Ratio]Ordered By: Obdeneen Osunaomar on 10-14-2023 Erythrocyte distribution width (RBC) [Ratio] 13.7 % 12.0-14.8 [facility] Globulin Calc (S) [Mass/Vol] Ordered By: Objeffrydashelly Osunaomar on 10-14-2023 Globulin (S) [Mass/Vol] 2.8 g/dL [facility] Glucose mean value [Mass/vol ume] in Blood Estimated from glycated hemoglobinOrdered By: Vasquez Osunaomar on 10-14-2023 Average glucose Estimated from glycated hemoglobin (Bld) [Mass/Vol] 111 mg/dL [facility] Hematocrit Auto (Bld) [Volum e fraction]Ordered By: Objeffrydashelly Osunaomar on 10-14-2023 Hematocrit (Bld) [Volume fraction] 48.4 % 38.8-50.0 [facility] Hemoglobin A1c percentageOrd ered By: Objeffrydashelly Osunaomar on 10-14-2023 HbA1c (Bld) [Mass fraction] 5.5 % 4.3-5.6 [facility] Comment on above: Increased risk for d iabetes: 5.7 - 6.4diabetes: >6.4glycemic control for adults with diabetes: <7.0 Hemoglobin [Mass/volume] in BloodOrdered By: Vasquez Mckinley on 10-14-2023 Hemoglobin (Bld) [Mass/Vol] 16.6 g/dL 13.0-17.0 [facility] Leukocytes [#/volume] correc sean for nucleated erythrocytes in Blood by Automated counOrdered By: Vasquez Mckinley on 10-14-2023 WBC corrected for nucl RBC Auto (Bld) [#/Vol] 8.8 10*3/uL 4.1-10.5 [facility] Lipid Panelon 10-14-2023 Cholesterol [Mass/Vol] 279 mg/dL High 140-200 [facility] Comment on above: Result Comment: Chol less than 200 mg/dl low risk Chol 201-239 mg/dl borderline risk Chol 240 mg/dl and greater high risk Performed By: #### H S TROP #### [facility] [address] [place] [address] [place] Cholesterol in HDL [Mass/Vol] 33 mg/dL Normal 23-92 [facility] Comment on above: Result Comment: HDL CHOL ATP-III CLASSIFICATION Cardiovascular Risk HDL > or equal to 60 mg/dL LOW HDL < 40 mg/dL HIGH Performed By: #### H S TROP #### [facility] [address] Cholesterol.total/Cynthia sterol in HDL [Mass ratio] 8.5 {ratio} Normal <5.0 [facility] Comment on above: Result Comment: PERF ORMED BY: [place] [address] PATHOLOGIST SENIOR RESEARCH SCIENTIST JEFF LEMA M.D. Performed By: #### H S TROP #### [facility] [address] [place] [address] [place] LDL Cholesterol,Calculated 195 mg/dL High 0-100 [facility] Comment on above: Result Comment: LDL ATP III CLASSIFICATION LDL less than 100 mg/dL Optimal LDL 100-129 mg/dL Near or above optimal LDL 130-159 mg/dL Borderline high LDL 160-189 mg/dL High LDL greater than 189 mg/dL Very high Performed By: #### H S TROP #### [facility] [address] Triglyceride w/Reflex 253 mg/dL High 0-149 [facility] Comment on above: Result Comment: TRIG ATP III CLASSIFICATION TRIG less than 150 mg/dL Normal TRIG 150-199 mg/dL Borderline high TRIG 200-500 mg/dL High TRIG greater than 500 mg/dL Very high Standard traceable to the [facility] Disease Conrtrol and Prevention (CDC) test method. Performed By: #### H S TROP #### [facility] [address] VLDL CHOLESTEROL 50 mg/dL Normal [facility] Comment on above: Performed By: #### H S TROP #### [facility] [address] Lymphocytes Auto (Bld) [#/Vo l]Ordered By: Obaydah Daromar on 10-14-2023 Lymphocytes (Bld) [#/Vol] 2.9 10*3/uL 1.00-4.8 [facility] Lymphocytes/100 WBC Auto (Bl d)Ordered By: Obaydah Daromar on 10-14-2023 Lymphocytes/100 WBC (Bld) 33.5 % . [facility] MCH Auto (RBC) [Entitic mass ]Ordered By: Objeffrydah Daromar on 10-14-2023 MCH (RBC) [Entitic mass] 31.7 pg 27.5-35.2 [facility] MCHC Auto (RBC) [Mass/Vol]Or dered By: Obaydah Daromar on 10-14-2023 MCHC (RBC) [Mass/Vol] 34.2 g/dL 32.5-35.6 [facility] MCV Auto (RBC) [Entitic vol] Ordered By: Obaydah Daromar on 10-14-2023 MCV (RBC) [Entitic vol] 92.6 fL 83.5-101 [facility] Magnesiumon 10-14-2023 Magnesium [Mass/Vol] 2.6 mg/dL Normal 1.9-2.7 [facility] Comment on above: Performed By: #### L IPID, CMP, A1C WTH eA, CBC, MG #### [facility] [address] Magnesium [Mass/volume] in S renata or PlasmaOrdered By: Obdeneen Osunaomar on 10-14-2023 Magnesium [Mass/Vol] 2.6 mg/dL 1.9-2.7 [facility] Monocytes Auto (Bld) [#/Vol] Ordered By: Objeffrydah Daromar on 10-14-2023 Monocytes (Bld) [#/Vol] 0.6 10*3/uL 0.0-0.8 [facility] Monocytes/100 WBC Auto (Bld) Ordered By: Objeffrydah Enrriqueomar on 10-14-2023 Monocytes/100 WBC (Bld) 7.1 % . [facility] Natriuretic peptide B [Mass/ Vol]Ordered By: Objeffrydashelly Daromar on 10-14-2023 Natriuretic peptide B (Bld) [Mass/Vol] 51.0 pg/mL 5-100 [facility] Neutrophils Auto (Bld) [#/Vo l]Ordered By: Objeffrydashelly Daromar on 10-14-2023 Neutrophils (Bld) [#/Vol] 5.0 10*3/uL 1.8-7.7 [facility] Neutrophils/100 WBC Auto (Bl d)Ordered By: Objeffrydashelly Daromar on 10-14-2023 Neutrophils/100 WBC (Bld) 56.8 % . [facility] Nucleated erythrocytes [Pres ence] in Blood by Automated countOrdered By: Vasquez Elizabethr on 10-14-2023 Nucleated RBC Auto Ql (Bld) 0.2 /100{WBC} 0-0.5 [facility] Partial Thromboplastin Timeo n 10-14-2023 aPTT Coag (Bld) [Time] 62.6 s High 25.1-36.5 [facility] Comment on above: Result Comment: A he matocrit value greater than 55% may lead to inaccurate results in coagulation testing. Patients having hematocrit values >55% require a special collection tube for coagulation studies. Please contact the laboratory at [phone] for redraw instructions. PERFORMED BY: [place] [address] PATHOLOGIST SENIOR RESEARCH SCIENTIST JEFF LEMA M.D. Performed By: #### P TT #### [facility] [address] [place] [address] aPTT Coag (Bld) [Time] 46.8 s High 25.1-36.5 [facility] Comment on above: Result Comment: A he matocrit value greater than 55% may lead to inaccurate results in coagulation testing. Patients having hematocrit values >55% require a special collection tube for coagulation studies. Please contact the laboratory at [phone] for redraw instructions. PERFORMED BY: [place] [address] PATHOLOGIST SENIOR RESEARCH SCIENTIST JEFF LEMA M.D. Performed By: #### P TT #### [facility] [address] [place] [address] Platelet mean volume Auto (B ld) [Entitic vol]Ordered By: Obaydah Daromar on 10-14-2023 Platelet mean volume (Bld) [Entitic vol] 8.9 fL 6.6-10.1 [facility] Platelets Auto (Bld) [#/Vol] Ordered By: Obaydah Daromar on 10-14-2023 Platelets (Bld) [#/Vol] 223 10*3/uL 150-450 [facility] Protein [Mass/volume] in Ser um or PlasmaOrdered By: Obaydah Daromar on 10-14-2023 Protein [Mass/Vol] 7.0 g/dL 6.4-8.9 [facility] RBC Auto (Bld) [#/Vol]Ordere d By: Obaydah Daromar on 10-14-2023 RBC (Bld) [#/Vol] 5.22 10*6/uL 3.90-5.60 [facility] Serum or plasma albumin/glob ulin mass ratioOrdered By: Obaydah Daromar on 10-14-2023 Albumin/Globulin [Mass ratio] 1.5 {ratio} [facility] Serum or plasma high density lipoprotein (HDL) cholesterol measurementOrdered By: Vasquez Mckinley on 10-14-2023 Cholesterol in HDL [Mass/Vol] 33 mg/dL 23-92 [facility] Comment on above: HDL CHOL ATP-III CLA SSIFICATION Cardiovascular RiskHDL > or equal to 60 mg/dL LOWHDL < 40 mg/dL HIGH Serum or plasma total choles terol/high density lipoprotein (HDL) cholesterol mass ratOrdered By: Vasquez Mckinley on 10-14-2023 Cholesterol.total/Cynthia sterol in HDL [Mass ratio] 8.5 {ratio} <5.0 [facility] Triglyceride [Mass/volume] i n Serum or PlasmaOrdered By: Vasquez Mckinley on 10-14-2023 Triglyceride [Mass/Vol] 253 mg/dL 0-149 [facility] Comment on above: TRIG ATP III CLASSIF ICATIONTRIG less than 150 mg/dL NormalTRIG 150-199 mg/dL Borderline highTRIG 200-500 mg/dL High TRIG greater than 500 mg/dL Very highStandard traceable to the Center for Disease Conrtrol and Prevention (CDC) test method. Troponin I High Sensitivityo n 10-14-2023 Troponin I High Sensitivity 113.0 pg/mL Off scale high 0.0-20.0 [facility] Comment on above: Result Comment: Crit ical Result : Called to and read back by: IFEOMA PINZON at: 10/14/2023 21:16:19 by:[id number] PERFORMED BY: [place] [address] PATHOLOGIST SENIOR RESEARCH SCIENTIST JEFF LEMA M.D. Performed By: #### H S TROP #### [address] Troponin I High Sensitivity 109.9 pg/mL Off scale high 0.0-20.0 [facility] Comment on above: Result Comment: Crit ical Result : Called to and read back by: LEONEL CLEMENT at: 10/14/2023 19:00:01 by:[id number] PERFORMED BY: [place] [address] PATHOLOGIST SENIOR RESEARCH SCIENTIST JEFF LEMA M.D. Performed By: #### H S TROP #### [facility] [address] [place] [address] Troponin I High Sensitivity 113.4 pg/mL Off scale high 0.0-20.0 [facility] Comment on above: Result Comment: Crit ical Result : Called to and read back by: SOFIA FELIX at: 10/14/2023 17:15:58 by:JAMES PERFORMED BY: [place] [phone] PATHOLOGIST SENIOR RESEARCH SCIENTIST JEFF LEMA M.D. Performed By: #### H S TROP #### [address] Troponin I High Sensitivity 124.2 pg/mL Off scale high 0.0-20.0 [facility] Comment on above: Result Comment: Crit ical Result : Called to and read back by: SAMEERA BUSTILLO at: 10/14/2023 05:23:41 by:[id number] PERFORMED BY: [place] [phone] PATHOLOGIST SENIOR RESEARCH SCIENTIST JEFF LEMA M.D. Performed By: #### H S TROP #### [address] Troponin I.cardiac [Mass/vol ume] in Serum or Plasma by Detection limit <= 0.01 ng/Ordered By: Blayne Brody on 10-14-2023 Troponin I.cardiac DL <= 0.01 ng/mL [Mass/Vol] 118.4 pg/mL 0.0-20.0 [facility] Comment on above: Critical Result : Ca lled to and read back by: IFEOMA PINZON at: 10/14/2023 23:06:19 by:EMILIANO WBC Auto (Bld) [#/Vol]Ordere d By: Vasquez Mckinley on 10-14-2023 WBC (Bld) [#/Vol] 8.8 10*3/uL 4.1-10.5 [facility] ECG 12 lead ECGon 10-13-2023 ECG 12 lead ECG [facility] Main [address] [address] Electrocardiograph Report Signed Patient: Tara Hartmann MR#: [id number] : 1965 Acct:[id number] Age/Sex: 58 / M ADM Date: 10/13/23 Loc: Room: [address] [place] [address] Type: ADM IN Attending Dr: Vasquez Mckinley [...] previous ECGs available Confirmed by JN CRUZ [facility] ([id number]) on 10/14/2023 2:24:25 PM Referred By: DR MCKINLEY Electronically Signed By:MAGEN RAGSDALE MD [facility] Transcribed By: MUS Signed By Evelio Ragsdale MD 10/14/23 1424 Normal [facility] Troponin I High Sensitivityo n 10-13-2023 Troponin I High Sensitivity 195.5 pg/mL Off scale high 0.0-20.0 [facility] Comment on above: Result Comment: Crit ical Result : Called to and read back by: SAMEERA BUSTILLO at: 10/13/2023 20:28:58 by:DC PERFORMED BY: [place] [address] PATHOLOGIST SENIOR RESEARCH SCIENTIST JEFF LEMA M.D. Performed By: #### H S TROP #### [place] [id number] [facility] XR forearm LT 2V*on 02-24-20 XR forearm LT 2V* [facility] [place] [address] XRay Report Signed Patient: Tara Hartmann MR#: [id number] : 1965 Acct:[id number] Age/Sex: 57 / M ADM Date: 02/23/23 Loc: XDUCLY Room: Type: [facility] Attending Dr: Shannan Munguia APRN Copies [...] Holloway Jr., D.O.02/23/2023 6:12 PM Dictation Location: [facility]15 Transcribed By: [facility] 02/23/231811 Dictated By: Zhen Holloway Jr, DO 02/23/231811 Signed By: 02/23/23 181 Normal [facility] XR forearm LT 2V* [facility] [employer] Other XR forearm LT 2V* [facility] [employer] Other XR forearm LT 2V* [address] [place] [address] [employer] Other XR forearm LT 2V* [address] [employer] Other XR forearm LT 2V* XRay Report [facility] [employer] Other XR forearm LT 2V* Signed [employer] Other XR forearm LT 2V* Patient: Tara Hartmann MR#: [id number] [employer] Other XR forearm LT 2V* [address]199 [place] [employer] Other XR forearm LT 2V* : 1965 Acct:[id number] [employer] Other XR forearm LT 2V* Age/Sex: 57 / M ADM Date: 02/23/23 [employer] Other XR forearm LT 2V* Loc: XDUCLY Room: Type: [facility] CLI [employer] Other XR forearm LT 2V* Attending Dr: Shannan Munguia APRN [employer] Other XR forearm LT 2V* Copies to: Shannan Munguia APRN [employer] Other XR forearm LT 2V* Ordering Provider: Shannan Munguia APRN [employer] Other XR forearm LT 2V* Date of Service: 02/23/23 [employer] Other XR forearm LT 2V* XR/XR forearm LT 2V*: Injury [employer] Other XR forearm LT 2V* LEFT FOREARM - 2 views [employer] Other XR forearm LT 2V* CLINICAL HISTORY: Left forearm injury today. [employer] Other XR forearm LT 2V* COMPARISON: None [employer] Other XR forearm LT 2V* FINDINGS: [employer] Other XR forearm LT 2V* Soft tissue swelling is noted. No acute bony process is seen. Joint spaces appear maintained. [employer] Other XR forearm LT 2V* XR/XR forearm LT 2V* [employer] Other XR forearm LT 2V* IMPRESSION: [employer] Other XR forearm LT 2V* SOFT TISSUE SWELLING WITHOUT ACUTE BONY PROCESS. [employer] Other XR forearm LT 2V* Impression dictated by: Zhen Holloway Jr., D.OJessica02/23/2023 6:12 PM [employer] Other XR forearm LT 2V* Dictation Location: [facility]PC-15 [employer] Other XR forearm LT 2V* Transcribed By: DORY 02/23/231811 [employer] Other XR forearm LT 2V* Dictated By: Zhen Holloway Jr, 02/23/231811 [employer] Other XR forearm LT 2V* Signed By: [employer] Other XR forearm LT 2V* 02/23/231811 [employer] Other Office Visit (Cardiology)on 09-18-2021 Follow-up visit Diagnoses/Problems Assessed Coronary artery disease involving [place] coronary artery 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.01) (I25.10) HTN (hypertension) (401.9) (I10) Hyperlipemia (272.4) (E78.5) Current every day smoker (305.1) (F17.200) 1/2 ppd Overweight with body mass index (BMI) of 27 to 27.9 in adult (278.02,V85.23) (E66.3,Z68.27) Orders Coronary artery disease involving [place] coronary artery without angina pectoris Renew: Aspirin [...] Recorded: 18Sep2021 09:48AM Heart Rate66, R Radial Niskvdhq671, RUE, Sitting Etbsrdwmf18, RUE, Sitting Height5 ft 7 in Csvfft770 lb BMI Jesgogwmzd04.41 kg/m2 BSA Calculated1.91 Tobacco Usea) Yes Patient [...] Sep 18 2021 12:32PM EST (Author) Normal [employer] Tobacco Screening.on 021 Fall risk assessment c) Not medically indicated [facility] 250 DO Work Phone: Tobacco use status [facility] a) Yes [facility] 250 DO Work Phone: Tobacco Screening. Yes [facility] 250 DO Work Phone: LIPID PROFILEon 08-21-2020 CHOL-HDL RATIO NORM SEE BELOW Normal [facility] Comment on above: Result Comment: 3.3 - 4.4 LOW RISK 4.4 - 7.1 AVERAGE RISK 7.1 - 11.0 MODERATE RISK >11.0 HIGH RISK Performed By: #### C ED CHENG #### [facility] [address] [place] [address] Brooke Julsisa Cholesterol [Mass/Vol] 194 mg/dL Normal <=200 [facility] Comment on above: Performed By: #### C ED CHENG #### [facility] [address] [place] [address] Brooke Julissa Cholesterol in HDL [Mass/Vol] 29 mg/dL Normal [facility] Comment on above: Performed By: #### C ED CHENG #### [facility] [address] [place] [address] Brooke Julissa Cholesterol in HDL [Mass/Vol] > or = 60 mg/dl - LOW CARDIOVASCULAR RISK <40 mg/dl - HIGH CARDIOVASCULAR RISK Normal [facility] Comment on above: Performed By: #### C ED CHENG #### [facility] [address] [place], [place] [address] Brooke Julissa Cholesterol in LDL [Mass/Vol] 89.6 mg/dL Normal [facility] Comment on above: Performed By: #### C ED CHENG #### [facility] [address] [place], [place] [address] Brooke Julissa Cholesterol in LDL [Mass/Vol] SEE BELOW Normal [facility] Comment on above: Result Comment: <100 mg/dl OPTIMAL 100 - 129 mg/dl NEAR OR ABOVE OPTIMAL 130 - 159 mg/dl BORDERLINE HIGH 160 - 189 mg/dl HIGH >190 mg/dl VERY HIGH Performed By: #### C ED CHENG #### [facility] [address] [place] [id number] Brooke Julissa Cholesterol.total/Cynthia sterol in HDL [Mass ratio] 6.7 {ratio} Normal [facility] Comment on above: Performed By: #### C ED CHENG #### [facility] [address] [place] [id number] Brooke Julissa Triglyceride [Mass/Vol] 377 mg/dL Critically high <=150 [facility] Comment on above: Performed By: #### C ED CHENG #### [facility] [address] [place], [place] [id number] Brooke Julissa VLDL CALC 75.4 mg/dL Normal [facility] Comment on above: Performed By: #### C ED CHENG #### [facility] [address] [place] [id number] Brooke Julissa SGOTon 08-21-2020 AST [Catalytic activity/Vol] 22 U/L Normal 17-59 [facility] Comment on above: Performed By: #### C ED CHENG #### [facility] [address] [place] [id number] Brooke Julissa SGPTon 08-21-2020 ALT [Catalytic activity/Vol] 48 U/L Normal 21-72 [facility] Comment on above: Performed By: #### C ED CHENG #### [facility] [address] [place] [id number] Brooke Julissa BNPon 04-28-2020 Natriuretic peptide B (Bld) [Mass/Vol] 197.0 pg/mL Normal <=900.0 [facility] Comment on above: Performed By: #### B FLUE BLOWER, BMP, TROP #### [facility] [address] [place], [place] [id number] Brooke Julissa CBC AUTO DIFFon 04-28-2020 Basophils (Bld) [#/Vol] 0.1 103/ul Normal 0.0-0.1 [facility] Comment on above: Performed By: #### C BC #### [facility] [address] [place], [place] [id number] Brooke Julissa Basophils/100 WBC (Bld) 0.5 % Normal 0.2-2.0 [facility] Comment on above: Performed By: #### C BC #### [facility] [address] [place] [address] Brooke Julissa Eosinophils (Bld) [#/Vol] 0.1 103/ul Normal 0.0-0.7 [facility] Comment on above: Performed By: #### C BC #### [facility] [address] [place], [place] [id number] Brooke Julissa Eosinophils/100 WBC (Bld) 0.9 % Normal 0.9-7.0 [facility] Comment on above: Performed By: #### C BC #### [facility] [address] [place], [place] [phone] Brooke Julissa Erythrocyte distribution width (RBC) [Ratio] 12.9 % Normal 11.0-15.0 [facility] Comment on above: Performed By: #### C BC #### [facility] [address] [place], [place] [phone] Brooke Julissa Hematocrit (Bld) [Volume fraction] 49.4 % Normal 42.0-54.0 [facility] Comment on above: Performed By: #### C BC #### [facility] [address] [place], [place] [address] Brooke Julissa Hemoglobin (Bld) [Mass/Vol] 17.5 g/dL Normal 14.0-18.0 [facility] Comment on above: Performed By: #### C BC #### [facility] [address] [place] [id number] Brooke Julissa IG # 0.05 10e3/ul Critically high 0.00-0.03 [facility] Comment on above: Performed By: #### C BC #### [facility] [address] [place] [phone] Brooke Julissa IG % 0.4 % Normal 0.0-0.5 [facility] Comment on above: Performed By: #### C BC #### [facility] [address] [place] [phone] Brooke Julissa Lymphocytes (Bld) [#/Vol] 2.0 103/ul Normal 1.2-3.8 [facility] Comment on above: Performed By: #### C BC #### [facility] [address] [place], [place] [id number] Brooke Julissa Lymphocytes/100 WBC (Bld) 15.9 % Critically low 20.5-60.0 [facility] Comment on above: Performed By: #### C BC #### [facility] [address] [place], [place] [id number] Brooke Julissa MANUAL DIFF REQ NO Normal [facility] Comment on above: Performed By: #### C BC #### [facility] [address] [place], [place] [id number] Brooke Julissa MCH (RBC) [Entitic mass] 31.8 pg Normal 25.9-34.0 [facility] Comment on above: Performed By: #### C BC #### [facility] [address] [place], [place] [phone] Brooke Julissa MCHC (RBC) [Mass/Vol] 35.4 g/dL Critically high 29.9-35.2 [facility] Comment on above: Performed By: #### C BC #### [facility] [address] [place], [place] [phone] Brooke Julissa MCV (RBC) [Entitic vol] 89.8 fL Normal 80.0-94.0 [facility] Comment on above: Performed By: #### C BC #### [facility] [address] [place], [place] [address] Brooke Julissa Monocytes (Bld) [#/Vol] 0.7 103/ul Normal 0.3-0.8 [facility] Comment on above: Performed By: #### C BC #### [facility] [address] [place], [place] [address] Brooke Julissa Monocytes/100 WBC (Bld) 5.7 % Normal 1.7-12.0 [facility] Comment on above: Performed By: #### C BC #### [facility] [address] [place] [address] Brooke Julissa Neutrophils (Bld) [#/Vol] 9.8 103/ul Critically high 1.4-6.5 [facility] Comment on above: Performed By: #### C BC #### [facility] [address] [place] [address] Brooke Julissa Neutrophils/100 WBC (Bld) 76.6 % Critically high 43.0-75.0 [facility] Comment on above: Performed By: #### C BC #### [facility] [address] [place] [address] Brooke Julissa Platelet mean volume (Bld) [Entitic vol] 11.0 fL Normal 9.5-13.5 [facility] Comment on above: Performed By: #### C BC #### [facility] [address] [place] [address] Brooke Julissa Platelets (Bld) [#/Vol] 237 103/ul Normal 150-450 [facility] Comment on above: Performed By: #### C BC #### [facility] [address] [place] [address] Brooke Julissa RBC (Bld) [#/Vol] 5.50 106/ul Normal 4.70-6.10 [facility] Comment on above: Performed By: #### C BC #### [facility] [address] [place], [place] [address] Brooke Julissa WBC (Bld) [#/Vol] 12.8 103/ul Critically high 4.0-11.0 [facility] Comment on above: Performed By: #### C BC #### [facility] [address] [place] [address] Brooke Julissa D-DIMERon 04-28-2020 D-DIMER COMMENTS SEE BELOW Normal [facility] Comment on above: Result Comment: Incr [...] By: #### D DIM, PTT, PT #### [facility] [address] [place] [address] Brooke Julissa Fibrin D-dimer FEU IA (Bld) [Mass/Vol] 0.20 ug/mL Normal 0.19-0.50 [facility] Comment on above: Performed By: #### D DIM, PTT, PT #### [facility] [address] [place], [place] [phone] Brookecheyenne Teeen PROF CHEM 8 (BAS METB)on Anion gap [Moles/Vol] 14.9 mmol/L Normal [facility] Comment on above: Performed By: #### C ED CHENG #### [facility] [address] [place], [place] [phone] Brooke Julissa Calcium [Mass/Vol] 9.0 mg/dL Normal 8.4-10.2 [facility] Comment on above: Performed By: #### C ED CHENG #### [facility] [address] [place], [place] [phone] Brooke Julissa Chloride [Moles/Vol] 103 mmol/L Normal 98-107 [facility] Comment on above: Performed By: #### C PROSPER CMADM #### [facility] [address] [place], [place] [address] Brooke Julissa CO2 [Moles/Vol] 23.8 mmol/L Normal 22.0-30.0 [facility] Comment on above: Performed By: #### C PROSPER, CMADM #### [facility] [address] [place] [address] Brooke Julissa Creatinine [Mass/Vol] 1.08 mg/dL Normal 0.66-1.25 [facility] Comment on above: Performed By: #### C PROSPER, CMADM #### [facility] [address] [place] [phone] Brooke Julissa EGFR-AF [place] >60 Normal >=60 [facility] Comment on above: Performed By: #### C PROSPER, CMADM #### [facility] [address] [place] [address] Brooke Julissa EGFR-NON AF [place] >60 Normal >=60 [facility] Comment on above: Performed By: #### C PROSPER, CMADM #### [facility] [address] [place] [address] Brooke Julissa Glucose [Mass/Vol] 120 mg/dL Critically high 74-106 [facility] Comment on above: Performed By: #### C PROSPER, CMADM #### [facility] [address] [place] [address] Brooke Julissa Potassium [Moles/Vol] 3.7 mmol/L Normal 3.4-5.0 [facility] Comment on above: Performed By: #### C PROSPER, CMADM #### [facility] [address] [place] [address] Brooke Julissa Sodium [Moles/Vol] 138 mmol/L Normal 137-145 [facility] Comment on above: Performed By: #### C PROSPER, CMADM #### [facility] [address] [place] [address] Brooke Julissa Urea nitrogen [Mass/Vol] 13.0 mg/dL Normal 9.0-20.0 [facility] Comment on above: Performed By: #### C PROSPER, CMADM #### [facility] [address] [place] [address] Brooke Julissa Urea nitrogen/Creatinine [Mass ratio] 12.0 mg/mg Normal [facility] Comment on above: Performed By: #### C MP, CMADM #### [facility] [address] [place], [place] [phone] Brooke Julissa PROTIMEon 04-28-2020 INR Coag (PPP) [Relative time] 0.95 {INR} Normal [facility] Comment on above: Performed By: #### D DIM, PTT, PT #### [facility] [address] [place] [address] Brooke Julissa PT Coag (PPP) [Time] SEE BELOW Normal [facility] Comment on above: Result Comment: ALEX RED INR: 2.0 - 3.0 CONDITIONS NOT LISTED BELOW 2.5 - 3.5 FOR PROSTHETIC HEART VALVE REPLACEMENT 2.5 - 3.5 RECURRENT THROMBOSIS Performed By: #### D DIM, PTT, PT #### [facility] [address] [place] [address] Brooke Julissa PT Coag (PPP) [Time] PLEASE NOTE: NORMAL RANGE CHANGE 08-02-2014 DUE TO REAGENT LOT CHANGE [facility] Comment on above: Performed By: #### D DIM, PTT, PT #### [facility] [address] [place], [place] [phone] Brooke Julissa PT Coag (PPP) [Time] 9.9 s Normal 9.0-11.6 [facility] Comment on above: Performed By: #### D DIM, PTT, PT #### [facility] [address] [place] [address] Brookecheyenne Costa PTTon 04-28-2020 aPTT Coag (Bld) [Time] 29.1 s Normal 22.3-36.2 [facility] Comment on above: Performed By: #### D DIM, PTT, PT #### [facility] [address] [place], [place] [id number] Brooke Julissa aPTT Coag (Bld) [Time] PLEASE NOTE: NORM AL RANGE CHANGE 10-09-2015 DUE TO REAGENT LOT CHANGE [facility] Comment on above: Performed By: #### D DIM, PTT, PT #### [facility] [address] [place] [address] Brooke Costa TROPONIN - Ion 04-28-2020 Troponin I.cardiac [Mass/Vol] SEE BELOW Normal [facility] Comment on above: Result Comment: <0.0 34 ng/ml NEGATIVE 0.034-0.119 INDETERMINATE 0.120 AMI CUT OFF Performed By: #### C PROSPER, CMADM #### [facility] [address] [place] [address] Brooke Costa Troponin I.cardiac [Mass/Vol] 2.176 ng/mL Critically high <=0.034 [facility] Comment on above: Result Comment: test repeated critical value verified Performed By: #### C PROSPER, CMADM #### [facility] [address] [place] [address] Brooke Costa Troponin I.cardiac [Mass/Vol] 0.053 ng/mL Critically high <=0.034 [facility] Comment on above: Result Comment: test repeated critical value verified Performed By: #### C PROSPER, CMADM #### [facility] [address] [place] [address] Brooke Costa Troponin I.cardiac [Mass/Vol] SEE BELOW Normal [facility] Comment on above: Result Comment: <0.0 34 ng/ml NEGATIVE 0.034-0.119 INDETERMINATE 0.120 AMI CUT OFF Performed By: #### C PROSPER, CMADM #### [facility] [address] [place], [place] [id number] Brooke Costa XR CHEST 2 Von 04-28-2020 [...] GIANNA PECK Date: 2020-04-28 19:35 Normal [facility] CARDIAC FRIDA ADMITon 020 CK [Catalytic activity/Vol] 140 U/L Normal 55-170 [facility] Comment on above: Performed By: #### C ED CHENG #### [facility] [address] [place], [place] [id number] Brooke Costa CK.MB [Mass/Vol] 2.81 ng/mL Critically high <=2.37 [facility] Comment on above: Result Comment: Test repeated. Critical value verified. Performed By: #### C ED CHENG #### [facility] [address] [place], [place] [phone] Brooke Costa INR Coag (Bld) [Relative time] SEE BELOW Normal [facility] Comment on above: Result Comment: <0.0 34 ng/ml NEGATIVE 0.034-0.119 INDETERMINATE 0.120 AMI CUT OFF Performed By: #### C ED CHENG #### [facility] [address] [place] [address] Brooke Julissa NOREEN 47.0 ng/mL Normal <=121.0 [facility] Comment on above: Performed By: #### C ED CHENG #### [facility] [address] [place] [address] Brooke Julissa TROP <0.012 Normal <=0.034 [facility] Comment on above: Performed By: #### C ED CHENG #### [facility] [address] [place], [place] [id number] Brooke Julissa CBC AUTO DIFFon 04-26-2020 Basophils (Bld) [#/Vol] 0.1 103/ul Normal 0.0-0.1 [facility] Comment on above: Performed By: #### C SANDOR #### [facility] [address] [place] [address] Brooke Costa Basophils/100 WBC (Bld) 1.0 % Normal 0.2-2.0 [facility] Comment on above: Performed By: #### C SANDOR #### [facility] [address] [address] Brooke Julissa Eosinophils (Bld) [#/Vol] 0.1 103/ul Normal 0.0-0.7 [facility] Comment on above: Performed By: #### C BC #### [facility] [address] [place], [place] [id number] Brooke Julissa Eosinophils/100 WBC (Bld) 1.3 % Normal 0.9-7.0 [facility] Comment on above: Performed By: #### C BC #### [facility] [address] [place] [address] Brooke Julissa Erythrocyte distribution width (RBC) [Ratio] 13.2 % Normal 11.0-15.0 [facility] Comment on above: Performed By: #### C BC #### [facility] [address] [place] [address] Brooke Julissa Hematocrit (Bld) [Volume fraction] 49.6 % Normal 42.0-54.0 [facility] Comment on above: Performed By: #### C BC #### [facility] [address] [place], [place] [id number] Brooke Julissa Hemoglobin (Bld) [Mass/Vol] 17.3 g/dL Normal 14.0-18.0 [facility] Comment on above: Performed By: #### C BC #### [facility] [address] [place] [address] Brooke Julissa IG # 0.03 10e3/ul Normal 0.00-0.03 [facility] Comment on above: Performed By: #### C BC #### [facility] [address] [place] [address] Brooke Julissa IG % 0.3 % Normal 0.0-0.5 [facility] Comment on above: Performed By: #### C BC #### [facility] [address] [place], [place] [id number] Brooke Julissa Lymphocytes (Bld) [#/Vol] 2.5 103/ul Normal 1.2-3.8 [facility] Comment on above: Performed By: #### C BC #### [facility] [address] [place], [place] [id number] Brookecheyenne Costa Lymphocytes/100 WBC (Bld) 26.4 % Normal 20.5-60.0 [facility] Comment on above: Performed By: #### C BC #### [facility] [address] [place], [place] [id number] Brooke Costa MANUAL DIFF REQ NO Normal [facility] Comment on above: Performed By: #### C BC #### [facility] [address] [place], [place] [id number] Brookecheyenne Costa MCH (RBC) [Entitic mass] 31.7 pg Normal 25.9-34.0 [facility] Comment on above: Performed By: #### C BC #### [facility] [address] [place], [place] [id number] Brookecheyenne Costa MCHC (RBC) [Mass/Vol] 34.9 g/dL Normal 29.9-35.2 [facility] Comment on above: Performed By: #### C BC #### [facility] [address] [place], [place] [id number] Brookecheyenne Costa MCV (RBC) [Entitic vol] 90.8 fL Normal 80.0-94.0 [facility] Comment on above: Performed By: #### C BC #### [facility] [address] [place], [place] [address] Brooke Julissa Monocytes (Bld) [#/Vol] 0.8 103/ul Normal 0.3-0.8 [facility] Comment on above: Performed By: #### C BC #### [facility] [address] [place], [place] [address] Rbookecheyenne Teeen Monocytes/100 WBC (Bld) 8.3 % Normal 1.7-12.0 [facility] Comment on above: Performed By: #### C BC #### [facility] [address] [place], [place] [address] Brooke Julissa Neutrophils (Bld) [#/Vol] 5.8 103/ul Normal 1.4-6.5 [facility] Comment on above: Performed By: #### C BC #### [facility] [address] [place], [place] [address] Brooke Julissa Neutrophils/100 WBC (Bld) 62.7 % Normal 43.0-75.0 [facility] Comment on above: Performed By: #### C BC #### [facility] [address] [place], [place] [address] Brooke Julissa Platelet mean volume (Bld) [Entitic vol] 11.0 fL Normal 9.5-13.5 [facility] Comment on above: Performed By: #### C BC #### [facility] [address] [place], [place] [address] Brooke Julissa Platelets (Bld) [#/Vol] 254 103/ul Normal 150-450 [facility] Comment on above: Performed By: #### C BC #### [facility] [address] [place], [place] [address] Brooke Julissa RBC (Bld) [#/Vol] 5.46 106/ul Normal 4.70-6.10 [facility] Comment on above: Performed By: #### C BC #### [facility] [address] [place], [place] [address] Brooke Julissa WBC (Bld) [#/Vol] 9.3 103/ul Normal 4.0-11.0 [facility] Comment on above: Performed By: #### C BC #### [facility] [address] [place], [place] [address] Brooke Julissa ER URINE PROFILEon 0 Bilirubin [Mass/Vol] Negative Normal NEGATIVE [facility] Comment on above: Performed By: #### E RUR #### [facility] [address] [place], [place] [address] Brooke Julissa BLOOD Negative Normal NEGATIVE [facility] Comment on above: Performed By: #### E RUR #### [facility] [address] [place], [place] [address] Brooke Julissa Clarity (U) CLEAR Normal [facility] Comment on above: Performed By: #### E RUR #### [facility] [address] [place], [place] [address] Brooke Julissa Color (U) LT. YELLOW Normal YELLOW [facility] Comment on above: Performed By: #### E RUR #### [facility] [address] [place], [place] [address] Brooke Julissa ERUAHD A micrscopic examination will be performed if indicated. Normal [facility] Comment on above: Performed By: #### E RUR #### [facility] [address] [place], [place] [address] Brooke Julissa Glucose [Mass/Vol] Negative Normal NEGATIVE [facility] Comment on above: Performed By: #### E RUR #### [facility] [address] [place] [address] Brooke Julissa Ketones Ql (U) Negative Normal NEGATIVE [facility] Comment on above: Performed By: #### E RUR #### [facility] [address] [place] [address] Brooke Julissa Nitrite Ql (U) Negative Normal NEGATIVE [facility] Comment on above: Performed By: #### E RUR #### [facility] [address] [place] [address] Brooke Julissa pH (Bld) 6.5 Normal 5-9 [facility] Comment on above: Performed By: #### E RUR #### [facility] [address] [place] [address] Brooke Julissa Protein (U) [Mass/Vol] Negative Normal [facility] Comment on above: Performed By: #### E RUR #### [facility] [address] [place] [address] Brooke Julissa SPEC GRAVITY 1.010 Normal 1.005-<=1.0 25 [facility] Comment on above: Performed By: #### E RUR #### [facility] [address] [place], [place] [address] Brooke Julissa UR MICRO IND NOT INDICATED Normal [facility] Comment on above: Performed By: #### E RUR #### [facility] [address] [place] [address] Brooek Julissa Urobilinogen Qn (U) 1.0 EU/dl Normal [facility] Comment on above: Performed By: #### E RUR #### [facility] [address] [place], [place] [address] Brooke Julissa WBC (Bld) [#/Vol] Negative Normal NEGATIVE [facility] Comment on above: Performed By: #### E RUR #### [facility] [address] [place], [place] [address] Brooke Costa PROF 14(COMP METB)on 020 Albumin [Mass/Vol] 4.1 g/dL Normal 3.5-5.0 [facility] Comment on above: Performed By: #### C PROSPER, CMADM #### [facility] [address] [place] [address] Brookecheyenne Costa Albumin/Globulin [Mass ratio] 1.2 {ratio} Normal [facility] Comment on above: Performed By: #### C PROSPER, CMADM #### [facility] [address] [place], [place] [address] Brooke Julissa ALP [Catalytic activity/Vol] 98 U/L Normal 38-126 [facility] Comment on above: Performed By: #### C PROSPER, CMADM #### [facility] [address] [place] [address] Brooke Julissa ALT [Catalytic activity/Vol] 41 U/L Normal 21-72 [facility] Comment on above: Performed By: #### C PROSPER, CMADM #### [facility] [address] [place], [place] [address] Brooke Julissa Anion gap [Moles/Vol] 10.1 mmol/L Normal [facility] Comment on above: Performed By: #### C PROSPER, CMADM #### [facility] [address] [place], [place] [address] Brooke Julissa AST [Catalytic activity/Vol] 23 U/L Normal 17-59 [facility] Comment on above: Performed By: #### C PROSPER, CMADM #### [facility] [address] [place], [place] [address] Brooke Julissa Bilirubin Ql (U) 0.6 mg/dL Normal 0.2-1.3 [facility] Comment on above: Performed By: #### C MP, CMADM #### [facility] [address] [id number] Brooke Julissa Calcium [Mass/Vol] 9.0 mg/dL Normal 8.4-10.2 [facility] Comment on above: Performed By: #### C MP, CMADM #### [facility] [address] [id number] Brooke Julissa Chloride [Moles/Vol] 103 mmol/L Normal 98-107 [facility] Comment on above: Performed By: #### C MP, CMADM #### [facility] [address] [id number] Brooke Julissa CO2 [Moles/Vol] 28.5 mmol/L Normal 22.0-30.0 [facility] Comment on above: Performed By: #### C MP, CMADM #### [facility] [address] [place] [address] Brooke Julissa Creatinine [Mass/Vol] 1.10 mg/dL Normal 0.66-1.25 [facility] Comment on above: Performed By: #### C MP, CMADM #### [facility] [address] [place], [place] [address] Brooke Julissa EGFR-AF [place] >60 Normal >=60 [facility] Comment on above: Performed By: #### C MP, CMADM #### [facility] [address] [id number] Brooke Julissa EGFR-NON AF [place] >60 Normal >=60 [facility] Comment on above: Performed By: #### C MP, CMADM #### [facility] [address] [id number] Brooke Julissa Globulin (S) [Mass/Vol] 3.3 g/dL Normal [facility] Comment on above: Performed By: #### C MP, CMADM #### [facility] [address] [id number] Brooke Julissa Glucose [Mass/Vol] 91 mg/dL Normal 74-106 [facility] Comment on above: Performed By: #### C MP, CMADM #### [facility] [address] [place], [place] [address] Brooke Julissa Potassium [Moles/Vol] 3.6 mmol/L Normal 3.4-5.0 [facility] Comment on above: Performed By: #### C MP, CMADM #### [facility] [address] [place], [place] [address] Brooke Julissa Protein [Mass/Vol] 7.4 g/dL Normal 6.1-8.2 [facility] Comment on above: Performed By: #### C MP, CMADM #### [facility] [address] [place], [place] [address] Brooke Julissa Sodium [Moles/Vol] 138 mmol/L Normal 137-145 [facility] Comment on above: Performed By: #### C MP, CMADM #### [facility] [address] [place], [place] [address] Brooke Julissa Urea nitrogen [Mass/Vol] 14.0 mg/dL Normal 9.0-20.0 [facility] Comment on above: Performed By: #### C MP, CMADM #### [facility] [address] [place], [place] [address] Brooke Julissa Urea nitrogen/Creatinine [Mass ratio] 12.7 mg/mg Normal [facility] Comment on above: Performed By: #### C MP, CMADM #### [facility] [address] [place], [place] [address] Brooke Julissa XR CHEST 2 Von 04-26-2020 [...] by: TOMI CARRILLO Date: 2020-04-26 15:29 Normal [facility] Vital Signs Date Time Vital Sign Value Performing Clinician Facility 02-29-2024 14:02-0400 Body height 170.2 cm Evelio Brody DO Work Phone: [facility] 02-29-2024 14:02-0400 Body mass index (BMI) [Ratio] 26.85 kg/m2 Evelio Brody DO Work Phone: [facility] 02-29-2024 [id number]:020400 Body weight 77.75 kg Evelio Brody DO Work Phone: [facility] 02-29-2024 14:02-0400 Diastolic blood pressure 72 mm[Hg] Evelio Brody DO Work Phone: [facility] 02-29-2024 14:02-0400 Heart rate 68 /min Evelio Brody DO Work Phone: [facility] 02-29-2024 14:02-0400 Systolic blood pressure 122 mm[Hg] Evelio Brody DO Work Phone: [facility] 11-24-2023 11:34-0500 Diastolic blood pressure 64 mm[Hg] Sherry Crowe CLEANER[employer]ER Work Phone: [facility] 11-24-2023 11:34-0500 Systolic blood pressure 112 mm[Hg] Sherry Crowe CLE[employer]ER[employer]RECORD [employer]ODUCER Work Phone: [facility] 11-24-2023 11:13-0500 Body height 170.2 cm Sherry Crowe CLEANER[employer]RECORD [employer]ODUCER Work Phone: [facility] 11-24-2023 11:13-0500 Body mass index (BMI) [Ratio] 27.57 kg/m2 Sherry Crowe CLE[employer]ER[employer]OD[employer]ER Work Phone: [facility] 11-24-2023 11:13-0500 Body weight 79.83 kg Sherry Crowe CLE[employer]ER[employer]RECORD [employer]ODUCER Work Phone: [facility] 11-24-2023 11:13-0500 Heart rate 62 /min Sherry Crowe CLEANER[employer]RECORD [employer]ODUCER Work Phone: [facility] 10-15-2023 11:57-0500 Diastolic blood pressure 80 mm[Hg] [facility] 10-15-2023 11:57-0500 Heart rate 68 /min PHYSICIAN NO [facility] 10-15-2023 11:57-0500 Respiratory rate 18 /min PHYSICIAN NO [facility] 10-15-2023 11:57-0500 SaO2% (BldA) [Mass fraction] 97 % PHYSICIAN NO [facility] 10-15-2023 11:57-0500 Systolic blood pressure 116 mm[Hg] PHYSICIAN NO [facility] 10-15-2023 05:28-0500 Body weight 78 kg PHYSICIAN NO [facility] 10-14-2023 11:32-0500 Body temperature 97.6 [degF] PHYSICIAN NO [facility] 10-13-2023 18:31-0500 Body height 170.18 cm PHYSICIAN NO [facility] 03-09-2023 10:45-0400 Body height 170.18 cm Shannan Munguia Other [facility] [employer] Other 03-09-2023 10:45-0400 Body mass index (BMI) [Ratio] 27.91 kg/m2 Shannan Munguia Other [employer] Other 03-09-2023 10:45-0400 Body temperature 98.6 [degF] Shannan Munguia Other [employer] Other 03-09-2023 10:45-0400 Body weight 80.83 kg Shannan Munguia Other [employer] Other 03-09-2023 10:45-0400 Respiratory rate 18 /min Shannan Munguia Other [employer] Other 03-09-2023 10:45-0400 SaO2% (BldA) [Mass fraction] 99 % Shannan Munguia Other [employer] Other 02-23-2023 18:10-0400 Body height 170.18 cm Shannan Ezra Other [employer] Other 02-23-2023 18:10-0400 Body mass index (BMI) [Ratio] 27.88 kg/m2 Shannan Ezra Other [employer] Other 02-23-2023 18:10-0400 Body temperature 98 [degF] Shannan Munguia Other [employer] Other 02-23-2023 18:10-0400 Body weight 80.74 kg Shannan Munguia Other [employer] Other 02-23-2023 18:10-0400 Respiratory rate 18 /min Shannan Munguia Other [employer] Other 02-23-2023 18:10-0400 SaO2% (BldA) [Mass fraction] 95 % Shannan Munguia Other [employer] Other 09-18-2021 09:48-0400 Body height 170.18 cm Referring Provider Unknown formerly [facility] 250 DO Work Phone: 09-18-2021 09:48-0400 Body mass index (BMI) [Ratio] 27.41 kg/m2 Referring Provider Unknown formerly [facility]Chelsea 250 DO Work Phone: 09-18-2021 09:48-0400 Body surface area Derived from formula 1.91 m2 Referring Provider Unknown formerly [facility] 250 DO Work Phone: 09-18-2021 09:48-0400 Body weight 79.38 kg Referring Provider Unknown formerly [facility] 250 DO Work Phone: 09-18-2021 09:48-0400 Diastolic blood pressure 82 mm[Hg] Referring Provider Unknown formerly [facility] 250 DO Work Phone: 09-18-2021 09:48-0400 Heart rate 66 /min Referring Provider Unknown formerly [facility] 250 DO Work Phone: 09-18-2021 09:48-0400 Systolic blood pressure 122 mm[Hg] Referring Provider Unknown formerly [facility] 250 DO Work Phone: Encounters Encounter Date Encounter Type Care Provider Facility Start: 03-20-2024 End: 04-15-2024 [facility] Start: 03-16-2024 End: 04-15-2024 [facility] Start: 03-15-2024 End: 04-15-2024 [facility] Start: 03-13-2024 End: 03-15-2024 [facility] Start: 03-09-2024 End: 03-15-2024 [facility] Start: 03-08-2024 End: 03-15-2024 [facility] Start: 03-06-2024 End: 03-15-2024 [facility] Start: 03-02-2024 End: 03-15-2024 [facility] Start: 02-29-2024 End: 02-29-2024 Office outpatient visit 25 minutes Evelio Brody DO Work Phone: [facility] Comment on above: Coronary artery dise ase involving [place] coronary artery of [place] heart without angina pectoris; Primary hypertension; Mixed hyperlipidemia; BMI 26.0-26.9,adult; Current every day smoker Start: 02-29-2024 End: 03-15-2024 [facility] Start: 02-28-2024 End: 02-28-2024 [facility] Start: 02-28-2024 End: 03-15-2024 ambulatory [facility] Start: 02-24-2024 End: 02-24-2024 ambulatory EVELIO BRODY [facility] Start: 02-23-2024 End: 03-15-2024 ambulatory EVELIO BRODY [facility] Start: 02-23-2024 End: 03-15-2024 ambulatory EVELIO BRODY [facility] Start: 02-21-2024 End: 02-21-2024 ambulatory EVELIO BRODY [facility] Start: 02-21-2024 End: 03-15-2024 ambulatory EVELIO BRODY [facility] Start: 02-16-2024 End: 03-15-2024 ambulatory EVELIO BRODY [facility] Start: 02-16-2024 End: 03-15-2024 ambulatory EVELIO BRODY [facility] Start: 02-14-2024 End: 02-14-2024 ambulatory EVELIO BRODY [facility] Start: 02-14-2024 End: 03-15-2024 ambulatory EVELIO BRODY [facility] Start: 02-10-2024 End: 02-10-2024 ambulatory EVELIO BRODY [facility] Start: 02-09-2024 End: 02-09-2024 Patient encounter procedure [facility] Start: 02-09-2024 End: 02-14-2024 ambulatory EVELIO BRODY [facility] Start: 02-07-2024 End: 02-07-2024 Patient encounter procedure [facility] 1 [facility] Start: 02-07-2024 End: 02-07-2024 [facility]: 02-03-2024 End: 02-03-2024 Patient encounter procedure [facility] 1 [facility] Start: 02-03-2024 End: 02-03[facility]2024 [facility]: 02-02-2024 End: 02-02-2024 Patient encounter procedure [facility] 1 [facility] Start: 02-02-2024 End: 02-02-2024 ambulatory EVELIO Brownlee [facility] Start: 01-31-2024 End: 01-31-2024 ambulatory EVELIO Brownlee [facility] Start: 01-27-2024 End: 01-27-2024 Patient encounter procedure [facility] 1 [facility] Start: 01-27-2024 End: 01-27-2024 ambulatory EVELIO Brownlee [facility] Start: 01-26-2024 End: 01-26-2024 Patient encounter procedure [facility] Card[facility] Rehab Therapist 1 [facility] Start: 01-26-2024 End: 01-26-2024 ambulatory SHERRY CROWE [facility] Start: 01-26-2024 End: 01-27-2024 ambulatory ANDRES CLARK [facility] Start: 01-24-2024 End: 01-24-2024 Patient encounter procedure [facility] Card[facility] Rehab Therapist 1 [facility] Start: 01-24-2024 End: 01-24-2024 ambulatory EVELIO Brownlee [facility] Start: 01-20-2024 End: 01-20-2024 Patient encounter procedure [facility] Card[facility] Rehab Therapist 1 [facility] Start: 01-20-2024 End: 01-20-2024 ambulatory EVELIO Brownlee [facility] Start: 01-19-2024 End: 01-19-2024 ambulatory EVELIO Brownlee [facility] Start: 01-17-2024 End: 01-17-2024 Patient encounter procedure [facility] Cardiac Rehab Therapist 1 [facility] Start: 01-17-2024 End: 01-17-2024 ambulatory EVELIO Brownlee [facility] Start: 01-13-2024 End: 01-13-2024 Patient encounter procedure [facility] Cardiac Rehab Therapist 1 [facility] Start: 01-13-2024 End: 01-13-2024 ambulatory EVELIO BRODY [facility] Start: 01-12-2024 End: 01-12-2024 Patient encounter procedure [facility] Card[facility] Rehab Therapist 1 [facility] Start: 01-12-2024 End: 01-12-2024 [facility]: 01-10-2024 End: 01-10-2024 Patient encounter procedure Pm Cardiac Rehab Therapist 1 [facility] Start: 01-10-2024 End: 01-10-2024 [facility] Start: 01-05-2024 End: 01-05-2024 Patient encounter procedure Pm Cardiac Rehab Therapist 1 [facility] Start: 01-05-2024 End: 01-14-2024 [facility] Start: 01-03-2024 End: 01-03-2024 Patient encounter procedure [facility] Cardiac Rehab Therapist 1 [facility] Start: 01-03-2024 End: 01-03-2024 [facility] Start: 12-29-2023 End: 12-29-2023 Patient encounter procedure [facility] Cardiac Rehab Therapist 1 [facility] Start: 12-29-2023 End: 01-14-2024 [facility] Start: 12-27-2023 End: 12-27-2023 [facility] Start: 12-23-2023 End: 12-23-2023 Patient encounter procedure Pm Cardiac Rehab Therapist 1 [facility] Start: 12-23-2023 End: 12-23-2023 ambulatory EVELIO Brownlee [facility] Start: 12-22-2023 End: 12-22-2023 Patient encounter procedure Pm Cardiac Rehab Therapist 1 [facility] Start: 12-22-2023 End: 12-22-2023 ambulatory [facility] Start: 12-20-2023 End: 12-20-2023 Patient encounter procedure Pmh Cardiac Rehab Therapist 1 [facility] Start: 12-20-2023 End: 12-20-2023 ambulatory [facility] Start: 12-14-2023 End: 12-14-2023 ambulatory [facility] Start: 11-24-2023 End: 11-24-2023 Office outpatient visit 25 minutes Sherry Zimmerman [place] [employer] Work Phone: [facility] Comment on above: Current every day sm oker (Primary Dx); NSTEMI (non-ST elevated myocardial infarction) ([facility]/HCC); Coronary artery disease involving [place] coronary artery of [place] heart without angina pectoris; Primary hypertension; Mixed hyperlipidemia; BMI 27.0-27.9,adult Start: 11-24-2023 End: 11-24-2023 ambulatory [facility] Start: 10-13-2023 End: 10-15-2023 Evaluation and management of inpatient Michaela Mischler Facility:[facility] Start: 10-13-2023 End: 10-15-2023 Evaluation and management of inpatient PHYSICIAN [facility] [employer] Work Phone: Start: 03-09-2023 End: 03-09-2023 ambulatory Shannan Munguia Other [employer] Other Start: 03-09-2023 Office outpatient visit 15 minutes Shannan Munguia [facility] Start: 02-23-2023 End: 02-23-2023 ambulatory Shannan Munguia Facility:[facility] Start: 02-23-2023 End: 02-23-2023 Patient encounter procedure PHYSICIAN NO [facility] Work Phone: Start: 02-23-2023 End: 02-23-[address] [facility] Work Phone: Start: 02-23-2023 Office outpatient visit 15 minutes Shannan Munguia [facility] Start: 09-18-2021 Office outpatient visit 15 minutes Referring Provider Unknown formerly [facility] [address] [place] Work Phone: Start: 09-18-2021 Patient encounter procedure Referring Provider Unknown formerly [facility] [address] DO Work Phone: Start: 08-21-2020 End: 08-22-2020 Patient encounter procedure SHERRY QUIJANO Facility:[facility] Start: 04-28-2020 End: 04-29-2020 Patient encounter procedure HUSSAIN DIAZ Facility:[facility] Start: 04-26-2020 End: 04-26-2020 Patient encounter procedure ROSA ISELA LEONG Facility: Procedures Date Procedure Procedure Detail Performing Clinician Start: 02-29-2024 Alanine aminotransfe rase [Enzymatic activity/volume] in Serum or Plasma SHERRY CROWE Start: 02-29-2024 Aspartate aminotrans ferase [Enzymatic activity/volume] in Serum or Plasma SHERRY CROWE Start: 02-29-2024 Basic metabolic 2000 panel - Serum or Plasma SHERRY CROWE Start: 02-29-2024 Lipid panel SHERRY CASTILLO H Start: 02-29-2024 FOLLOW UP IN CARDIOLOGY SHERRY [...] Td Vaccines (2 - Td or Tdap) [facility] [employer] Start: 05-07-2030 DTaP/Tdap/Td Vaccines (2 - Td or Tdap) DTaP/Tdap/Td Vaccines (2 - Td or Tdap) [facility] Start: 02-27-2025 End: 02-27-2025 Patient encounter procedure 02/27/2025 9:50 AM EDT Office Visit [facility] [address] [facility] [address] [place] [id number] Evelio Brody DO [address] [place] [address] [facility] Start: 08-30-2024 End: 02-28-2025 Alanine aminotransferase [Enzymatic activity/volume] in Serum or Plasma by With P-5'-P Alanine Aminotransferase Lab Routine Mixed hyperlipidemia Expected: 08/30/2024 (Approximate), Expires: 02/28/2025 [facility] Service Area Work Phone: Comment on above: Expected: 08/30/2024 (Approximate), Expi res: 02/28/2025 Start: 08-30-2024 End: 02-28-2025 Aspartate aminotransferase [Enzymatic activity/volume] in Serum or Plasma by With P-5'-P Aspartate Aminotransferase Lab Routine Mixed hyperlipidemia Expected: 08/30/2024 (Approximate), Expires: 02/28/2025 [facility] Work Phone: Comment on above: Expected: 08/30/2024 (Approximate), Expi res: 02/28/2025 Start: 08-30-2024 End: 02-28-2025 Basic metabolic 2000 panel - Serum or Plasma Basic Metabolic Panel Lab Routine Primary hypertension Expected: 08/30/2024 (Approximate), Expires: 02/28/2025 [facility] Work Phone: Comment on above: Expected: 08/30/2024 (Approximate), Expi res: 02/28/2025 Start: 08-30-2024 End: 02-28-2025 Lipid 1996 panel - Serum or Plasma Lipid Panel Lab Routine Mixed hyperlipidemia Expected: 08/30/2024 (Approximate), Expires: 02/28/2025 [facility] Work Phone: Comment on above: Expected: 08/30/2024 (Approximate), Expi res: 02/28/2025 Start: 2024 RSV patients and/or patients aged 60+ years (1 - 1-dose 60+ series) RSV patients and/or patients aged 60+ years (1 - 1-dose 60+ series) [facility] Start: 07-16-2024 Influenza vaccination Influenza Vaccine [facility] Start: 03-20-2024 End: 03-20-2024 Patient encounter procedure 03/20/2024 11:00 AM EDT Office Visit [facility] [address] [place] [address] [facility] Start: 03-16-2024 End: 03-16-2024 Patient encounter procedure 03/16/2024 11:00 AM EDT Office Visit [facility] [address] [place] [address] [facility] Start: 03-15-2024 End: 03-15-2024 Patient encounter procedure 03/15/2024 11:00 AM EDT Office Visit [facility] [address] [place] [address] [facility] Start: 03-13-2024 End: 03-13-2024 Patient encounter procedure [facility] Start: 03-09-2024 End: 03-09-2024 Patient encounter procedure [facility] Start: 03-08-2024 End: 03-08-2024 Patient encounter procedure [facility] Start: 03-06-2024 End: 03-06-2024 Patient encounter procedure [facility] Start: 03-02-2024 End: 03-02-2024 Patient encounter procedure [facility] Start: 03-01-2024 End: 03-01-2024 Patient encounter procedure [facility] Start: 02-29-2024 End: 02-29-2024 Patient encounter procedure 02/29/2024 9:50 AM EDT Office Visit [facility] [address] [place] [address] Evelio Brody, [address] [place] [address] [facility] Start: 02-28-2024 End: 02-28-2024 Patient encounter procedure [facility] Start: 02-24-2024 End: 02-24-2024 Patient encounter procedure [facility] Start: 02-23-2024 End: 02-23-2024 Patient encounter procedure [facility] Start: 02-21-2024 End: 02-21-2024 Patient encounter procedure [facility] Start: 02-17-2024 End: 02-17-2024 Patient encounter procedure [facility] Start: 02-16-2024 End: 02-16-2024 Patient encounter procedure [facility] Start: 02-14-2024 End: 02-14-2024 Patient encounter procedure 02/14/2024 11:00 AM EDT Office Visit [facility] [address] [place] [address] [facility] Start: 02-10-2024 End: 02-10-2024 Patient encounter procedure 02/10/2024 11:00 AM EDT Office Visit [facility] [address] [place] [address] [facility] Start: 02-09-2024 End: 02-09-2024 Patient encounter procedure 02/09/2024 11:00 AM EDT Office Visit [facility] [address] [place] [address] [facility] Start: 02-07-2024 End: 02-07-2024 Patient encounter procedure 02/07/2024 11:00 AM EDT Office Visit [facility] [address] [place] [address] [facility] Start: 02-03-2024 End: 02-03-2024 Patient encounter procedure 02/03/2024 11:00 AM EDT Office Visit [facility] [address] [place] [address] [facility] Start: 02-02-2024 End: 02-02-2024 Patient encounter procedure 02/02/2024 11:00 AM EDT Office Visit [facility] [address] [place] [address] [facility] Start: 01-31-2024 End: 01-31-2024 Patient encounter procedure 01/31/2024 11:00 AM EDT Office Visit [facility] [address] [place] [address] [facility] Start: 01-27-2024 End: 01-27-2024 Patient encounter procedure 01/27/2024 11:00 AM EDT Office Visit [facility] [address] [place] [address] [facility] Start: 01-26-2024 End: 01-26-2024 Patient encounter procedure 01/26/2024 11:00 AM EDT Office Visit [facility] [address] [place] [address] [facility] Start: 01-24-2024 End: 01-24-2024 Patient encounter procedure 01/24/2024 11:00 AM EDT Office Visit [facility] [address] [place] [address] [facility] Start: 01-23-2024 End: 11-24-2024 Alanine aminotransferase [Enzymatic activity/volume] in Serum or Plasma by With P-5'-P Alanine Aminotransferase Lab Routine Mixed hyperlipidemia Expected: 01/23/2024 (Approximate), Expires: 11/24/2024 [facility] Service Area Work Phone: Comment on above: Expected: 01/23/2024 (Approximate), Expi res: 11/24/2024 Start: 01-23-2024 End: 11-24-2024 Aspartate aminotransferase [Enzymatic activity/volume] in Serum or Plasma by With P-5'-P Aspartate Aminotransferase Lab Routine Mixed hyperlipidemia Expected: 01/23/2024 (Approximate), Expires: 11/24/2024 [facility] Work Phone: Comment on above: Expected: 01/23/2024 (Approximate), Expi res: 11/24/2024 Start: 01-23-2024 End: 11-24-2024 Lipid 1996 panel - Serum or Plasma Lipid Panel Lab Routine Mixed hyperlipidemia Expected: 01/23/2024 (Approximate), Expires: 11/24/2024 [facility] Work Phone: Comment on above: Expected: 01/23/2024 (Approximate), Expi res: 11/24/2024 Start: 01-21-2024 End: 01-21-2024 Patient encounter procedure 01/21/2024 6:30 AM EST Appointment [facility] [address] [place] [address] [facility] Start: 01-20-2024 End: 01-20-2024 Patient encounter procedure 01/20/2024 11:00 AM EST Office Visit [facility] [address] [place] [address] [facility] Start: 01-19-2024 End: 01-19-2024 Patient encounter procedure 01/19/2024 11:00 AM EST Office Visit [facility] [address] [place] [address] [facility] Start: 01-17-2024 End: 01-17-2024 Patient encounter procedure 01/17/2024 11:00 AM EST Office Visit [facility] [address] [place] [address] [facility] Start: 01-13-2024 End: 01-13-2024 Patient encounter procedure 01/13/2024 11:00 AM EST Office Visit [facility] [address] [place] [address] [facility] Start: 01-12-2024 End: 01-12-2024 Patient encounter procedure 01/12/2024 11:00 AM EST Office Visit [facility] [address] [place] [address] [facility] Start: 01-10-2024 End: 01-10-2024 Patient encounter procedure 01/10/2024 11:00 AM EST Office Visit [facility] [address] [place] [address] [facility] Start: 01-06-2024 End: 01-06-2024 Patient encounter procedure 01/06/2024 11:00 AM EST Office Visit [facility] [address] [place] [address] [facility] Start: 01-05-2024 End: 01-05-2024 Patient encounter procedure 01/05/2024 11:00 AM EST Office Visit [facility] [address] [place] [address] [facility] Start: 01-03-2024 End: 01-03-2024 Patient encounter procedure 01/03/2024 11:00 AM EST Office Visit [facility] [address] [place] [address] [facility] Start: 12-30-2023 End: 12-30-2023 Patient encounter procedure 12/30/2023 11:00 AM EST Office Visit [facility] [address] [place] [address] [facility] Start: 12-29-2023 End: 12-29-2023 Patient encounter procedure 12/29/2023 11:00 AM EST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 [facility] DATE CREATED AUTHOR AUTHOR'S ORGANIZ ATION 09/20/2021 [employer] DATE CREATED AUTHOR AUTHOR'S ORGANIZ ATION 11/12/2023 [facility] DATE CREATED AUTHOR AUTHOR'S ORGANIZ ATION 04/16/[address] [facility] DATE CREATED AUTHOR AUTHOR'S ORGANIZ ATION 11/10/2024 [facility] [employer] Teams (unrecognized sec tion and content) Team Status: Active Member Role Status Dates PHYSICIAN NO FAMILY Primary Care Provider Active Team Status: Inactive Member Role Status Dates PHYSICIAN NO FAMILY Primary Care Provider Active Shannan Munguia APRN Attending Provider Active Team Status: Inactive Member Role Status Dates PHYSICIAN NO FAMILY Primary Care Provider Active Vasquez Mckinley MD Admit Provider, Attending Provi prashant Active Telephoto Installer Relationship Specialty Start Date End Date No Pcp, [place] [address] PCP - General Family Medicine 12/14/23 Telephoto Installer Relationship Specialty Start Date End Date No Pcp, [place] [address] PCP - General Family Medicine 12/14/23 Telephoto Installer Relationship Specialty Start Date End Date No Pcp, [place] [address] PCP - General Family Medicine 12/14/23 Telephoto Installer Relationship Specialty Start Date End Date No Pcp, [place] [address] PCP - General Family Medicine 12/14/23 Telephoto Installer Relationship Specialty Start Date End Date No Pcp, [place] [address] PCP - General Family Medicine 12/14/23 Telephoto Installer Relationship Specialty Start Date End Date No Pcp, [place] [address] PCP - General Family Medicine 12/14/23 Telephoto Installer Relationship Specialty Start Date End Date No Pcp, [place] [address] PCP - General Family Medicine 12/14/23 Telephoto Installer Relationship Specialty Start Date End Date No Pcp, [place] [address] PCP - General Family Medicine 12/14/23 Telephoto Installer Relationship Specialty Start Date End Date No Pcp, [place] [address] PCP - General Family Medicine 12/14/23 Telephoto Installer Relationship Specialty Start Date End Date No Pcp, [place] [address] PCP - General Family Medicine 12/14/23 Telephoto Installer Relationship Specialty Start Date End Date No Pcp, [place] [address] PCP - General Family Medicine 12/14/23 Telephoto Installer Relationship Specialty Start Date End Date No Pcp, [place] [address] PCP - General Family Medicine 12/14/23 Telephoto Installer Relationship Specialty Start Date End Date No Pcp, [place] [address] PCP - General Family Medicine 12/14/23 Telephoto Installer Relationship Specialty Start Date End Date No Pcp, [place] [address] PCP - General Family Medicine 12/14/23 Telephoto Installer Relationship Specialty Start Date End Date No Pcp, [place] [address] PCP - General Family Medicine 12/14/23 Telephoto Installer Relationship Specialty Start Date End Date No Pcp, [place] [address] PCP - General Family Medicine 12/14/23 Telephoto Installer Relationship Specialty Start Date End Date No Pcp, [place] [address] PCP - General Family Medicine 12/14/23 Telephoto Installer Relationship Specialty Start Date End Date No Pcp, [place] [address] PCP - General Family Medicine 12/14/23 Telephoto Installer Relationship Specialty Start Date End Date No Pcp, [place] [address] PCP - General Family Medicine 12/14/23 Telephoto Installer Relationship Specialty Start Date End Date No Pcp, [place] [address] PCP - General Family Medicine 12/14/23 Telephoto Installer Relationship Specialty Start Date End Date No Pcp, [place] [address] PCP - General Family Medicine 12/14/23 Goals [...] section and content) Reason Comments Hospital Follow-up [facility] discharge 10/15 Reason Comments Follow-up 3 month Specialty Diagnoses / Procedures Referred By Ml t Referred To Contact Cardiology Diagnoses 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 [facility] [employer] provides no warranty or guarantee of the accuracy or completeness of information in this document.
== END 2025-01-24 14:39 | disposition home or self-care (01) ==
LOC: LAB 14:38
PROVIDERS: PCP Nurse Practitioner Family; Visit Provider Nurse Practitioner Family
DX: R91.1 Solitary pulmonary nodule (principal)
CPT/HCPCS: 36415; 71260; 82565; Q9967